=== PATIENT | female | born 1985 | race Hispanic/Latino ===

== ENCOUNTER 2021-05-22 10:06 | Emergency (ER) | payer OTHER ==
--- OUTSIDE RECORDS SUMMARY | 2021-05-22 10:19 | XMS REPORT | Continuity of Care Document ---
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 [place] (VITAMIN D 23 Medical ORAL) Branch ergocalcife Yes Take by [facility] rol, 4-30 mouth. ity of vitamin D2, 19:00: [place] (VITAMIN D 23 Medical ORAL) Branch ergocalcife Yes Take by Un [facility] rol, 4-30 mouth. ity of vitamin D2, 19:00: [place] (VITAMIN D 23 Medical ORAL) Branch ergocalcife Yes Take by Un [facility] rol, 4-30 mouth. ity of vitamin D2, 19:00: [place] (VITAMIN D 23 Medical ORAL) Branch ergocalcife Yes Take by Un al[facility] rol, 4-30 mouth. ity of vitamin D2, 14:00: [place] (VITAMIN D 23 Medical ORAL) Branch diazePAM Yes 2mg 2 mg, Univers (VALIUM) 4-30 Oral, ity of tablet 2 mg 04:00: QHSPRTang Sanders as 00 Starting [facility] Branch 11/02/20 at 2300, Until Discontinu ed, Routine, Anxiety cyclobenzap Yes 5mg 5 mg, Unive rs rine 4-30 Oral, ity of (FLEXERIL) 03:52: TIJanay PERRY tablet 5 mg 00 Starting [facility] Branch 11/02/20 at 2252, Until Discontinu ed, Routine, Muscle Spasms ciprofloxac 2020- No [id number] 750mg Take 1 Univers in HCl 750 4-30 05-15 tablet by ity of mg tablet 00:00: 04:59 mouth [place] 00 :00 every 12 Medical (twelve) Branch hours for 14 days. ciprofloxac 2020- No [id number] 750mg Take 1 Univers in HCl 750 4-30 05-15 tablet by ity of mg tablet 00:00: 04:59 mouth [place] 00 :00 every 12 Medical (twelve) Branch hours for 14 days. ciprofloxac 2020- No [id number] 750mg Take 1 Univers in HCl 750 4-30 05-15 tablet by ity of mg tablet 00:00: 04:59 mouth [place] 00 :00 every 12 Medical (twelve) Branch hours for 14 days. ciprofloxac 2020- No [id number] 750mg Take 1 Univers in HCl 750 4-30 05-15 tablet by ity of mg tablet 00:00: 04:59 mouth [place] 00 :00 every 12 Medical (twelve) Branch hours for 14 days. ciprofloxac 2020- No [id number] 750mg Take 1 Univers in HCl 750 4-30 05-15 tablet by ity of mg tablet 00:00: 04:59 mouth [place] 00 :00 every 12 Medical (twelve) Branch hours for 14 days. ciprofloxac 2020- No [id number] 750mg Take 1 Univers in HCl 750 4-30 05-15 tablet by ity of mg tablet 00:00: 04:59 mouth [place] 00 :00 every 12 Medical (twelve) Branch hours for 14 days. ciprofloxac 2020- No [id number] 750mg Take 1 Univers in HCl 750 4-30 05-15 tablet by ity of mg tablet 00:00: 04:59 mouth [place] 00 :00 every 12 Medical (twelve) Branch hours for 14 days. ciprofloxac 2020- No [id number] 750mg Take 1 Univers in HCl 750 4-30 05-15 tablet by ity of mg tablet 00:00: 04:59 mouth [place] 00 :00 every 12 Medical (twelve) Branch hours for 14 days. ciprofloxac 2020- No [id number] 750mg Take 1 Univers in HCl 750 4-30 05-15 tablet by ity of mg tablet 00:00: 04:59 mouth [place] 00 :00 every 12 Medical (twelve) Branch hours for 14 days. ciprofloxac 2020- No [id number] 750mg Take 1 Univers in HCl 750 4-30 05-15 tablet by ity of mg tablet 00:00: 04:59 mouth [place] 00 :00 every 12 Medical (twelve) Branch hours for 14 days. ciprofloxac 2020- No [id number] 750mg Take 1 Univers in HCl 750 4-30 05-15 tablet by ity of mg tablet 00:00: 04:59 mouth [place] 00 :00 every 12 Medical (twelve) Branch hours for 14 days. ciprofloxac 2020- No [id number] 750mg Take 1 Univers in HCl 750 4-30 05-15 tablet by ity of mg tablet 00:00: 04:59 mouth [place] 00 :00 every 12 Medical (twelve) Branch hours for 14 days. ciprofloxac 2020- No [id number] 750mg Take 1 Univers in HCl 750 4-30 05-15 tablet by ity of mg tablet 00:00: 04:59 mouth [place] 00 :00 every 12 Medical (twelve) Branch hours for 14 days. ciprofloxac 2020- No [id number] 750mg Take 1 Univers in HCl 750 4-30 05-15 tablet by ity of mg tablet 00:00: 04:59 mouth [place] 00 :00 every 12 Medical (twelve) Branch hours for 14 days. ciprofloxac 2020- No [id number] 750mg Take 1 Univers in HCl 750 4-30 05-15 tablet by ity of mg tablet 00:00: 04:59 mouth [place] 00 :00 every 12 Medical (twelve) Branch hours for 14 days. ciprofloxac 2020- No Soft tissue 750mg Take 1 Univers in HCl 750 4-30 05-15 infection tablet by ity of mg tablet 00:00: 04:59 mouth [place] 00 :00 every 12 Medical (twelve) Branch hours for 14 days. ciprofloxac 2020- No Soft tissue 750mg Take 1 Univers in HCl 750 11-03 05-15 infection tablet by ity of mg tablet 00:00: 04:59 mouth [place] 00 :00 every 12 Medical (twelve) Branch hours for 14 days. ciprofloxac 2020- No Soft tissue 750mg Take 1 Univers in HCl 750 30 05-15 infection tablet by ity of mg tablet 00:00: 04:59 mouth [place] 00 :00 every 12 Medical (twelve) Branch hours for 14 days. ciprofloxac 2020- No Soft tissue 750mg Take 1 Univers in HCl 750 11-03-15 infection tablet by ity of mg tablet 00:00: 04:59 mouth [place] 00 :00 every 12 Medical (twelve) Branch hours for 14 days. bupivacaine 2020- No PRN, Unive rs (preserv 11-02 Starting ity of free) 0.5% 17:41: 21:08 [facility] (SENSORCAIN 00 :29 11/02/20 at Al dical E MPF) 0.5 1241, Branch % (5 mg/mL) Intra-op 30 mL, bupivacaine liposome (PF) (EXPAREL (PF)) 1.3 % (13.3 mg/mL) 266 mg, NaCl 0.9% (NS) 40 mL ceFAZolin 2020- No PRN, Univers (ANCEF) 3 11-02 Starting ity o f g, 17:15: 21:08 [facility] gentamicin 00 :29 11/02/20 at Med ical 40 mg/mL 1215, Branch 240 mg in Intra-op NaCl 0.9% (NS) 3,000 mL OR irrigation sodium 2020- No PRN, Univers hypochlorit 11-02 Starting ity of e 0.5% 17:10: 21:08 [facility] (DAKINS) 00 :29 11/02/20 at Medic al solution 1210, Branch Until Melanie 11/02/20 at 1608, Routine, Intra-op sennosides Yes 8.6mg 8.6 mg, Uni vers (SENOKOT) 11-01 Oral, ity of tablet 8.6 14:00: DAILY, [place] mg 00 First dose Medical on [facility] 11/01/20 at 0900, Until Discontinu ed, Routine gabapentin 2020-0 Yes 600mg 600 mg, Uni vers (NEURONTIN) 11-01 Oral, TID, it y of tablet 600 01:00: First dose [place] mg 00 on [facility] 10/31/20 at Branch 2000, Until Discontinu ed, Routine acetaminoph 2020-0 Yes 1000mg 1,000 mg, Univers en 11-01 Oral, Q8H ity of (TYLENOL) 00:00: ABX, First [place] tablet 00 dose on [facility] 1,000 mg [facility] 10/31/20 at 1900, Until Discontinu ed, Routine celecoxib 0 Yes 200mg 200 mg, Univ ers (CELEBREX) 10-31 Oral, BID ity of capsule 200 23:00: MEALS, [place] mg 00 First dose Medical on [facility] 10/31/20 at 1800, Until Discontinu ed, Routine enoxaparin 0 Yes 30mg 30 mg, Unive rs (LOVENOX) 10-31 Subcutaneo ity of injection 22:00: us, Q24H, [place] as 30 mg 00 First dose Medical on [facility] 10/31/20 at 1700, Until Discontinu ed, Routine fluticasone 0 Yes fluticason Univers propionate 10-31 e ity of 50 20:29: propionate [place] mcg/actuati 38 50 Medical on nasal mcg/actuat Branc h spray ion nasal spray,susp ension ergocalcife Yes Take by Un alfonso nayely, 4 mouth. ity of vitamin D2, 20:29: [place] (VITAMIN D 38 Medical ORAL) [place] fluticasone 0 Yes fluticason Univers propionate - e ity of 50 20:29: propionate [place] mcg/actuati 38 50 Medical on nasal mcg/actuat Branc h spray ion nasal spray,susp ension ergocalcife Yes Take by Un alfon[facility] nayely 10-31 mouth. ity of vitamin D2, 20:29: [place] (VITAMIN D 38 Medical ORAL) [place] fluticasone 2021-0 Yes fluticason Univers propionate 4-27 e ity of 50 20:29: propionate [place] mcg/actuati 38 50 Medical on nasal mcg/actuat Branc h spray ion nasal spray,susp ension ergocalcife 0 Yes Take by Un al[facility] rol, 4-27 mouth. ity of vitamin D2, 20:29: [place] (VITAMIN D 38 Medical ORAL) Branch fluticasone 0 Yes fluticason Univers propionate 4- e ity of 50 20:29: propionate [place] mcg/actuati 38 50 Medical on nasal mcg/actuat Branc h spray ion nasal spray,susp ension ergocalcife 0 Yes Take by Un al[facility]so rol, 4-27 mouth. ity of vitamin D2, 20:29: [place] (VITAMIN D 38 Medical ORAL) Branch ciprofloxac 2020- No 500mg Take 1 [facility] in HCl 4-26 05-11 tablet by ity of (CIPRO) 500 00:00: 04:59 mouth [place] mg tablet 00 :00 every 12 Medica l (twelve) Branch hours for 14 days. ciprofloxac 2020- No 500mg Take 1 [facility] [place] in HCl 4-26 05-11 tablet by ity of (CIPRO) 500 00:00: 04:59 mouth [place] mg tablet 00 :00 every 12 Medica l (twelve) Branch hours for 14 days. ciprofloxac 2020- No 500mg Take 1 [facility] [place] in HCl 4-26 05-11 tablet by ity of (CIPRO) 500 00:00: 04:59 mouth [place] mg tablet 00 :00 every 12 Medica l (twelve) Branch hours for 14 days. ciprofloxac 2020- No 500mg Take 1 [facility] [place] in HCl 4-26 05-11 tablet by ity of (CIPRO) 500 00:00: 04:59 mouth [place] mg tablet 00 :00 every 12 Medica l (twelve) Branch hours for 14 days. ciprofloxac 2020- No 500mg Take 1 [place] in HCl 4-26 05-11 tablet by ity of (CIPRO) 500 00:00: 04:59 mouth [place] mg tablet 00 :00 every 12 Medica l (twelve) Branch hours for 14 days. ciprofloxac 2020- No 500mg Take 1 [facility] [place] in HCl 4-26 05-11 tablet by ity of (CIPRO) 500 00:00: 04:59 mouth [place] mg tablet 00 :00 every 12 Medica l (twelve) Branch hours for 14 days. ciprofloxac 2020- No 500mg Take 1 [place] in HCl 4-26 04-30 tablet by ity of (CIPRO) 500 00:00: 00:00 mouth [place] mg tablet 00 :00 every 12 Medica l (twelve) Branch hours for 14 days. acetaminoph 2020- No 1000mg 1,000 mg, Univers en 4-25 04-25 Oral, ity of (TYLENOL) 02:00: 01:31 ONCE, 1 [place] tablet 00 :00 dose, Sat Medical 1,000 mg 10/28/20 at Bran h 2100, Routine fluticasone 0 Yes fluticason Univers propionate 4-25 e ity of 50 00:46: propionate [place] mcg/actuati 18 50 Medical on nasal mcg/actuat Branc h spray ion nasal spray,susp ension ergocalcife 0 Yes Take by Un alfonso rol, 4-25 mouth. ity of vitamin D2, 00:46: [place] (VITAMIN D 18 Medical ORAL) Branch fluticasone 0 Yes fluticason Univers propionate 4-25 e ity of 50 00:46: propionate [place] mcg/actuati 18 50 Medical on nasal mcg/actuat Branc h spray ion nasal spray,susp ension ergocalcife 0 Yes Take by Un alfonso rol, 4-25 mouth. ity of vitamin D2, 00:46: [place] (VITAMIN D 18 Medical ORAL) Branch fluticasone 0 Yes fluticason Univers propionate 4-25 e ity of 50 00:46: propionate [place] mcg/actuati 18 50 Medical on nasal mcg/actuat Branc h spray ion nasal spray,susp ension ergocalcife 0 Yes Take by Un al[facility]so rol, 4-25 mouth. ity of vitamin D2, 00:46: [place] (VITAMIN D 18 Medical ORAL) Branch fluticasone Yes fluticason Univers propionate 4-25 e ity of 50 00:46: propionate [place] mcg/actuati 18 50 Medical on nasal mcg/actuat Branc h spray ion nasal spray,susp ension ergocalcife 0 Yes Take by Un alfonso rol, 4-25 mouth. ity of vitamin D2, 00:46: [place] (VITAMIN D 18 Medical ORAL) Branch fluticasone Yes fluticason Univers propionate 4-25 e ity of 50 00:46: propionate [place] mcg/actuati 18 50 Medical on nasal mcg/actuat Branc h spray ion nasal spray,susp ension ergocalcife Yes Take by Un al[facility] rol, 4-25 mouth. ity of vitamin D2, 00:46: [place] (VITAMIN D 18 Medical ORAL) Branch fluticasone Yes fluticason Univers propionate 4-25 e ity of 50 00:46: propionate [place] mcg/actuati 18 50 Medical on nasal mcg/actuat Branc h spray ion nasal spray,susp ension ergocalcife Yes Take by Un alfonso rol, 4-25 mouth. ity of vitamin D2, 00:46: [place] (VITAMIN D 18 Medical ORAL) Branch fluticasone Yes fluticason Univers propionate 4-25 e ity of 50 00:46: propionate [place] mcg/actuati 18 50 Medical on nasal mcg/actuat Branc h spray ion nasal spray,susp ension ergocalcife Yes Take by Un alfonso rol, 4-25 mouth. ity of vitamin D2, 00:46: [place] (VITAMIN D 18 Medical ORAL) Branch mupirocin 2020- No Univers (BACTROBAN 10-28 ity of OINT) 2 % 23:45: 23:57 [place] skin 00 :00 Medical ointment Branch vancomycin 2020- No 15mg/kg 1,500 mg Univers 1500 mg in 10-28 (rounded ity of NS 500 mL 23:30: 01:27 from [place] IV 00 :00 1,633.5 mg Medical Piggyback = 15 mg/kg Bran ch RTU 1,500 ?108.9 mg kg), IV Piggyback, ONCE, 1 dose, 10/28/20 at 1830
Re ason for Anti-Infec tive: Documented Infection< br>Documen lavonne Infection Site: Skin / Soft Tissue
Duration of Therapy: 7 days acetaminoph 2020- No 650mg 650 mg, U nivers en 10-2824 Oral, ity of (TYLENOL) 23:30: 22:36 ONCE, 1 [place] tablet 650 00 :00 dose, Sat Medi treva mg 10/28/20 at Branch 1830, MICHELLE ketorolac 2020- No 30mg 30 mg, Unive rs (TORADOL) 10-28 Intramuscu ity of injection 17:30: 16:29 lar, ONCE, [place] 30 mg 00 :00 1 dose, Medical Sat Branch 10/28/20 at 1230, MICHELLE
Fa culty member approving Restricted medication : JOI SAWYER NaCl 0.9% 2020- No 1000mL at 999 Uni vers (NS) bolus 10-28 mL/hr, ity of infusion 16:15: 19:36 1,000 mL, [place] as 1,000 mL 00 :00 IV Medical Infusion, Branch ONCE, 1 dose, 10/28/20 at 1115, MICHELLE ondansetron Yes [id number] 8mg Take 1 Univers 8 mg tablet 4- 70360 tablet by it y of 00:00: mouth [place] 00 every 8 Medical (eight) Branch hours as needed for Nausea and Vomiting (N/V). ondansetron Yes [id number] 8mg Take 1 Univers 8 mg tablet 4- 98323 tablet by it y of 00:00: mouth [place] 00 every 8 Medical (eight) Branch hours as needed for Nausea and Vomiting (N/V). ondansetron 2020-0 Yes [id number] 8mg Take 1 Univers 8 mg tablet 4-24 [id number] tablet by it y of 00:00: mouth [place] 00 every 8 Medical (eight) Branch hours as needed for Nausea and Vomiting (N/V). ondansetron Yes [id number] 8mg Take 1 Univers 8 mg tablet 4-24 [id number] tablet by it y of 00:00: mouth [place] 00 every 8 Medical (eight) Branch hours as needed for Nausea and Vomiting (N/V). ondansetron 2021-0 Yes [id number] 8mg Take 1 Univers 8 mg tablet 4-24 [id number] tablet by it y of 00:00: mouth [place] 00 every 8 Medical (eight) Branch hours as needed for Nausea and Vomiting (N/V). ondansetron 2021-0 Yes [id number] 8mg Take 1 Univers 8 mg tablet 4-24 [id number] tablet by it y of 00:00: mouth [place] 00 every 8 Medical (eight) Branch hours as needed for Nausea and Vomiting (N/V). ondansetron 1-0 Yes [id number] 8mg Take 1 Univers 8 mg tablet 4-24 [id number] tablet by it y of 00:00: mouth [place] 00 every 8 Medical (eight) Branch hours as needed for Nausea and Vomiting (N/V). ondansetron 1-0 Yes [id number] 8mg Take 1 Univers 8 mg tablet 4-24 20031 tablet by it y of 00:00: mouth [place] 00 every 8 Medical (eight) Branch hours as needed for Nausea and Vomiting (N/V). ondansetron 1-0 Yes [id number] 8mg Take 1 Univers 8 mg tablet 4-24 [id number] tablet by it y of 00:00: mouth [place] 00 every 8 Medical (eight) Branch hours as needed for Nausea and Vomiting (N/V). ondansetron 1-0 Yes [id number] 8mg Take 1 Univers 8 mg tablet 4-24 [id number] tablet by it y of 00:00: mouth [place] 00 every 8 Medical (eight) Branch hours as needed for Nausea and Vomiting (N/V). ondansetron 2021-0 Yes [id number] 8mg Take 1 Univers 8 mg tablet 4-24 24055 tablet by it y of 00:00: mouth [place] 00 every 8 Medical (eight) Branch hours as needed for Nausea and Vomiting (N/V). ondansetron 2021-0 Yes [id number] 8mg Take 1 Univers 8 mg tablet 4-24 [id number] tablet by it y of 00:00: mouth [place] 00 every 8 Medical (eight) Branch hours as needed for Nausea and Vomiting (N/V). ondansetron 2021-0 Yes [id number] 8mg Take 1 Univers 8 mg tablet 4-24 [id number] tablet by it y of 00:00: mouth [place] 00 every 8 Medical (eight) Branch hours as needed for Nausea and Vomiting (N/V). ondansetron 2021-0 Yes [id number] 8mg Take 1 Univers 8 mg tablet 4-24 30015 tablet by it y of 00:00: mouth [place] 00 every 8 Medical (eight) Branch hours as needed for Nausea and Vomiting (N/V). ondansetron 2021-0 Yes [id number] 8mg Take 1 Univers 8 mg tablet 4-24 [id number] tablet by it y of 00:00: mouth [place] 00 every 8 Medical (eight) Branch hours as needed for Nausea and Vomiting (N/V). ondansetron 1-0 Yes [id number] 8mg Take 1 Univers 8 mg tablet 4-24 [id number] tablet by it y of 00:00: mouth [place] 00 every 8 Medical (eight) Branch hours as needed for Nausea and Vomiting (N/V). ondansetron 1-0 Yes [id number] 8mg Take 1 Univers 8 mg tablet 4-24 06935 tablet by it y of 00:00: mouth [place] 00 every 8 Medical (eight) Branch hours as needed for Nausea and Vomiting (N/V). ondansetron 1-0 Yes [id number] 8mg Take 1 Univers 8 mg tablet 4-24 [id number] tablet by it y of 00:00: mouth [place] 00 every 8 Medical (eight) Branch hours as needed for Nausea and Vomiting (N/V). ondansetron 2021-0 Yes [id number] 8mg Take 1 Univers 8 mg tablet 4-24 [id number] tablet by it y of 00:00: mouth [place] 00 every 8 Medical (eight) Branch hours as needed for Nausea and Vomiting (N/V). ondansetron 2021-0 Yes [id number] 8mg Take 1 Univers 8 mg tablet 4-24 [id number] tablet by it y of 00:00: mouth [place] 00 every 8 Medical (eight) Branch hours as needed for Nausea and Vomiting (N/V). ondansetron 2021-0 Yes [id number] 8mg Take 1 Univers 8 mg tablet 4-24 24028 tablet by it y of 00:00: mouth [place] 00 every 8 Medical (eight) Branch hours as needed for Nausea and Vomiting (N/V). ondansetron 2021-0 Yes [id number] 8mg Take 1 Univers 8 mg tablet 4-24 80088 tablet by it y of 00:00: mouth [place] 00 every 8 Medical (eight) Branch hours as needed for Nausea and Vomiting (N/V). ondansetron 1-0 Yes [id number] 8mg Take 1 Univers 8 mg tablet 4-24 [id number] tablet by it y of 00:00: mouth [place] 00 every 8 Medical (eight) Branch hours as needed for Nausea and Vomiting (N/V). ondansetron 1-0 Yes [id number] 8mg Take 1 Univers 8 mg tablet 4-24 25715 tablet by it y of 00:00: mouth [place] 00 every 8 Medical (eight) Branch hours as needed for Nausea and Vomiting (N/V). ondansetron 2020-0 Yes [id number] 8mg Take 1 Univers 8 mg tablet 4-24 [id number] tablet by it y of 00:00: mouth [place] 00 every 8 Medical (eight) Branch hours as needed for Nausea and Vomiting (N/V). ondansetron 1-0 Yes [id number] 8mg Take 1 Univers 8 mg tablet 4-24 [id number] tablet by it y of 00:00: mouth [place] 00 every 8 Medical (eight) Branch hours as needed for Nausea and Vomiting (N/V). ondansetron 1-0 Yes [id number] 8mg Take 1 Univers 8 mg tablet 4-24 [id number] tablet by it y of 00:00: mouth [place] 00 every 8 Medical (eight) Branch hours as needed for Nausea and Vomiting (N/V). ondansetron 2021-0 Yes [id number] 8mg Take 1 Univers 8 mg tablet 4-24 21095 tablet by it y of 00:00: mouth [place] 00 every 8 Medical (eight) Branch hours as needed for Nausea and Vomiting (N/V). ondansetron 1-0 Yes [id number] 8mg Take 1 Univers 8 mg tablet 4-24 [id number] tablet by it y of 00:00: mouth [place] 00 every 8 Medical (eight) Branch hours as needed for Nausea and Vomiting (N/V). ondansetron 2021-0 Yes [id number] 8mg Take 1 Univers 8 mg tablet 4-24 [id number] tablet by it y of 00:00: mouth [place] 00 every 8 Medical (eight) Branch hours as needed for Nausea and Vomiting (N/V). ondansetron 2021-0 Yes [id number] 8mg Take 1 Univers 8 mg tablet 4-24 [id number] tablet by it y of 00:00: mouth [place] 00 every 8 Medical (eight) Branch hours as needed for Nausea and Vomiting (N/V). ondansetron 2021-0 Yes [id number] 8mg Take 1 Univers 8 mg tablet 4-24 [id number] tablet by it y of 00:00: mouth [place] 00 every 8 Medical (eight) Branch hours as needed for Nausea and Vomiting (N/V). ondansetron 1-0 Yes [id number] 8mg Take 1 Univers 8 mg tablet 4-24 [id number] tablet by it y of 00:00: mouth [place] 00 every 8 Medical (eight) Branch hours as needed for Nausea and Vomiting (N/V). ondansetron 2020-0 Yes [id number] 8mg Take 1 Univers 8 mg tablet 4-24 [id number] tablet by it y of 00:00: mouth [place] 00 every 8 Medical (eight) Branch hours as needed for Nausea and Vomiting (N/V). 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 ondansetron 2020- No [id number] 8mg Take 1 Univers 8 mg tablet -27 01- 70862 tablet by i ty of 00:00: 00:00 mouth [place] 00 :00 every 8 Medical (eight) Branch hours as needed for Nausea and Vomiting (N/V). ondansetron 2020- No [id number] 8mg Take 1 Univers 8 mg tablet -27 01- 87158 tablet by i ty of 00:00: 00:00 mouth [place] 00 :00 every 8 Medical (eight) Branch hours as needed for Nausea and Vomiting (N/V). gabapentin 2020- No [id number] 600mg Take 1 Univers 600 mg 4-27 11- 36915 tablet by ity of tablet 00:00: 04:59 mouth 3 [place] 00 :00 (three) Medical times Branch daily for 14 days. celecoxib 2020- No [id number] 200mg Take 1 Univers 200 mg 4-27 11- 53858 capsule by ity o f capsule 00:00: 04:59 mouth 2 [place] 00 :00 (two) Medical times Branch daily with meals for 14 days. gabapentin 2020- No [id number] 600mg Take 1 Univers 600 mg 4-24 - [id number] tablet by ity of tablet 00:00: 04:59 mouth 3 [place] 00 :00 (three) Medical times Branch daily for 14 days. celecoxib 2020- No [id number] 200mg Take 1 Univers 200 mg 4-24 - [id number] capsule by ity o f capsule 00:00: 04:59 mouth 2 [place] 00 :00 (two) Medical times Branch daily with meals for 14 days. gabapentin 2020- No [id number] 600mg Take 1 Univers 600 mg 4-24 - [id number] tablet by ity of tablet 00:00: 04:59 mouth 3 [place] 00 :00 (three) Medical times Branch daily for 14 days. celecoxib 2020- No [id number] 200mg Take 1 Univers 200 mg 4-24 05-09 [id number] capsule by ity o f capsule 00:00: 04:59 mouth 2 [place] 00 :00 (two) Medical times Branch daily with meals for 14 days. gabapentin 2020- No [id number] 600mg Take 1 Univers 600 mg 4-24 05-09 [id number] tablet by ity of tablet 00:00: 04:59 mouth 3 [place] 00 :00 (three) Medical times Branch daily for 14 days. celecoxib 2020- No [id number] 200mg Take 1 Univers 200 mg 4-24 - [id number] capsule by ity o f capsule 00:00: 04:59 mouth 2 [place] 00 :00 (two) Medical times Branch daily with meals for 14 days. gabapentin 2020- No [id number] 600mg Take 1 [facility] 600 mg 4-24 - 40431 tablet by ity of tablet 00:00: 04:59 mouth 3 [place] 00 :00 (three) Medical times Branch daily for 14 days. celecoxib 2020- No [id number] 200mg Take 1 [facility] 200 mg 4-24 - [id number] capsule by ity o f capsule 00:00: 04:59 mouth 2 [place] 00 :00 (two) Medical times Branch daily with meals for 14 days. gabapentin 2020- No [id number] 600mg Take 1 [facility] 600 mg 4-24 05- 54773 tablet by ity of tablet 00:00: 04:59 mouth 3 [place] 00 :00 (three) Medical times Branch daily for 14 days. celecoxib 2020- No [id number] 200mg Take 1 [facility] 200 mg 4-24 05-09 [id number] capsule by ity o f capsule 00:00: 04:59 mouth 2 [place] 00 :00 (two) Medical times Branch daily with meals for 14 days. gabapentin 2020- No [id number] 600mg Take 1 [facility] 600 mg 4-24 05-09 [id number] tablet by ity of tablet 00:00: 04:59 mouth 3 [place] 00 :00 (three) Medical times Branch daily for 14 days. celecoxib 2020- No [id number] 200mg Take 1 [facility] 200 mg 4-24 05-09 [id number] capsule by ity o f capsule 00:00: 04:59 mouth 2 [place] 00 :00 (two) Medical times Branch daily with meals for 14 days. gabapentin 2020- No [id number] 600mg Take 1 [facility] 600 mg 4-24 05-09 [id number] tablet by ity of tablet 00:00: 04:59 mouth 3 [place] 00 :00 (three) Medical times Branch daily for 14 days. celecoxib 2020- No [id number] 200mg Take 1 [facility] 200 mg 4-24 - [id number] capsule by ity o f capsule 00:00: 04:59 mouth 2 [place] 00 :00 (two) Medical times Branch daily with meals for 14 days. gabapentin 2020- No [id number] 600mg Take 1 [facility] 600 mg 4-24 - [id number] tablet by ity of tablet 00:00: 04:59 mouth 3 [place] 00 :00 (three) Medical times Branch daily for 14 days. celecoxib 2020- No [id number] 200mg Take 1 [facility] 200 mg 4-24 - [id number] capsule by ity o f capsule 00:00: 04:59 mouth 2 [place] 00 :00 (two) Medical times Branch daily with meals for 14 days. gabapentin 2020- No [id number] 600mg Take 1 [facility] 600 mg 4-24 - [id number] tablet by ity of tablet 00:00: 04:59 mouth 3 [place] 00 :00 (three) Medical times Branch daily for 14 days. celecoxib 2020- No [id number] 200mg Take 1 [facility] 200 mg 4-24 05-09 [id number] capsule by ity o f capsule 00:00: 04:59 mouth 2 [place] 00 :00 (two) Medical times Branch daily with meals for 14 days. gabapentin 2020- No [id number] 600mg Take 1 [facility] 600 mg 4-24 05-09 [id number] tablet by ity of tablet 00:00: 04:59 mouth 3 [place] 00 :00 (three) Medical times Branch daily for 14 days. celecoxib 2020- No [id number] 200mg Take 1 [facility] 200 mg 4-24 05-09 [id number] capsule by ity o f capsule 00:00: 04:59 mouth 2 [place] 00 :00 (two) Medical times Branch daily with meals for 14 days. gabapentin 2020- No [id number] 600mg Take 1 [facility] 600 mg 4-24 05- 55892 tablet by ity of tablet 00:00: 04:59 mouth 3 [place] 00 :00 (three) Medical times Branch daily for 14 days. celecoxib 2020- No [id number] 200mg Take 1 [facility] 200 mg 4-24 - [id number] capsule by ity o f capsule 00:00: 04:59 mouth 2 [place] 00 :00 (two) Medical times Branch daily with meals for 14 days. gabapentin 2020- No [id number] 600mg Take 1 [facility] 600 mg 4-24 - 52032 tablet by ity of tablet 00:00: 04:59 mouth 3 [place] 00 :00 (three) Medical times Branch daily for 14 days. celecoxib 2020- No [id number] 200mg Take 1 [facility] 200 mg 4-24 - [id number] capsule by ity o f capsule 00:00: 04:59 mouth 2 [place] 00 :00 (two) Medical times Branch daily with meals for 14 days. gabapentin 2020- No [id number] 600mg Take 1 [facility] 600 mg 4-24 - [id number] tablet by ity of tablet 00:00: 04:59 mouth 3 [place] 00 :00 (three) Medical times Branch daily for 14 days. celecoxib 2020- No [id number] 200mg Take 1 [facility] 200 mg 4-24 - [id number] capsule by ity o f capsule 00:00: 04:59 mouth 2 [place] 00 :00 (two) Medical times Branch daily with meals for 14 days. gabapentin 2020- No [id number] 600mg Take 1 [facility] 600 mg 4-24 05-09 [id number] tablet by ity of tablet 00:00: 04:59 mouth 3 [place] 00 :00 (three) Medical times Branch daily for 14 days. celecoxib 2020- No [id number] 200mg Take 1 [facility] 200 mg 4-24 - [id number] capsule by ity o f capsule 00:00: 04:59 mouth 2 [place] 00 :00 (two) Medical times Branch daily with meals for 14 days. gabapentin 2020- No [id number] 600mg Take 1 [facility] 600 mg 4-24 05-09 [id number] tablet by ity of tablet 00:00: 04:59 mouth 3 [place] 00 :00 (three) Medical times Branch daily for 14 days. celecoxib 2020- No [id number] 200mg Take 1 [facility] 200 mg 4-24 05-09 [id number] capsule by ity o f capsule 00:00: 04:59 mouth 2 [place] 00 :00 (two) Medical times Branch daily with meals for 14 days. gabapentin 2020- No [id number] 600mg Take 1 [facility] 600 mg 4-24 05-09 [id number] tablet by ity of tablet 00:00: 04:59 mouth 3 [place] 00 :00 (three) Medical times Branch daily for 14 days. celecoxib 2020- No [id number] 200mg Take 1 [facility] 200 mg 4-24 05-09 [id number] capsule by ity o f capsule 00:00: 04:59 mouth 2 [place] 00 :00 (two) Medical times Branch daily with meals for 14 days. gabapentin 2020- No [id number] 600mg Take 1 [facility] 600 mg 4-24 05-09 [id number] tablet by ity of tablet 00:00: 04:59 mouth 3 [place] 00 :00 (three) Medical times Branch daily for 14 days. celecoxib 2020- No [id number] 200mg Take 1 [facility] 200 mg 4-24 05-09 [id number] capsule by ity o f capsule 00:00: 04:59 mouth 2 [place] 00 :00 (two) Medical times Branch daily with meals for 14 days. gabapentin 2020- No [id number] 600mg Take 1 [facility] 600 mg 4-24 05-09 [id number] tablet by ity of tablet 00:00: 04:59 mouth 3 [place] 00 :00 (three) Medical times Branch daily for 14 days. celecoxib 2020- No [id number] 200mg Take 1 [facility] 200 mg 4-24 05-09 [id number] capsule by ity o f capsule 00:00: 04:59 mouth 2 [place] 00 :00 (two) Medical times Branch daily with meals for 14 days. gabapentin 2020- No Ductal 600mg Take 1 [facility] 600 mg 4-24 05-09 carcinoma tablet by it y of tablet 00:00: 04:59 [place] 3 [place] 00 :[place] (DCIS) of (three) Medical right times Branch breast daily for 14 days. 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 gabapentin 2020- No Ductal 600mg Take 1 [facility] 600 mg 4-24 05-09 carcinoma tablet by it y of tablet 00:00: 04:59 [place] mouth 3 [place] 00 :[place] (DCIS) of (three) Medical right times Branch breast daily for 14 days. 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 gabapentin 2020- No Ductal 600mg Take 1 [facility] 600 mg 4-24 05-09 carcinoma tablet by it y of tablet 00:00: 04:59 [place] mouth 3 [place] 00 :[place] (DCIS) of (three) Medical right times Branch breast daily for 14 days. 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 gabapentin 2020- No Ductal 600mg Take 1 [facility] 600 mg 4-24 05-09 carcinoma tablet by it y of tablet 00:00: 04:59 [place] mouth 3 [place] 00 :[place] (DCIS) of (three) Medical right times Branch breast daily for 14 days. 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 acetaminoph 2020- No [id number] 1000mg Take 2 [facility] en 500 mg -27 11- 37525 tablets by it y of tablet 00:00: 04:59 mouth [place] 00 :00 every 8 Medical (eight) Branch hours for 7 days. rifAMPin 2020- No [id number] 300mg Take 2 [facility] 150 mg 4-27 11- 01066 capsules ity of capsule 00:00: 04:59 by mouth [place] 00 :00 daily for Medical 7 days. Branch acetaminoph 2020- No [id number] 1000mg Take 2 [facility] en 500 mg 4-27 11- 24702 tablets by it y of tablet 00:00: 04:59 mouth [place] 00 :00 every 8 Medical (eight) Branch hours for 7 days. rifAMPin 2020- No [id number] 300mg Take 2 [facility] 150 mg 4-24 - [id number] capsules ity of capsule 00:00: 04:59 by mouth [place] 00 :00 daily for Medical 7 days. Branch acetaminoph 2020- No [id number] 1000mg Take 2 [facility] en 500 mg 4-27 11- 95948 tablets by it y of tablet 00:00: 04:59 mouth [place] 00 :00 every 8 Medical (eight) Branch hours for 7 days. rifAMPin 2020- No [id number] 300mg Take 2 [facility] 150 mg -24 - [id number] capsules ity of capsule 00:00: 04:59 by mouth [place] 00 :00 daily for Medical 7 days. Branch acetaminoph 2020- No [id number] 1000mg Take 2 [facility] en 500 mg 4-24 - 19724 tablets by it y of tablet 00:00: 04:59 mouth [place] 00 :00 every 8 Medical (eight) Branch hours for 7 days. rifAMPin 2020- No [id number] 300mg Take 2 [facility] 150 mg 4-27 11- 29376 capsules ity of capsule 00:00: 04:59 by mouth [place] 00 :00 daily for Medical 7 days. Branch acetaminoph 2020- No [id number] 1000mg Take 2 [facility] en 500 mg 10-28- 20962 tablets by it y of tablet 00:00: 04:59 mouth [place] 00 :00 every 8 Medical (eight) Branch hours for 7 days. rifAMPin 2020- No [id number] 300mg Take 2 [facility] 150 mg 10-28- 27247 capsules ity of capsule 00:00: 04:59 by mouth [place] 00 :00 daily for Medical 7 days. [place] acetaminoph 2020- No [id number] 1000mg Take 2 [facility] en 500 mg 10-28- 61793 tablets by it y of tablet 00:00: 04:59 mouth [place] 00 :00 every 8 Medical (eight) Branch hours for 7 days. rifAMPin 2020- No [id number] 300mg Take 2 [facility] 150 mg 10-28- [id number] capsules ity of capsule 00:00: 04:59 by mouth [place] 00 :00 daily for Medical 7 days. [place] acetaminoph 2020- No [id number] 1000mg Take 2 [facility] en 500 mg 10-28- 26917 tablets by it y of tablet 00:00: 04:59 mouth [place] 00 :00 every 8 Medical (eight) Branch hours for 7 days. rifAMPin 2020- No [id number] 300mg Take 2 [facility] 150 mg 10-28- 27840 capsules ity of capsule 00:00: 04:59 by mouth [place] 00 :00 daily for Medical 7 days. [place] acetaminoph 2020- No [id number] 1000mg Take 2 [facility] en 500 mg 10-28- 28987 tablets by it y of tablet 00:00: 04:59 mouth [place] 00 :00 every 8 Medical (eight) Branch hours for 7 days. rifAMPin 2020- No [id number] 300mg Take 2 [facility] 150 mg -27 11- 28093 capsules ity of capsule 00:00: 04:59 by mouth [place] 00 :00 daily for Medical 7 days. [place] acetaminoph 2020- No [id number] 1000mg Take 2 [facility] en 500 mg 10-28- 39585 tablets by it y of tablet 00:00: 04:59 mouth [place] 00 :00 every 8 Medical (eight) Branch hours for 7 days. rifAMPin 2020- No [id number] 300mg Take 2 [facility] 150 mg 10-28 [id number] capsules ity of capsule 00:00: 04:59 by mouth [place] 00 :00 daily for Medical 7 days. Branch acetaminoph 2020- No [id number] 1000mg Take 2 [facility] en 500 mg 10-28 [id number] tablets by it y of tablet 00:00: 04:59 mouth [place] 00 :00 every 8 Medical (eight) Branch hours for 7 days. acetaminoph 2020- No [id number] 1000mg Take 2 [facility] en 500 mg 10-28 41642 tablets by it y of tablet 00:00: 04:59 mouth [place] 00 :00 every 8 Medical (eight) Branch hours for 7 days. rifAMPin 2020- No [id number] 300mg Take 2 [facility] 150 mg 10-28 [id number] capsules ity of capsule 00:00: 00:00 by mouth [place] 00 :00 daily for Medical 7 days. Branch sulfamethox 2020- No [id number] 1{tbl} Take 1 [facility] azole-trime -10-30 03025 tablet by i ty of thoprim 00:00: 04:59 mouth 2 [place] (BACTRIM 00 :00 (two) Medical DS) 800-160 times Branch mg per daily for tablet 10 days. sulfamethox 2020- No [id number] 1{tbl} Take 1 [facility] azole-trime -10-30 10860 tablet by i ty of thoprim 00:00: 04:59 mouth 2 [place] (BACTRIM 00 :00 (two) Medical DS) 800-160 times Branch mg per daily for tablet 10 days. sulfamethox 2020-2020- No [id number] 1{tbl} Take 1 [facility] azole-trime 4-10-30 [id number] tablet by i ty of thoprim 00:00: 04:59 mouth 2 [place] (BACTRIM 00 :00 (two) Medical DS) 800-160 times Branch mg per daily for tablet 10 days. sulfamethox 2020- No [id number] 1{tbl} Take 1 [facility] azole-trime 4-15 - 27914 tablet by i ty of thoprim 00:00: 04:59 mouth 2 [place] (BACTRIM 00 :00 (two) Medical DS) 800-160 times Branch mg per daily for tablet 10 days. sulfamethox 2020- No [id number] 1{tbl} Take 1 [facility] azole-trime 4-15 - 24015 tablet by i ty of thoprim 00:00: 04:59 mouth 2 [place] (BACTRIM 00 :00 (two) Medical DS) 800-160 times Branch mg per daily for tablet 10 days. sulfamethox 2020- No [id number] 1{tbl} Take 1 [facility] azole-trime 4-10-30 [id number] tablet by i ty of thoprim 00:00: 04:59 mouth 2 [place] (BACTRIM 00 :00 (two) Medical DS) 800-160 times Branch mg per daily for tablet 10 days. sulfamethox 2020- No [id number] 1{tbl} Take 1 [facility] azole-trime 4-10-30 27735 tablet by i ty of thoprim 00:00: 04:59 mouth 2 [place] (BACTRIM 00 :00 (two) Medical DS) 800-160 times Branch mg per daily for tablet 10 days. sulfamethox 2020- No [id number] 1{tbl} Take 1 [facility] azole-trime 4-15 10-30 [id number] tablet by i ty of thoprim 00:00: 04:59 mouth 2 [place] (BACTRIM 00 :00 (two) Medical DS) 800-160 times Branch mg per daily for tablet 10 days. sulfamethox 2020- No [id number] 1{tbl} Take 1 [facility] azole-trime 4-15 - 27371 tablet by i ty of thoprim 00:00: 04:59 mouth 2 [place] (BACTRIM 00 :00 (two) Medical DS) 800-160 times Branch mg per daily for tablet 10 days. sulfamethox 2020- No [id number] 1{tbl} Take 1 [facility] azole-trime 10-19 [id number] tablet by i ty of thoprim 00:00: 04:59 mouth 2 [place] (BACTRIM 00 :00 (two) Medical DS) 800-160 times Branch mg per daily for tablet 10 days. sulfamethox 2020- No [id number] 1{tbl} Take 1 [facility] azole-trime -10-30 [id number] tablet by i ty of thoprim 00:00: 04:59 mouth 2 [place] (BACTRIM 00 :00 (two) Medical DS) 800-160 times Branch mg per daily for tablet 10 days. sulfamethox 2020- No [id number] 1{tbl} Take 1 [facility] azole-trime -10-30 [id number] tablet by i ty of thoprim 00:00: 04:59 mouth 2 [place] (BACTRIM 00 :00 (two) Medical DS) 800-160 times Branch mg per daily for tablet 10 days. sulfamethox 2020- No [id number] 1{tbl} Take 1 [facility] azole-trime -10-30 [id number] tablet by i ty of thoprim 00:00: 04:59 mouth 2 [place] (BACTRIM 00 :00 (two) Medical DS) 800-160 times Branch mg per daily for tablet 10 days. sulfamethox 2020- No [id number] 1{tbl} Take 1 [facility] azole-trime 10-19 [id number] tablet by i ty of thoprim 00:00: 04:59 mouth 2 [place] (BACTRIM 00 :00 (two) Medical DS) 800-160 times Branch mg per daily for tablet 10 days. fluticasone Yes fluticason [facility] propionate 10-06 e ity of 50 20:07: propionate [place] mcg/actuati 11 50 Medical on nasal mcg/actuat Branc h spray ion nasal spray,susp ension ergocalcife Yes Take by [facility] adler, 10-06 mouth. ity of vitamin D2, 20:07: [place] (VITAMIN D 11 Medical ORAL) Branch fluticasone Yes fluticason [facility] propionate 10-06 e ity of 50 20:07: propionate [place] mcg/actuati 11 50 Medical on nasal mcg/actuat Branc h spray ion nasal spray,susp ension ergocalcife 0 Yes Take by [facility] rol, 4- mouth. ity of vitamin D2, 20:07: [place] (VITAMIN D 11 Medical ORAL) Branch fluticasone 0 Yes fluticason [facility] propionate -02 e ity of 50 20:07: propionate [place] mcg/actuati 11 50 Medical on nasal mcg/actuat Branc h spray ion nasal spray,susp ension ergocalcife 0 Yes Take by [facility] rol, 4- mouth. ity of vitamin D2, 20:07: [place] (VITAMIN D 11 Medical ORAL) Branch fluticasone Yes fluticason [facility] propionate - e ity of 50 20:07: propionate [place] mcg/actuati 11 50 Medical on nasal mcg/actuat Branc h spray ion nasal spray,susp ension ergocalcife Yes Take by [facility] nayely, 4- mouth. ity of vitamin D2, 20:07: [place] (VITAMIN D 11 Medical ORAL) Branch fluticasone Yes fluticason [facility] propionate - e ity of 50 20:07: propionate [place] mcg/actuati 11 50 Medical on nasal mcg/actuat Branc h spray ion nasal spray,susp ension ergocalcife Yes Take by [facility] nayely, - mouth. ity of vitamin D2, 20:07: [place] (VITAMIN D 11 Medical ORAL) Branch fluticasone 0 Yes fluticason [facility] propionate - e ity of 50 20:07: propionate [place] mcg/actuati 11 50 Medical on nasal mcg/actuat Branc h spray ion nasal spray,susp ension ergocalcife 0 Yes Take by [facility] rol, 4- mouth. ity of vitamin D2, 20:07: [place] (VITAMIN D 11 Medical ORAL) Branch fluticasone 0 Yes fluticason [facility] propionate -02 e ity of 50 20:07: propionate [place] mcg/actuati 11 50 Medical on nasal mcg/actuat Branc h spray ion nasal spray,susp ension ergocalcife 0 Yes Take by [facility] rol, 4-02 mouth. ity of vitamin D2, 20:07: [place] (VITAMIN D 11 Medical ORAL) Branch fluticasone 0 Yes fluticason [facility] propionate - e ity of 50 20:07: propionate [place] mcg/actuati 11 50 Medical on nasal mcg/actuat Branc h spray ion nasal spray,susp ension ergocalcife Yes Take by [facility] rol, 4- mouth. ity of vitamin D2, 20:07: [place] (VITAMIN D 11 Medical ORAL) Branch fluticasone 0 Yes fluticason [facility] propionate - e ity of 50 20:07: propionate [place] mcg/actuati 11 50 Medical on nasal mcg/actuat Branc h spray ion nasal spray,susp ension ergocalcife 0 Yes Take by [facility] rol, 4- mouth. ity of vitamin D2, 20:07: [place] (VITAMIN D 11 Medical ORAL) Branch fluticasone 0 Yes fluticason [facility] propionate - e ity of 50 20:07: propionate [place] mcg/actuati 11 50 Medical on nasal mcg/actuat Branc h spray ion nasal spray,susp ension ergocalcife 0 Yes Take by [facility] rol, 4- mouth. ity of vitamin D2, 20:07: [place] (VITAMIN D 11 Medical ORAL) Branch fluticasone 0 Yes fluticason [facility] propionate - e ity of 50 20:07: propionate [place] mcg/actuati 11 50 Medical on nasal mcg/actuat Branc h spray ion nasal spray,susp ension ergocalcife 0 Yes Take by [facility] rol, 4- mouth. ity of vitamin D2, 20:07: [place] (VITAMIN D 11 Medical ORAL) Branch fluticasone 0 Yes fluticason [facility] propionate - e ity of 50 20:07: propionate [place] mcg/actuati 11 50 Medical on nasal mcg/actuat Branc h spray ion nasal spray,susp ension ergocalcife 0 Yes Take by [facility] rol, 4- mouth. ity of vitamin D2, 20:07: [place] (VITAMIN D 11 Medical ORAL) Branch fluticasone 0 Yes fluticason [facility] propionate - e ity of 50 20:07: propionate [place] mcg/actuati 11 50 Medical on nasal mcg/actuat Branc h spray ion nasal spray,susp ension ergocalcife 0 Yes Take by [facility] rol, 4- mouth. ity of vitamin D2, 20:07: [place] (VITAMIN D 11 Medical ORAL) [place] fluticasone 0 Yes fluticason [facility] propionate - e ity of 50 20:07: propionate [place] mcg/actuati 11 50 Medical on nasal mcg/actuat Branc h spray ion nasal spray,susp ension ergocalcife 0 Yes Take by [facility] rol, 4- mouth. ity of vitamin D2, 20:07: [place] (VITAMIN D 11 Medical ORAL) [place] fluticasone Yes fluticason [facility] propionate 10-06 e ity of 50 20:07: propionate [place] mcg/actuati 11 50 Medical on nasal mcg/actuat Branc h spray ion nasal spray,susp ension ergocalcife 0 Yes Take by [facility] rol, - mouth. ity of vitamin D2, 20:07: [place] (VITAMIN D 11 Medical ORAL) [place] acetaminoph Yes 1000mg 1,000 mg, [facility] en 10-06 Oral, Q8H, ity of (TYLENOL) 03:00: First dose [place] tablet 00 on [facility] 1,000 mg 10/05/20 at Branch 2200, Until Discontinu ed, Routine gabapentin 0 Yes 600mg 600 mg, Uni vers (NEURONTIN) 10-06 Oral, TID, it y of tablet 600 01:00: First dose [place] mg 00 on [facility] 10/05/20 at Branch 1999, Until Discontinu ed, Routine docusate 0 Yes 100mg 100 mg, Unive rs (COLACE) 10-06 Oral, BID, ity o f capsule 100 01:00: First dose [place] mg 00 on [facility] 10/05/20 at [place] 1999, Until Discontinu ed, Routine HYDROmorpho 2020-0 2021- No .2mg 0.2 mg, [facility] ne 10-06 04-02 Slow IV ity of (DILAUDID) 00:32: 01:56 Push, [place] injection 20 :36 Q5MIN PRN, Medi treva 0.2 mg 10 doses, Branch Starting [place] 10/05/20 at 1932, Until [place] 10/05/20 at 2055, Routine, Pain (scale 7-10), PACU
Us e approved by (Faculty): PACU USE -ANESTHESI A SERVICE-HY DROMORPHON E INJECTIONS acetaminoph 2021-0 Yes 1000mg Take 2 [facility] [place] en 500 mg 4-02 tablets by ity of tablet 00:00: mouth 00 every 8 Medical (eight) Branch hours. celecoxib 2021-0 Yes 200mg Take 1 [facility] rs 200 mg 4-02 capsule by ity of capsule 00:00: mouth (two) Medical times Branch daily with meals. gabapentin 2021-0 Yes 600mg Take 1 [facility] ers 600 mg 4-02 tablet by ity of tablet 00:00: mouth 3 (three) Medical times Branch daily. acetaminoph 2021-0 Yes 1000mg Take 2 [facility] [place] 500 mg 4-02 tablets by ity of tablet 00:00: mouth every 8 Medical (eight) Branch hours. celecoxib 2021-0 Yes 200mg Take 1 [facility] rs 200 mg 4-02 capsule by ity of capsule 00:00: mouth (two) Medical times Branch daily with meals. gabapentin 2021-0 Yes 600mg Take 1 [facility] ers 600 mg 4-02 tablet by ity of tablet 00:00: mouth 3 (three) Medical times Branch daily. acetaminoph 2021-0 Yes 1000mg Take 2 [facility] [place] 500 mg 4-02 tablets by ity of tablet 00:00: mouth every 8 Medical (eight) Branch hours. celecoxib 2021-0 Yes 200mg Take 1 [facility] rs 200 mg 4-02 capsule by ity of capsule 00:00: mouth (two) Medical times Branch daily with meals. gabapentin 2021-0 Yes 600mg Take 1 [facility] ers 600 mg 4-02 tablet by ity of tablet 00:00: mouth (three) Medical times Branch daily. acetaminoph 2021-0 Yes 1000mg Take 2 [facility] [place] 500 mg 4-02 tablets by ity of tablet 00:00: mouth every 8 Medical (eight) Branch hours. celecoxib 2021-0 Yes 200mg Take 1 [facility] rs 200 mg 4-02 capsule by ity of capsule 00:00: mouth (two) Medical times Branch daily with meals. gabapentin 2021-0 Yes 600mg Take 1 [facility] ers 600 mg 4-02 tablet by ity of tablet 00:00: mouth 3 00 (three) Medical times Branch daily. acetaminoph 2021-0 Yes 1000mg Take 2 [facility] [place] 500 mg 4-02 tablets by ity of tablet 00:00: mouth 00 every 8 Medical (eight) Branch hours. celecoxib 2021-0 Yes 200mg Take 1 [facility] rs 200 mg 4-02 capsule by ity of capsule 00:00: mouth (two) Medical times Branch daily with meals. gabapentin 2021-0 Yes 600mg Take 1 Univ ers 600 mg 4-02 tablet by ity of tablet 00:00: mouth 3 (three) Medical times Branch daily. acetaminoph 2021-0 Yes 1000mg Take 2 [facility] [place] 500 mg 4-02 tablets by ity of tablet 00:00: mouth every 8 Medical (eight) Branch hours. celecoxib 2021-0 Yes 200mg Take 1 Un[facility] rs 200 mg 4-02 capsule by ity of capsule 00:00: mouth (two) Medical times Branch daily with meals. gabapentin 2021-0 Yes 600mg Take 1 [facility] ers 600 mg 4-02 tablet by ity of tablet 00:00: mouth 3 (three) Medical times Branch daily. acetaminoph 2021-0 Yes 1000mg Take 2 [facility] [place] 500 mg 4-02 tablets by ity of tablet 00:00: mouth 00 every 8 Medical (eight) Branch hours. celecoxib 2021-0 Yes 200mg Take 1 [facility] rs 200 mg 4-02 capsule by ity of capsule 00:00: mouth (two) Medical times Branch daily with meals. gabapentin 2021-0 Yes 600mg Take 1 Univ ers 600 mg 4-02 tablet by ity of tablet 00:00: mouth 3 (three) Medical times Branch daily. acetaminoph 2021-0 Yes 1000mg Take 2 [facility] [place] 500 mg 4-02 tablets by ity of tablet 00:00: mouth 00 every 8 Medical (eight) Branch hours. celecoxib 2021-0 Yes 200mg Take 1 Un[facility] rs 200 mg 4-02 capsule by ity of capsule 00:00: mouth (two) Medical times Branch daily with meals. gabapentin 2021-0 Yes 600mg Take 1 Univ ers 600 mg 4-02 tablet by ity of tablet 00:00: mouth 3 (three) Medical times Branch daily. acetaminoph 2021-0 Yes 1000mg Take 2 [facility] [place] 500 mg 4-02 tablets by ity of tablet 00:00: mouth 00 every 8 Medical (eight) Branch hours. celecoxib 2021-0 Yes 200mg Take 1 [facility] rs 200 mg 4-02 capsule by ity of capsule 00:00: mouth (two) Medical times Branch daily with meals. gabapentin 2021-0 Yes 600mg Take 1 Univ ers 600 mg 4-02 tablet by ity of tablet 00:00: mouth 3 (three) Medical times Branch daily. acetaminoph 2021-0 Yes 1000mg Take 2 [facility] [place] 500 mg 4-02 tablets by ity of tablet 00:00: mouth every 8 Medical (eight) Branch hours. celecoxib 2021-0 Yes 200mg Take 1 [facility] rs 200 mg 4-02 capsule by ity of capsule 00:00: mouth (two) Medical times Branch daily with meals. gabapentin 2021-0 Yes 600mg Take 1 Univ ers 600 mg 4-02 tablet by ity of tablet 00:00: mouth 3 (three) Medical times Branch daily. acetaminoph 2021-0 Yes 1000mg Take 2 [facility] [place] 500 mg 4-02 tablets by ity of tablet 00:00: mouth every 8 Medical (eight) Branch hours. celecoxib 2021-0 Yes 200mg Take 1 Un[facility] rs 200 mg 4-02 capsule by ity of capsule 00:00: mouth (two) Medical times Branch daily with meals. gabapentin 2021-0 Yes 600mg Take 1 Univ ers 600 mg 4-02 tablet by ity of tablet 00:00: mouth 3 (three) Medical times Branch daily. acetaminoph 2021-0 Yes 1000mg Take 2 [facility] [place] 500 mg 4-02 tablets by ity of tablet 00:00: mouth 00 every 8 Medical (eight) Branch hours. celecoxib 2021-0 Yes 200mg Take 1 Un[facility] rs 200 mg 4-02 capsule by ity of capsule 00:00: mouth (two) Medical times Branch daily with meals. gabapentin 2021-0 Yes 600mg Take 1 Univ ers 600 mg 4-02 tablet by ity of tablet 00:00: mouth 3 (three) Medical times Branch daily. acetaminoph 2021-0 Yes 1000mg Take 2 [facility] [place] en 500 mg 4-02 tablets by ity of tablet 00:00: mouth every 8 Medical (eight) Branch hours. celecoxib 2021-0 Yes 200mg Take 1 Un[facility] rs 200 mg 4-02 capsule by ity of capsule 00:00: mouth (two) Medical times Branch daily with meals. gabapentin 2021-0 Yes 600mg Take 1 Univ ers 600 mg 4-02 tablet by ity of tablet 00:00: mouth (three) Medical times Branch daily. acetaminoph 2021-0 Yes 1000mg Take 2 [facility] [place] en 500 mg 4-02 tablets by ity of tablet 00:00: mouth every 8 Medical (eight) Branch hours. celecoxib 2021-0 Yes 200mg Take 1 Un[facility] rs 200 mg 4-02 capsule by ity of capsule 00:00: mouth (two) Medical times Branch daily with meals. gabapentin 2021-0 Yes 600mg Take 1 Univ ers 600 mg 4-02 tablet by ity of tablet 00:00: mouth (three) Medical times Branch daily. acetaminoph 2021-0 Yes 1000mg Take 2 [facility] en 500 mg 4-02 tablets by ity of tablet 00:00: mouth every 8 Medical (eight) Branch hours. celecoxib 2021-0 Yes 200mg Take 1 [facility] rs 200 mg 4-02 capsule by ity of capsule 00:00: mouth (two) Medical times Branch daily with meals. gabapentin 2021-0 Yes 600mg Take 1 [facility] ers 600 mg 4-02 tablet by ity of tablet 00:00: mouth (three) Medical times Branch daily. acetaminoph 2021-0 2021- No 1000mg Take 2 U nivers en 500 mg 4-02 04-24 tablets by ity of tablet 00:00: 00:00 mouth [place] 00 :00 every 8 Medical (eight) Branch hours. celecoxib 2021-0 2021- No 200mg Take 1 Univ ers 200 mg 10-06 capsule by ity of capsule 00:00: 00:00 mouth 2 [place] 00 :00 (two) Medical times Branch daily with meals. gabapentin 2020-2020- No 600mg Take 1 Uni vers 600 mg 10-0624 tablet by ity of tablet 00:00: 00:00 mouth 3 [place] 00 :00 (three) Medical times Branch daily. acetaminoph 2020-2020- No 1000mg Take 2 U nivers en 500 mg 10-0624 tablets by ity of tablet 00:00: 00:00 mouth [place] 00 :00 every 8 Medical (eight) Branch hours. celecoxib 2020-2020- No 200mg Take 1 Univ ers 200 mg 10-06 capsule by ity of capsule 00:00: 00:00 mouth 2 [place] 00 :00 (two) Medical times Branch daily with meals. gabapentin 2020-2020- No 600mg Take 1 Uni vers 600 mg 10-06 tablet by ity of tablet 00:00: 00:00 mouth 3 [place] 00 :00 (three) Medical times Branch daily. celecoxib Yes 200mg 200 mg, Univ ers (CELEBREX) 10-05 Oral, BID ity of capsule 200 22:00: [place], [place] mg 00 First dose Medical on Melanie Branch 10/05/20 at 1700, Until Discontinu ed, Routine labetaloL Yes 10mg 10 mg, Univer s (NORMODYNE) 10-05 Slow IV ity o f injection 21:51: Push, [place] 10 mg 15 Q5MIN PRN, Medical 5 doses, Branch Starting Melanie 10/05/20 at 1651, Until Discontinu ed, Routine, SBP >160 or DBP > 100 NaCl 0.9% 2020- No PRN, Univers (NS) 10-05 Starting ity of injection 21:51: 01:56 [place] 10/05/20 [place] 00 :36 at 1651, Medical Until Melanie Branch 10/05/20 at 2056, Routine, Intra-op ondansetron Yes 4mg 4 mg, Slow Univers (ZOFRAN 10-05 IV Push, ity of (PF)) 21:11: Q6HPRN, [place] injection 4 Starting Medi treva mg Melanie 10/05/20 Branch at 1611, Until Discontinu ed, Routine, Nausea and Vomiting (N/V) albuterol Yes 2.5mg 2.5 mg, Univ ers (PROVENTIL) 10-05 Inhalation it y of 2.5 mg /3 21:10: , Q6HPRN, [place] mL (0.083 26 Starting Medica l %) Melanie 10/05/20 Branch nebulizer at 1610, solution Until 2.5 mg Discontinu ed, Routine, Shortness of Breath, Wheezing bupivacaine 2020- No PRN, Unive rs (preserv 10-05 Starting ity of free) 0.5% 20:07: 01:56 [facility] 10/05/20 [place] (SENSORCAIN 00 :36 at 1507, Medi treva E MPF) 0.5 Intra-op Branc h % (5 mg/mL) 30 mL, bupivacaine liposome (PF) (EXPAREL (PF)) 1.3 % (13.3 mg/mL) 20 mg, NaCl 0.9% (NS) 50 mL ceFAZolin 2020- No PRN, Univers (ANCEF) 3 10-05 Starting ity o f g, 19:05: 01:56 [facility] 10/05/20 [place] gentamicin 00 :36 at 1405, Medic al 40 mg/mL Intra-op Branch 240 mg in NaCl 0.9% (NS) 3,000 mL OR irrigation isosulfan 2020- No PRN, Univers blue 10-05 Starting ity of (LYMPHAZURI 18:50: 01:56 [facility] 10/05/20 [place] N) 1 % 00 :36 at 1350, Medical injection Until Melanie Branc h 10/05/20 at 2056, Routine, Intra-op [place] 99m-yumiko. 2020- No [id number] 1mCi 1 Univers sulfur 10-05 millicurie ity o f colloid 18:30: 18:46 , [place] injection 1 00 :00 Intraderma Me dical millicurie l, ONCE, 1 Bra nch dose, Melanie 10/05/20 at 1330, Routine [place] 99m-yumiko. 2020- No [id number] 1mCi 1 Univers sulfur 10-05 27500 millicurie ity o f colloid 18:30: 18:45 , [place] injection 1 00 :00 Intraderma Me dical millicurie l, ONCE, 1 Bra nch dose, Melanie 10/05/20 at 1330, Routine sodium 2020- No 30mL 30 mL, Univers citrate-cit 10-05 Oral, ONCE i ty of adonis acid 17:49: 17:59 NOW, 1 [place] (BICITRA) 00 :00 dose, Melanie Medic al 500-334 10/05/20 at Branch mg/5 mL 1300, solution 30 Routine mL famotidine No 10mg 10 mg, Univ ers (PEPCID 10-05 Slow IV ity of (PF)) 17:49: 18:00 Push, ONCE [place] injection 00 :00 NOW, 1 Medical 10 mg dose, Melanie Branch 10/05/20 at 1300, Routine scopolamine No 1.5mg 1.5 mg, U nivers transdermal 10-05 Topical, ity of (TRANSDERM- 14:45: 15:24 Administer [place] SCOP) patch 00 :00 over 72 Medic al 1.5 mg Hours, Branch ONCE, 1 dose, Melanie 10/05/20 at 0945, Routine, DSU Pre-op gabapentin No 600mg 600 mg, Un alfonso (NEURONTIN) 10-05 Oral, ity of tablet 600 14:45: 15:24 ONCE, 1 [place] mg 00 :00 dose, Melanie Medical 10/05/20 at Branch 0945, Routine, DSU Pre-op lactated 2020- No 1000mL at 42 Unive rs ringers IV 10-05 mL/hr, ity of infusion 14:45: 16:21 1,000 mL, [place] 1,000 mL 00 :00 IV Medical Infusion, Branch ONCE, 1 dose, Melanie 10/05/20 at 0945, Routine, DSU Pre-op fluticasone 2021-0 Yes fluticason Univers propionate - e ity of 50 14:42: propionate [place] mcg/actuati 20 50 Medical on nasal mcg/actuat Branc h spray ion nasal spray,susp ension ergocalcife 0 Yes Take by Un alfonso rol, 10-05 mouth. ity of vitamin D2, 14:42: [place] (VITAMIN D 20 Medical ORAL) Branch fluticasone 0 Yes fluticason Univers propionate - e ity of 50 14:42: propionate [place] mcg/actuati 20 50 Medical on nasal mcg/actuat Branc h spray ion nasal spray,susp ension ergocalcife 0 Yes Take by Un alfonso rol, 10-05 mouth. ity of vitamin D2, 14:42: [place] (VITAMIN D 20 Medical ORAL) Branch fluticasone 0 Yes fluticason [facility] propionate - e ity of 50 17:29: propionate [place] mcg/actuati 26 50 Medical on nasal mcg/actuat Branc h spray ion nasal spray,susp ension ergocalcife Yes Take by Un alfonso rol, 09-04 mouth. ity of vitamin D2, 17:29: [place] (VITAMIN D 26 Medical ORAL) Branch fluticasone Yes fluticason Univers propionate - e ity of 50 17:29: propionate [place] mcg/actuati 26 50 Medical on nasal mcg/actuat Branc h spray ion nasal spray,susp ension ergocalcife 0 Yes Take by Un alfonso rol, 09-04 mouth. ity of vitamin D2, 17:29: [place] (VITAMIN D 26 Medical ORAL) Branch fluticasone 0 Yes fluticason Univers propionate - e ity of 50 17:29: propionate [place] mcg/actuati 26 50 Medical on nasal mcg/actuat Branc h spray ion nasal spray,susp ension ergocalcife 0 Yes Take by Un alfonso rol, 3 mouth. ity of vitamin D2, 17:29: [place] (VITAMIN D 26 Medical ORAL) Branch fluticasone 0 Yes fluticason Univers propionate - e ity of 50 17:29: propionate [place] mcg/actuati 26 50 Medical on nasal mcg/actuat Branc h spray ion nasal spray,susp ension ergocalcife Yes Take by Un alfonso rol, 3 mouth. ity of vitamin D2, 17:29: [place] (VITAMIN D 26 Medical ORAL) Branch fluticasone Yes fluticason Univers propionate - e ity of 50 17:29: propionate [place] mcg/actuati 26 50 Medical on nasal mcg/actuat Branc h spray ion nasal spray,susp ension ergocalcife Yes Take by Un alfonso rol, 3 mouth. ity of vitamin D2, 17:29: [place] (VITAMIN D 26 Medical ORAL) Branch fluticasone Yes fluticason Univers propionate - e ity of 50 17:29: propionate [place] mcg/actuati 26 50 Medical on nasal mcg/actuat Branc h spray ion nasal spray,susp ension ergocalcife Yes Take by Un alfonso rol, 3 mouth. ity of vitamin D2, 17:29: [place] (VITAMIN D 26 Medical ORAL) Branch fluticasone Yes fluticason Univers propionate - e ity of 50 17:29: propionate [place] mcg/actuati 26 50 Medical on nasal mcg/actuat Branc h spray ion nasal spray,susp ension ergocalcife Yes Take by Un alfonso nayely, 3 mouth. ity of vitamin D2, 17:29: [place] (VITAMIN D 26 Medical ORAL) Branch acetaminoph 2020- No [id number] 1000mg Take 2 Univers en (TYLENOL 08-30 [id number] tablets by ity of EXTRA 00:00: 05:59 mouth [place] STRENGTH) 00 :00 every 8 Medical 500 mg (eight) Branch tablet hours for 14 days. gabapentin 2020- No [id number] 600mg Take 1 [facility] 600 mg 08-30 tablet by ity of tablet 00:00: 05:59 mouth [place] 00 :00 every 8 Medical (eight) Branch hours for 14 days. celecoxib 2020- No [id number] 200mg Take 1 [facility] (CELEBREX) 08-30 capsule by i ty of 200 mg 00:00: 05:59 mouth 2 [place] capsule 00 :00 (two) Medical times Branch daily with meals for 14 days. amoxicillin 2020- No [id number] 1{tbl} Take 1 Univers -clavulanat 08-30 [id number] tablet by i ty of e 00:00: 05:59 mouth 2 [place] (AUGMENTIN) 00 :00 (two) Medical 875-125 mg times Branch per tablet daily for 14 days. acetaminoph 2020- No [id number] 1000mg Take 2 Univers en (TYLENOL 08-30 [id number] tablets by ity of EXTRA 00:00: 05:59 mouth [place] STRENGTH) 00 :00 every 8 Medical 500 mg (eight) Branch tablet hours for 14 days. gabapentin 2020- No [id number] 600mg Take 1 [facility] 600 mg 08-30 32113 tablet by ity of tablet 00:00: 05:59 mouth [place] 00 :00 every 8 Medical (eight) Branch hours for 14 days. celecoxib 2020- No [id number] 200mg Take 1 Univers (CELEBREX) 08-30 53597 capsule by i ty of 200 mg 00:00: 05:59 mouth 2 [place] capsule 00 :00 (two) Medical times Branch daily with meals for 14 days. amoxicillin 2020- No [id number] 1{tbl} Take 1 Univers -clavulanat 08-30 [id number] tablet by i ty of e 00:00: 05:59 mouth 2 [place] (AUGMENTIN) 00 :00 (two) Medical 875-125 mg times Branch per tablet daily for 14 days. acetaminoph 2020- No [id number] 1000mg Take 2 Univers en (TYLENOL 08-30 60904 tablets by ity of EXTRA 00:00: 05:59 mouth [place] STRENGTH) 00 :00 every 8 Medical 500 mg (eight) Branch tablet hours for 14 days. gabapentin 2020- No [id number] 600mg Take 1 [facility] 600 mg 08-30 51756 tablet by ity of tablet 00:00: 05:59 mouth [place] 00 :00 every 8 Medical (eight) Branch hours for 14 days. celecoxib 2020- No [id number] 200mg Take 1 Univers (CELEBREX) 08-30 33535 capsule by i ty of 200 mg 00:00: 05:59 mouth 2 [place] capsule 00 :00 (two) Medical times Branch daily with meals for 14 days. amoxicillin 2020- No [id number] 1{tbl} Take 1 Univers -clavulanat 08-30 78412 tablet by i ty of e 00:00: 05:59 mouth 2 [place] (AUGMENTIN) 00 :00 (two) Medical 875-125 mg times Branch per tablet daily for 14 days. acetaminoph 2020- No [id number] 1000mg Take 2 Univers en (TYLENOL 08-30 08978 tablets by ity of EXTRA 00:00: 05:59 mouth [place] STRENGTH) 00 :00 every 8 Medical 500 mg (eight) Branch tablet hours for 14 days. gabapentin 2020- No [id number] 600mg Take 1 [facility] 600 mg 08-30 [id number] tablet by ity of tablet 00:00: 05:59 mouth [place] 00 :00 every 8 Medical (eight) Branch hours for 14 days. celecoxib 2020- No [id number] 200mg Take 1 Univers (CELEBREX) 08-30 81104 capsule by i ty of 200 mg 00:00: 05:59 mouth 2 [place] capsule 00 :00 (two) Medical times Branch daily with meals for 14 days. amoxicillin 2020- No [id number] 1{tbl} Take 1 Univers -clavulanat 08-30 65188 tablet by i ty of e 00:00: 05:59 mouth 2 [place] (AUGMENTIN) 00 :00 (two) Medical 875-125 mg times Branch per tablet daily for 14 days. acetaminoph 2020- No [id number] 1000mg Take 2 Univers en (TYLENOL 08-30 31109 tablets by ity of EXTRA 00:00: 05:59 mouth [place] STRENGTH) 00 :00 every 8 Medical 500 mg (eight) Branch tablet hours for 14 days. gabapentin 2020- No [id number] 600mg Take 1 [facility] 600 mg 08-30 [id number] tablet by ity of tablet 00:00: 05:59 mouth [place] 00 :00 every 8 Medical (eight) Branch hours for 14 days. celecoxib 2020- No [id number] 200mg Take 1 Univers (CELEBREX) 08-30- 57841 capsule by i ty of 200 mg 00:00: 05:59 mouth 2 [place] capsule 00 :00 (two) Medical times Branch daily with meals for 14 days. amoxicillin 2020- No [id number] 1{tbl} Take 1 Univers -clavulanat 08-30 55955 tablet by i ty of e 00:00: 05:59 mouth 2 [place] (AUGMENTIN) 00 :00 (two) Medical 875-125 mg times Branch per tablet daily for 14 days. acetaminoph 2020- No [id number] 1000mg Take 2 Univers en (TYLENOL 08-30 [id number] tablets by ity of EXTRA 00:00: 05:59 mouth [place] STRENGTH) 00 :00 every 8 Medical 500 mg (eight) Branch tablet hours for 14 days. gabapentin 2020- No [id number] 600mg Take 1 [facility] 600 mg 08-30 [id number] tablet by ity of tablet 00:00: 05:59 mouth [place] 00 :00 every 8 Medical (eight) Branch hours for 14 days. celecoxib 2020- No [id number] 200mg Take 1 Univers (CELEBREX) 08-30 [id number] capsule by i ty of 200 mg 00:00: 05:59 mouth 2 [place] capsule 00 :00 (two) Medical times Branch daily with meals for 14 days. amoxicillin 2020- No [id number] 1{tbl} Take 1 Univers -clavulanat 08-30 16843 tablet by i ty of e 00:00: 05:59 mouth 2 [place] (AUGMENTIN) 00 :00 (two) Medical 875-125 mg times Branch per tablet daily for 14 days. acetaminoph 2020- No [id number] 1000mg Take 2 Univers en (TYLENOL 08-30 72097 tablets by ity of EXTRA 00:00: 05:59 mouth [place] STRENGTH) 00 :00 every 8 Medical 500 mg (eight) Branch tablet hours for 14 days. gabapentin 2020- No [id number] 600mg Take 1 [facility] 600 mg 08-30 tablet by ity of tablet 00:00: 05:59 mouth [place] 00 :00 every 8 Medical (eight) Branch hours for 14 days. celecoxib 2020- No [id number] 200mg Take 1 [facility] (CELEBREX) 08-30 capsule by i ty of 200 mg 00:00: 05:59 mouth 2 [place] capsule 00 :00 (two) Medical times Branch daily with meals for 14 days. amoxicillin 2020- No [id number] 1{tbl} Take 1 Univers -clavulanat 08-30 tablet by i ty of e 00:00: 05:59 mouth 2 [place] (AUGMENTIN) 00 :00 (two) Medical 875-125 mg times Branch per tablet daily for 14 days. sulfamethox 2020- No [id number] 1{tbl} Take 1 Univers azole-trime 08-29- tablet by it y of thoprim 00:00: 05:59 mouth 2 [place] (BACTRIM 00 :00 (two) Medical DS) 800-160 times Branch mg per daily for tablet 7 days. sulfamethox 2020- No [id number] 1{tbl} Take 1 Univers azole-trime 08-29- tablet by it y of thoprim 00:00: 05:59 mouth 2 [place] (BACTRIM 00 :00 (two) Medical DS) 800-160 times Branch mg per daily for tablet 7 days. sulfamethox 2020- No [id number] 1{tbl} Take 1 Univers azole-trime 08-29- tablet by it y of thoprim 00:00: 05:59 mouth 2 [place] (BACTRIM 00 :00 (two) Medical DS) 800-160 times Branch mg per daily for tablet 7 days. sulfamethox 2020- No [id number] 1{tbl} Take 1 Univers azole-trime 08-29-03 tablet by it y of thoprim 00:00: 05:59 mouth 2 [place] (BACTRIM 00 :00 (two) Medical DS) 800-160 times Branch mg per daily for tablet 7 days. sulfamethox 2020- No [id number] 1{tbl} Take 1 Univers azole-trime 2-26 09-03 tablet by it y of thoprim 00:00: 05:59 mouth 2 [place] (BACTRIM 00 :00 (two) Medical DS) 800-160 times Branch mg per daily for tablet 7 days. sulfamethox 2020- No [id number] 1{tbl} Take 1 Univers azole-trime 2-26 09-03 tablet by it y of thoprim 00:00: 05:59 mouth 2 [place] (BACTRIM 00 :00 (two) Medical DS) 800-160 times Branch mg per daily for tablet 7 days. sulfamethox 2020- No [id number] 1{tbl} Take 1 [facility] azole-trime 2- tablet by it y of thoprim 00:00: 05:59 mouth 2 [place] (BACTRIM 00 :00 (two) Medical DS) 800-160 times Branch mg per daily for tablet 7 days. fluticasone 0 Yes fluticason Univers propionate 2-10 e ity of 50 21:28: propionate [place] mcg/actuati 03 50 Medical on nasal mcg/actuat Branc h spray ion nasal spray,susp ension fluticasone Yes fluticason Univers propionate 2-10 e ity of 50 21:28: propionate [place] mcg/actuati 03 50 Medical on nasal mcg/actuat Branc h spray ion nasal spray,susp ension fluticasone Yes fluticason Univers propionate 2-10 e ity of 50 21:28: propionate [place] mcg/actuati 03 50 Medical on nasal mcg/actuat Branc h spray ion nasal spray,susp ension fluticasone 2020-0 Yes fluticason Univers propionate 2-10 e ity of 50 21:28: propionate [place] mcg/actuati 03 50 Medical on nasal mcg/actuat Branc h spray ion nasal spray,susp ension fluticasone Yes fluticason Univers propionate 2-10 e ity of 50 21:28: propionate [place] mcg/actuati 03 50 Medical on nasal mcg/actuat Branc h spray ion nasal spray,susp ension ergocalcife 2021-0 Yes Take by Un alfonso rol, 2-10 mouth. ity of vitamin D2, 21:28: [place] (VITAMIN D 03 Medical ORAL) Branch fluticasone 0 Yes fluticason Univers propionate 2-10 e ity of 50 21:28: propionate [place] mcg/actuati 03 50 Medical on nasal mcg/actuat Branc h spray ion nasal spray,susp ension ergocalcife 0 Yes Take by Un alfonso rol, 2-10 mouth. ity of vitamin D2, 21:28: [place] (VITAMIN D 03 Medical ORAL) Branch fluticasone 0 Yes fluticason [facility] propionate 2-10 e ity of 50 21:28: propionate [place] mcg/actuati 03 50 Medical on nasal mcg/actuat Branc h spray ion nasal spray,susp ension ergocalcife 0 Yes Take by Un alfonso rol, 2-10 mouth. ity of vitamin D2, 21:28: [place] (VITAMIN D 03 Medical ORAL) Branch fluticasone Yes fluticason Univers propionate 2-10 e ity of 50 21:28: propionate [place] mcg/actuati 03 50 Medical on nasal mcg/actuat Branc h spray ion nasal spray,susp ension fluticasone 0 Yes fluticason Univers propionate 2-10 e ity of 50 21:28: propionate [place] mcg/actuati 03 50 Medical on nasal mcg/actuat Branc h spray ion nasal spray,susp ension ergocalcife 0 Yes Take by Un alfonso rol, 2-10 mouth. ity of vitamin D2, 21:28: [place] (VITAMIN D 03 Medical ORAL) Branch fluticasone Yes fluticason Univers propionate 2-10 e ity of 50 21:28: propionate [place] mcg/actuati 03 50 Medical on nasal mcg/actuat Branc h spray ion nasal spray,susp ension ergocalcife 0 Yes Take by Un alfonso rol, 2-10 mouth. ity of vitamin D2, 21:28: [place] (VITAMIN D 03 Medical ORAL) Branch albuterol Yes Univers 2.5 mg /3 1-04 ity of mL (0.083 00:00: [place] %) 00 Medical nebulizer Branch solution albuterol 2021-0 Yes Univers 2.5 mg /3 1-04 ity of mL (0.083 00:00: [place] %) 00 Medical nebulizer Branch solution albuterol 2020-0 Yes Univers 2.5 mg /3 1-04 ity of mL (0.083 00:00: [place] %) 00 Medical nebulizer Branch solution albuterol 2020-0 Yes Univers 2.5 mg /3 1-04 ity of mL (0.083 00:00: [place] %) 00 Medical nebulizer Branch solution albuterol 2020-0 Yes Univers 2.5 mg /3 1-04 ity of mL (0.083 00:00: [place] %) 00 Medical nebulizer Branch solution albuterol 2020-0 Yes Univers 2.5 mg /3 1-04 ity of mL (0.083 00:00: [place] %) 00 Medical nebulizer Branch solution albuterol 2020-0 Yes Univers 2.5 mg /3 1-04 ity of mL (0.083 00:00: [place] %) 00 Medical nebulizer Branch solution albuterol 2020-0 Yes Univers 2.5 mg /3 1-04 ity of mL (0.083 00:00: [place] %) 00 Medical nebulizer Branch solution albuterol 2020-0 Yes Univers 2.5 mg /3 1-04 ity of mL (0.083 00:00: [place] %) 00 Medical nebulizer Branch solution albuterol 2020-0 Yes Univers 2.5 mg /3 1-04 ity of mL (0.083 00:00: [place] %) 00 Medical nebulizer Branch solution albuterol 2020-0 Yes Univers 2.5 mg /3 1-04 ity of mL (0.083 00:00: [place] %) 00 Medical nebulizer Branch solution albuterol 2020-0 Yes Univers 2.5 mg /3 1-04 ity of mL (0.083 00:00: [place] %) 00 Medical nebulizer Branch solution albuterol 2020-0 Yes Univers 2.5 mg /3 1-04 ity of mL (0.083 00:00: [place] %) 00 Medical nebulizer Branch solution albuterol 2020-0 Yes Univers 2.5 mg /3 1-04 ity of mL (0.083 00:00: [place] %) 00 Medical nebulizer Branch solution albuterol 2020-0 Yes Univers 2.5 mg /3 1-04 ity of mL (0.083 00:00: [place] %) 00 Medical nebulizer Branch solution albuterol 2020-0 Yes Univers 2.5 mg /3 1-04 ity of mL (0.083 00:00: [place] %) 00 Medical nebulizer Branch solution albuterol 2020-0 Yes Univers 2.5 mg /3 1-04 ity of mL (0.083 00:00: [place] %) 00 Medical nebulizer Branch solution albuterol 2020-0 Yes Univers 2.5 mg /3 1-04 ity of mL (0.083 00:00: [place] %) 00 Medical nebulizer Branch solution albuterol 2020-0 Yes Univers 2.5 mg /3 1-04 ity of mL (0.083 00:00: [place] %) 00 Medical nebulizer Branch solution albuterol 2020-0 Yes Univers 2.5 mg /3 1-04 ity of mL (0.083 00:00: [place] %) 00 Medical nebulizer Branch solution albuterol 2020-0 Yes Univers 2.5 mg /3 1-04 ity of mL (0.083 00:00: [place] %) 00 Medical nebulizer Branch solution albuterol 2020-0 Yes Univers 2.5 mg /3 1-04 ity of mL (0.083 00:00: [place] %) 00 Medical nebulizer Branch solution albuterol 2020-0 Yes Univers 2.5 mg /3 1-04 ity of mL (0.083 00:00: [place] %) 00 Medical nebulizer Branch solution albuterol 2020-0 Yes Univers 2.5 mg /3 1-04 ity of mL (0.083 00:00: [place] %) 00 Medical nebulizer Branch solution albuterol 2020-0 Yes Univers 2.5 mg /3 1-04 ity of mL (0.083 00:00: [place] %) 00 Medical nebulizer Branch solution albuterol 2020-0 Yes Univers 2.5 mg /3 1-04 ity of mL (0.083 00:00: [place] %) 00 Medical nebulizer Branch solution albuterol 2021-0 Yes Univers 2.5 mg /3 1-04 ity of mL (0.083 00:00: [place] %) 00 Medical nebulizer Branch solution albuterol 0 Yes Univers 2.5 mg /3 1-04 ity of mL (0.083 00:00: [place] %) 00 Medical nebulizer Branch solution albuterol 0 Yes Univers 2.5 mg /3 1-04 ity of mL (0.083 00:00: [place] %) 00 Medical nebulizer Branch solution albuterol 0 Yes Univers 2.5 mg /3 1-04 ity of mL (0.083 00:00: [place] %) 00 Medical nebulizer Branch solution albuterol Yes Univers 2.5 mg /3 1-04 ity of mL (0.083 00:00: [place] %) 00 Medical nebulizer Branch solution albuterol Yes Univers 2.5 mg /3 1-04 ity of mL (0.083 00:00: [place] %) 00 Medical nebulizer Branch solution PROAIR HFA 0 Yes Univers 90 1-04 ity of mcg/actuati 00:00: [place] on inhaler 00 Medical Branch montelukast 0 Yes Univer s 10 mg 1-04 ity of tablet 00:00: [place] 00 Medical Branch albuterol 0 Yes Univers 2.5 mg /3 1-04 ity of mL (0.083 00:00: [place] %) 00 Medical nebulizer Branch solution PROAIR HFA 0 Yes Univers 90 1-04 ity of mcg/actuati 00:00: [place] on inhaler 00 Medical Branch montelukast 0 Yes Univer s 10 mg 1-04 ity of tablet 00:00: [place] 00 Medical Branch albuterol 0 Yes Univers 2.5 mg /3 1-04 ity of mL (0.083 00:00: [place] %) 00 Medical nebulizer Branch solution PROAIR HFA 0 Yes Univers 90 1-04 ity of mcg/actuati 00:00: [place] on inhaler 00 Medical Branch montelukast 2020-0 Yes Univer s 10 mg 1-04 ity of tablet 00:00: [place] 00 Medical Branch albuterol Yes Univers 2.5 mg /3 1-04 ity of mL (0.083 00:00: [place] %) 00 Medical nebulizer Branch solution PROAIR HFA Yes Univers 90 1-04 ity of mcg/actuati 00:00: [place] on inhaler 00 Medical Branch montelukast 0 Yes Univer s 10 mg 1-04 ity of tablet 00:00: [place] Medical Branch albuterol 0 Yes Univers 2.5 mg /3 1-04 ity of mL (0.083 00:00: [place] %) 00 Medical nebulizer Branch solution PROAIR HFA Yes Univers 90 1-04 ity of mcg/actuati 00:00: [place] on inhaler Medical Branch montelukast Yes Univer s 10 mg 1-04 ity of tablet 00:00: Medical Branch albuterol Yes Univers 2.5 mg /3 1-04 ity of mL (0.083 00:00: [place] %) Medical nebulizer Branch solution PROAIR HFA Yes Univers 90 1-04 ity of mcg/actuati 00:00: [place] on inhaler 00 Medical Branch montelukast Yes Univer s 10 mg 1-04 ity of tablet 00:00: Medical Branch albuterol 0 Yes Univers 2.5 mg /3 1-04 ity of mL (0.083 00:00: [place] %) 00 Medical nebulizer Branch solution PROAIR HFA Yes Univers 90 1-04 ity of mcg/actuati 00:00: [place] on inhaler 00 Medical Branch montelukast 0 Yes Univer s 10 mg 1-04 ity of tablet 00:00: [place] 00 Medical Branch albuterol 0 Yes Univers 2.5 mg /3 1-04 ity of mL (0.083 00:00: [place] %) 00 Medical nebulizer Branch solution PROAIR HFA Yes Univers 90 1-04 ity of mcg/actuati 00:00: [place] on inhaler 00 Medical Branch montelukast 0 Yes Univer s 10 mg 1-04 ity of tablet 00:00: [place] 00 Medical Branch albuterol 0 Yes Univers 2.5 mg /3 1-04 ity of mL (0.083 00:00: [place] %) 00 Medical nebulizer Branch solution PROAIR HFA Yes Univers 90 1-04 ity of mcg/actuati 00:00: [place] on inhaler 00 Medical Branch montelukast 0 Yes Univer s 10 mg 1-04 ity of tablet 00:00: [place] Medical Branch albuterol 0 Yes Univers 2.5 mg /3 1-04 ity of mL (0.083 00:00: [place] %) 00 Medical nebulizer Branch solution PROAIR HFA Yes Univers 90 1-04 ity of mcg/actuati 00:00: [place] on inhaler Medical Branch montelukast Yes Univer s 10 mg 1-04 ity of tablet 00:00: [place] Medical Branch albuterol 0 Yes Univers 2.5 mg /3 1-04 ity of mL (0.083 00:00: [place] %) Medical nebulizer Branch solution PROAIR HFA Yes Univers 90 1-04 ity of mcg/actuati 00:00: [place] on inhaler Medical Branch montelukast Yes Univer s 10 mg 1-04 ity of tablet 00:00: Medical Branch albuterol 0 Yes Univers 2.5 mg /3 1-04 ity of mL (0.083 00:00: [place] %) Medical nebulizer Branch solution PROAIR HFA Yes Univers 90 1-04 ity of mcg/actuati 00:00: [place] on inhaler Medical Branch montelukast 0 Yes Univer s 10 mg 1-04 ity of tablet 00:00: [place] Medical Branch albuterol 0 Yes Univers 2.5 mg /3 1-04 ity of mL (0.083 00:00: [place] %) 00 Medical nebulizer Branch solution PROAIR HFA 0 Yes Univers 90 1-04 ity of mcg/actuati 00:00: [place] on inhaler Medical Branch montelukast 0 Yes Univer s 10 mg 1-04 ity of tablet 00:00: [place] 00 Medical Branch albuterol 0 Yes Univers 2.5 mg /3 1-04 ity of mL (0.083 00:00: [place] %) 00 Medical nebulizer Branch solution PROAIR HFA 0 Yes Univers 90 1-04 ity of mcg/actuati 00:00: [place] on inhaler 00 Medical Branch montelukast Yes Univer s 10 mg 1-04 ity of tablet 00:00: [place] [facility] albuterol 0 Yes Univers 2.5 mg /3 1-04 ity of mL (0.083 00:00: [place] %) 00 Medical nebulizer Branch solution PROAIR HFA Yes Univers 90 1-04 ity of mcg/actuati 00:00: [place] [facility] inhaler [facility] montelukast Yes Univer s 10 mg 1-04 ity of tablet 00:00: [place] [facility] albuterol Yes Univers 2.5 mg /3 1-04 ity of mL (0.083 00:00: [place] %) 00 Medical nebulizer Branch solution PROAIR HFA Yes Univers 90 1-04 ity of mcg/actuati 00:00: [place] on inhaler [facility] montelukast Yes Univer s 10 mg 1-04 ity of tablet 00:00: [place] [facility] albuterol 0 Yes Univers 2.5 mg /3 1-04 ity of mL (0.083 00:00: [place] %) 00 Medical nebulizer Branch solution PROAIR HFA Yes Univers 90 1-04 ity of mcg/actuati 00:00: [place] on inhaler 00 Medical [facility] montelukast 0 Yes Univer s 10 mg 1-04 ity of tablet 00:00: [place] [facility] albuterol 0 Yes Univers 2.5 mg /3 1-04 ity of mL (0.083 00:00: [place] %) 00 Medical nebulizer Branch solution PROAIR HFA 0 Yes Univers 90 1-04 ity of mcg/actuati 00:00: [place] on inhaler 00 Medical [facility] montelukast Yes Univer s 10 mg 1-04 ity of tablet 00:00: [place] 00 [facility] albuterol 0 Yes Univers 2.5 mg /3 1-04 ity of mL (0.083 00:00: [place] %) 00 Medical nebulizer Branch solution PROAIR HFA 0 Yes Univers 90 1-04 ity of mcg/actuati 00:00: [place] on inhaler [facility] montelukast 0 Yes Univer s 10 mg 1-04 ity of tablet 00:00: [place] [facility] albuterol 0 Yes Univers 2.5 mg /3 1-04 ity of mL (0.083 00:00: [place] %) 00 Medical nebulizer Branch solution PROAIR HFA Yes Univers 90 1-04 ity of mcg/actuati 00:00: [place] on inhaler [facility] montelukast Yes Univer s 10 mg 1-04 ity of tablet 00:00: Medical Branch albuterol Yes Univers 2.5 mg /3 1-04 ity of mL (0.083 00:00: [place] %) 00 Medical nebulizer Branch solution PROAIR HFA Yes Univers 90 1-04 ity of mcg/actuati 00:00: [place] on inhaler [facility] montelukast Yes Univer s 10 mg 1-04 ity of tablet 00:00: Medical [facility] albuterol 0 Yes Univers 2.5 mg /3 1-04 ity of mL (0.083 00:00: [place] %) 00 Medical nebulizer Branch solution PROAIR HFA Yes Univers 90 1-04 ity of mcg/actuati 00:00: [place] on inhaler [facility] montelukast 0 Yes Univer s 10 mg 1-04 ity of tablet 00:00: Medical [facility] albuterol 0 Yes Univers 2.5 mg /3 1-04 ity of mL (0.083 00:00: [place] %) 00 Medical nebulizer Branch solution PROAIR HFA 0 Yes Univers 90 1-04 ity of mcg/actuati 00:00: [place] on inhaler 00 [facility] montelukast 2021-0 Yes Univer s 10 mg 1-04 ity of tablet 00:00: [place] 00 [facility] albuterol 0 Yes Univers 2.5 mg /3 1-04 ity of mL (0.083 00:00: [place] %) 00 Medical nebulizer Branch solution PROAIR HFA 0 Yes Univers 90 1-04 ity of mcg/actuati 00:00: [place] on inhaler 00 Medical [facility] albuterol Yes Univers 2.5 mg /3 1-04 ity of mL (0.083 00:00: [place] %) 00 Medical nebulizer Branch solution PROAIR HFA Yes Univers 90 1-04 ity of mcg/actuati 00:00: [place] on inhaler 00 Medical [facility] albuterol Yes Univers 2.5 mg /3 1-04 ity of mL (0.083 00:00: [place] %) 00 Medical nebulizer Branch solution PROAIR HFA Yes Univers 90 1-04 ity of mcg/actuati 00:00: [place] on inhaler 00 [facility] albuterol Yes Univers 2.5 mg /3 1-04 ity of mL (0.083 00:00: [place] %) 00 Medical nebulizer Branch solution PROAIR HFA Yes Univers 90 1-04 ity of mcg/actuati 00:00: [place] on inhaler 00 [facility] albuterol 0 Yes Univers 2.5 mg /3 1-04 ity of mL (0.083 00:00: [place] %) 00 Medical nebulizer Branch solution PROAIR HFA Yes Univers 90 1-04 ity of mcg/actuati 00:00: [place] on inhaler 00 [facility] albuterol 0 Yes Univers 2.5 mg /3 1-04 ity of mL (0.083 00:00: [place] %) 00 Medical nebulizer Branch solution PROAIR HFA Yes Univers 90 1-04 ity of mcg/actuati 00:00: [place] on inhaler 00 [facility] albuterol 0 Yes Univers 2.5 mg /3 1-04 ity of mL (0.083 00:00: [place] %) 00 Medical nebulizer Branch solution PROAIR HFA 2021-0 Yes Univers 90 1-04 ity of mcg/actuati 00:00: [place] on inhaler 00 Medical [facility] albuterol 2020-0 Yes Univers 2.5 mg /3 1-04 ity of mL (0.083 00:00: [place] %) 00 Medical nebulizer Branch solution PROAIR HFA 0 Yes Univers 90 1-04 ity of mcg/actuati 00:00: [place] on inhaler 00 Medical [facility] albuterol 2020-0 Yes Univers 2.5 mg /3 1-04 ity of mL (0.083 00:00: [place] %) 00 Medical nebulizer Branch solution PROAIR HFA 0 Yes Univers 90 1-04 ity of mcg/actuati 00:00: [place] on inhaler 00 Medical [facility] albuterol 0 Yes Univers 2.5 mg /3 1-04 ity of mL (0.083 00:00: [place] %) 00 Medical nebulizer Branch solution PROAIR HFA 0 Yes Univers 90 1-04 ity of mcg/actuati 00:00: [place] on inhaler 00 [facility] albuterol 0 Yes Univers 2.5 mg /3 1-04 ity of mL (0.083 00:00: [place] %) 00 Medical nebulizer Branch solution PROAIR HFA 0 Yes Univers 90 1-04 ity of mcg/actuati 00:00: [place] on inhaler 00 Medical [facility] albuterol 0 Yes Univers 2.5 mg /3 1-04 ity of mL (0.083 00:00: [place] %) 00 Medical nebulizer Branch solution albuterol 0 Yes Univers 2.5 mg /3 1-04 ity of mL (0.083 00:00: [place] %) 00 Medical nebulizer Branch solution albuterol 0 Yes Univers 2.5 mg /3 1-04 ity of mL (0.083 00:00: [place] %) 00 Medical nebulizer Branch solution albuterol 2020-0 Yes Univers 2.5 mg /3 1-04 ity of mL (0.083 00:00: [place] %) 00 Medical nebulizer Branch solution albuterol 2020-0 Yes Univers 2.5 mg /3 1-04 ity of mL (0.083 00:00: [place] %) 00 Medical nebulizer Branch solution albuterol 2020-0 Yes Univers 2.5 mg /3 1-04 ity of mL (0.083 00:00: [place] %) 00 Medical nebulizer Branch solution albuterol 2020-0 Yes Univers 2.5 mg /3 1-04 ity of mL (0.083 00:00: [place] %) 00 Medical nebulizer Branch solution albuterol 2020-0 Yes Univers 2.5 mg /3 1-04 ity of mL (0.083 00:00: [place] %) 00 Medical nebulizer Branch solution albuterol 2020-0 Yes Univers 2.5 mg /3 1-04 ity of mL (0.083 00:00: [place] %) 00 Medical nebulizer Branch solution albuterol 2020-0 Yes Univers 2.5 mg /3 1-04 ity of mL (0.083 00:00: [place] %) 00 Medical nebulizer Branch solution albuterol 2020-0 Yes Univers 2.5 mg /3 1-04 ity of mL (0.083 00:00: [place] %) 00 Medical nebulizer Branch solution albuterol 2020-0 Yes Univers 2.5 mg /3 1-04 ity of mL (0.083 00:00: [place] %) 00 Medical nebulizer Branch solution albuterol 2020-0 Yes Univers 2.5 mg /3 1-04 ity of mL (0.083 00:00: [place] %) 00 Medical nebulizer Branch solution albuterol 2020-0 Yes Univers 2.5 mg /3 1-04 ity of mL (0.083 00:00: [place] %) 00 Medical nebulizer Branch solution albuterol 2020-0 Yes Univers 2.5 mg /3 1-04 ity of mL (0.083 00:00: [place] %) 00 Medical nebulizer Branch solution albuterol 2020-0 Yes Univers 2.5 mg /3 1-04 ity of mL (0.083 00:00: [place] %) 00 Medical nebulizer Branch solution albuterol 2020-0 Yes Univers 2.5 mg /3 1-04 ity of mL (0.083 00:00: [place] %) 00 Medical nebulizer Branch solution albuterol 2020-0 Yes Univers 2.5 mg /3 1-04 ity of mL (0.083 00:00: [place] %) 00 Medical nebulizer Branch solution albuterol Yes Univers 2.5 mg /3 1-04 ity of mL (0.083 00:00: [place] %) 00 Medical nebulizer Branch solution albuterol Yes Univers 2.5 mg /3 1-04 ity of mL (0.083 00:00: [place] %) 00 Medical nebulizer Branch solution albuterol Yes Univers 2.5 mg /3 1-04 ity of mL (0.083 00:00: [place] %) 00 Medical nebulizer Branch solution PROAIR HFA 2020- No Univer s 90 07-10-24 ity of mcg/actuati 00:00: 00:00 [place] on inhaler 00 :00 Medical Branch PROAIR HFA 2020- No Univer s 90 07-10-24 ity of mcg/actuati 00:00: 00:00 [place] on inhaler 00 :00 Medical Branch montelukast 2020- No Unive rs 10 mg 07-10-14 ity of tablet 00:00: 00:00 [place] 00 :00 [facility] montelukast 2020- No Unive rs 10 mg 07-10-14 ity of tablet 00:00: 00:00 [place] 00 :00 [facility] montelukast 2020- No Unive rs 10 mg 07-10-14 ity of tablet 00:00: 00:00 [place] 00 :00 [facility] albuterol albuterol No 3mL Q5H albuterol [place] sulfate 2.5 sulfate 2.5 sulfate da mg/3 mL mg/3 mL 2.5 mg/3 [facility] (0.083 %) (0.083 %) mL (0.083 al solution solution %) Health for for solution Outreac nebulizatio nebulizatio for h n Inhale 3 n Inhale 3 nebulizati Program mL every mL every on Inhale 4-6 hours 4-6 hours 3 mL every by by 4-6 hours nebulizatio nebulizatio by n route as n route as nebulizati needed. needed. on route as needed. fluticasone fluticasone No fluticason [place] propionate propionate e da 50 50 propionate [facility] mcg/actuati mcg/actuati 50 a l on nasal on nasal mcg/actuat H ealth spray,suspe spray,suspe ion nasal Outreac nsion [place] nsion [place] spray,susp h 1 spray 1 spray ension Program every day every day [place] 1 by by spray intranasal intranasal every day route for route for by 30 days. 30 days. intranasal route for 30 days. gabapentin gabapentin No 1capsul Q8H gabapentin [place] 100 mg 100 mg e(s) 100 mg da capsule capsule capsule [facility] p Take 1 Take 1 Take 1 al capsule capsule capsule Health every 8 every 8 every 8 Outrea c hours by hours by hours by h oral route oral route oral route Program for 30 for 30 for 30 days. days. days. loratadine loratadine No loratadine [place] 10 mg 10 mg 10 mg da tablet Take tablet Take tablet [facility] 1 tablet 1 tablet Take 1 al every day every day tablet Hea lth by oral by oral every day Outr eac route for route for by oral h 30 days. 30 days. route for Pr ogram 30 days. montelukast montelukast No 1 Q1D montelukas [place] 10 mg 10 mg t 10 mg da tablet Take tablet Take tablet [facility] 1 tablet 1 tablet Take 1 al every day every day tablet Hea lth by oral by oral every day Outr eac route for route for by oral h 30 days. 30 days. route for Pr ogram 30 days. No known No [facility] known [facility] medications [facility] No known No Univers medications [facility] No known No Univers medications [facility] ProAir HFA ProAir HFA No 2puff(s Q4H ProAir HFA [place] 90 90 ) 90 da mcg/actuati mcg/actuati mcg/actuat [facility] on aerosol on aerosol ion al inhaler inhaler aerosol Health Inhale 2 Inhale 2 inhaler Outr eac puffs every puffs every Inhale 2 h 4 hours by 4 hours by puffs Pr ogram inhalation inhalation every 4 route as route as hours by needed. needed. inhalation route as needed. Pulmicort 1 Pulmicort 1 No 2mL BID Pulmicort [place] mg/2 mL mg/2 mL 1 mg/2 mL da suspension suspension suspension [facility] for for for al nebulizatio nebulizatio nebulizati Health n Inhale 2 n Inhale 2 on Inhale Outreac mL twice a mL twice a 2 mL twice h day by day by a day by Program nebulizatio nebulizatio nebulizati n route. do n route. do on route. not mix not mix do not mix with other with other with other albuterol albuterol albuterol fluticasone fluticasone No fluticason [place] propionate propionate e da 50 50 propionate Medical mcg/actuati mcg/actuati 50 G roup on nasal on nasal mcg/actuat spray,suspe spray,suspe ion nasal nsion nsion spray,susp ension Vital Signs Vital Name Observation Time Observation Value Comments Source Systolic blood 2021-01-30 19:00:00 165 mm[Hg] Univer [facility] Diastolic blood 2021-01-30 19:00:00 141 [facility] Heart rate 2021-01-30 19:00:00 98 /min [facility] Respiratory rate 2021-01-30 19:00:00 17 /min [facility] Oxygen saturation in 2021-01-30 19:00:00 98 /min [facility] Arterial blood by [facility] Pulse oximetry Branch Systolic blood 2021-01-04 18:12:00 138 mm[Hg] Univer [facility] Diastolic blood 2021-01-04 18:12:00 86 mm[Hg] [facility] Heart rate 2021-01-04 18:05:00 108 /min [facility] Body temperature 2021-01-04 18:05:00 36.61 [place] Respiratory rate 2021-01-04 18:05:00 19 /min [facility] Body height 2021-01-04 18:05:00 167.6 cm [facility] [place] [facility] Body weight 2021-01-04 18:05:00 110.36 kg [facility] [place] [facility] BMI 2021-01-04 18:05:00 39.27 kg/m2 [facility] [place] [facility] Oxygen saturation in 2021-01-04 18:05:00 97 /min [facility] of Arterial blood by [facility] Pulse oximetry Branch Systolic blood 2020-12-13 21:28:00 136 mm[Hg] Univer sity of pressure [place] [facility] Diastolic blood 2020-12-13 21:28:00 85 mm[Hg] Unive rsity of pressure [place] [facility] Heart rate 2020-12-13 21:28:00 107 /min [facility] [place] [facility] Oxygen saturation in 2020-12-13 21:28:00 97 /min [facility] of Arterial blood by [facility] Pulse oximetry Branch Body temperature 2020-12-13 21:27:00 37.06 [place]ie [facility] [place] [facility] Respiratory rate 2020-12-13 21:27:00 19 /min [facility] [place] [facility] Body height 2020-12-13 21:27:00 167.6 cm [facility] [place] [facility] Body weight 2020-12-13 21:27:00 108.636 kg [facility] [place] [facility] BMI 2020-12-13 21:27:00 38.66 kg/m2 [facility] [place] [facility] Systolic blood 2020-11-29 20:29:00 124 mm[Hg] Univer sity of pressure [place] [facility] Diastolic blood 2020-11-29 20:29:00 84 mm[Hg] Unive rsity of pressure [place] [facility] Heart rate 2020-11-29 20:29:00 102 /min [facility] [place] [facility] Respiratory rate 2020-11-29 20:29:00 16 /min [facility] [place] [facility] Body height 2020-11-29 20:29:00 167.6 cm [facility] [place] [facility] Body weight 2020-11-29 20:29:00 109.226 kg [facility] [place] [facility] BMI 2020-11-29 20:29:00 38.87 kg/m2 [facility] [place] [facility] Oxygen saturation in 2020-11-29 20:29:00 97 /min University of Arterial blood by [facility] treva Pulse oximetry Branch Systolic blood 2020-11-17 16:27:00 137 mm[Hg] Univer sity of pressure [place] [facility] Diastolic blood 2020-11-17 16:27:00 83 mm[Hg] Unive rsity of pressure [place] [facility] Heart rate 2020-11-17 16:27:00 97 /min [facility] [place] [facility] Body temperature 2020-11-17 16:27:00 37.11 [place] [facility] [place] [facility] Respiratory rate 2020-11-17 16:27:00 16 /min [facility] [place] [facility] Body height 2020-11-17 16:27:00 167.6 cm [facility] [place] [facility] Body weight 2020-11-17 16:27:00 108.863 kg [facility] [place] [facility] BMI 2020-11-17 16:27:00 38.74 kg/m2 [facility] [place] [facility] Oxygen saturation in 2020-11-17 16:27:00 98 /min [facility] of Arterial blood by [facility] Pulse oximetry Branch Systolic blood 2020-11-10 14:06:00 124 mm[Hg] Univer sity of pressure [place] [facility] Diastolic blood 2020-11-10 14:06:00 80 mm[Hg] Unive rsity of pressure [place] [facility] Heart rate 2020-11-10 14:06:00 88 /min [facility] [place] [facility] Body temperature 2020-11-10 14:06:00 36.28 [place] [facility] [place] [facility] Respiratory rate 2020-11-10 14:06:00 16 /min [facility] [place] [facility] Body height 2020-11-10 14:06:00 167.6 cm [facility] [place] [facility] Body weight 2020-11-10 14:06:00 109.544 kg [facility] [place] [facility] BMI 2020-11-10 14:06:00 38.98 kg/m2 [facility] [place] [facility] Oxygen saturation in 2020-11-10 14:06:00 99 /min [facility] of Arterial blood by [facility] treva Pulse oximetry Branch Systolic blood 2020-11-10 14:06:00 124 mm[Hg] Univer sity of pressure [place] [facility] Diastolic blood 2020-11-10 14:06:00 80 mm[Hg] Unive rsity of pressure [place] [facility] Heart rate 2020-11-10 14:06:00 88 /min [facility] [place] [facility] Body temperature 2020-11-10 14:06:00 36.28 [place] [facility] [place] [facility] Respiratory rate 2020-11-10 14:06:00 16 /min [facility] [place] [facility] Body height 2020-11-10 14:06:00 167.6 cm [facility] [place] [facility] Body weight 2020-11-10 14:06:00 109.544 kg [facility] [place] [facility] BMI 2020-11-10 14:06:00 38.98 kg/m2 [facility] [place] [facility] Oxygen saturation in 2020-11-10 14:06:00 99 /min [facility] of Arterial blood by [facility] Pulse oximetry Branch Systolic blood 2020-11-10 14:06:00 124 mm[Hg] Univer sity of pressure [place] [facility] Diastolic blood 2020-11-10 14:06:00 80 mm[Hg] Unive rsity of pressure [place] [facility] Heart rate 2020-11-10 14:06:00 88 /min [facility] [place] [facility] Body temperature 2020-11-10 14:06:00 36.28 [place] [facility] [place] [facility] Respiratory rate 2020-11-10 14:06:00 16 /min [facility] [place] [facility] Body height 2020-11-10 14:06:00 167.6 cm [facility] [place] [facility] Body weight 2020-11-10 14:06:00 109.544 kg [facility] [place] [facility] BMI 2020-11-10 14:06:00 38.98 kg/m2 [facility] [place] [facility] Oxygen saturation in 2020-11-10 14:06:00 99 /min [facility] of Arterial blood by [facility] treva Pulse oximetry Branch Systolic blood 2020-11-10 14:06:00 124 mm[Hg] Univer sity of pressure [place] [facility] Diastolic blood 2020-11-10 14:06:00 80 mm[Hg] Unive rsity of pressure [place] [facility] Heart rate 2020-11-10 14:06:00 88 /min [facility] [place] [facility] Body temperature 2020-11-10 14:06:00 36.28 [place] [facility] [place] [facility] Respiratory rate 2020-11-10 14:06:00 16 /min [facility] [place] [facility] Body height 2020-11-10 14:06:00 167.6 cm [facility] [place] [facility] Body weight 2020-11-10 14:06:00 109.544 kg [facility] [place] [facility] BMI 2020-11-10 14:06:00 38.98 kg/m2 [facility] [place] [facility] Oxygen saturation in 2020-11-10 14:06:00 99 /min [facility] of Arterial blood by [place] [employer] treva Pulse oximetry Branch Systolic blood 2020-11-07 19:07:00 132 mm[Hg] Univer sity of pressure [place] [facility] Diastolic blood 2020-11-07 19:07:00 73 mm[Hg] Unive rsity of pressure [place] [facility] Heart rate 2020-11-07 19:07:00 99 /min [facility] [place] [facility] Body temperature 2020-11-07 19:07:00 36.33 [place] [facility] [place] [facility] Respiratory rate 2020-11-07 19:07:00 16 /min [facility] [place] [facility] Body height 2020-11-07 19:07:00 167.6 cm [facility] [place] [facility] Body weight 2020-11-07 19:07:00 109.77 kg [facility] [place] [facility] BMI 2020-11-07 19:07:00 39.06 kg/m2 [facility] [place] [facility] Oxygen saturation in 2020-11-07 19:07:00 99 /min [facility] Arterial blood by [place] [employer] treva Pulse oximetry Branch Systolic blood 2020-11-02 19:15:00 143 mm[Hg] Univer sity of pressure [place] [facility] Diastolic blood 2020-11-02 19:15:00 93 mm[Hg] Unive rsity of pressure [place] [facility] Heart rate 2020-11-02 19:15:00 88 /min [facility] [place] [facility] Respiratory rate 2020-11-02 19:15:00 19 /min [facility] [place] [facility] Oxygen saturation in 2020-11-02 19:15:00 99 /min [facility] of Arterial blood by [employer] treva Pulse oximetry Branch Body temperature 2020-11-02 19:10:00 36 [place] [facility] [place] [facility] Body weight 2020-11-02 09:13:00 113 kg [facility] [place] [facility] BMI 2020-11-02 09:13:00 40.19 kg/m2 [facility] [place] [facility] Systolic blood 2020-10-31 15:37:00 138 mm[Hg] Univer sity of pressure [place] [facility] Diastolic blood 2020-10-31 15:37:00 70 mm[Hg] Unive rsity of pressure [place] [facility] Heart rate 2020-10-31 15:37:00 99 /min [facility] [place] [facility] Respiratory rate 2020-10-31 15:37:00 18 /min [facility] [place] [facility] Body height 2020-10-31 15:37:00 167.6 cm [facility] [place] [facility] Body weight 2020-10-31 15:37:00 111.358 kg [facility] [place] [facility] BMI 2020-10-31 15:37:00 39.62 kg/m2 [facility] [place] [facility] Oxygen saturation in 2020-10-31 15:37:00 97 /min [facility] Arterial blood by [facility] Pulse oximetry Branch Systolic blood 2020-10-29 01:00:00 143 mm[Hg] Univer sity of pressure [place] [facility] Diastolic blood 2020-10-29 01:00:00 70 mm[Hg] Unive rsity of pressure [place] [facility] Heart rate 2020-10-29 01:00:00 104 /min [facility] [place] [facility] Respiratory rate 2020-10-29 01:00:00 20 /min [facility] [place] [facility] Oxygen saturation in 2020-10-29 01:00:00 99 /min [facility] Arterial blood by [facility] Pulse oximetry Branch Body temperature 2020-10-28 21:57:00 38.83 [place] [facility] [place] [facility] Body height 2020-10-28 20:56:00 167.6 cm [facility] [place] [facility] Body weight 2020-10-28 20:56:00 108.863 kg [facility] [place] [facility] BMI 2020-10-28 20:56:00 38.74 kg/m2 [facility] [place] [facility] Systolic blood 2020-10-28 18:00:00 127 mm[Hg] Univer sity of pressure [place] [facility] Diastolic blood 2020-10-28 18:00:00 65 mm[Hg] Unive rsity of [facility] [place] [facility] Heart rate 2020-10-28 18:00:00 95 /min [facility] [place] [facility] Respiratory rate 2020-10-28 18:00:00 18 /min [facility] [place] [facility] Oxygen saturation in 2020-10-28 18:00:00 98 /min [facility] Arterial blood by [facility] Pulse oximetry Branch Body temperature 2020-10-28 16:00:00 37.83 [place] [facility] [place] [facility] Body weight 2020-10-28 16:00:00 110.678 kg [facility] [place] [facility] BMI 2020-10-28 16:00:00 39.38 kg/m2 [facility] [place] [facility] Systolic blood 2020-10-27 15:09:00 124 mm[Hg] Univer sity of pressure [place] [facility] Diastolic blood 2020-10-27 15:09:00 61 mm[Hg] Unive rsity of pressure [place] [facility] Heart rate 2020-10-27 15:09:00 104 /min [facility] [place] [facility] Body temperature 2020-10-27 15:09:00 36.83 [place] [facility] [place] [facility] Respiratory rate 2020-10-27 15:09:00 18 /min [facility] [place] [facility] Body height 2020-10-27 15:09:00 167.6 cm [facility] [place] [facility] Body weight 2020-10-27 15:09:00 110.632 kg [facility] [place] [facility] BMI 2020-10-27 15:09:00 39.37 kg/m2 [facility] [place] [facility] Oxygen saturation in 2020-10-27 15:09:00 97 /min [facility] Arterial blood by [facility] Pulse oximetry Branch Systolic blood 2020-10-23 18:27:00 120 mm[Hg] Univer sity of [facility] [place] [facility] Diastolic blood 2020-10-23 18:27:00 79 mm[Hg] Unive rsity of pressure [place] [facility] Heart rate 2020-10-23 18:27:00 85 /min [facility] [place] [facility] Body temperature 2020-10-23 18:27:00 36.72 [place] [facility] [place] [facility] Respiratory rate 2020-10-23 18:27:00 18 /min [facility] [place] [facility] Body height 2020-10-23 18:27:00 167.6 cm [facility] [place] [facility] Body weight 2020-10-23 18:27:00 112.129 kg [facility] [place] [facility] BMI 2020-10-23 18:27:00 39.90 kg/m2 [facility] [place] [facility] Oxygen saturation in 2020-10-23 18:27:00 98 /min [facility] Arterial blood by [place] [employer] treva Pulse oximetry Branch Systolic blood 2020-10-18 20:10:00 127 mm[Hg] Univer sity of pressure [place] [facility] Diastolic blood 2020-10-18 20:10:00 80 mm[Hg] Unive rsity of pressure [place] [facility] Heart rate 2020-10-18 20:10:00 93 /min [facility] [place] [facility] Body temperature 2020-10-18 20:10:00 36.89 [place] [facility] [place] [facility] Respiratory rate 2020-10-18 20:10:00 18 /min [facility] [place] [facility] Body height 2020-10-18 20:10:00 167.6 cm [facility] [place] [facility] Body weight 2020-10-18 20:10:00 113.671 kg [facility] BMI 2020-10-18 20:10:00 40.45 kg/m2 [facility] Oxygen saturation in 2020-10-18 20:10:00 98 /min [facility] Arterial blood by [place] [employer] treva Pulse oximetry Branch Heart rate 2020-10-11 20:24:00 102 /min [facility] Body temperature 2020-10-11 20:24:00 36.78 Jacquie [facility] [place] [facility] Respiratory rate 2020-10-11 20:24:00 16 /min [facility] [place] [facility] Body height 2020-10-11 20:24:00 167.6 cm [facility] Body weight 2020-10-11 20:24:00 111.585 kg [facility] BMI 2020-10-11 20:24:00 39.71 kg/m2 [facility] Oxygen saturation in 2020-10-11 20:24:00 98 /min [facility] Arterial blood by [facility] Pulse oximetry Branch Systolic blood 2020-10-05 15:31:00 131 mm[Hg] [facility] [place] [facility] Diastolic blood 2020-10-05 15:31:00 93 mm[Hg] [facility] [place] [facility] Heart rate 2020-10-05 15:31:00 91 /min [facility] Body temperature 2020-10-05 15:31:00 37.11 Jacquie [facility] [place] [facility] Respiratory rate 2020-10-05 15:31:00 18 /min [facility] [place] [facility] Body height 2020-10-05 15:31:00 167.6 cm [facility] Body weight 2020-10-05 15:31:00 104.327 kg [facility] BMI 2020-10-05 15:31:00 37.12 kg/m2 [facility] Oxygen saturation in 2020-10-05 15:31:00 98 /min [facility] Arterial blood by [facility] Pulse oximetry Branch Systolic blood 2020-09-05 17:19:00 127 mm[Hg] [facility] [place] [facility] Diastolic blood 2020-09-05 17:19:00 76 mm[Hg] [facility] [place] [facility] Heart rate 2020-09-05 17:19:00 95 /min [facility] Body height 2020-09-05 17:19:00 167.6 cm [facility] Body weight 2020-09-05 17:19:00 108.364 kg [facility] BMI 2020-09-05 17:19:00 38.56 kg/m2 [facility] Oxygen saturation in 2020-09-05 17:19:00 95 /min [facility] Arterial blood by [facility] Pulse oximetry Branch Systolic blood 2020-08-16 21:20:00 123 mm[Hg] [facility] [place] [facility] Diastolic blood 2020-08-16 21:20:00 79 mm[Hg] Unive rsity of pressure [facility] Heart rate 2020-08-16 21:20:00 96 /min [facility] Body temperature 2020-08-16 21:20:00 36.94 Jacquie [facility] Body height 2020-08-16 21:20:00 167.6 cm [facility] Body weight 2020-08-16 21:20:00 104.509 kg [facility] BMI 2020-08-16 21:20:00 37.19 kg/m2 [facility] Oxygen saturation in 2020-08-16 21:20:00 98 /min [facility] Arterial blood by [facility] Pulse oximetry Branch Height 2020-06-21 00:00:00 66 [in_i] [facility] BMI (Body Mass 2020-06-21 00:00:00 36.1 kg/m2 [facility]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 BP Systolic 2020-06-21 00:00:00 120 mm[Hg] [facility] Body Weight 2020-06-21 00:00:00 223.8 [lb_av] [facility] BP Diastolic 2020-06-21 00:00:00 78 mm[Hg] [facility] BP Diastolic 2020-05-03 00:00:00 82 mm[Hg] [facility] Height 2020-05-03 00:00:00 64 [in_i] [facility] BMI (Body Mass 2020-05-03 00:00:00 39 kg/m2 [facility]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) [facility] BP Systolic 2020-05-03 00:00:00 119 mm[Hg] [facility] Body Weight 2020-05-03 00:00:00 3632 [oz_av] [facility] BP Diastolic 2020-04-28 00:00:00 83 mm[Hg] [facility] Height 2020-04-28 00:00:00 64 [in_i] [facility] BMI (Body Mass 2020-04-28 00:00:00 38.5 kg/m2 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) [facility] BP Systolic 2020-04-28 00:00:00 119 mm[Hg] [facility] Body Weight 2020-04-28 00:00:00 224.4 [lb_av] [facility] Procedures Procedure Date / Time Performing Source Performed Clinician EXTERNAL PROVIDER - ADC 2021-03-02 Doctor Unassigned, [facility] CARDIOLOGY 05:01:00 [facility] IR CENTRALLY INSERTED DEVICE 2021-01-30 Johny Hunter Un [facility] TUNNELED CATHETER WITH PORT 5 19:20:52 Al dical Branch OR OLDER CBC WITHOUT DIFF 2021-01-30 Vivienne Bowen [facility] 16:24:00 [facility] EXTRA TUBE LT. BLUE 2021-01-30 Johny Hunter [facility] 16:24:00 [facility] Branch BASIC METABOLIC PANEL (NA, K, 2021-01-04 Yaz Mckeon [facility] CL, CO2, GLUCOSE, BUN, 20:16:00 [facility] ranch CREATININE, CA) PROTHROMBIN TIME / INR 2021-01-04 Yaz Mckeon [facility] 20:16:00 Medical Branch ACTIVATED PARTIAL THRMPLAS 2021-01-04 Yaz Mckeon [facility] CROW 20:16:00 [facility] CANCER ANTIGEN 27.29 2021-01-04 Yaz Mckeon [facility] 20:16:00 [facility] Branch PHOSPHORUS 2021-01-04 Yaz Mckeon [facility] exas 20:16:00 [facility] Branch GAMMA GLUTAMYLTRANSFERASE 2021-01-04 Yaz Mckeon [facility] 20:16:00 [facility] Branch URIC ACID 2021-01-04 Yaz Mckeon [facility] exas 20:16:00 Medical Branch MAGNESIUM 2021-01-04 Yaz Mckeon [facility] exas 20:16:00 [facility] Branch HEPATIC FUNCTION PANEL 2021-01-04 Yaz Mckeon [facility] ([id number]) (ALB,T.PRO,BILI 20:16:00 Medical Branch T,BU/BC,ALT,AST,ALK PHOS) CONSENT/REFUSAL FOR DIAGNOSIS 2021-01-01 Doctor Unassigned, [facility] AND TREATMENT 20:10:12 [facility] ASSIGNMENT OF BENEFITS 2021-01-01 Doctor Unassigned, [facility] 20:10:00 Artois [facility] ASPIRATE OR ABSCESS 2020-11-17 Daniela Hinton [facility] CULTURE(AEROBIC/ANAEROBIC) 17:57:00 Medic [facility] SCANNED LAB RESULTS 2020-11-08 Doctor Unassigned, [facility] 05:01:00 Artois [facility] VANCOMYCIN TROUGH 2020-11-02 April Calderon [facility] 20:57:00 Medical Branch FUNGUS (ROUTINE) CULTURE 2020-11-02 April Calderon [facility] 17:05:13 Medical Branch IMPLANT/HARDWARE/ORTHO 2020-11-02 April Calderon [facility] INFECTION 17:05:13 Medical Branch CULTURE(AEROBIC/ANAEROBIC) FUNGUS (ROUTINE) CULTURE 2020-11-02 April Calderon [facility] 17:02:23 Medical Branch IMPLANT/HARDWARE/ORTHO 2020-11-02 April Calderon [facility] INFECTION 17:02:23 Medical Branch CULTURE(AEROBIC/ANAEROBIC) FUNGUS (ROUTINE) CULTURE 2020-11-02 April Calderon [facility] 17:01:01 Medical Branch IMPLANT/HARDWARE/ORTHO 2020-11-02 April Calderon [facility] INFECTION 17:01:01 Medical Branch CULTURE(AEROBIC/ANAEROBIC) WOUND DEBRIDEMENT 2020-11-02 April Calderon [facility] 16:14:00 Medical Branch BREAST IMPLANT REMOVAL 2020-11-02 April Calderon [facility] 16:14:00 Medical Branch CBC WITH DIFF 2020-11-01 Daniela Hinton [facility] exas 18:13:00 [facility] Branch BASIC METABOLIC PANEL (NA, K, 2020-11-01 Daniela Hinton [facility] CL, CO2, GLUCOSE, BUN, 18:12:00 Medical ran CREATININE, CA) PREALBUMIN, SERUM 2020-11-01 Artie Louis [facility] 05:10:00 [facility] COVID-19 (ID NOW RAPID 2020-10-28 [facility] TESTING) 18:32:00 Medical Branch COMP. METABOLIC PANEL ([id number]) 2020-10-28 Issalauryn [facility] 17:09:00 Medical Branch CBC WITH DIFF 2020-10-28 [facility] 17:09:00 [facility] Branch LACTIC ACID WHOLE BLOOD 2020-10-28 [facility] 17:08:00 [facility] URINALYSIS 2020-10-28 [facility] 16:31:00 Medical Branch POCT TEST 2020-10-28 [facility] 16:25:00 [facility] CONSENT/REFUSAL FOR DIAGNOSIS 2020-10-28 Doctor Unassigned, [facility] AND TREATMENT 15:51:35 Artois [facility] SURGICAL PATHOLOGY EXAM 2020-10-05 Odalys Maldonado [facility] 19:45:00 [facility] NM INJECTION SENTINEL NODE 2020-10-05 Otis Mayfield [facility] 18:50:00 [facility] Branch SIMPLE MASTECTOMY 2020-10-05 Odalys Maldonado [facility] 18:01:00 [facility] SENTINEL LYMPH NODE MAPPING 2020-10-05 Odalys Maldonado [facility] 18:01:00 [facility] 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 2020-10-05 April Calderon [facility] BREAST 18:01:00 [facility] Branch ALLOGRAFT APPLICATION 2020-10-05 April Calderon [facility] 18:01:00 [facility] ADJACENT TISSUE REARRANGEMENT 2020-10-05 April Calderon [facility] 18:01:00 [facility] POCT TEST 2020-10-05 Lyssa Talley [facility] 15:00:00 Amarish [facility] ASSIGNMENT OF BENEFITS 2020-10-05 Doctor Unassigned, [facility] 14:40:58 Artois [facility] TX ELECTROCARDIOGRAM, 2020-09-05 Paola Jackman [facility] COMPLETE 17:28:49 Medical Branch DISCLOSURE AND CONSENT, 2020-08-16 Doctor Unassigned, [facility] MEDICAL AND SURGICAL 06:01:00 [facility] Medical Bra nch PROCEDURES BI UPRIGHT STEREOTACTIC CORE 2020-08-11 [facility] BREAST BIOPSY RIGHT 17:30:00 Medical Bran ch BI DIAGNOSTIC TOMOSYNTHESIS 2020-08-11 Odalys [facility]donado [facility] RIGHT 16:30:00 Medical Branch EXTERNAL PROVIDER - ADC 2020-07-19 Doctor Unassigned, [facility] CARDIOLOGY 06:01:00 [facility] Medical Branch unlisted imaging order 2020-07-10 [facility] 00:00:00 [facility] US, transvaginal 2020-04-28 [facility] 00:00:00 [facility] MAMMO, screening, digital, 2020-04-28 [facility] bilateral 00:00:00 [facility] Section [facility] Sinusotomy, Multiple [facility] Caesarean Section [facility] Cholecystectomy [facility] Plan of Care Planned Activity Planned Date Details Comments Source Future Scheduled 2021-10-05 Depression screening [facility] [place] Test 00:00:00 (procedure) [code = Medical Branch [id number]] Future Scheduled 2021-10-05 Depression screening [facility] [place] Test 00:00:00 (procedure) [code = Medical Branch [id number]] Future Scheduled 2021-10-05 Depression screening [facility] [place] Test 00:00:00 (procedure) [code = Medical Branch [id number]] Future Scheduled 2021-10-05 Depression screening [facility] [place] Test 00:00:00 (procedure) [code = Medical Branch [id number]] Future Scheduled 2021-03-07 INFLUENZA VACCINE [facility] [place] [facility] 00:00:00 (Season Ended) [code Medical Branch = INFLUENZA VACCINE (Season Ended)] Future Scheduled 2021-03-07 INFLUENZA VACCINE [facility] [place] Test 00:00:00 (Season Ended) [code Medical Branch = INFLUENZA VACCINE (Season Ended)] Future Scheduled 2021-03-07 INFLUENZA VACCINE [facility] [place] Test 00:00:00 (Season Ended) [code Medical Branch = INFLUENZA VACCINE (Season Ended)] Future Scheduled 2021-03-07 INFLUENZA VACCINE [facility] Test 00:00:00 (Season Ended) [code Medical Branch = INFLUENZA VACCINE (Season Ended)] Diagnostic Test 2020-07-10 COVID-[address] 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 00:00:00 urine/swab [code = CT Group + NG + TV, DNA, urine/swab] Future Scheduled 2006 Screening for [facility] Test 00:00:00 malignant neoplasm of Medica l Branch cervix (procedure) [code = 530626827] Future Scheduled 2006 Screening for [facility] Test 00:00:00 malignant neoplasm of Medica l Branch cervix (procedure) [code = 563831755] Future Scheduled 2006 Screening for [facility] Test 00:00:00 malignant neoplasm of Medica l Branch cervix (procedure) [code = 888042741] Future Scheduled 2006 Screening for [facility] Test 00:00:00 malignant neoplasm of Medica l Branch cervix (procedure) [code = 377813710] Future Scheduled 2004 DTaP,Tdap,and Td Univers ity [facility] Test 00:00:00 Vaccines (1 - Tdap) Medical Branch [code = DTaP,Tdap,and Td Vaccines (1 - Tdap)] Future Scheduled 2004 DTaP,Tdap,and Td Univers it[facility] Test 00:00:00 Vaccines (1 - Tdap) Medical Branch [code = DTaP,Tdap,and Td Vaccines (1 - Tdap)] Future Scheduled 2004 DTaP,Tdap,and Td Univers [facility] Test 00:00:00 Vaccines (1 - Tdap) Medical Branch [code = DTaP,Tdap,and Td Vaccines (1 - Tdap)] Future Scheduled 2004 DTaP,Tdap,and Td [facility] [place] Test 00:00:00 Vaccines (1 - Tdap) Medical Branch [code = DTaP,Tdap,and Td Vaccines (1 - Tdap)] Future Scheduled 2003 Hepatitis C screening [facility] [place] Test 00:00:00 (procedure) [code = Medical Branch [id number]] Future Scheduled 2003 Hepatitis C screening [facility] [place] Test 00:00:00 (procedure) [code = Medical Branch [id number]] Future Scheduled 2003 Hepatitis C screening [facility] [place] Test 00:00:00 (procedure) [code = Medical Branch [id number]] Future Scheduled 2003 Hepatitis C screening [facility] [place] [facility] 00:00:00 (procedure) [code = Medical Branch [id number]] Future Scheduled 2001 SARS-CoV-2 (COVID-19) [facility] [place] [facility] 00:00:00 Vaccine (1) [code = Medical Branch SARS-CoV-2 (COVID-19) Vaccine (1)] Future Scheduled 2001 SARS-CoV-2 (COVID-19) [facility] [place] Test 00:00:00 Vaccine (1) [code = Medical Branch SARS-CoV-2 (COVID-19) Vaccine (1)] Future Scheduled 2001 SARS-CoV-2 (COVID-19) [facility] [place] Test 00:00:00 Vaccine (1) [code = Medical Branch SARS-CoV-2 (COVID-19) Vaccine (1)] Future Scheduled 2001 SARS-CoV-2 (COVID-19) [facility] [place] Test 00:00:00 Vaccine (1) [code = Medical Branch SARS-CoV-2 (COVID-19) Vaccine (1)] Future Scheduled 1991 PNEUMOCOCCAL 0-64 [facility] [place] Test 00:00:00 YEARS COMBINED SERIES Medica l Branch (1 of 3 - PCV13) [code = PNEUMOCOCCAL 0-64 YEARS COMBINED SERIES (1 of 3 - PCV13)] Future Scheduled 1991 PNEUMOCOCCAL 0-64 [facility] [place] Test 00:00:00 YEARS COMBINED SERIES Medica l Branch (1 of 3 - PCV13) [code = PNEUMOCOCCAL 0-64 YEARS COMBINED SERIES (1 of 3 - PCV13)] Future Scheduled 1991 PNEUMOCOCCAL 0-64 [facility] [place] Test 00:00:00 YEARS COMBINED SERIES Medica l Branch (1 of 3 - PCV13) [code = PNEUMOCOCCAL 0-64 YEARS COMBINED SERIES (1 of 3 - PCV13)] Future Scheduled 1991 PNEUMOCOCCAL 0-64 [facility] [place] Test 00:00:00 YEARS COMBINED SERIES Medica l Branch (1 of 3 - PCV13) [code = PNEUMOCOCCAL 0-64 YEARS COMBINED SERIES (1 of 3 - PCV13)] Future Scheduled 1986 VARICELLA VACCINES (1 [facility] [place] [facility] 00:00:00 of 2 - 2-dose Medical Branch childhood series) [code = VARICELLA VACCINES (1 of 2 - 2-dose childhood series)] Future Scheduled 1986 VARICELLA VACCINES (1 [facility] [place] Test 00:00:00 of 2 - 2-dose Medical Branch childhood series) [code = VARICELLA VACCINES (1 of 2 - 2-dose childhood series)] Future Scheduled 1986 VARICELLA VACCINES (1 [facility] [place] Test 00:00:00 of 2 - 2-dose Medical Branch childhood series) [code = VARICELLA VACCINES (1 of 2 - 2-dose childhood series)] Future Scheduled 1986 VARICELLA VACCINES (1 [facility] [place] Test 00:00:00 of 2 - 2-dose Medical Branch childhood series) [code = VARICELLA VACCINES (1 of 2 - 2-dose childhood series)] Encounters Start End Encounter Admission Attending Care Care Encounter Source Date/Time Date/Time Type Type Clinicians Facility Department ID 2021-05-21 Outpatient LISTER_MELI STORM [facility] 2020 [place] 16:59:55 [id number] 2021-05-18 Outpatient LISTER_MELI HOP [facility] 2020 [place] 19:55:18 [id number] 2021-05-18 Outpatient LISTER_MELI HOP [facility] 2020 [place] 15:24:04 [id number] 2021-05-06 Emergency X [facility] [id number] Univers 15:04:13 ity of [facility] 2021-05-06 Emergency [facility] [id number] Univers 15:03:22 ity of [facility] 2021-05-06 Inpatient ERICA [facility] [id number] Univers 01:40:57 ODALYS ity [facility] 2021-03-02 2021-03-02 Orders Doctor MIRIAM [id number] Univers 00:00:00 00:00:00 Only Unassigned, TESSA [id number] ity of [facility] 4.2.7.2.686 Tang as [id number] [facility] 009 Branch 2021-01-31 2021-01-31 Outpatient APRIL RANGEL [facility] [id number] Univers 16:00:00 16:00:00 [id number] ity [facility] 2021-01-31 2021-01-31 Outpatient APRIL RANGEL [facility] [id number] Univers 16:00:00 16:00:00 ity of [facility] 2021-01-30 2021-01-30 [facility] [id number] Univers 10:22:37 23:59:00 Encounter Johny LU [id number] ity [id number] [id number] [facility] 803 Branch 2021-01-30 2021-01-30 Outpatient Stefan HUNTER [facility] [id number] Univers 11:00:00 11:00:00 JOHNY [id number] ity [facility] 2021-01-30 2021-01-30 Outpatient Stefan HUNTER [facility] [id number] Univers 00:00:00 00:00:00 JOHNY ity [facility] 2021-01-25 2021-01-25 Outpatient Stefan MCKEON [facility] [id number] Univers 14:30:00 14:30:00 YAZ [id number] ity [facility] 2021-01-25 2021-01-25 Outpatient Stefan MCKEON [facility] [id number] Univers 14:30:00 14:30:00 YAZ ity [facility] 2021-01-22 2021-01-22 Patient BRONSON Mckeon [id number] Univers 00:00:00 00:00:00 Secure Msg Yaz B Y HEALTH [id number] ity [place] [id number] [facility] 053 Branch 2021-01-17 2021-01-17 Outpatient R LAURAAPRIL [facility] [id number] Univers 15:15:00 15:15:00 [id number] ity [facility] 2021-01-17 2021-01-17 Outpatient R LAURA APRIL [facility] [id number] Univers 15:15:00 15:15:00 ity [facility] 2021-01-16 2021-01-16 Outpatient R MIKE [facility] [id number] Univers 10:30:00 10:30:00 YAZ [id number] ity [facility] 2021-01-16 2021-01-16 Outpatient R MIKE, [facility] [id number] Univers 00:00:00 00:00:00 YAZ ity [facility] 2021-01-15 2021-01-15 Telephone JUAN Mckeon [id number] Univers 00:00:00 00:00:00 Yaz B H [id number] it y of BUILDING [id number] Tang as [id number] [facility] 080 Branch 2021-01-15 2021-01-15 Telephone Henry [facility] [id number] Univers 00:00:00 00:00:00 Jo Health [id number] ity [place] - [phone] Med ical [facility] 161 Branch 2021-01-15 2021-01-15 Telephone Juan Manuel Melendez [facility] [id number] Univers 00:00:00 00:00:00 W SPECIALTY [id number] [place] [id number] [facility] 160 Branch 2021-01-15 2021-01-15 Case Dale [facility] [id number] Univers 00:00:00 00:00:00 Management Johny SPECIALTY [id number] it[place] [phone] [place] [id number] [facility] 2021-01-15 2021-01-15 Case JUAN Mckeon [id number] Univers 00:00:00 00:00:00 Management Yaz Zurita H [id number] ity of BUILDING 4.2.7.2.686 [place] as [id number] [facility] 080 [place] 2021-01-04 2021-01-04 Logging Specialist [facility] UNIVERSIT [id number] Univers 14:52:00 15:18:28 Visit Yaz Mckeon [facility] [id number] ity of [place] [id number] [facility] 316 Branch 2021-01-04 2021-01-04 Office JUAN Mckeon [id number] Univers 12:58:53 14:46:01 Visit Yaz Vieyra 350.1.13.10 it y of BUILDING 4.2.7.2.686 [place] as [phone] [place] [id number] [place] 2021-01-04 2021-01-04 Outpatient Stefan MCKEON [facility] [id number] Univers 13:00:00 13:00:00 YAZ [id number] ity [facility] 2021-01-04 2021-01-04 Outpatient Stefan MCKEON [facility] [id number] Univers 13:00:00 13:00:00 YAZ ity [facility] 2021-01-01 2021-01-01 Laboratory Only, Adc Test [facility] 1.2.840. [id number] Univers 15:10:45 15:25:45 Only Kamlesh Walsh [id number] ity of [place] 4.2.7.2.686 [facility] [id number] [facility] 353 Branch 2021-01-01 2021-01-01 Outpatient R [facility] [id number] Univers 14:00:00 14:00:00 ity of [facility] 2021-01-01 2021-01-01 Outpatient R [facility] [id number] Univers 11:45:00 11:45:00 [id number] ity [facility] 2021-01-01 2021-01-01 Orders Doctor MIRIAM 1.2.840.114 [id number] Univers 00:00:00 00:00:00 Only Unassigned, TESSA 350.1.13.10 [facility] 4.2.7.2.686 [facility] [id number] [facility] 009 Branch 2020-12-25 2020-12-25 Outpatient R [facility] [id number] Univers 13:00:00 13:00:00 YAZ [id number] ity [facility] 2020-12-13 2020-12-13 [facility] 1.2.840.114 [id number] Univers 16:21:40 16:36:40 Visit E Health 350.1.13.10 it y of Cancer 4.2.7.2.686 [id number] [facility] 201 Branch 2020-12-13 2020-12-13 Outpatient R APRIL CALDERON [facility] [id number] Univers 16:30:00 16:30:00 [id number] ity of [facility] 2020-12-13 2020-12-13 Outpatient R APRIL CALDERON [facility] [id number] Univers 16:30:00 16:30:00 ity [facility] 2020-12-13 2020-12-13 Patient April Calderon [facility] 1.2.840.114 [id number] Univers 00:00:00 00:00:00 Secure Msg E Health 350.1.13.10 ity of Cancer 4.2.7.2.686 [facility] - [phone] [facility] [address] 2020-12-13 2020-12-13 Patient April Calderon [facility] 1.2.840.114 [id number] Univers 00:00:00 00:00:00 Secure Msg E Health 350.1.13.10 ity of Cancer 4.2.7.2.686 [facility] [place] - [phone] [facility] [address] 2020-11-29 2020-11-29 Outpatient R LAURA APRIL [facility] [id number] Univers 15:00:00 15:00:00 [id number] ity [facility] 2020-11-29 2020-11-29 Outpatient R APRIL CALDERON [facility] [id number] Univers 15:00:00 15:00:00 ity [facility] 2020-11-29 2020-11-29 Office April Calderon [facility] 1.2.840.114 [id number] Univers 14:30:48 14:45:48 Visit E Health 350.1.13.10 it y of Cancer 4.2.7.2.686 [facility] [place] - [phone] [facility] [address] 2020-11-23 2020-11-23 Telephone Maurilio Menendez 1.2.840.114 [id number] Univers 00:00:00 00:00:00 , Lizy Zimmerman 350.1.13.10 ity of [place] 4.2.7.2.686 [facility] [phone] [facility] [address] 2020-11-22 2020-11-22 Outpatient Stefan MCKEON [facility] [id number] 86L-[id number] Univers 10:30:00 10:30:00 YAZ [id number] ity [facility] 2020-11-22 2020-11-22 Outpatient Stefan MCKEON [facility] [id number] Univers 10:30:00 10:30:00 YAZ ity [facility] 2020-11-17 2020-11-17 Laboratory Only, [facility] Test [facility] 1.2.840. 114 [id number] Univers 12:28:05 12:43:05 Only Yaz Mckeon 350.1.13.10 it[place] of [place].2.[place] [phone] Al homero RUCKER [address] [facility] 2020-11-17 2020-11-17 Outpatient R [facility] [id number] -[id number] Univers 11:45:00 11:45:00 [id number] ity [facility] 2020-11-17 2020-11-17 Outpatient R MIKE [facility] [id number] Univers 11:45:00 11:45:00 [facility]-11-17 2020-11-17 Office April Calderon [facility] 1.2.840.114 [id number] Univers 11:14:55 11:29:55 Visit E Health 350.1.13.10 it [place].2.[place] - [phone] [facility] [address] 2020-11-10 2020-11-10 Office April Calderon [facility] 1.2.840.114 [id number] Univers 09:00:40 09:15:40 Visit E Health 350.1.13.10 it y [place].2.[place].2.[place] - [phone] Med ica[address] 2020-11-10 2020-11-10 Outpatient R APRIL CALDERON [facility] [id number] Univers 09:15:00 09:15:00 ity [facility] 2020-11-08 2020-11-08 Orders Doctor PINEDA 1.2.840.114 [id number] Univers 00:00:00 00:00:00 Only Unassigned, TESSA 350.1.13.10 ity of [place] [facility] 4.2.7.2.686 [place] as [phone] [address] 2020-11-07 2020-11-07 Office Parul NMJUDITH 1.2.840.114 [id number] Univers 13:55:04 14:51:23 Visit Yola STALLINGS 350.1.13.10 ity of C[place].2.[place].2.[place] [phone] Al homero RUCKER [address] [facility] 2020-11-07 2020-11-07 Outpatient R PARUL [facility] [id number] Univers 14:00:00 14:00:00 YOLA benoity o f [facility] 2020-11-06 2020-11-06 Patient April Calderon [facility] 1.2.840.114 [id number] Univers 00:00:00 00:00:00 Secure Msg E Health 350.1.13.10 [place]2.[place].2.686 [place] - [phone] Med ical [facility] [address] 2020-11-06 2020-11-06 Transition Shon Galvan 1.2.840.114 [id number] Univers 00:00:00 00:00:00 of Care Katy Zimmerman 350.1.13.10 i ty of [place].2.7.2.686 [place] [phone] [facility] [address] 2020-11-06 2020-11-06 Patient April Calderon [facility] 1.2.840.114 [id number] Univers 00:00:00 00:00:00 Secure Msg E Health 350.1.13.10 [place].2.[place].2.686 [place] - [phone] [facility] [address] 2020-11-04 2020-11-04 Telephone MIRIAM Garcia 1.2.735.543 [id number] Univers 00:00:00 00:00:00 Colten ZARATE 350.1.13.10 it y of [facility] 4.2.7.2.686 [place] [phone] [facility] [address] 2020-11-03 2020-11-03 Outpatient R LAURAAPRIL [facility] [id number] [id number] Univers 10:45:00 10:45:00 [id number] ity of [facility] 2020-11-03 2020-11-03 Outpatient R LAURAAPRIL [facility] [id number] Univers 10:45:00 10:45:00 ity of [facility] 2020-11-02 2020-11-02 Surgery April Calderon [facility] 1.2.840.114 [id number] Univers 12:41:00 14:19:00 E SPECIALTY 350.1.13.10 ity of C[place] 4.2.7.2.686 [place] [phone] Al homero RUCKER [address] [facility] 2020-11-01 2020-11-01 Patient April Calderon [facility] 1.2.840.114 [id number] Univers 00:00:00 00:00:00 Secure Msg E SPECIALTY 350.1.13.10 ity of C[place] 4.2.7.2.[place] [phone] Al homero RUCKER [address] [facility] 2020-10-31 2020-10-31 Office Parul [facility] 1.2.840.114 [id number] [facility] 10:27:46 12:35:44 Visit Yola SPECIALTY 350.1.13.10 ity of CARE 4.2.7.2.686 [facility] AT [phone] Al homero RUCKER [address] [facility] 2020-10-31 2020-10-31 Outpatient R PARUL [facility] [id number]-20 Univers 10:30:00 10:30:00 YLOA [id number] sanford chavis [facility] 2020-10-31 2020-10-31 Outpatient R PARUL [facility] [id number] Univers 10:30:00 10:30:00 YOLA france partha [facility] 2020-10-30 2020-10-30 Patient April Calderon [facility] 1.2.840.114 [id number] Univers 00:00:00 00:00:00 Secure Msg E Health 350.1.13.10 [place].2.[place] [phone] Med ical MDA [address] [place] [address] 2020-10-30 2020-10-30 Patient April Calderon [facility] 1.2.840.114 [id number] Univers 00:00:00 00:00:00 Secure Msg E Health 350.1.13.10 ity [place] 4.2.[place].2.686 [place] - [phone] Med ical MDA [address] [place] [address] 2020-10-30 2020-10-30 Telephone LauraApril [facility] 1.2.840.114 [id number] Univers 00:00:00 00:00:00 E Health 350.1.13.10 it y of Cancer 4.2.7.2.686 [place] - [phone] Med [facility] [address] 2020-10-28 2020-10-28 Emergency Kaale, TRAUMA 1.2.223.951 [id number] Univers 15:59:00 21:05:00 [facility] 350.1.13.10 ity of 4.2.7.2.686 [place] [phone] [facility] [address] 2020-10-28 2020-10-28 Emergency Janessa, [facility] 1.2.840.114 [id number] Univers 10:58:00 14:44:00 Joi Hollis 350.1.13.10 ity of [place].2.7.2.686 [place] [phone] [facility] [address] 2020-10-28 2020-10-28 Orders Doctor MIRIAM 1.2.840.114 [id number] Univers 00:00:00 00:00:00 Only Unassigned, TESSA 350.1.13.10 ity of [place] [facility] 4.2.7.2.686 [place] as [phone] [facility] [address] 2020-10-27 2020-10-27 Office April Calderon [facility] 1.2.840.114 [id number] Univers 10:06:45 13:25:56 Visit E Health 350.1.13.10 it y of Cancer 4.2.7.2.686 [facility] - [phone] [facility] [address] 2020-10-27 2020-10-27 Outpatient R APRIL CALDERON [facility] [id number] [id number] Univers 10:30:00 10:30:00 [id number] ity of [facility] 2020-10-27 2020-10-27 Outpatient R APRIL CALDERON [facility] [id number] Univers 10:30:00 10:30:00 ity of [facility] 2020-10-26 2020-10-26 Patient April Calderon [facility] 1.2.840.114 [id number] Univers 00:00:00 00:00:00 Secure Msg E Health 350.1.13.10 [place].2.[place].2.686 [place] - [phone] Med ical [facility] [address] 2020-10-25 2020-10-25 Outpatient R APRIL CALDERON [facility] [id number] [id number] Univers 15:00:00 15:00:00 [id number] ity [facility] 2020-10-25 2020-10-25 Outpatient R APRIL CALDERON [facility] [id number] Univers 15:00:00 15:00:00 ity [facility] 2020-10-23 2020-10-23 [facility] 1.2.840.114 [id number] Univers 13:03:53 14:11:41 Visit Yola STALLINGS 350.1.13.10 ity of CARE 4.2.7.2.686 [facility] [place] AT [phone] Al shahriarren [address] 2020-10-23 2020-10-23 Outpatient R PARUL [facility] [id number] L-20 Univers 13:00:00 13:00:00 YOLA [id number] ity o [facility] 2020-10-23 2020-10-23 Outpatient R PARUL [facility] [id number] Univers 13:00:00 13:00:00 YOLA christina o f [facility] 2020-10-21 2020-10-21 [facility]phone [facility] 1.2.840.114 [id number] Univers 00:00:00 00:00:00 E Health 350.1.13.10 it y of Cancer 4.2.7.2.686 [facility] - [phone] Med ical [facility] [address] 2020-10-18 2020-10-18 Outpatient R APRIL CALDERON [facility] [id number] [id number] Univers 15:30:00 15:30:00 [id number] ity [facility] 2020-10-18 2020-10-18 Outpatient R APRIL CALDERON [facility] [id number] Univers 15:30:00 15:30:00 ity [facility] 2020-10-18 2020-10-18 Office April Calderon [facility] 1.2.840.114 [id number] Univers 14:43:51 14:58:51 Visit E Health 350.1.13.10 it y of Cancer 4.2.7.2.686 [facility] [phone] [address] 2020-10-17 2020-10-17 Outpatient R ANNELIESEHAROLDO [facility] [id number] [id number]-20 Univers 14:45:00 14:45:00 ODALYS [id number] ity [facility] 2020-10-17 2020-10-17 Outpatient R ANNELIESEHAROLDO [facility] [id number] Univers 14:45:00 14:45:00 ODALYS [facility] 2020-10-16 2020-10-16 Outpatient R LOSIL [facility] [id number]-20 Univers 14:30:00 14:30:00 ODALYS [id number] [facility] 2020-10-11 2020-10-11 Office April Calderon [facility] 1.2.840.114 [id number] Univers 15:16:02 15:31:02 Visit E Health 350.1.13.10 it y of Cancer 4.2.7.2.686 [facility] - [id number] [address] 2020-10-11 2020-10-11 Outpatient R APRIL CALDERON [facility] [id number] [id number] Univers 14:30:00 14:30:00 [id number] ity [facility] 2020-10-11 2020-10-11 Outpatient R APRIL CALDERON [facility] [id number] Univers 14:30:00 14:30:00 ity [facility] 2020-10-10 2020-10-10 Outpatient R [facility] [id number] Univers 15:00:00 15:00:00 [id number] ity [facility] 2020-10-10 2020-10-10 Outpatient R JUAN MANUEL MELENDEZ [facility] [id number] Univers 15:00:00 15:00:00 ity [facility] 2020-10-10 2020-10-10 TelemedicJo Fofana [facility] 1.2.8 40.114 [id number] Univers 07:41:56 08:41:56 ne Visit Juan Manuel Melendez [facility] 350.1.13.10 ity [place].2.7.2.686 [place] - [id number] Med ical MDA [address] 2020-10-05 2020-10-05 Hospital [facility] 1.2.840.114 [id number] Univers 11:10:00 23:59:00 Encounter Odalys Rainey SPECIALTY 350.1.13.10 ity of C[place].2.7.2.686 [place] [phone] Al dicren RUCKER [address] [facility] 2020-10-05 2020-10-05 Surgery [facility] 1.2.438.624 [id number] Univers 11:03:00 16:26:00 Odalys S SPECIALTY 350.1.13.10 ity of C[place] 4.2.7.2.686 [place] [phone] Al homero RUCKER [address] [facility] 2020-10-05 2020-10-05 Orders Doctor MIRIAM 1.2.840.114 [id number] Univers 00:00:00 00:00:00 Only Unassigned, TESSA 350.1.13.10 ity of [place] [facility] 4.2.7.2.686 Tang as [phone] [facility] [address] 2020-10-02 2020-10-02 Laboratory Only, Adc Test [facility] 1.2.840. 114 [id number] Univers 11:21:03 11:36:03 Only Odalys Maldonado [place] 350.1.13.10 ity of [place].2.686 [place] [phone] [facility] [address] 2020-10-02 2020-10-02 Outpatient [facility] [id number] Univers 11:00:00 11:00:00 [id number] ity of [facility] 2020-10-02 2020-10-02 Outpatient R [facility] [id number] Univers 11:00:00 11:00:00 ity of [facility] 2020-09-25 2020-09-25 Patient Devin [facility] 1.2.840.114 [id number] Univers 00:00:00 00:00:00 Outreach Andrea JENNIFER 350.1.13.10 teddy delong [facility] 4.2.7.2.686 Janay AARON [phone] Al dical [address] 2020-09-14 2020-09-14 Outpatient R GASPER, [facility] [id number] -[id number] Univers 16:00:00 16:00:00 PAOLA [id number] it o [facility] 2020-09-14 2020-09-14 Outpatient R GASPER, [facility] [id number] Univers 16:00:00 16:00:00 CHARMAINECRISTHIANCARSON [facility] 2020-09-05 2020-09-05 [facility] 1.2.840.114 [id number] Univers 11:07:13 11:56:19 Visit Paola Hollis 350.1.13.10 Alanna 4.2.7.2.686 Janay Steele [phone] Al dical nal [address] [facility] 2020-09-05 2020-09-05 Outpatient R GASPER, [facility] [id number] -[id number] Univers 10:40:00 10:40:00 PAOLA [id number] [facility] 2020-09-05 2020-09-05 Outpatient R GASPER, [facility] [id number] Univers 10:40:00 10:40:00 PAOLA [facility] 2020-08-31 2020-08-31 Outpatient R [facility] [id number] Univers 11:00:00 11:00:00 [id number] [facility] 2020-08-31 2020-08-31 Outpatient R JUAN MANUEL MELENDEZ [facility] [id number] Univers 11:00:00 11:00:00 [facility] 2020-08-30 2020-08-30 Outpatient R APRIL CALDERON [facility] [id number] Univers 16:15:00 16:15:00 [id number] [facility] 2020-08-30 2020-08-30 Outpatient R APRIL CALDERON [facility] [id number] Univers 16:15:00 16:15:00 ity [facility] 2020-08-30 2020-08-30 Telemedici April Calderon [facility] 1.2.840.114 [id number] Univers 07:43:15 07:58:15 ne Visit E Health 350.1.13.10 i ty [place].2.[place].2.686 [place] - [phone] [address] 2020-08-28 2020-08-28 Outpatient R [facility] [id number] Univers 15:00:00 15:00:00 [id number] ity [facility] 2020-08-28 2020-08-28 Outpatient R AL JUAN MANUEL [facility] [id number] Univers 15:00:00 15:00:00 ity [facility] 2020-08-25 2020-08-25 Telephone [facility] 1.2.522.814 [id number] Univers 00:00:00 00:00:00 Nessa Hollis 350.1.13.10 ity of [place] 4.2.7.2.686 [facility]io [phone] Al dical [facility] [address] [facility] 2020-08-18 2020-08-18 Patient April Calderon [facility] 1.2.840.114 [id number] Univers 00:00:00 00:00:00 Secure Msg E Health 350.1.13.10 it[place].2.7.2.686 [place] - [id number] [address] 2020-08-16 2020-08-16 Office April Calderon [facility] 1.2.840.114 [id number] Univers 15:01:06 15:31:06 Visit E Health 350.1.13.10 it y [place].2.7.2.686 [place] - [id number] [address] 2020-08-16 2020-08-16 Outpatient R APRIL CALDERON [facility] [id number] [id number] Univers 15:15:00 15:15:00 [id number] ity [facility] 2020-08-16 2020-08-16 Outpatient R APRIL CALDERON [facility] [id number] Univers 15:15:00 15:15:00 ity of [facility] 2020-08-16 2020-08-16 Orders Doctor MIRIAM 1.2.840.114 [id number] Univers 00:00:00 00:00:00 Only Unassigned, TESSA 350.1.13.10 ity of [place] [facility] 4.2.7.2.686 [place] as [phone] [facility] [address] 2020-08-15 2020-08-15 [facility] [id number] Univers 14:00:00 14:00:00 ODALYS christina [facility] 2020-08-11 2020-08-11 [facility] 1.2.840.114 [id number] Univers 09:21:00 23:59:00 Encounter Odalys Herbert HEALTH 350.1.13.10 ity of [facility] 4.2.7.2.686 [place] [id number] [facility] [address] 2020-08-11 2020-08-11 Out[facility] [id number] 6L-20 Univers 10:00:00 10:00:00 ODALYS [id number] ity of [facility] 2020-08-11 2020-08-11 [facility] BRONSON Gauthier 1.2.840.114 [id number] Univers 09:20:45 09:20:45 Encounter Nessa Herbert HEALTH 350.1.13.10 ity of [facility] 4.2.7.2.686 [place] [phone] [facility] [address] 2020-08-11 2020-08-11 Outpatient [facility] [id number] Univers 00:00:00 00:00:00 NESSA christina [facility] 2020-07-27 2020-07-27 Telephone [facility] 1.2.718.142 [id number] Univers 00:00:00 00:00:00 Nessa Hollis 350.1.13.10 ity of [place].2.7.2.686 [place] [phone] [address] 2020-07-21 2020-07-21 [facility] 1.2.840.114 [id number] Univers 08:42:25 23:59:00 Encounter Nessa Hollis 350.1.13.10 ity of [place] 4.2.7.2.686 [facility] [id number] [facility] [address] 2020-07-21 2020-07-21 Outpatient [facility] [id number] Univers 08:41:31 08:41:31 NESSA ity [facility] 2020-07-21 2020-07-21 [facility] 1.2.840.114 [id number] Univers 08:41:31 08:41:31 Encounter Nessa Hollis 350.1.13.10 ity of [place].2.7.2.686 [place] [phone] [facility] [address] 2020-07-21 2020-07-21 [facility] 1.2.840.114 [id number] Univers 00:00:00 00:00:00 Management Nessa Hollis 350.1.13.10 ity of [place] 4.2.7.2.686 [facility] [phone] Al dical nal 204 [facility] 2020-07-19 2020-07-19 Orders Doctor MIRIAM 1.2.840.114 [id number] Univers 00:00:00 00:00:00 Only Unassigned, TESSA 350.1.13.10 ity of [place] [facility] 4.2.7.2.686 Tang as [phone] [facility] [address] 2020-07-11 2020-07-11 Outpatient Stefan MALDONADO [facility] [id number] Univers 15:00:00 15:00:00 ODALYS christina [facility] 2020-07-10 2020-07-10 Chantal INMAN [place] - [id number] [place] 00:00:00 00:00:00 Chris Mata HORN PLAYER: 17[address] [facility] STORM Cisneros, [facility] [address] h , Ph. Program 2020-06-21 2020-06-21 Deepti PATTERSON [place] - [id number] M atagor 00:00:00 00:00:00 Maxwell Perez, Medical Medica vivek MD: [address] [facility] [address], [place] [address] , Ph. [phone] 2020-05-03 2020-05-[address] [facility] [place] - [id number] [place] 00:00:00 00:00:00 Chris Mata HORN PLAYER: [address] [facility] Eli [facility] ren Laws, [facility] [address] h , Ph. Program 2020-04-28 2020-04-28 Rachael INMAN [place] - [id number] M atagor 00:00:00 00:00:00 Hui Ferrera, Yazidism Episco p HORN PLAYER: 111 [facility] al Eusebia F N, CANDY VENDOR [facility], [place] [address] Progr am , Ph. Results Test Test Test Results Result Source Description Time Comments Comments IR CENTRALLY 2021-01- Successful left chest University of INSERTED DEVICE 28 wall port placement. [facility] 14:43:52 PLAN: The port is ready Branch CATHETER WITH for immediate use. PORT 5 OR OLDER Please note that a power injectableport was placed. When treatment is completed, [facility]: [phone].[facility]: [phone]. Preliminary Report Dictated by Resident: Vivienne Bowen. As the attending interventional radiologist I was present in the room forthe critical portion of the procedure. I, Phyllis Chen MD., have reviewed this study and agree with the abovereport.EXAMINATION: PORT PLACEMENT USING ULTRASOUND AND FLUOROSCOPIC GUIDANCE HISTORY: place port on left (right breast cancer) 35 [place] American[place] with right sided stage 1 infiltrating ductal breast cancer pendinginitiation of chemotherapy. COMPARISON: Diagnostic mammogram on 08/11/2020 with subsequent stereotacticbiopsy and surgical specimen ATTENDING PRESENCE: ?As the attending radiologist, Dr. Chen was presentduring the procedure. VIR Fellow: Dr. Vivienne Bowen Resident: Dr. Willard SEDATION: Moderate sedation was administered under the attendingphysician's direction and continuous monitoring by a trained nursespecialist who was independent from those actually performing theprocedure. Please see EPIC for total monitored sedation time. RADIATION DOSE: 14.6 mGyFLUOROSCOPY TIME: 2.0 minutes TECHNIQUE: The risks, benefits and alternatives were discussed and informed consentwas obtained. Prior to beginning the procedure, [place] Protocol was usedto confirm the patient's identity and planned procedure. Maximum sterilebarriers including cap, mask, hand hygiene, sterile gloves, sterile gown,large sterile drape and cutaneous antisepsis were used. Prior to the procedure, both right and left internal jugular veins wereevaluated by ultrasound, and an images were recorded and saved in PACS. The skin over the left internal jugular vein was sterilely prepped, drapedand infiltrated with 1 percent lidocaine. The vein was accessed with a 21gauge needle using realtime ultrasound guidance. A guidewire was thenpassed centrally using fluoroscopic guidance. The intravascular length fromthe access site to the cavoatrial junction was then assessed. Afterinfiltrating the skin in the subclavicular region with 1 percent lidocaine,a short transverse incision was made and the pocket for the port reservoirwas formed by blunt dissection. The catheter was tunneled to the IJ access site, cut to the appropriatelength and inserted through a peel-away sheath. The catheter was flushedwith 100 U/mL heparin. The deep tissues were approximated using 3-0 Vicryl, and the incisionclosed using 4-0 Vicryl, Dermabond, and steri strips. The incision in thelower neck was closed with Dermabond. ESTIMATED BLOOD LOSS: Minimal DISCHARGED TO: Recovery and then discharged home CONDITION: Stable FINDINGS: Ultrasound image shows a patent left internal jugular vein. The finalfluoroscopic image demonstrates the left chest port catheter with its tipat the superior cavoatrial junction. ?The port catheter was cut to 26 cmlength. No complications are seen. [facility], [facility] Results Inft User - 01/31/2021 9:45 AM CDT EXAMINATION: PORT PLACEMENT USING ULTRASOUND AND FLUOROSCOPIC GUIDANCEHISTORY: place port on left (right breast cancer) 35 [place] with right sided stage 1 infiltrating ductal breast cancer pendinginitiation of chemotherapy. COMPARISON: Diagnostic mammogram on 08/11/2020 with subsequent stereotacticbiopsy and surgical specimenATTENDING PRESENCE: As the attending radiologist, Dr. Chen was presentduring the procedure. VIR Fellow: Dr. Vivienne Bowen Resident: Dr. WillardSEDATION: Moderate sedation was administered under the attendingphysician's direction and continuous monitoring by a trained nursespecialist who was independent from those actually performing theprocedure. Please see [facility] for total monitored sedation time.RADIATION DOSE: 14.6 mGyFLUOROSCOPY TIME: 2.0 minutesTECHNIQUE: The risks, benefits and alternatives were discussed and informed consentwas obtained. Prior to beginning the procedure, [place] Protocol was usedto confirm the patient's identity and planned procedure. Maximum sterilebarriers including cap, mask, hand hygiene, sterile gloves, sterile gown,large sterile drape and cutaneous antisepsis were used. Prior to the procedure, both right and left internal jugular veins wereevaluated by ultrasound, and an images were recorded and saved in PACS. The skin over the left internal jugular vein was sterilely prepped, drapedand infiltrated with 1 percent lidocaine. The vein was accessed with a 21gauge needle using realtime ultrasound guidance. A guidewire was thenpassed centrally using fluoroscopic guidance. The intravascular length fromthe access site to the cavoatrial junction was then assessed. Afterinfiltrating the skin in the subclavicular region with 1 percent lidocaine,a short transverse incision was made and the pocket for the port reservoirwas formed by blunt dissection. The catheter was tunneled to the IJ access site, cut to the appropriatelength and inserted through a peel-away sheath. The catheter was flushedwith 100 U/mL heparin.The deep tissues were approximated using 3-0 Vicryl, and the incisionclosed using 4-0 Vicryl, Dermabond, and steri strips. The incision in thelower neck was closed with Dermabond.ESTIMATED BLOOD LOSS: MinimalDISCHARGED TO: Recovery and then discharged homeCONDITION: StableFINDINGS: Ultrasound image shows a patent left internal jugular vein. The finalfluoroscopic image demonstrates the left chest port catheter with its tipat the superior cavoatrial junction. The port catheter was cut to 26 cmlength. No complications are seen. IMPRESSIONSuccessful left chest wall port placement. PLAN: The port is ready for immediate use. Please note that a power injectableport was placed. When treatment is completed, removal can be scheduled byjulia HANCOCK.[facility]: [phone].[facility]: [phone].Preliminary Report Dictated by Resident: Vivienne Bowen.As the attending interventional radiologist I was present in the room forthe critical portion of the procedure.I, Phyllis Chen MD., have reviewed this study and agree with the abovereport. CBC WITHOUT DIFF 2021-01-30 16:58:10 Test Item Value Reference Range Interpretation Comme nts WBC (test code = 6690-2) See_Comment [A utomated message] The system which generated this result transmitted ref erence range: 4.30 - 11.10 10 *3/?L. The reference range was not used to interpret this result as normal/abnormal . RBC (test code = 789-8) See_Comment H [Au tomated message] The system which generated this result transmitted ref erence range: 3.93 - 5.25 10* 6/?L. The reference range was not used to interpret this result as normal/abnormal . HGB (test code = 718-7) 15.5 g/dL 11.6-15.0 H HCT (test code = 4544-3) 45.6 % 35.7-45.2 H MCH (test code = 785-6) 28.7 pg 25.9-32.8 MCV (test code = 787-2) 84.4 fL 80.6-95.5 MCHC (test code = 786-4) 34.0 g/dL 31.6-35.1 PLT (test code = 777-3) See_Comment [Au tomated message] The system which generated this result transmitted ref erence range: 166 - 358 10*3/ ?L. The reference range was not used to interpret this result as normal/abnormal . MPV (test code = 70135-9) 10.1 fL 9.5-12.9 RDW-CV (test code = 788-0) 12.7 % 12.0-15.5 RDW-SD (test code = 72366-7) 38.5 fL 39.0-49.9 L NRBC x10^3 (test code = <0.01 See_Comment [Au tomated message] The system [id number]) which generated this result transmitted ref erence range: 10*3/?L. The re ference range was not used to interpret this result as norah l/abnormal. NRBC/100 WBC (test code = See_Comment [ Automated message] The system [id number]) which generated this result transmitted ref erence range: 0.0 - 10.0 /100 WBCs. The reference range was not used to interpret this result as normal/abnormal . IPF % (test code = 0813852256) Lab Interpretation (test code Abnormal = 88509-9) [facility] WITHOUT [id number] 16:58:10 Test Item Value Reference Range Interpretation Comments WBC (test code = 6690-2) See_Comment [A utomated message] The system [employer] generated this result transmit lavonne reference range : 4.30 - 11.10 10*3/?L. The reference range was not used to interpret this result as normal/abnormal . RBC (test code = 789-8) See_Comment H [Au tomated message] The system [employer] generated this result transmit lavonne reference range : 3.93 - 5.25 10* 6/?L. The reference r louise was not used to interpret this result as normal/abnormal . HGB (test code = 718-7) 15.5 g/dL 11.6-15.0 H HCT (test code = 4544-3) 45.6 % 35.7-45.2 H MCH (test code = 785-6) 28.7 pg 25.9-32.8 MCV (test code = 787-2) 84.4 fL 80.6-95.5 MCHC (test code = 786-4) 34.0 g/dL 31.6-35.1 PLT (test code = 777-3) See_Comment [Au tomated message] The system [employer] generated this result transmit lavonne reference range : 166 - 358 10*3/?L. The reference range was not used to interpret this result as normal/abnormal . MPV (test code = 10.1 fL 9.5-12.9 29708-2) RDW-CV (test code = 12.7 % 12.0-15.5 788-0) RDW-SD (test code = 38.5 fL 39.0-49.9 L 64963-6) NRBC x10^3 (test code = <0.01 See_Comment [Au tomated message] 3258177553) The system [employer] generated this result transmit lavonne reference range : 10*3/?L. The reference range was not used to interpret this result as normal/abnormal . NRBC/100 WBC (test code See_Comment [Au tomated message] = 8749858480) The system [employer] generated this result transmit lavonne reference range : 0.0 - 10.0 /100 WBC s. The reference r louise was not used to interpret this result as normal/abnormal . IPF % (test code = 0472215540) Lab Interpretation (test Abnormal code = 42456-2) [facility] [id number] 18:36:11 Test Item Value Reference Range Interpretation Comments Cancer Antigen 13 U/mL 0.0-40.0 INTERPRETIVE INFORMATION: 27.29 (test code = Cancer [place] 27.29[place] [address]-0) 27.29 assay is intended for use in monitori n) disease progres tanner and/or response to the rapy in patients with m etastatic disease, and 2) disease recurrence in p atients treated previou sly for stages II or II I breast carcinoma who a re clinically free of the disease. Serial testing in patients who ar e clinically free of disease should be used in conjunc tion with other clinical methods for early detection of cancer recurrence. Walker itations: Patients with c onfirmed breast carcinom a frequently have CA 27.29 a ssay values in the same ran ge as healthy individ uals. ?Elevations may also be observed in pat ients with non malignant d isease. Results of this test must always be inter preted in the context of morphologic and other relev ant data, and should not be used alone for a ema gnosis of malignancy. Met hodology: Siemens Advia C entaur CA 27.29 chemilumi nescent immunoassay was used. Results obtaine d with different assay methods or kits cannot be used interchangeably .Performed By: DICK [address] [address]Wjfrhwb or Director: Meggan You MD [facility] [id number] 18:36:11 Test Item Value Reference Range Interpretation Comments Cancer Antigen 13 U/mL 0.0-40.0 INTERPRETIVE INFORMATION: 27.29 (test code = Cancer [place]igen 27.29[place] [address]-0) 27.29 assay is intended for use in monitori n) disease progres tanner and/or response to the rapy in patients with m etastatic disease, and 2) disease recurrence in p atients treated previou sly for stages II or II I breast carcinoma who a re clinically free of the disease. Serial testing in patients who ar e clinically free of disease should be used in conjunc tion with other clinical methods for early detection of cancer recurrence. Walker itations: Patients with c onfirmed breast carcinom a frequently have CA 27.29 a ssay values in the same ran ge as healthy individ uals. ?Elevations may also be observed in pat ients with non malignant d isease. Results of this test must always be inter preted in the context of morphologic and other relev ant data, and should not be used alone for a ema gnosis of malignancy. Met hodology: Siemens Advia C entaur CA 27.29 chemilumi nescent immunoassay was used. Results obtaine d with different assay methods or kits cannot be used interchangeably .Performed By: ARABELLA [address] [place], [place] [address]Jgnndcr or Director: Meggan You MD [facility] CenterGAMMA [id number] 23:40:48 Test Item Value Reference Range Interpretation Comments GGT (test code = 5948207277) 29 U/L 13-40 Lab Interpretation (test code = Normal 16268-9) [facility] CenterGAMMA [id number] 23:40:48 Test Item Value Reference Range Interpretation Comments GGT (test code = 9948488870) 29 U/L 13-40 Lab Interpretation (test code = Normal 75643-3) [facility] CenterMAGNESIUM2021-07-01 23:40:47 Test Item Value Reference Range Interpretation Comments MAGNESIUM (test code = 8959084645) 1.4 mg/dL 1.7-2.4 L Lab Interpretation (test code = Abnormal 45854-0) [facility]PHOSPHORUS2021-07-01 23:40:47 Test Item Value Reference Range Interpretation Comments PHOSPHORUS (test code = 6686537054) 4.1 mg/dL 2.5-5.0 Lab Interpretation (test code = Normal 68040-8) [facility] CenterHEPATIC FUNCTION PANEL (25940) (ALB,T.PRO,BILI T,BU/BC,ALT,AST,ALK PHOS)2021-01-04 23:40:47 Test Item Value Reference Range Interpretation Comments TOTAL BILI (test code = 4689218703) 0.4 mg/dL 0.1-1.1 BILI UNCON (test code = 2605264934) 0.1 mg/dL 0.1-1.1 BILI CONJ (test code = 6792821075) 0.0 mg/dL 0.0-0.3 T PROTEIN (test code = 1521410164) 7.1 g/dL 6.3-8.2 ALBUMIN (test code = 3980187684) 4.6 g/dL 3.5-5.0 ALK PHOS (test code = 5558131804) 60 U/L 34-122 ALTv (test code = 1742-6) 47 U/L 5-35 H AST(SGOT) (test code = 9238616325) 36 U/L 13-40 Lab Interpretation (test code = Abnormal 29550-9) [facility] CenterURIC [id number] 23:40:47 Test Item Value Reference Range Interpretation Comments URIC ACID (test code = 1390404928) 5.8 mg/dL 2.9-6.0 Lab Interpretation (test code = Normal 99185-1) [facility]2021-07-01 23:40:47 Test Item Value Reference Range Interpretation Comments MAGNESIUM (test code = 0747795138) 1.4 mg/dL 1.7-2.4 L Lab Interpretation (test code = Abnormal 21674-7) [facility]PH[facility]2021-07-01 23:40:47 Test Item Value Reference Range Interpretation Comments PHOSPHORUS (test code = 0770220051) 4.1 mg/dL 2.5-5.0 Lab Interpretation (test code = Normal 74121-7) [facility] CenterHEPAT[facility] FUNCTION PANEL (23498) (ALB,T.PRO,BILI T,BU/BC,ALT,AST,ALK PHOS)2021-01-04 23:40:47 Test Item Value Reference Range Interpretation Comments TOTAL BILI (test code = 5534288629) 0.4 mg/dL 0.1-1.1 BILI UNCON (test code = 2313261951) 0.1 mg/dL 0.1-1.1 BILI CONJ (test code = 0440574269) 0.0 mg/dL 0.0-0.3 T PROTEIN (test code = 4917269392) 7.1 g/dL 6.3-8.2 ALBUMIN (test code = 3506327599) 4.6 g/dL 3.5-5.0 ALK PHOS (test code = 8941496694) 60 U/L 34-122 ALTv (test code = 1742-6) 47 U/L 5-35 H AST(SGOT) (test code = 6764085530) 36 U/L 13-40 Lab Interpretation (test code = Abnormal 85474-9) [facility] CenterURIC [id number] 23:40:47 Test Item Value Reference Range Interpretation Comments URIC ACID (test code = 3413269799) 5.8 mg/dL 2.9-6.0 Lab Interpretation (test code = Normal 58609-3) [facility] CenterBASIC METABOLIC PANEL (NA, K, CL, CO2, GLUCOSE, BUN, CREATININE, CA)2021-01-04 21:56:42 Test Item Value Reference Range Interpretation Comments NA (test code = 136 mmol/L 135-145 5991650601) K (test code = 4.0 mmol/L 3.5-5.0 7510602900) CL (test code = 104 mmol/L 98-108 0976631259) CO2 TOTAL (test code = 24 mmol/L 23-31 4955825189) AGAP (test code = 2-16 6219487385) BUN (test code = 7 mg/dL 7-23 1159774606) GLUCOSE (test code = 80 mg/dL 70-110 8325462569) CREATININE (test code = 0.49 mg/dL 0.50-1.04 L 5973933538) CALCIUM (test code = 9.8 mg/dL 8.6-10.6 1887203759) eGFR (test code = mL/min/1.73m2 5822538840) NEREYDA (test code = NEREYDA) Association of Glomerular Filtration Rate (GFR) and Staging of Kidney Disease* + --+ --+ ------+| GFR (mL/min/1.73 m2) ?| With Kidney Damage ?| ?Without Kidney Damage+ --------+ --------+ +| ?>90 ?| ?Stage one ?| ? Normal ?+ ---+ ---+ -------+| ?60-89 ?| ?Stage two ?| ? Decreased GFR ? + --+ --+ ------+| ?30-59 ?| ?Stage three ?| ? Stage three ? + --+ --+ ------+| ?15-29 ?| ?Stage four ? | ? Stage four ?+ ---+ ---+ -------+| ?<15 (or dialysis) ? ?| ?Stage five ? | ? Stage five ?+ ---+ ---+ -------+ *Each stage assumes the associated GFR level has been in effect for at least three months. ?Stages 1 to 5, with or without kidney disease, indicate chronic kidney disease. Notes: Determination of stages one and two (with eGFR >59mL/min/1.73 m2) requires estimation of kidney damage for at least three months as defined by structural or functional abnormalities of the kidney, manifested by either:Pathological abnormalities or Markers of kidney damage (including abnormalities in the composition of the blood or urine or abnormalities in imaging tests). Lab Interpretation Abnormal (test code = 51236-2) [facility] CenterPROTHROMBIN TIME / [id number] 20:48:47 Test Item Value Reference Range Interpretation Comments PROTIME PATIENT (test See_Comment [Auto mated message] code = 5964-2) The system wh ich generated this result transmitted ref erence range: 10.1 - 1 2.6 Seconds. The re ference range was not u sed to interpret this result as normal/abnor mal. INR (test code = 6301-6) Nor mal INR <1.1; Warfarin Therap eutic range 2.0 to 3. 0 or 2.5 to 3.5, dep ending upon the indica tions. Lab Interpretation (test Normal code = 99793-5) [facility] CenterACTIVATED PARTIAL THRMPLAS [id number] 20:48:47 Test Item Value Reference Range Interpretation Comments APTT Patient (test code = See_Comment [ Automated message] 3173-2) The system [employer] generated this result transmitted ref erence range: 26 - 36 Seconds. The re ference range was not u sed to interpret this result as normal/abnor mal. Lab Interpretation (test Normal code = 79565-9) [facility] CenterVancomycin Trough Level - [id number] 21:46:45 Test Item Value Reference Range Interpretation Comments VANCO TROUGH (test code 5.8 ug/mL 10.0-20.0 L = 3337200626) NEREYDA (test code = NEREYDA) Toxic Range: ?>20 ug/mL 15-20 ug/mL is recommended for severe infection or when Vancomycin KRYSTA is greater than or equal to 2. Lab Interpretation (test Abnormal code = 45770-5) [facility] CenterBASIC METABOLIC PANEL (NA, K, CL, CO2, GLUCOSE, BUN, CREATININE, CA)2020-11-01 18:45:05 Test Item Value Reference Range Interpretation Comments NA (test code = 138 mmol/L 135-145 8863926719) K (test code = 4.0 mmol/L 3.5-5.0 7305177171) CL (test code = 107 mmol/L 98-108 8427459943) CO2 TOTAL (test code = 23 mmol/L 23-31 4690783997) AGAP (test code = 2-16 8370140330) BUN (test code = 12 mg/dL 7-23 9748977580) GLUCOSE (test code = 114 mg/dL 70-110 H 2338971844) CREATININE (test code = 0.40 mg/dL 0.50-1.04 L 5721781077) CALCIUM (test code = 8.8 mg/dL 8.6-10.6 0936918755) eGFR (test code = mL/min/1.73m2 9251100203) NEREYDA (test code = NEREYDA) Association of Glomerular Filtration Rate (GFR) and Staging of Kidney Disease* + --+ --+ ------+| GFR (mL/min/1.73 m2) ?| With Kidney Damage ?| ?Without Kidney Damage+ --------+ --------+ +| ?>90 ?| ?Stage one ?| ? Normal ?+ ---+ ---+ -------+| ?60-89 ?| ?Stage two ?| ? Decreased GFR ? + --+ --+ ------+| ?30-59 ?| ?Stage three ?| ? Stage three ? + --+ --+ ------+| ?15-29 ?| ?Stage four ? | ? Stage four ?+ ---+ ---+ -------+| ?<15 (or dialysis) ? ?| ?Stage five ? | ? Stage five ?+ ---+ ---+ -------+ *Each stage assumes the associated GFR level has been in effect for at least three months. ?Stages 1 to 5, with or without kidney disease, indicate chronic kidney disease. Notes: Determination of stages one and two (with eGFR >59mL/min/1.73 m2) requires estimation of kidney damage for at least three months as defined by structural or functional abnormalities of the kidney, manifested by either:Pathological abnormalities or Markers of kidney damage (including abnormalities in the composition of the blood or urine or abnormalities in imaging tests). Lab Interpretation Abnormal (test code = 94187-6) [facility] WITH [id number] 18:29:41 Test Item Value Reference Range Interpretation Comments WBC (test code = See_Comment [Automated 4290-2) message] The sy stem which generated this result transmitted reference range : 4.30 - 11.10 10*3/?L. The reference range was not used to interpret this result as normal/abnormal . RBC (test code = See_Comment L [Automated 139-8) message] The sy stem which generated this result transmitted reference range : 3.93 - 5.25 10*6/?L. The reference range was not used to interpret this result as normal/abnormal . HGB (test code = 11.4 g/dL 11.6-15.0 L 718-7) HCT (test code = 34.1 % 35.7-45.2 L 4544-3) MCV (test code = 88.3 fL 80.6-95.5 787-2) MCH (test code = 29.5 pg 25.9-32.8 785-6) MCHC (test code = 33.4 g/dL 31.6-35.1 786-4) RDW-SD (test code = 38.3 fL 39.0-49.9 L 85586-4) RDW-CV (test code = 11.9 % 12.0-15.5 L 788-0) PLT (test code = See_Comment [Automated 777-3) message] The sy stem which generated this result transmitted reference range : 166 - 358 10*3/ ?L. The reference r louise was not used to interpret this result as normal/abnormal . MPV (test code = 9.5 fL 9.5-12.9 30448-7) NRBC/100 WBC (test See_Comment [Automat ed code = 4848560986) message] The system which generated this result transmitted reference range : 0.0 - 10.0 /100 WBCs. The refer ence range was not u sed to interpret th is result as normal/abnormal . NRBC x10^3 (test code <0.01 See_Comment [Auto mated = 9561569427) message] The s ystem which generated this result transmitted reference range : 10*3/?L. The reference range was not used to interpret this result as normal/abnormal . GRAN MAT (NEUT) % 56.5 % (test code = 770-8) IMM GRAN % (test code 0.20 % = 6886301442) LYMPH % (test code = 24.1 % 736-9) MONO % (test code = 14.7 % 5905-5) EOS % (test code = 4.0 % 713-8) BASO % (test code = 0.5 % 706-2) GRAN MAT x10^3(ANC) 3.26 10*3/uL 1.88-7.09 (test code = 7132760822) IMM GRAN x10^3 (test <0.03 0.00-0.06 code = 9144383279) LYMPH x10^3 (test code 1.39 10*3/uL 1.32-3.29 = 731-0) MONO x10^3 (test code 0.85 10*3/uL 0.33-0.92 = 742-7) EOS x10^3 (test code = 0.23 10*3/uL 0.03-0.39 711-2) BASO x10^3 (test code 0.03 10*3/uL 0.01-0.07 = 704-7) Lab Interpretation Abnormal (test code = 78180-0) [facility] CenterPREALBUMIN2021-04-28 17:22:28 Test Item Value Reference Range Interpretation Comments PALB (test code = 36903-2) 17.0 mg/dL 18.0-45.0 L Lab Interpretation (test code = Abnormal 62308-9) [facility] CenterCOVID-[facility] (ID NOW RAPID TESTING)2020-10-28 18:55:40 Test Item Value Reference Range Interpretation Comments SARS-CoV-2 Rapid ID NOW Not Detected Not Detected (test code = 71314-8) NEREYDA (test code = NEREYDA) ID NOW COVID-19 Assay is an isothermal nucleic acid amplification test intended for the qualitative detection of nucleic acid from SARS-CoV-2 viral RNA in nasopharyngeal ([employer]) specimens. It is used under Emergency Use Authorization (EUA) by FDA. The limit of detection (LOD) of the assay is 125 Genome Equivalents/mL. A positive result is indicative of the presence of SARS-CoV-2 RNA. ?Clinical correlation with patient history and other diagnostic information is necessary to determine patient infection status. A negative (Not Detected) result does not preclude SARS-CoV-2 infection. In patients with clinical symptoms and other tests that are consistent with SARS-CoV-2 infection, negative results should be treated as presumptive negative and a new specimen should be tested with alternative PCR molecular test. Invalid: Please collect a new specimen for repeat patient testing if clinically indicated. Lab Interpretation Normal (test code = 24951-7) [facility] CenterCOMP. METABOLIC PANEL (29766)2020-10-28 17:45:16 Test Item Value Reference Range Interpretation Comments NA (test code = 137 mmol/L 135-145 6934954446) K (test code = 3.9 mmol/L 3.5-5.0 8061074857) CL (test code = 102 mmol/L 98-108 7620302994) CO2 TOTAL (test code = 25 mmol/L 23-31 6214829664) AGAP (test code = 2-16 2967226050) BUN (test code = 10 mg/dL 7-23 7492030052) GLUCOSE (test code = 132 mg/dL 70-110 H 0874624926) CREATININE (test code = 0.76 mg/dL 0.50-1.04 1642219504) TOTAL BILI (test code = 0.6 mg/dL 0.1-1.3 6145758668) CALCIUM (test code = 8.9 mg/dL 8.6-10.6 0259975445) T PROTEIN (test code = 6.5 g/dL 6.3-8.2 6507425738) ALBUMIN (test code = 4.1 g/dL 3.5-5.0 6353169885) ALK PHOS (test code = 43 U/L 34-122 7636654968) ALTv (test code = 28 U/L 5-35 1742-6) AST(SGOT) (test code = 18 U/L 13-40 0974585817) eGFR (test code = mL/min/1.73m2 8637901614) NEREYDA (test code = NEREYDA) Association of Glomerular Filtration Rate (GFR) and Staging of Kidney Disease* + --+ --+ ------+| GFR (mL/min/1.73 m2) ?| With Kidney Damage ?| ?Without Kidney Damage+ --------+ --------+ +| ?>90 ?| ?Stage one ?| ? Normal ?+ ---+ ---+ -------+| ?60-89 ?| ?Stage two ?| ? Decreased GFR ? + --+ --+ ------+| ?30-59 ?| ?Stage three ?| ? Stage three ? + --+ --+ ------+| ?15-29 ?| ?Stage four ? | ? Stage four ?+ ---+ ---+ -------+| ?<15 (or dialysis) ? ?| ?Stage five ? | ? Stage five ?+ ---+ ---+ -------+ *Each stage assumes the associated GFR level has been in effect for at least three months. ?Stages 1 to 5, with or without kidney disease, indicate chronic kidney disease. Notes: Determination of stages one and two (with eGFR >59mL/min/1.73 m2) requires estimation of kidney damage for at least three months as defined by structural or functional abnormalities of the kidney, manifested by either:Pathological abnormalities or Markers of kidney damage (including abnormalities in the composition of the blood or urine or abnormalities in imaging tests). Lab Interpretation Abnormal (test code = 71734-5) [facility] with [id number] 17:33:53 Test Item Value Reference Range Interpretation Comments WBC (test code = See_Comment [Automated 3268-2) message] The sy stem which generated this result transmitted reference range : 4.30 - 11.10 10*3/?L. The reference range was not used to interpret this result as normal/abnormal . RBC (test code = See_Comment [Automated 409-8) message] The sy stem which generated this result transmitted reference range : 3.93 - 5.25 10*6/?L. The reference range was not used to interpret this result as normal/abnormal . HGB (test code = 12.6 g/dL 11.6-15.0 718-7) HCT (test code = 37.1 % 35.7-45.2 4544-3) MCV (test code = 87.5 fL 80.6-95.5 787-2) MCH (test code = 29.7 pg 25.9-32.8 785-6) MCHC (test code = 34.0 g/dL 31.6-35.1 786-4) RDW-SD (test code = 38.2 fL 39.0-49.9 L 12838-8) RDW-CV (test code = 11.9 % 12.0-15.5 L 788-0) PLT (test code = See_Comment [Automated 857-3) message] The sy stem which generated this result transmitted reference range : 166 - 358 10*3/ ?L. The reference r louise was not used to interpret this result as normal/abnormal . MPV (test code = 9.7 fL 9.5-12.9 12400-2) NRBC/100 WBC (test See_Comment [Automat ed code = 4041336080) message] The system which generated this result transmitted reference range : 0.0 - 10.0 /100 WBCs. The refer ence range was not u sed to interpret th is result as normal/abnormal . NRBC x10^3 (test code <0.01 See_Comment [Auto mated = [id number]) message] The s ystem which generated this result transmitted reference range : 10*3/?L. The reference range was not used to interpret this result as normal/abnormal . GRAN MAT (NEUT) % 74.9 % (test code = 770-8) IMM GRAN % (test code 0.40 % = 9920048451) LYMPH % (test code = 13.5 % 736-9) MONO % (test code = 10.3 % 5905-5) EOS % (test code = 0.5 % 713-8) BASO % (test code = 0.4 % 706-2) GRAN MAT x10^3(ANC) 8.18 10*3/uL 1.88-7.09 H (test code = 4735115858) IMM GRAN x10^3 (test 0.04 10*3/uL 0.00-0.06 code = 2397411539) LYMPH x10^3 (test code 1.47 10*3/uL 1.32-3.29 = 731-0) MONO x10^3 (test code 1.13 10*3/uL 0.33-0.92 H = 742-7) EOS x10^3 (test code = 0.06 10*3/uL 0.03-0.39 711-2) BASO x10^3 (test code 0.04 10*3/uL 0.01-0.07 = 704-7) Lab Interpretation Abnormal (test code = 16112-1) [facility] [id number] 17:15:05 Test Item Value Reference Range Interpretation Comments LACTIC ACID (test code = 1.32 mmol/L 0.50-2.20 8702073221) Lab Interpretation (test code = Normal 59411-4) [facility]inalysis2021[facility] 16:55:51 Test Item Value Reference Range Interpretation Comments APPEARANCE (test code = Clear Clear 7750301506) COLOR (test code = Straw Yellow A 4325363222) PH (test code = 4.8-8.0 8575720091) SP GRAVITY (test code = 1.003-1.030 6116086172) GLU U QUAL (test code = Normal Normal 5293190320) BLOOD (test code = Negative Negative 4804742560) KETONES (test code = Negative Negative 4275511138) PROTEIN (test code = Negative Negative 2887-8) UROBILIN (test code = Normal Normal 0738512926) BILIRUBIN (test code = Negative Negative 0436534790) NITRITE (test code = Negative Negative 2814784580) LEUK ROBIN (test code = 25/uL Negative A 7695562713) RBC/HPF (test code = See_Comment [Autom ated message] 5359075584) The system [employer] generated this result transmitted ref erence range: 0 - 3 HP F. The reference range was not used to int erpret this result as normal/abnormal . WBC/HPF (test code = See_Comment [Autom ated message] 6502545163) The system [employer] generated this result transmitted ref erence range: 0 - 5 HP F. The reference range was not used to int erpret this result as normal/abnormal . BACTERIA (test code = Few Negative A 8581756805) SQ EPITH (test code = HPF 9211627134) Lab Interpretation (test Abnormal code = 37470-5) [facility] [id number] 16:25:00 Test Item Value Reference Range Interpretation Comments POCT PREG (test code = 1605) negative On board controls acceptable with present C Line (test code = 3574) POCT PREG LOT # (test code = 3575) [id number] POCT PREG TEST DATE (test 06/05/2022 code = 3576) Lab Interpretation (test code = Normal 76926-2) [facility]NM IN[facility] SENTINEL [id number] 20:27:51 Status post bilateral breast injection for axillary sentinel node mapping. Preliminary Report Dictated by Resident: Amanda A Kohlnhofer I, Patrice ?Santos-Peters, MD., have reviewed this study andagree withthe above report.BILATERAL SENTINEL NODE INJECTION CLINICAL INDICATION: Right breast cancer. TECHNIQUE AND FINDINGS: With aseptic technique 1 mCi of technetium 99multra filtrated sulfur colloid was injected intradermally in 4 doses aroundright and left periareolar region with total administration of 2 mCitechnetium 99m. No images were obtained. The patient will follow-up withintraoperative sentinel node localization. [facility], Radiant Results Inft User - 10/05/2020 3:29 PM CDTBILATERAL SENTINEL NODE INJECTION CLINICAL INDICATION: Right breast cancer. TECHNIQUE AND FINDINGS: With aseptic technique 1 mCi of technetium 99multra filtrated sulfur colloid was injected intradermally in 4 doses aroundright and left periareolar region with total administration of 2 mCitechnetium 99m. No images wereobtained. The patient will follow-up withintraoperative sentinel node localization.IMPRESSION Statuspost bilateral breast injection for axillary sentinel node mapping.Preliminary Report Dictated by Resident: Patrice Leon MD., have reviewed this study and agree withthe above report.[facility]PO[facility] [id number] 15:03:00 Test Item Value Reference Range Interpretation Comments POCT PREG (test code = 1605) Negative On board controls acceptable with C Yes Line (test code = 3574) POCT PREG LOT # (test code = 3575) POCT PREG TEST DATE (test code = 3576) Lab Interpretation (test code = Normal 92117-4) [facility]OM[facility]YNTHESIS [id number] 20:32:16Examination:BI UPRIGHT STEREOTACTIC CORE BREAST BIOPSY RIGHTBI DIAGNOSTIC TOMOSYNTHESIS RIGHT The procedure was explained to the patient including benefits and alternatives. ?The risks, including but not limited to infection and bleeding, were reviewed and the patient agreed to undergo the procedure, signing the consent form. ?Timeout was performed. History:Patient is a 35 year old year old female and is seen for: ? Right breast calcifications. Comparisons: 07/21/2020 BI DIAGNOSTIC MAMMOGRAM RIGHTBI DIAGNOSTIC TOMOSYNTHESIS RIGHTThere are pleomorphic calcifications in a regional distribution in the upper outer quadrant at middle to posterior depth measuring at least 65 x 65 x 80 mm. Biopsy is recommended and will be performed later today. BI UPRIGHT STEREOTACTIC CORE BREAST BIOPSY RIGHT The patient was upright position for the biopsy. ?The area of interest was localized and targeted via lateral approach utilizing digital spot mammography with computer calculation. After antiseptic preparation the skin puncture site was infiltrated with lidocaine. ?Deep local anesthesia about the biopsy sitewas administered using lidocaine with epinephrine. A 9 gauge Eviva vacuum-assisted automated core biopsy needle was inserted to the computer determined depth, and stereotactic images showed satisfactory relationship of the needle position to the target. ?Tissue cores were obtained. ?Digital specimen radiography showed calcifications within some of the cores. ?A tissue marker clip BAR was deployed through the needle, and the needle was withdrawn. Post biopsy mammogram confirmed the clip at the biopsy site. Of note, if final pathology shows a surgical lesion, and breast conserving therapy is consider, then additional biopsies may be performed. Recommendation:[facility] BREAST BIOPSY [id number] 20:32:16 Examination:BI UPRIGHT STEREOTACTIC CORE BREAST BIOPSY RIGHTBI DIAGNOSTIC TOMOSYNTHESIS RIGHT The procedure was explained to the patient including benefits and alternatives. ?The risks, including but not limited to infection and bleeding, were reviewed and the patient agreed to undergo the procedure, s igning the consent form. ?Timeout was performed. History:Patient is a 35 year old year old female and is seen for: ? Right breast calcifications. Comparisons: 07/21/2020 BI DIAGNOSTIC MAMMOGRAM RIGHTBI DIAGNOSTIC TOMOSYNTHESIS RIGHTThere are pleomorphic calcifications in a regional distribution in the upper outer quadrant at middle to posterior depth measuring at least 65 x 65 x 80 mm. Biopsy is recommended and will be performed later today. BI UPRIGHT STEREOTACTIC CORE BREAST BIOPSY RIGHT The patient was upright position for the biopsy. ?The area of interest was localized and targeted via lateral approach utilizing digital spot mammography with computer calculation. After antiseptic preparation the skin puncture site was infiltrated with lidocaine. ?Deep local anesthesia about the biopsy sitewas administered using lidocaine with epinephrine. A 9 gauge Eviva vacuum-assisted automated core biopsy needle was inserted to the computer determined depth, and stereotactic images showed satisfactory relationship of the needle position to the target. ?Tissue cores were obtained. ?Digital specimen radiography showed calcifications within some of the cores. ?A tissue marker clip BAR was deployed through the needle, and the needle was withdrawn. Post biopsy mammogram confirmed the clip at the biopsy site. Of note, if final pathology shows a surgical lesion, and breast conserving therapy is consider, then additional biopsies may be performed. Recommendation:[facility] - Serum or [id number] 00:00:00 Test Item Value Reference Range Interpretation Comments Glucose [Mass/volume] in 88 mg/dL 65-99 Serum or Plasma (test code = 2345-7) Urea nitrogen [Mass/volume] 9 mg/dL 7-25 in Serum or Plasma (test code = 3094-0) Creatinine [Mass/volume] in 0.69 mg/dL 0.50-1.10 Serum or Plasma (test code = 2160-0) Glomerular filtration 114 mL/min/1.73m2 > or = 60 rate/1.73 sq M.predicted [Volume Rate/Area] in Serum, Plasma or Blood by Creatinine-based formula (MDRD) (test code = 99041-9) Glomerular filtration 132 mL/min/1.73m2 > or = 60 rate/1.73 sq M.predicted among blacks [Volume Rate/Area] in Serum, Plasma or Blood by Creatinine-based formula (MDRD) (test code = 03619-2) Urea nitrogen/Creatinine not applicable 6-22 [Mass Ratio] in Serum or Plasma (test code = 3097-3) Sodium [Moles/volume] in 141 mmol/L 135-146 Serum or Plasma (test code = 2951-2) Potassium [Moles/volume] in 3.9 mmol/L 3.5-5.3 Serum or Plasma (test code = 2823-3) Chloride [Moles/volume] in 108 mmol/L 98-110 Serum or Plasma (test code = 5-0) Carbon dioxide, total 26 mmol/L 20-32 [Moles/volume] in Serum or Plasma (test code = 2027-9) Calcium [Mass/volume] in 9.4 mg/dL 8.6-10.2 Serum or Plasma (test code = 07743-2) Protein [Mass/volume] in 6.6 g/dL 6.1-8.1 Serum or Plasma (test code = 2885-2) Albumin [Mass/volume] in 4.5 g/dL 3.6-5.1 Serum or Plasma (test code = 1751-7) Globulin [Mass/volume] in 2.1 g/dL (calc) 1.9-3.7 Serum by calculation (test code = 39953-9) Albumin/Globulin [Mass 2.1 (calc) 1.0-2.5 Ratio] in Serum or Plasma (test code = 1759-0) Bilirubin.total 0.3 mg/dL 0.2-1.2 [Mass/volume] in Serum or Plasma (test code = 1975-2) Alkaline phosphatase 43 U/L 31-125 [Enzymatic activity/volume] in Serum or Plasma (test code = 6768-6) Aspartate aminotransferase 12 U/L 10-30 [Enzymatic activity/volume] in Serum or Plasma (test code = 1920-8) Alanine aminotransferase 20 U/L 6-29 [Enzymatic activity/volume] in Serum or Plasma (test code = 1742-6) [facility]yan[facility]obal[facility] [Interpretation] in Serum or [id number] 00:00:00 Test Item Value Reference Range Interpretation Comments Cobalamin (Vitamin B12) 311 pg/mL 200-1100 [Mass/volume] in Serum or Plasma (test code = 2132-9) Folate [Mass/volume] in Serum or 15.1 NG/mL Plasma (test code = 2284-8) [facility]Hem[facility] A1c/Hemoglobin.total in [id number] 00:00:00 Test Item Value Reference Range Interpretation Comments Hemoglobin 4.9 % of total HGB <5.7 A1c/Hemoglobin.total in Blood (test code = 4548-4) Glucose mean value 94 (calc) [Mass/volume] in Blood Estimated from glycated hemoglobin (test code = 60573-6) Glucose mean value 5.2 (calc) [Moles/volume] in Blood Estimated from glycated hemoglobin (test code = 59254-6) [facility]25-Hydroxy[facility]amin D3+25- Hydroxyvitamin D2 [Mass/volume] in Serum or [id number] 00:00:00 Test Item Value Reference Range Interpretation Comments 25-Hydroxyvitamin 28 NG/mL 30-100 L D3+25-Hydroxyvitamin D2 [Mass/volume] in Serum or Plasma (test code = 49979-7) Cholecalciferol (Vit D3) 28 NG/mL [Mass/volume] in Serum or Plasma (test code = 1990-) Calciferol (Vit D2) [Mass/volume] in <4 Serum or Plasma (test code = 2236-8) [facility] HospitalBacterial vaginosis and vaginitis DNA panel - Vaginal fluid by Probe with signal [id number] 00:00:00 Test Item Value Reference Range Interpretation Comments Chlamydia trachomatis rRNA [Presence] tnp in Unspecified specimen by KRISTINA with probe detection (test code = 35957-7) Lactobacillus sp DNA [Log #/volume] in tnp Vaginal fluid by KRISTINA with probe detection (test code = 57860-8) Trichomonas vaginalis rRNA [Presence] tnp in Unspecified specimen by KRISTINA with probe detection (test code = 95920-5) Quyen sp DNA [Presence] in Vaginal tnp fluid by KRISTINA with probe detection (test code = 19430-7) [facility] Auto Differential panel - Blood 2020-05-03 00:00:00 Test Item Value Reference Range Interpretation Comments Leukocytes [#/volume] in 6.4 thousand/uL 3.8-10.8 Blood by Automated count (test code = 6690-2) Erythrocytes [#/volume] in 5.22 million/uL 3.80-5.10 H Blood by Automated count (test code = 789-8) Hemoglobin [Mass/volume] in 15.3 g/dL 11.7-15.5 Blood (test code = 718-7) Hematocrit [Volume Fraction] 46.7 % 35.0-45.0 H of Blood by Automated count (test code = 4544-3) MCV [Entitic volume] by 89.5 fL 80.0-100.0 Automated count (test code = 787-2) MCH [Entitic mass] by 29.3 pg 27.0-33.0 Automated count (test code = 785-6) MCHC [Mass/volume] by 32.8 g/dL 32.0-36.0 Automated count (test code = 786-4) Erythrocyte distribution 11.8 % 11.0-15.0 width [Ratio] by Automated count (test code = 788-0) Platelets [#/volume] in Blood 255 thousand/uL 140-400 by Automated count (test code = 777-3) Platelet mean volume [Entitic 10.1 fL 7.5-12.5 volume] in Blood by Marko (test code = 776-5) Neutrophils [#/volume] in 3450 cells/uL 2070-1031 Blood by Automated count (test code = 751-8) Lymphocytes [#/volume] in 2195 cells/uL 850-3900 Blood by Automated count (test code = 731-0) Monocytes [#/volume] in Blood 582 cells/uL 200-950 by Automated count (test code = 742-7) Eosinophils [#/volume] in 122 cells/uL 15-500 Blood by Automated count (test code = 711-2) Basophils [#/volume] in Blood 51 cells/uL 0-200 by Automated count (test code = 704-7) Neutrophils/100 leukocytes in 53.9 % Blood by Automated count (test code = 770-8) Lymphocytes/100 leukocytes in 34.3 % Blood by Automated count (test code = 736-9) Monocytes/100 leukocytes in 9.1 % Blood by Automated count (test code = 5905-5) Eosinophils/100 leukocytes in 1.9 % Blood by Automated count (test code = 713-8) Basophils/100 leukocytes in 0.8 % Blood by Automated count (test code = 706-2) [facility] HospitalThyrotropin [Units/volume] in Serum or [id number] 00:00:00 Test Item Value Reference Range Interpretation Comments Thyrotropin [Units/volume] in 1.46 mIU/L Serum or Plasma (test code = 3016-3) [facility]"
[2021-05-22] MEDS ORDERED: METOCLOPRAMIDE 10 MG/2mL INJ ONE (11:22)
[2021-05-22] MEDS ORDERED: DIPHENHYDRAMINE 50 MG/ML VIAL ONE (11:23)
[2021-05-22 11:30] LABS: Absolute Lymphocytes (CBC) 1.9 K/uL (0.7-4.9); Basophils % 1.1 % (0-1.3); Hematocrit 41.8 % (36.0-45.0); Lymphocytes % 22.8 % (15.3-44.8); MPV 8.1 fL (7.6-11.3)
[2021-05-22 11:33] LABS: Protime INR 0.93
[2021-05-22 11:51] LABS: ALT/SGPT 48 U/L (12-78); AST/SGOT 18 U/L (15-37); Albumin 3.6 g/dL (3.4-5.0); Alkaline Phosphatase 55 U/L (45-117); BUN Blood Urea Nitrogen 11 mg/dL (7-18); Bicarbonate 23 mmol/L (21-32); Bilirubin Direct < 0.1 mg/dL (0-0.2); Bilirubin Total 0.3 mg/dL (0.2-1.0); Glucose Level 112 mg/dL (74-106); Magnesium 1.7 mg/dL (1.8-2.4); Potassium 4.1 mmol/L (3.5-5.1); Sodium Level 142 mmol/L (136-145); Troponin (Emerg Dept Use Only) < 0.02 ng/mL (0.0-0.045)
[2021-05-22 11:56] LABS: NT PRO-BNP < 5 pg/mL (<125)
--- NOTE | 2021-05-22 12:12 | RAD REPORT ---
EXAM DESCRIPTION: CT - Head Brain Wo Cont - 05/22/2021 11:41 am CLINICAL HISTORY: HEADACHE COMPARISON: Facial Bones W/ Mpr dated 03/20/2016 TECHNIQUE: All CT scans are performed using dose optimization technique as appropriate and may inclu de automated exposure control or mA/KV adjustment according to patient size. FINDINGS: No intracranial hemorrhage, hydrocephalus or extra-axial fluid collection.No areas of brai n edema or evidence of midline shift. The paranasal sinuses and mastoids are clear. The calvarium is intact. IMPRESSION: No acute intracranial abnormality.
[2021-05-22] MEDS ORDERED: MAGNESIUM OXIDE 400 MG TAB ONE (12:16)
[2021-05-22 12:27] LABS: White Blood Cell Scan OK (OK)
[2021-05-22 12:28] LABS: Blood Morphology Comment NOT SEEN (NOT SEEN); Platelet Estimate ADEQ
--- NOTE | 2021-05-22 12:28 | RAD REPORT ---
EXAM DESCRIPTION: Deepali Single View05/22/2021 11:33 am CLINICAL HISTORY: Shortness of breath COMPARISON: February 2021 FINDINGS: The lungs appear clear of acute infiltrate. The heart is normal size. Central venous cath eter with its tip in the superior vena cava IMPRESSION: No acute abnormalities displayed
--- NOTE | 2021-05-22 12:56 | EDPHYS ---
Physician Documentation [facility] Name: Roxanne Friend Age: 35 yrs Sex: Female : 1985 Arrival Date: 05/22/2021 Time: 10:08 Bed 7 Private MD: ED Physician Ben Beck HPI: 05/22 11:12 This 35 yrs old Female presents to ER via Ambulatory with complaints of jr8 Shortness Of Breath, Head pain, high heart rate. 11:12 This is a 35-year-old female patient that presented to the emergency room with jr8 complaints of palpitations, increased shortness of breath and headache. Patient stated that she had to stop her chemotherapy because she has been having too many side effects including the shortness of breath, increased heart rate, diarrhea, swelling. Patient continues to be on her immunotherapy but other than that declined all other treatments. Patient stated that she is currently to her knowledge still in remission after having a radical bilateral mastectomy from breast cancer. Patient denies fevers, body aches, chills. Historical: - Allergies: 10:17 Ceftin; ll1 10:17 Morphine; ll1 - PMHx: 10:17 Degenerative disc disease; Rheumatoid Arthritis; breast CA; gest. diabetes; ll1 - PSHx: 10:17 section; double mastectomy; Cholecystectomy; tonsil/adenoid; ll1 - Immunization history:: Client reports having NOT received the Covid vaccine. - Social history:: Smoking status: Patient reports the use of cigarette tobacco products, smokes one-half pack cigarettes per day. ROS: 11:12 Eyes: Negative for injury, pain, redness, and discharge, ENT: Negative for injury, jr8 pain, and discharge, Neck: Negative for injury, pain, and swelling, Back: Negative for injury and pain, MS/Extremity: Negative for injury and deformity, Skin: Negative for injury, rash, and discoloration. 11:12 Cardiovascular: Positive for palpitations. 11:12 Respiratory: Positive for shortness of breath. 11:12 Abdomen/GI: Positive for diarrhea, Negative for abdominal pain, nausea and vomiting. 11:12 Neuro: Positive for headache. Exam: 11:12 Eyes: Pupils equal round and reactive to light, extra-ocular motions intact. Lids and jr8 lashes normal. Conjunctiva and sclera are non-icteric and not injected. Cornea within normal limits. Periorbital areas with no swelling, redness, or edema. ENT: Nares patent. No nasal discharge, no septal abnormalities noted. Tympanic membranes are normal and external auditory canals are clear. Oropharynx with no redness, swelling, or masses, exudates, or evidence of obstruction, uvula midline. Mucous membranes moist. Neck: Trachea midline, no thyromegaly or masses palpated, and no cervical lymphadenopathy. Supple, full range of motion without nuchal rigidity, or vertebral point tenderness. No Meningismus. Respiratory: Lungs have equal breath sounds bilaterally, clear to auscultation and percussion. No rales, rhonchi or wheezes noted. No increased work of breathing, no retractions or nasal flaring. Abdomen/GI: Soft, non-tender, with normal bowel sounds. No distension or tympany. No guarding or rebound. No evidence of tenderness throughout. Back: No spinal tenderness. No costovertebral tenderness. Full range of motion. Skin: Warm, dry with normal turgor. Normal color with no rashes, no lesions, and no evidence of cellulitis. MS/ Extremity: Pulses equal, no cyanosis. Neurovascular intact. Full, normal range of motion. Neuro: Awake and alert, GCS 15, oriented to person, place, time, and situation. Cranial nerves II-XII grossly intact. Motor strength 5/5 in all extremities. Sensory grossly intact. Cerebellar exam normal. Normal gait. 11:12 Cardiovascular: Rate: tachycardic, Rhythm: regular, Pulses: Pulses are 2+ in right radial artery and left radial artery. Heart sounds: normal, normal S1and S2, no S3 or S4, no murmur, no rub, no gallop, Edema: 1+ edema to level of left ankle, left foot, right ankle and right foot, JVD: is not appreciated. Vital Signs: 10:15 BP 153 / 85; Pulse 112; Resp 17; Temp 98.1; Pulse Ox 99% ; Weight 109.32 kg; Height 5 ll1 ft. 6 in. (167.64 cm); Pain 10/10; 11:38 BP 125 / 78; Pulse 93; Resp 22 S; Pulse Ox 98% on R/A; as6 13:16 BP 127 / 79; Pulse 87; Resp 18; Pulse Ox 97% ; ld1 10:15 Body Mass Index 38.90 (109.32 kg, 167.64 cm) ll1 MDM: 10:30 Patient medically screened. [facility] 12:54 Data reviewed: vital signs, nurses notes, lab test result(s), EKG, radiologic studies, jr CT scan, plain films. Data interpreted: Pulse oximetry: on room air is 98 %. Interpretation: normal. Counseling: I had a detailed discussion with the patient and/or guardian regarding: the historical points, exam findings, and any diagnostic results supporting the discharge/admit diagnosis, lab results, radiology results, the need for outpatient follow up, a family practitioner, to return to the emergency department if symptoms worsen or persist or if there are any questions or concerns that arise at home. ED course: Patient feeling markedly better. No headache at this time. Remainder vital signs stable. Labs, EKG, and imaging without acute findings. Will send home to follow-up with PCP as this most likely was secondary side effects from her recent chemotherapy infusion. Patient knows to come back if she were to have a change in symptoms or new symptoms at any point time.. 05/22 10:45 Order name: Basic Metabolic Panel; Complete Time: 12:12 8 05/22 10:45 Order name: CBC with Diff; Complete Time: 12:51 8 05/22 10:45 Order name: LFT's; Complete Time: 12:12 8 05/22 10:45 Order name: Magnesium; Complete Time: 12:12 8 05/22 10:45 Order name: NT PRO-BNP; Complete Time: 12:12 05/22 10:45 Order name: PT-INR; Complete Time: 11:38 jr8 05/22 10:45 Order name: Troponin (emerg Dept Use Only); Complete Time: 12:12 8 05/22 10:45 Order name: XRAY Chest (1 view); Complete Time: 12:51 8 05/22 10:45 Order name: EKG; Complete Time: 10:46 jr8 05/22 10:45 Order name: CT Head Brain wo Cont; Complete Time: 12:51 jr8 05/22 12:28 Order name: CBC Smear Scan; Complete Time: 12:51 EDKY 05/22 10:45 Order name: Cardiac monitoring; Complete Time: 11:03 8 05/22 10:45 Order name: EKG - Nurse/Tech; Complete Time: 11:8 05/22 10:45 Order name: IV Saline Lock; Complete Time: 8 05/22 10:45 Order name: Labs collected and sent; Complete Time: :8 05/22 10:45 Order name: O2 Per Protocol; Complete Time: 8 05/22 10:45 Order name: O2 Sat Monitoring; Complete Time: Administered Medications: 11:33 Drug: Reglan (metoCLOPramide) 10 mg Route: IVP; Site: right antecubital; as6 11:33 Drug: Benadryl (diphenhydrAMINE) 25 mg Route: IVP; Site: right antecubital; as6 12:19 Drug: Magnesium Oxide 400 mg Route: PO; as6 Disposition: 16:45 Co-signature as Attending Physician, Ben Beck MD I agree with the assessment and rn plan of care. Attestation: The patient's history, exam findings, diagnostics, and a summary of any interventions or procedures was reviewed in detail with Jose MELCHOR. Disposition Summary: 05/22/21 12:55 Discharge Ordered Location: Home jr8 Problem: new jr8 Symptoms: have improved jr8 Condition: Stable jr8 Diagnosis - Migraine without aura, intractable jr8 Followup: jr8 - With: Private Physician - When: 2 - 3 days - Reason: Recheck today's complaints, Continuance of care, Re-evaluation by your physician Discharge Instructions: - Discharge Summary Sheet jr8 - Migraine Headache jr8 Forms: - Medication Reconciliation Form jr8 - Thank You Letter jr8 - Antibiotic Education jr8 - Prescription Opioid Use jr8 Signatures: Dispatcher [employer] EDMS Ben Beck MD MD rn Roszak, Josh, PA PA jr8 Christiana Zacarias RN RN ll1 Bill Montoya RN RN as6 Corrections: (The following items were deleted from the chart) 10: 10:17 Allergies: Sudafed; ll1 ll1
--- NOTE | 2021-05-22 12:56 | ER ---
Nurse's Notes [facility] Name: Roxanne Friend Age: 35 yrs Sex: Female : 1985 Arrival Date: 05/22/2021 Time: 10:08 Bed 7 Private MD: Diagnosis: Migraine without aura, intractable Presentation: 05/22 10:15 Chief complaint: Patient states: CP/SOB worsening for 4 days. Bilateral advent pressure ll1 for 4 days. Sent by [facility] for eval. Coronavirus screen: Vaccine status: Patient reports being unvaccinated. Client denies travel out of the [place] in the last 14 days. At this time, the client does not indicate any symptoms associated with coronavirus-19. Ebola Screen: Patient denies travel to an Ebola-affected area in the 21 days before illness onset. Initial Sepsis Screen: Does the patient meet any 2 criteria? HR > 90 bpm. No. Patient's initial sepsis screen is negative. Does the patient have a suspected source of infection? Yes: S/S of meningitis or endocarditis. Risk Assessment: Do you want to hurt yourself or someone else? Patient reports no desire to harm self or others. Onset of symptoms was May 19, 2021. 10:15 Method Of Arrival: Ambulatory ll1 10:15 Acuity: DUSTIN 3 ll1 Historical: - Allergies: 10:17 Ceftin; ll1 10:17 Morphine; ll1 - PMHx: 10:17 Degenerative disc disease; Rheumatoid Arthritis; breast CA; gest. diabetes; ll1 - PSHx: 10:17 section; double mastectomy; Cholecystectomy; tonsil/adenoid; ll1 - Immunization history:: Client reports having NOT received the Covid vaccine. - Social history:: Smoking status: Patient reports the use of cigarette tobacco products, smokes one-half pack cigarettes per day. Screenin:35 Abuse screen: Denies threats or abuse. Nutritional screening: No deficits noted. as6 Tuberculosis screening: No symptoms or risk factors identified. Fall Risk None identified. Assessment: 10:30 General: Appears in no apparent distress. uncomfortable, Behavior is calm, cooperative, as6 restless. Pain: Complains of pain in right advent and left advent Aggravated by increased activity, repositioning. Neuro: Level of Consciousness is awake, alert, obeys commands, Oriented to person, place, time, situation, Reports headache that is the "worst ever". Cardiovascular: Reports fatigue, shortness of breath, Capillary refill < 3 seconds Patient's skin is warm and dry. Respiratory: Reports shortness of breath on exertion Airway is patent Respiratory effort is even, unlabored, Respiratory pattern is regular, symmetrical, Breath sounds are clear bilaterally. GI: Reports nausea. Derm: Skin is intact, is healthy with good turgor. 11:34 Reassessment: verbal order from jose guzman to access l subclavian port, accessed via as6 sterile procedure, port patent, no blood return, port discontinued. Vital Signs: 10:15 BP 153 / 85; Pulse 112; Resp 17; Temp 98.1; Pulse Ox 99% ; Weight 109.32 kg; Height 5 ll1 ft. 6 in. (167.64 cm); Pain 10/10; 11:38 BP 125 / 78; Pulse 93; Resp 22 S; Pulse Ox 98% on R/A; as6 13:16 BP 127 / 79; Pulse 87; Resp 18; Pulse Ox 97% ; ld1 10:15 Body Mass Index 38.90 (109.32 kg, 167.64 cm) ll1 ED Course: 10:08 Patient arrived in ED. mr 10:17 Triage completed. ll1 10:19 Arm band placed on Patient placed in an exam room, on a stretcher. ll1 10:21 Bill Montoya, RN is Primary Nurse. as6 10:30 Jose Alamo PA is PHCP. jr8 10:30 Ben Beck MD is Attending Physician. jr8 10:35 Bed in low position. Call light in reach. Side rails up X 1. Pulse ox on. NIBP on. as6 11:34 XRAY Chest (1 view) In Process Unspecified. EDMS 11:34 Inserted saline lock: 22 gauge in right antecubital area, using aseptic technique. as6 Blood collected. 11:41 CT Head Brain wo Cont In Process Unspecified. EDMS 13:22 No provider procedures requiring assistance completed. IV discontinued, intact, ld1 bleeding controlled, No redness/swelling at site. Administered Medications: 11:33 Drug: Reglan (metoCLOPramide) 10 mg Route: IVP; Site: right antecubital; as6 11:33 Drug: Benadryl (diphenhydrAMINE) 25 mg Route: IVP; Site: right antecubital; as6 12:19 Drug: Magnesium Oxide 400 mg Route: PO; as6 Outcome: 12:55 Discharge ordered by . federica 13:23 Discharged to home ambulatory. ld1 13:23 Condition: stable 13:23 Discharge instructions given to patient, Instructed on discharge instructions, follow up and referral plans. Demonstrated understanding of instructions, follow-up care. 13:23 Patient left the ED. ld1 Signatures: Dispatcher [employer] EDOR MendozaMaisha mr JasmeetJose PA PA jr8 Christiana Zacarias RN RN ll1 Flori Weeks RN RN ld1 Bill Montoya RN RN as6 Corrections: (The following items were deleted from the chart) 10:19 10:17 Allergies: Sudafed; ll1 ll1
[2021-05-22 14:14] VITALS: TEMP 98.1
[2021-05-22 14:19] VITALS: BP 127/79; O2SAT 97
--- NOTE | 2021-05-23 17:01 | EKG ---
Test Date: 2021-05-22 Test Time: 10:48:36 Theatrical Trouper: JADA MEASUREMENT RESULTS: Intervals: Rate: 97 OK: 120 QRSD: 94 QT: 338 QTc: 429 [place]: P: 53 OK: 120 QRS: 35 T: 44 INTERPRETIVE STATEMENTS: Normal sinus rhythm Normal ECG Compared to ECG 02/27/2014 07:15:07 No significant changes Electronically Signed On 05-23-21 16:57:19 MASTER CONTROL OPERATOR by Kin Bartholomew
== END 2021-05-22 13:23 | disposition home or self-care (01) ==
LOC: ER 10:06
DX: G43.019 Migraine without aura, intractable, without status migrainosus (principal); F17.210 Nicotine dependence, cigarettes, uncomplicated; Z85.3 Personal history of malignant neoplasm of breast; Z88.5 Allergy status to narcotic agent; Z88.8 Allergy status to other drugs, medicaments and biological substances; Z90.13 Acquired absence of bilateral breasts and nipples
CPT/HCPCS: 93005; 85025; 80048; 36415; 83735; 85610; 80076; 84484; 83880; 70450; 71045; 96375; 96374; 99284; J2765; J1200

== ENCOUNTER 2022-03-21 19:45 | Emergency (ER) | payer OTHER ==
--- OUTSIDE RECORDS SUMMARY | 2022-03-21 19:51 | XMS REPORT | Continuity of Care Document ---
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 Globulin [Mass/volume] in 2.1 g/dL (calc) 1.9-3.7 Serum by calculation (test code = 75700-2) Albumin/Globulin [Mass 2.1 (calc) 1.0-2.5 Ratio] in Serum or Plasma (test code = 1759-0) Bilirubin.total 0.3 mg/dL 0.2-1.2 [Mass/volume] in Serum or Plasma (test code = 1974-) Alkaline phosphatase 43 U/L 31-125 [Enzymatic activity/volume] in Serum or Plasma (test code = 6768-6) Aspartate aminotransferase 12 U/L 10-30 [Enzymatic activity/volume] in Serum or Plasma (test code = 1920-8) Alanine aminotransferase 20 U/L 6-29 [Enzymatic activity/volume] in Serum or Plasma (test code = 1742-6) [facility] [Interpretation] in Serum or [id number] 00:00:00 Test Item Value Reference Range Interpretation Comments Cobalamin (Vitamin B12) 311 pg/mL 200-1100 [Mass/volume] in Serum or Plasma (test code = 2132-9) Folate [Mass/volume] in Serum or 15.1 NG/mL Plasma (test code = 2284-8) [facility]/Hemoglobin.total in [id number] 00:00:00 Test Item Value Reference Range Interpretation Comments Hemoglobin 4.9 % of total HGB <5.7 A1c/Hemoglobin.total in Blood (test code = 4548-4) Glucose mean value 94 (calc) [Mass/volume] in Blood Estimated from glycated hemoglobin (test code = 56900-9) Glucose mean value 5.2 (calc) [Moles/volume] in Blood Estimated from glycated hemoglobin (test code = 99843-9) [facility] D3+25- Hydroxyvitamin D2 [Mass/volume] in Serum or [id number] 00:00:00 Test Item Value Reference Range Interpretation Comments 25-Hydroxyvitamin 28 NG/mL 30-100 L D3+25-Hydroxyvitamin D2 [Mass/volume] in Serum or Plasma (test code = 83867-6) Cholecalciferol (Vit D3) 28 NG/mL [Mass/volume] in Serum or Plasma (test code = 1989-) Calciferol (Vit D2) [Mass/volume] in <4 Serum or Plasma (test code = 2236-8) [facility]osis [facility]initis DNA panel - Vaginal fluid by Probe with signal [id number] 00:00:00 Test Item Value Reference Range Interpretation Comments Chlamydia trachomatis rRNA [Presence] tnp in Unspecified specimen by KRISTINA with probe detection (test code = 86640-3) Lactobacillus sp DNA [Log #/volume] in tnp Vaginal fluid by KRISTINA with probe detection (test code = 29813-7) Trichomonas vaginalis rRNA [Presence] tnp in Unspecified specimen by KRISTINA with probe detection (test code = 83621-4) Quyen sp DNA [Presence] in Vaginal tnp fluid by KRISTINA with probe detection (test code = 12872-7) [facility] Auto Differential panel - Blood 2020-05-03 [...] = 776-5) Neutrophils [#/volume] in 3450 cells/uL 5197-8473 Blood by Automated count (test code = [...] by Automated count (test code = 706-2) [facility] CenterThyrotropin [Units/volume] in Serum or [id number] 00:00:00 Test Item Value Reference Range Interpretation Comments Thyrotropin [Units/volume] in 1.46 mIU/L Serum or Plasma (test code = 3016-3) [facility]"
[2022-03-21 20:37] LABS: Urine Blood Trace-intact (Negative); Urine Glucose Trace (Negative); Urine Protein 3+ (Negative); Urine pH 7.5 (5.0-7.0)
[2022-03-21 20:55] LABS: Urine Mucus Slight /HPF (None Seen)
--- NOTE | 2022-03-21 21:12 | RAD REPORT ---
EXAM DESCRIPTION: RAD - Chest Single View - 03/21/2022 8:56 pm CLINICAL HISTORY: CHEST PAIN Chest pain. COMPARISON: Chest Single View dated 05/22/2021; Chest Pa And Lat (2 Views) dated 02/23/2021; CHEST SI NGLE VIEW dated 02/27/2014 FINDINGS: Portable technique limits examination quality. The lungs are grossly clear. The heart is normal in size. No displaced fractures. IMPRESSION: No acute intrathoracic process suspected.
[2022-03-21] MEDS ORDERED: FENTANYL CITR 100 MCG/2 ML ONE (21:36)
[2022-03-21] MEDS ORDERED: ACETAMINOPHEN 500 MG TAB ONE (21:37)
[2022-03-21] MEDS ORDERED: ONDANSETRON 4 MG/2 ML VIAL ONE (21:37)
[2022-03-21] MEDS ORDERED: NA CHLORIDE 0.9% 1,000 ML ONE ×2 (21:37→22:53)
[2022-03-21 21:44] LABS: Absolute Lymphocytes (CBC) 1.1 K/uL (0.7-4.9); Hematocrit 43.5 % (36.0-45.0); Lymphocytes % 11.8 % (15.3-44.8); MCV 86.1 fL (80-100); RBC Red Blood Cell Count 5.05 M/uL (3.86-4.86)
[2022-03-21 22:02] LABS: Albumin 3.8 g/dL (3.4-5.0); Bilirubin Direct 0.2 mg/dL (0-0.2); Bilirubin Total 0.7 mg/dL (0.2-1.0); Potassium 3.5 mmol/L (3.5-5.1); Protein, Total 7.8 g/dL (6.4-8.2)
[2022-03-21 22:04] LABS: Magnesium 1.3 mg/dL (1.8-2.4)
[2022-03-21] MEDS ORDERED: CIPROFLOXACIN 400mg IV 400 MG/200 ML BAG IV ONE (22:54)
[2022-03-21] MEDS ORDERED: Magnesium Sulfate 2gm IVPB 2 G/50 ML BAG IV ONE (22:54)
--- NOTE | 2022-03-21 22:57 | RAD REPORT ---
EXAM DESCRIPTION: CTAbdomen Pelvis W Contrast - 03/21/2022 10:47 pm CLINICAL HISTORY: Abdominal pain. Flank pain, kidney stone suspected COMPARISON: No comparisons TECHNIQUE: Biphasic CT imaging of the abdomen and pelvis was performed with 100 ml non-ionic IV cont rast. All CT scans are performed using dose optimization technique as appropriate and may include automated exposure control or mA/KV adjustment according to patient size. FINDINGS: The lung bases are clear. The liver is diffusely fatty. Cholecystectomy. Spleen, pancreas, adrenal glands are within normal chicas its. Punctate calculi are present in both kidneys. 2 mm calculus is present at the left UVJ with slig ht left-sided hydronephrosis. No bowel obstruction, free air, free fluid or abscess. Small fat containing umbilical hernia. The skyler endix is normal. No evidence of significant lymphadenopathy. No suspicious bony findings. IMPRESSION: 2 mm calculus is present at the left UVJ with slight left-sided hydronephrosis. Punctate bilateral nephrolithiasis. Prominent fatty liver.
[2022-03-21] MEDS ORDERED: TAMSULOSIN 0.4 MG SR CAP ONE (23:47)
[2022-03-21] MEDS ORDERED: IBUPROFEN 200 MG TAB PO ONE (23:47)
[2022-03-21] MEDS ORDERED: IBUPROFEN 400 MG TAB ONE (23:47)
--- NOTE | 2022-03-22 00:29 | ER ---
Nurse's Notes [facility] Name: Roxanne Friend Age: 36 yrs Sex: Female : 1985 Arrival Date: 03/21/2022 Time: 19:48 Bed 25 Private MD: Diagnosis: UTI/ Urinary tract infection, site not specified;Calculus of kidney with calculus of ureter Presentation: 03/21 20:03 Chief complaint: Patient states: "I am having sharp pain in my left upper part of my tw5 chest under my ribs. I feel full like I have gas. I have recently just got over having a kidney stones. It hurts really bad when I pee.". Coronavirus screen: Vaccine status: Patient reports being unvaccinated. Ebola Screen: Patient negative for fever greater than or equal to 101.5 degrees Fahrenheit, and additional compatible Ebola Virus Disease symptoms Patient denies exposure to infectious person. Patient denies travel to an Ebola-affected area in the 21 days before illness onset. Initial Sepsis Screen: Does the patient meet any 2 criteria? Temp <36.0*C (96.8*F)) or > 38.3*C (100.9*F). HR > 90 bpm. Does the patient have a suspected source of infection? Yes: Acute abdominal pain. Initial Sepsis Screen: If YES to both, name of provider notified: Ben Beck MD Risk Assessment: Do you want to hurt yourself or someone else? Patient reports no desire to harm self or others. Onset of symptoms was March 19, 2022. 20:03 Method Of Arrival: Ambulatory tw5 20:03 Acuity: DUSTIN 3 tw5 Triage Assessment: 20:06 General: Appears uncomfortable, Behavior is agitated. Pain: Pain currently is 10 out of tw5 10 on a pain scale. 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 diabetes; Rheumatoid Arthritis; tw5 - PSHx: 20:06 section; Cholecystectomy; double mastectomy; tonsil/adenoid; tw5 - Immunization history:: Flu vaccine is not up to date. - Social history:: Smoking status: Patient reports the use of cigarette tobacco products, smokes one pack cigarettes per day. Screenin:00 Abuse screen: Denies threats or abuse. Denies injuries from another. Nutritional kb3 screening: No deficits noted. Tuberculosis screening: No symptoms or risk factors identified. Fall Risk None identified. Assessment: 21:00 General: Appears uncomfortable, ill, obese, Behavior is calm, cooperative. Pain: kb3 Complains of pain in left low back and left mid back Pain radiates to left lateral anterior chest Pain currently is 10 out of 10 on a pain scale. Quality of pain is described as sharp, Pain began 2-3 days ago. Is continuous. GI: Bowel sounds present X 4 quads. Abd is soft Abdomen is tender to palpation in anterior aspect of left lateral abdomen and left upper quadrant. : CVA tenderness noted on left Reports burning with urination, urgency, urinary frequency. 22:05 General: MG 1.3. Wiley MELCHOR notified. kb3 Vital Signs: 20:03 BP 161 / 73; Pulse 126; Resp 26; Temp 100.8; Pulse Ox 98% on R/A; Weight 104.33 kg; tw5 Height 5 ft. 6 in. (167.64 cm); Pain 10/10; 21:30 BP 115 / 58; Pulse 125; Resp 20; Temp 101.8; Pulse Ox 96% ; Pain 10/10; kb3 22:00 BP 116 / 48; Pulse 121; Resp 20; Pulse Ox 92% ; Pain 8/10; kb3 23:00 BP 123 / 56; Pulse 107; Resp 20; Temp 100.8; Pulse Ox 96% ; Pain 5/10; kb3 03/22 00:48 Pulse 100; Resp 18; Temp 99.2(O); Pulse Ox 97% ; Pain 1/10; tw5 03/21 20:03 Body Mass Index 37.12 (104.33 kg, 167.64 cm) tw5 ED Course: 03/21 19:48 Patient arrived in ED. ja2 19:49 Wiley Rubio PA is PHCP. cp 19:49 Ben Beck MD is Attending Physician. cp 20:06 Triage completed. tw5 20:06 Arm band placed on. tw5 20:21 Bria Latham is Primary Nurse. tw5 20:58 XRAY Chest (1 view) In Process Unspecified. EDMS 21:00 Patient has correct armband on for positive identification. Placed in gown. Bed in low kb3 position. Call light in reach. Side rails up X2. Adult w/ patient. Warm blanket given. Pillow given. PO fluids given. 21:15 Inserted saline lock: 20 gauge in right antecubital area, using aseptic technique. kb3 Blood collected. 21:15 No provider procedures requiring assistance completed. kb3 22:28 PHCP role handed off by Wiley Rubio PA kb 22:28 Marbella Eldridge FNP-C is PHCP. kb 22:37 Patient moved to MD via wheelchair. kb3 22:49 Abdomen In Process Unspecified. EDMS 03/22 00:48 IV discontinued, intact, bleeding controlled, No redness/swelling at site. Pressure tw5 dressing applied. Administered Medications: 03/21 21:37 Drug: NS 0.9% 1000 ml Route: IV; Rate: 1 bolus; Site: right antecubital; kb3 22:40 Follow up: Response: No adverse reaction; IV Status: Completed infusion; IV Intake: kb3 1000ml 21:37 Drug: Tylenol 1000 mg Route: PO; kb3 22:40 Follow up: Response: No adverse reaction; Temperature is unchanged kb3 21:37 Drug: fentaNYL (PF) 25 mcg Route: IVP; Site: right antecubital; kb3 22:39 Follow up: Response: No adverse reaction; Pain is decreased kb3 21:38 Drug: Zofran (Ondansetron) 4 mg Route: IVP; Site: right antecubital; kb3 22:39 Follow up: Response: No adverse reaction; Nausea is decreased kb3 22:50 Drug: NS 0.9% 1000 ml Route: IV; Rate: 1 bolus; Site: right antecubital; kb3 16 00:49 Follow up: Response: No adverse reaction; IV Status: Completed infusion; IV Intake: tw5 1000ml 03/21 22:50 Drug: Cipro (ciprofloxacin) 400 mg Volume: 200 ml; Route: IVPB; Infused Over: 60 mins; kb3 Site: right antecubital; 23:51 Follow up: Response: No adverse reaction; IV Status: Completed infusion; IV Intake: kb3 200ml 23:40 Drug: Flomax (tamsulosin) 0.4 mg Route: PO; kb3 03/22 00:49 Follow up: Response: No adverse reaction tw5 03/21 23:40 Drug: Ibuprofen 600 mg Route: PO; kb3 03/22 00:49 Follow up: Response: No adverse reaction 5 03/21 23:51 Drug: Magnesium Sulfate 2 grams Route: IVPB; Infused Over: 2 hrs; Site: right kb3 antecubital; 03/22 00:49 Follow up: Response: No adverse reaction; IV Status: Completed infusion; IV Intake: tw5 100ml Medication: 03/21 21:00 VIS not applicable for this client. kb3 Intake: 22:40 IV: 1000ml; Total: 1000ml. kb3 23:51 IV: 200ml; Total: 1200ml. kb3 03/22 00:49 IV: 1000ml; Total: 2200ml. tw5 00:49 IV: 100ml; Total: 2300ml. tw5 Outcome: 00:28 Discharge ordered by MD. kb 00:48 Discharged to home ambulatory. tw5 00:48 Condition: improved 00:48 Discharge instructions given to patient, Instructed on discharge instructions, follow up and referral plans. Demonstrated understanding of instructions, follow-up care, medications, Prescriptions given X 4. 00:50 Patient left the ED. tw5 Signatures: Dispatcher [employer] EDMS Marbella Eldridge, JUANIS BULB PLANTER-Wiley Powell PA PA cp Alexander, Jessica ja2 Wood, Tiffany tw5 Alexandra Wilkes, RN RN kb3 Corrections: (The following items were deleted from the chart) 03/21 23: 23:01 General: Appears uncomfortable, ill, obese, Behavior is calm, cooperative, kb3 kb3 23:05 23:01 Pain: Complains of pain in left low back and left mid back Pain radiates to left kb3 lateral anterior chest Pain currently is 10 out of 10 on a pain scale. Quality of pain is described as sharp, Pain began 2-3 days ago. Is continuous, kb3 23: 23:01 GI: Bowel sounds present X 4 quads. Abd is soft Abdomen is tender to palpation in kb3 anterior aspect of left lateral abdomen and left upper quadrant kb3 23: 23:01 : CVA tenderness noted on left Reports burning with urination, urgency, urinary kb3 frequency, kb3
--- NOTE | 2022-03-22 00:29 | EDPHYS ---
Physician Documentation [facility] Name: Roxanne Friend Age: 36 yrs Sex: Female : 1985 Arrival Date: 03/21/2022 Time: 19:48 Bed 25 Private MD: ED Physician Ben Beck HPI: 03/21 20:35 This 36 yrs old Female presents to ER via Ambulatory with complaints of cp Abdominal Pain, Pain With Urination. 20:35 The patient complains of pain in the left flank. cp 20:35 The pain radiates to the abdomen. Associated signs and symptoms: Pertinent positives: cp nausea, Pertinent negatives: fever, pain radiating to the lower extremities. Severity of pain: in the emergency department the pain is unchanged despite home interventions. 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 diabetes; Rheumatoid Arthritis; tw5 - PSHx: 20:06 section; Cholecystectomy; double mastectomy; tonsil/adenoid; tw5 - Immunization history:: Flu vaccine is not up to date. - Social history:: Smoking status: Patient reports the use of cigarette tobacco products, smokes one pack cigarettes per day. ROS: 20:40 Constitutional: Positive for body aches, chills, fever. cp 20:40 Eyes: Negative for injury, pain, redness, and discharge. cp 20:40 Abdomen/GI: Positive for abdominal pain, nausea, of the anterior aspect of left lateral abdomen and left upper quadrant, Negative for vomiting, diarrhea, constipation. 20:40 ENT: Negative for drainage from ear(s), ear pain, sore throat, difficulty swallowing, cp difficulty handling secretions. 20:40 Cardiovascular: Negative for chest pain, edema, palpitations. 20:40 Respiratory: Negative for cough, wheezing. 20:40 Back: Positive for flank pain, on the left. 20:40 Skin: Negative for cellulitis, rash. 20:40 Neuro: Negative for altered mental status, dizziness, headache, weakness. 20:40 All other systems are negative. Exam: 20:45 Constitutional: The patient appears in no acute distress, alert, awake, cp non-diaphoretic, non-toxic, well developed, well nourished, febrile, uncomfortable. 20:45 Head/Face: Normocephalic, atraumatic. cp 20:45 Eyes: Periorbital structures: appear normal, Conjunctiva: normal, no exudate, no cp injection, Sclera: no appreciated abnormality, Lids and lashes: appear normal, bilaterally. 20:45 ENT: External ear(s): are unremarkable, Nose: is normal, Mouth: Lips: moist, Oral cp mucosa: moist, Posterior pharynx: Airway: no evidence of obstruction, patent. 20:45 Neck: ROM/movement: is normal, is supple, without pain, no range of motions limitations, no meningismus. 20:45 Chest/axilla: Inspection: normal, Palpation: is normal, no crepitus, no tenderness. 20:45 Cardiovascular: Rate: tachycardic, Rhythm: regular, Edema: is not appreciated, JVD: is not appreciated. 20:45 Respiratory: the patient does not display signs of respiratory distress, Respirations: normal, no use of accessory muscles, no retractions, labored breathing, is not present, Breath sounds: are clear throughout, no decreased breath sounds, no stridor, no wheezing. 20:45 Abdomen/GI: Inspection: abdomen appears normal, Bowel sounds: active, all quadrants, Palpation: soft, in all quadrants, moderate abdominal tenderness, in the anterior aspect of left lateral abdomen and left upper quadrant, rebound tenderness, is not appreciated, voluntary guarding, is elicited in the anterior aspect of left lateral abdomen and left upper quadrant. 20:45 Back: pain, that is moderate, of the left mid back, ROM is normal. 20:45 Skin: cellulitis, is not appreciated, no rash present. 20:45 Neuro: Orientation: to person, place \T\ time. Mentation: is normal, Motor: moves all fours, strength is normal, Sensation: is normal. Vital Signs: 20:03 BP 161 / 73; Pulse 126; Resp 26; Temp 100.8; Pulse Ox 98% on R/A; Weight 104.33 kg; tw5 Height 5 ft. 6 in. (167.64 cm); Pain 10/10; 21:30 BP 115 / 58; Pulse 125; Resp 20; Temp 101.8; Pulse Ox 96% ; Pain 10/10; kb3 22:00 BP 116 / 48; Pulse 121; Resp 20; Pulse Ox 92% ; Pain 8/10; kb3 23:00 BP 123 / 56; Pulse 107; Resp 20; Temp 100.8; Pulse Ox 96% ; Pain 5/10; kb3 16 00:48 Pulse 100; Resp 18; Temp 99.2(O); Pulse Ox 97% ; Pain 1/10; tw5 03/21 20:03 Body Mass Index 37.12 (104.33 kg, 167.64 cm) tw5 MDM: 03/21 20:14 Patient medically screened. cp 21:00 Differential diagnosis: nephrolithiasis, pyelonephritis, UTI, diverticulitis. 03/22 00:25 Data reviewed: vital signs, nurses notes. Counseling: I had a detailed discussion with kb the patient and/or guardian regarding: the historical points, exam findings, and any diagnostic results supporting the discharge/admit diagnosis, lab results, radiology results, the need for outpatient follow up, a family practitioner, to return to the emergency department if symptoms worsen or persist or if there are any questions or concerns that arise at home. 03/21 20:28 Order name: Basic Metabolic Panel; Complete Time: 22:06 03/21 22:06 Interpretation: Normal except: NA 135; BUN 6. 03/21 20:28 Order name: CBC with Diff; Complete Time: 21:55 03/21 21:56 Interpretation: Normal except: RBC 5.05; MECHELLE% 76.9; LYM% 11.8. 03/21 20:28 Order name: LFT's; Complete Time: 22:06 03/21 20:28 Order name: Magnesium; Complete Time: 22:06 03/21 22:06 Interpretation: Abnormal: MG 1.3. 03/21 20:28 Order name: Lactate; Complete Time: 22:06 03/21 20:28 Order name: Procalcitonin; Complete Time: 22:19 03/21 22:19 Interpretation: Reviewed. 03/21 20:28 Order name: XRAY Chest (1 view); Complete Time: 21:40 03/21 21:40 Interpretation: Report review. 03/21 20:28 Order name: Blood Culture Adult (2) 03/21 20:28 Order name: Lipase; Complete Time: 22:06 cp 03/21 20:28 Order name: Urine Microscopic Only; Complete Time: 21:05 cp 03/21 21:06 Interpretation: Normal except: UWBC 10-20; URBC 11-20. cp 03/21 20:37 Order name: Urine Dipstick-Ancillary; Complete Time: 21:05 EDMS 03/21 21:06 Interpretation: Normal except: UKET Trace; UBLD Trace-intact; UPH 7.5; UPROT 3+; UNIT cp Positive; UESTR 3+. 03/21 20:50 Order name: Urine --Ancillary (enter results); Complete Time: 22:40 ds4 03/21 20:59 Order name: Urine Culture EDMS 03/21 20:28 Order name: Cardiac monitoring; Complete Time: 22:59 cp 03/21 20:28 Order name: EKG - Nurse/Tech cp 03/21 20:28 Order name: IV Saline Lock; Complete Time: 21:38 cp 03/21 20:28 Order name: Labs collected and sent; Complete Time: 21:38 cp 03/21 20:28 Order name: O2 Per Protocol; Complete Time: 21:38 cp 03/21 22:41 Order name: Abdomen ; Complete Time: 23:02 EDMS 03/21 20:28 Order name: O2 Sat Monitoring; Complete Time: 21:38 cp 03/21 20:28 Order name: Urine Dipstick-Ancillary (obtain specimen); Complete Time: 20:50 cp 03/21 20:28 Order name: Urine Test (obtain specimen); Complete Time: 20:50 cp 03/21 23:03 Order name: Vital Signs; Complete Time: 23:31 kb 03/22 00:25 Order name: Vital Signs; Complete Time: 00:48 kb Administered Medications: 03/21 21:37 Drug: NS 0.9% 1000 ml Route: IV; Rate: 1 bolus; Site: right antecubital; kb3 22:40 Follow up: Response: No adverse reaction; IV Status: Completed infusion; IV Intake: kb3 1000ml 21:37 Drug: Tylenol 1000 mg Route: PO; kb3 22:40 Follow up: Response: No adverse reaction; Temperature is unchanged kb3 21:37 Drug: fentaNYL (PF) 25 mcg Route: IVP; Site: right antecubital; kb3 22:39 Follow up: Response: No adverse reaction; Pain is decreased 3 21:38 Drug: Zofran (Ondansetron) 4 mg Route: IVP; Site: right antecubital; 3 22:39 Follow up: Response: No adverse reaction; Nausea is decreased 3 22:50 Drug: NS 0.9% 1000 ml Route: IV; Rate: 1 bolus; Site: right antecubital; 3 03/22 00:49 Follow up: Response: No adverse reaction; IV Status: Completed infusion; IV Intake: tw5 1000ml 03/21 22:50 Drug: Cipro (ciprofloxacin) 400 mg Volume: 200 ml; Route: IVPB; Infused Over: 60 mins; 3 Site: right antecubital; 23:51 Follow up: Response: No adverse reaction; IV Status: Completed infusion; IV Intake: kb3 200ml 23:40 Drug: Flomax (tamsulosin) 0.4 mg Route: PO; 3 03/22 00:49 Follow up: Response: No adverse reaction 5 03/21 23:40 Drug: Ibuprofen 600 mg Route: PO; 3 03/22 00:49 Follow up: Response: No adverse reaction 5 03/21 23:51 Drug: Magnesium Sulfate 2 grams Route: IVPB; Infused Over: 2 hrs; Site: right 3 antecubital; 03/22 00:49 Follow up: Response: No adverse reaction; IV Status: Completed infusion; IV Intake: tw5 100ml Disposition: 02:16 Co-signature as Attending Physician, Ben Beck MD. rn Disposition Summary: 03/22/22 00:28 Discharge Ordered Location: Home kb Condition: Stable kb Diagnosis - UTI/ Urinary tract infection, site not specified kb - Calculus of kidney with calculus of ureter kb Followup: kb - With: Emergency Department - When: As needed - Reason: Worsening of condition Followup: kb - With: Private Physician - When: 2 - 3 days - Reason: Recheck today's complaints, Continuance of care, Re-evaluation by your physician Discharge Instructions: - Discharge Summary Sheet kb - Kidney Stones, [id number] kb - Urinary Tract Infection, Adult, [id number] kb Forms: - Medication Reconciliation Form kb - Thank You Letter kb - Antibiotic Education kb - Prescription Opioid Use kb Prescriptions: - Flomax 0.4 mg Oral capsule - take 1 capsule by ORAL route once daily 1/2 hour following the same meal each kb day; 10 capsule; Refills: 0, Product Selection Permitted - Zofran 4 mg Oral Tablet - take 1 tablet by ORAL route every 8 hours As needed; 20 tablet; Refills: 0, kb Product Selection Permitted - Cipro 500 mg Oral Tablet - take 1 tablet by ORAL route every 12 hours for 7 days; 14 tablet; Refills: 0, kb Product Selection Permitted - Diclofenac Sodium 75 mg Oral tablet,delayed release (DR/EC) - take 1 tablet by ORAL route 2 times per day As needed; 30 tablet; Refills: 0, kb Product Selection Permitted Signatures: Dispatcher [employer] Marbella Cervantes, [employer]TE[employer]CE CONSULTANT-C [employer] MAINTENANCE CONSULTANT-Ckb Ben Beck MD MD rn Wiley Rubio PA PA cp Wood, Tiffany tw5 Alexandra Wilkes RN RN kb3 Corrections: (The following items were deleted from the chart) 03/21 22:41 21:56 [place] Protocol+[id number].[email or web address] ordered. EDOH EDMS
[2022-03-23 10:38] VITALS: TEMP 99.2; O2SAT 97
[2022-03-23 10:46] VITALS: BP 123/56
== END 2022-03-22 00:50 | disposition home or self-care (01) ==
LOC: ER 19:45
DX: N39.0 Urinary tract infection, site not specified (principal); N20.2 Calculus of kidney with calculus of ureter; F17.210 Nicotine dependence, cigarettes, uncomplicated
CPT/HCPCS: 96365; 96367; 96361; 87040 ×2; 87088; 85025; 87086; 80048; 36415; 83735; 81025; 80076; 83605; 87077; 87186; 83690; 84145; 74177; 71045; 96375; 99284; Q9967; J3010; J3475; J7030 ×2; J2405; J0744; 81003; 81015

== ENCOUNTER 2022-09-11 00:33 | Emergency (ER) | payer OTHER ==
--- OUTSIDE RECORDS SUMMARY | 2022-09-11 00:40 | XMS REPORT | Continuity of Care Document ---
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 2021-11-29 2021-11-29 Letter [facility] 1.2.515.731 [id number] Univers 00:00:00 00:00:00 (Out) BizGreet HEALTH 350.1.13.10 it y of CAN[place].2.7.2.[place] - [phone] Med ical MDA 419 [place] 2021-11-28 2021-11-28 Telephone [facility] 1.2.840.114 [id number] Univers 00:00:00 00:00:00 Odalys S HEALTH 350.1.13.10 it y of [place].2.[place] - [phone] Med ica MDA 419 [place] 2021-11-22 2021-11-22 Case Tanner SHON 1.2.840.114 [id number] Univers 00:00:00 00:00:00 Management Keyanna PULLIAM 350.1.13.10 ity of [place].2.[place] [phone] [facility] 086 [place] 2021-09-20 2021-09-20 Outpatient LISTER_MELI [facility] [address] [place] 00:00:00 00:00:00 SSA [facility]26 [facility] 2021-09-20 2021-09-20 Outpatient LISTER_MELI [facility] 888 [place] 00:00:00 00:00:00 SSA 0317 [facility] 2021-08-31 2021-08-31 Outpatient LISTER_MELI [facility] [place] 02:44:00 02:44:00 SSA 0225 [facility] 2021-08-29 2021-08-29 Office April Calderon [facility] 1.2.840.114 [id number] Univers 16:30:00 16:45:00 Visit E HEALTH 350.1.13.10 it y of CANCER 4.2.7.2.686 Janay segundo MASON - [phone] Med ical [facility] [address] 2021-08-29 2021-08-29 Outpatient R APRIL [facility]DERON [facility] [id number] Univers 16:30:00 16:30:[address] [facility] 2021-08-22 2021-08-[address] [facility] [id number] Univers 15:30:00 15:30:[address] [facility] 2021-08-22 2021-08-22 Outpatient [place] [address] [place] 08:48:00 08:48:00 SSA 0216 [facility] 2021-08-21 2021-08-21 Outpatient [place] [address] [place] 04:06:00 04:06:00 SSA 0215 [facility] 2021-08-21 2021-08-21 [facility] [id number] M atagor 00:00:00 00:00:00 Chris Jarrell APRN-UX DESIGN LEAD-C: [employer] [facility] [address], [facility] [address] Nahid menendez , Ph. 2021-08-20 2021-08-20 Outpatient [place] [address] [place] 06:09:00 06:09:00 SSA 0214 [facility] 2021-08-16 2021-08-16 Telephone [facility] 1.2.840.114 [id number] Univers 00:00:00 00:00:00 Odalys S [place] 350.1.13.10 i ty of [facility] 4.2.7.2.686 [place] PROF[place] [phone] Ks dical [address] 2021-07-31 2021-07-[address] [facility] [id number] Univers 13:00:00 13:00:00 ity [facility] 2021-07-31 2021-07-[address] [facility] [id number] Univers 13:00:00 13:00:00 ity [facility] 2021-07-27 2021-07-27 Telephone April Calderon [facility] 1.2.840.114 [id number] Univers 00:00:00 00:00:00 E [place] 350.1.13.10 i ty of [place].2.7.2.686 [place] [phone] [address] 2021-07-24 2021-07-24 Office Odalys Maldonado [facility] 1.2.840. 114 [id number] Univers 15:00:00 15:00:00 Visit Rm, Adc Surg Spec Procedure [place] 3 50.1.13.10 ity of [place] 4.2.7.2.686 [place] [id number] [address] 2021-07-24 2021-07-24 [facility] [id number] Univers 15:00:00 14:43:00 [facility] 2021-07-17 2021-07-17 [facility] [id number] Univers 14:30:00 [facility]37[facility] 2021-07-17 2021-07-17 [facility] 1.2.976.250 [id number] Univers 14:30:00 15:37:26 Visit Odalys MILLS 350.1.13.10 i ty of [facility] 4.2.7.2.686 [place] [id number] Ks dic[address] 2021-07-17 2021-07-17 [facility] [id number] Univers 14:30:00 15:37:26 ODALYS ity of [facility] 2021-07-17 2021-07-17 Office Erica [facility] 1.2.286.580 [id number] [facility] 14:30:00 15:37:26 Visit Odalyssusan MILLS 350.1.13.10 i ty of [facility] 4.2.7.2.686 [place] [phone] Ks dical NAL 419 [facility] 2021-07-17 2021-07-17 Orders Doctor MIRIAM 1.2.840.114 [id number] Univers 00:00:00 00:00:00 Only Unassigned, TESSA 350.1.13.10 ity of [facility] 4.2.7.2.686 Tang as [phone] [facility] 009 [place] 2021-04-17 2021-04-17 Orders Doctor MIRIAM 1.2.840.114 [id number] Univers 00:00:00 00:00:00 Only Unassigned, TESSA 350.1.13.10 ity of [facility] 4.2.7.2.686 Tang as [id number] [facility] 00[address] [place] 2021-03-02 2021-03-02 Orders Doctor MIRIAM 1.2.840.114 [id number] Univers 00:00:00 00:00:00 Only Unassigned, TESSA 350.1.13.10 ity of [facility] 4.2.7.2.686 Tang as [id number] [facility] 00[address] [place] 2021-01-31 2021-01-31 Outpatient R APRIL [facility]ON [facility] [id number] Univers 16:00:00 16:00:00 ity of [facility] 2021-01-30 2021-01-30 [facility] BRONSON Hunter 1.2.840.114 [id number] Univers 10:22:37 23:59:00 Encounter Johny LU 350.1.13.10 ity of CLINICS [place].2.7.2.[place] [id number] [facility] 803 [place] 2021-01-30 2021-01-[address] [facility] [id number] Univers 00:00:00 00:00:00 JOHNY ity [facility] 2021-01-25 2021-01-[address] [facility] [id number] Univers 14:30:00 14:30:00 YAZ ity [facility] 2021-01-22 2021-01-22 Patient BRONSON Virgen 1.2.840.114 [id number] Univers 00:00:00 00:00:00 Secure Msg Yaz B Y HEALTH 350.1.13.10 ity of CLINICS [place].2.7.2.[place] [phone] [facility] [address] 2021-01-17 2021-01-17 Outpatient R APRIL [facility]ON [facility] [id number] Univers 15:15:00 15:15:00 ity [facility] 2021-01-16 2021-01-[address] [facility] [id number] Univers 00:00:00 00:00:00 YAZ ity [facility] 2021-01-15 2021-01-15 Telephone JUAN Virgen 1.2.840.114 [id number] Univers 00:00:00 00:00:00 Yaz Zurita H 350.1.13.10 it y of BUILDING 4.2.7.2.686 Tang as [phone] [facility] [address] 2021-01-15 2021-01-15 Telephone Henry [facility] 1.2.322.755 [id number] Univers 00:00:00 00:00:00 Jo Health 350.1.13.10 ity of Cancer 4.2.7.2.686 [place] - [phone] Med ical [facility] [address] 2021-01-15 2021-01-15 Telephone Juan Manuel Melendez [facility] 1.2.840.114 [id number] Univers 00:00:00 00:00:00 W SPECIALTY 350.1.13.10 ity of [place].2.7.2.686 [place] [phone] [facility] [address] 2021-01-15 2021-01-15 Case Dale [facility] 1.2.840.114 [id number] Univers 00:00:00 00:00:00 Management Johny SPECIALTY 350.1.13.10 ity of CARE 4.2.7.2.686 [place] AT [phone] Ks homero RUCKER [address] [place] [address] 2021-01-15 2021-01-15 Case JUAN Virgen 1.2.840.114 [id number] Univers 00:00:00 00:00:00 Management Yaz Zurita H 350.1.13.10 ity of BUILDING 4.2.7.2.686 Tang as [phone] [facility] 080 [place] 2021-01-04 2021-01-04 [employer] Former [facility] UNIVERSIT 1.2.840.114 [id number] Univers 14:52:00 15:18:28 Visit Yaz Virgen HEALTH 350.1.13.10 ity of CLINICS 4.2.7.2.[place] [id number] [facility] 316 [place] 2021-01-04 2021-01-04 Office JUAN Virgen 1.2.840.114 [id number] Univers 12:58:53 14:46:01 Visit Yaz Vieyra 350.1.13.10 it y of BUILDING 4.2.7.2.686 Tang as [id number] [address] 2021-01-04 2021-01-[address] [facility] [id number] Univers 13:00:00 13:00:00 YAZ ity [facility] 2021-01-01 2021-01-01 Laboratory Only, Adc Test [facility] 1.2.840. 114 [id number] Univers 15:10:45 15:25:45 Only Kamlesh Walsh 350.1.13.10 ity of [place] 4.2.7.2.686 [place] [phone] [facility] 353 [place] 2021-01-01 2021-01-[address] [facility] [id number] Univers 14:00:00 14:00:00 ity of [facility] 2021-01-01 2021-01-01 Orders Doctor PINEDA 1.2.840.114 [id number] Univers 00:00:00 00:00:00 Only Unassigned, TESSA 350.1.13.10 ity of Bud [facility] 4.2.7.2.686 [facility] [id number] [place] [address] Branch 2020-12-13 2020-12-13 Office April Calderon [facility] 1.2.840.114 [id number] Univers 16:21:40 16:36:40 Visit E Health 350.1.13.10 it y of Cancer 4.2.7.2.686 [facility] [place] - [phone] [facility] 201 [address] 2020-12-13 2020-12-13 Outpatient R APRIL [facility]ON [facility] [id number] Univers 16:30:00 16:30:00 ity of [facility] 2020-12-13 2020-12-13 [facility] 1.2.840.114 [id number] Univers 00:00:00 00:00:00 Secure Msg E Health 350.1.13.10 ity of Cancer 4.2.7.2.686 [facility] s [facility] [id number] [place] [address] [address] 2020-12-13 2020-12-13 Patient [facility] 1.2.840.114 [id number] Univers 00:00:00 00:00:00 Secure Msg E Health 350.1.13.10 ity of Cancer 4.2.7.2.686 [facility] s [place] - [phone] [place] [address] Branch 2020-11-29 2020-11-29 Outpatient R APRIL [facility] [id number] Univers 15:00:00 15:00:00 ity [facility] 2020-11-29 2020-11-29 Office Laura [facility] 1.2.840.114 [id number] Univers 14:30:48 14:45:48 Visit E Health 350.1.13.10 it y of Cancer 4.2.7.2.686 [facility] [place] - [phone] [facility] 201 [address] 2020-11-23 2020-11-23 Telephone Maurilio Menendez 1.2.840.114 [id number] Univers 00:00:00 00:00:00 , Lizy Rodrigez Erasmo 350.1.13.10 ity of [place] 4.2.7.2.686 [place] [id number] [facility] 086 [place] 2020-11-22 2020-11-[address] [facility] [id number] Univers 10:30:00 10:30:00 YAZ itamalia [facility] 2020-11-17 2020-11-17 Laboratory Only, Lcc Test [facility] 1.2.840. 114 [id number] Univers 12:28:05 12:43:05 Only Yaz Virgen SPECIALTY 350.1.13.10 ity of CARE 4.2.7.2.686 [place] AT [phone] Ks homero RUCKER 353 [facility] 2020-11-17 2020-11-[address] [facility] [id number] Univers 11:45:00 11:45:[address] [facility] 2020-11-17 2020-11-17 Office April Calderon [facility] 1.2.840.114 [id number] Univers 11:14:55 11:29:55 Visit E Health 350.1.13.10 it y of Cancer 4.2.7.2.686 [place] - [phone] Med ica[address] 2020-11-10 2020-11-10 Office April Calderon [facility] 1.2.840.114 [id number] Univers 09:00:40 09:15:40 Visit E Health 350.1.13.10 it y of Cancer 4.2.7.2.686 [facility] [place] - [phone] [facility] 201 [place] 2020-11-10 2020-11-10 Outpatient R APRIL [facility]ON [facility] [id number] Univers 09:15:00 09:15:00 ity [facility] 2020-11-08 2020-11-08 Orders Doctor PINEDA 1.2.840.114 [id number] Univers 00:00:00 00:00:00 Only Unassigned, TESSA 350.1.13.10 ity of [facility] 4.2.7.2.686 Tang as [phone] [facility] [address] 2020-11-07 2020-11-07 Office Parul [facility] 1.2.840.114 [id number] Univers 13:55:04 14:51:23 Visit Yola STALLINGS 350.1.13.10 ity of C[place].2.7.2.686 [place] AT [phone] Ks homero RUCKER [address] [facility] 2020-11-07 2020-11-[address] [facility] [id number] Univers 14:00:00 14:00:00 YOLA christina o f [facility] 2020-11-06 2020-11-06 Patient April Calderon [facility] 1.2.840.114 [id number] Univers 00:00:00 00:00:00 Secure Msg E Health 350.1.13.10 ity of [place] 4.2.7.2.686 [place] - [phone] Med ical MDA [address] 2020-11-06 2020-11-06 Transition Shon Galvan 1.2.840.114 [id number] Univers 00:00:00 00:00:00 of Care Katy Pulliam 350.1.13.10 i ty of [place] 4.2.7.2.686 [place] [phone] [facility] 403 [address] 2020-11-06 2020-11-06 Patient April Calderon [facility] 1.2.840.114 [id number] Univers 00:00:00 00:00:00 Secure Msg E Health 350.1.13.10 ity of [place] 4.2.7.2.686 [place] - [phone] Med ical MDA [address] 2020-11-04 2020-11-04 Telephone MIRIAM Garcia 1.2.679.417 [id number] Univers 00:00:00 00:00:00 Colten ZARATE 350.1.13.10 it y of [facility] 4.2.7.2.686 Tang as [phone] [facility] 0[address] 2020-11-03 2020-11-03 Outpatient R LAURA [facility] [id number] Univers 10:45:00 10:45:00 ity of [facility] 2020-11-02 2020-11-02 Surgery LauraApril [facility] 1.2.840.114 [id number] Univers 12:41:00 14:19:00 E SPECIALTY 350.1.13.10 ity of C[place].2.7.2.[place] AT [phone] Ks homero RUCKER 020 [facility] 2020-11-01 2020-11-01 Patient April Calderon [facility] 1.2.840.114 [id number] Univers 00:00:00 00:00:00 Secure Msg E SPECIALTY 350.1.13.10 ity of CARE 4.2.7.2.686 [facility] C[facility] AT [phone] Ks shahriarren RUCKER [address] [place] [address] 2020-10-31 2020-10-31 Office Parul [facility] 1.2.840.114 [id number] [facility] 10:27:46 12:35:44 Visit Yola SPECIALTY 350.1.13.10 ity of CARE 4.2.7.2.686 [facility] CENTER AT [phone] Ks homero RUCKER [address] [place] [address] 2020-10-31 2020-10-[address] [facility] [id number] Univers 10:30:00 10:30:00 YOLA christina o f [facility] 2020-10-30 2020-10-30 [facility] 1.2.840.114 [id number] Univers 00:00:00 00:00:00 Secure Msg E Health 350.1.13.10 ity of Cancer 4.2.[place].2.686 [place] - [phone] Med ical [address] 2020-10-30 2020-10-30 Patient [facility] 1.2.840.114 [id number] Univers 00:00:00 00:00:00 Secure Msg E Health 350.1.13.10 ity of [place].2.[place].2.686 [place] - [phone] Med ical MDA [address] [place] [address] 2020-10-30 2020-10-30 Telephone [facility] 1.2.840.114 [id number] Univers 00:00:00 00:00:00 E Health 350.1.13.10 it y of Cancer 4.2.7.2.686 [facility] - [phone] Med [facility] 201 [address] 2020-10-28 2020-10-28 Emergency Kaale, TRAUMA 1.2.274.229 [id number] Univers 15:59:00 21:05:00 [facility] 350.1.13.10 ity of 4.2.7.2.686 [facility] s [phone] [facility] 014 [address] 2020-10-28 2020-10-28 Emergency Janessa [facility] 1.2.840.114 [id number] Univers 10:58:00 14:44:00 [place] 350.1.13.10 ity of [place] 4.2.7.2.686 [facility] [phone] [facility] 084 [address] 2020-10-28 2020-10-28 Orders Doctor MIRIAM 1.2.840.114 [id number] Univers 00:00:00 00:00:00 Only Unassigned, TESSA 350.1.13.10 ity of Bud [facility] 4.2.7.2.686 [facility] [phone] [facility] 009 [address] 2020-10-27 2020-10-27 Office April Calderon [facility] 1.2.840.114 [id number] Univers 10:06:45 13:25:56 Visit E Health 350.1.13.10 it y of Cancer 4.2.7.2.686 [facility] - [phone] Med [facility] 201 [address] 2020-10-27 2020-10-27 Outpatient R APRIL [facility] [id number] Univers 10:30:00 10:30:00 ity of [facility] 2020-10-26 2020-10-26 Patient April Calderon [facility] 1.2.840.114 [id number] Univers 00:00:00 00:00:00 Secure Msg E Health 350.1.13.10 ity of Cancer 4.2.7.2.686 [facility] [phone] [facility] [address] 2020-10-25 2020-10-25 Outpatient R APRIL [facility] [id number] Univers 15:00:00 15:00:00 ity [facility] 2020-10-23 2020-10-23 Office Parul [facility] 1.2.840.114 [id number] Univers 13:03:53 14:11:41 Visit Yola [place] 350.1.13.10 ity of CARE 4.2.7.2.686 [facility] AT [phone] Ks homero RUCKER 201 [facility] 2020-10-23 2020-10-[address] [facility] [id number] Univers 13:00:00 13:00:00 YOLA christina o f [facility] 2020-10-21 2020-10-21 Telephone [facility] 1.2.840.114 [id number] Univers 00:00:00 00:00:00 E Health 350.1.13.10 it y of Cancer 4.2.7.2.686 [facility] [phone] [facility] [address] 2020-10-18 2020-10-18 Outpatient R APRIL [facility] [id number] Univers 15:30:00 15:30:00 ity [facility] 2020-10-18 2020-10-18 Office [facility] 1.2.840.114 [id number] Univers 14:43:51 14:58:51 Visit E Health 350.1.13.10 it y of Cancer 4.2.7.2.686 [facility] [phone] [facility] [address] 2020-10-17 2020-10-[address] [facility] [id number] Univers 14:45:00 14:45:00 ODALYS itamalia [facility] 2020-10-11 2020-10-11 Office Laura [facility] 1.2.840.114 [id number] Univers 15:16:02 15:31:02 Visit E Health 350.1.13.10 it y of [place] 4.2.7.2.686 [place] - [phone] Med ical MDA [address] 2020-10-11 2020-10-[address] [facility] [id number] Univers 14:30:00 14:30:00 ity of [facility] 2020-10-10 2020-10-10 Outpatient R BRENNANJUAN MANUEL [facility] [id number] Univers 15:00:00 15:00:00 ity of [facility] 2020-10-10 2020-10-10 Telemedici Jo Figueroa [facility] 1.2.8 40.114 [id number] Univers 07:41:56 08:41:56 ne Visit Juan Manuel Melendez [facility] 350.1.13.10 ity of Cancer 4.2.7.2.686 [facility] Center - [phone] Med ical [facility] [address] 2020-10-05 2020-10-05 [facility] 1.2.840.114 [id number] Univers 11:10:00 23:59:00 Encounter Odalys Segundo SPECIALTY 350.1.13.10 ity of C[place]2.7.2.[place] AT [phone] Ks dicren PIMENTELY 805 [facility] 2020-10-05 2020-10-05 Surgery [facility] 1.2.485.768 [id number] Univers 11:03:00 16:26:00 Odalys Segundo SPECIALTY 350.1.13.10 ity of CARE 4.2.7.2.686 [facility] C[facility] AT [phone] Ks homero RUCKER 020 [facility] 2020-10-05 2020-10-05 Orders Doctor MIRIAM 1.2.840.114 [id number] Univers 00:00:00 00:00:00 Only Unassigned, TESSA 350.1.13.10 ity of [facility] 4.2.7.2.686 Tang as [phone] [facility] 009 [place] 2020-10-02 2020-10-02 Laboratory Only, Adc Test [facility] 1.2.840. 114 [id number] Univers 11:21:03 11:36:03 Only Odalys Maldonado [place] 350.1.13.10 ity [facility] [place] [phone] [facility] treva [address] 2020-10-02 2020-10-[address] [facility] [id number] Univers 11:00:00 11:00:00 ity [facility] 2020-09-25 2020-09-25 [facility] 1.2.840.114 [id number] Univers 00:00:00 00:00:00 Outreach Andrea PRIMARY [id number] i ty of [place].2.[place] [phone] [place] [address] [place] 2020-09-14 2020-09-[address] [facility] [id number] Univers 16:00:00 16:00:00 [facility] 2020-09-05 2020-09-05 [facility] 1.2.840.114 [id number] Univers 11:07:13 11:56:19 Visit [id number] [facility] 4.2.7.2.686 [facility] [phone] [place] dical nal 059 [facility] 2020-09-05 2020-09-[address] [facility] [id number] Univers 10:40:00 10:40:00 [facility] sanford o [facility] 2020-08-31 2020-08-31 Outpatient R JUAN MANUEL MELENDEZ [facility] [id number] Univers 11:00:00 11:00:00 ity [facility] 2020-08-30 2020-08-30 Outpatient R APRIL CALDERON [facility] [id number] Univers 16:15:00 [facility]-08[facility] 2020-08-30 Telemedici April Calderon [facility] 1.2.840.114 [id number] Univers 07:43:15 07:58:15 ne Visit [facility] 350.1.13.10 i ty [place] Cancer 4[place]7.2.686 [place] - [phone] [address] 2020-08-28 2020-08-28 Outpatient [address] MANUEL HARKINS [facility] 007 [id number] Univers 15:00:00 15:00:00 ity of [facility] 2020-08-25 2020-08-25 Outpatient [place] [id number] [place] 03:26:00 03:26:00 [facility] 2020-08-25 2020-08-25 Outpatient PA [place] [address] [place] 03:26:00 03:26:00 [facility] 2020-08-25 2020-08-25 Telephone Gramm, [facility] [id number] Univers 00:00:00 00:00:00 [place]essa [place] [id number] [place] [phone] [address] 2020-08-18 2020-08-18 Patient April Calderno [facility] 1.2.840.114 [id number] Univers 00:00:00 00:00:00 Secure Msg E Health [id number] [place] - [phone] [address] 2020-08-16 2020-08-16 Office LauraApril [facility] 1.2.840.114 [id number] Univers 15:01:06 15:31:06 Visit E Health 350.1.13.10 [place] - [phone] [address] 2020-08-16 2020-08-16 Outpatient R APRIL CAL[facility]ON [facility] [id number] Univers 15:15:00 15:15:00 ity of [facility] 2020-08-16 2020-08-16 Orders Doctor PINEDA 1.2.840.114 [id number] Univers 00:00:00 00:00:00 Only Unassigned, TESSA 350.1.13.10 ity of Bud [facility] 4.2.7.2.686 Tang as [phone] [facility] [address] 2020-08-15 2020-08-[address] [facility] [id number] Univers 14:00:00 14:00:00 ODALYS ity [facility] 2020-08-11 2020-08-11 [facility] 1.2.840.114 [id number] Univers 09:21:00 23:59:00 Encounter Odalys Segundo Y HEALTH 350.1.13.10 ity of [facility] [place] [phone] [facility] [address] 2020-08-11 2020-08-11 Outpatient R [facility] [id number] Univers 09:20:45 09:20:45 [facility] 2020-08-11 2020-08-11 [facility] 1.2.840.114 [id number] Univers 09:20:45 09:20:45 Encounter Nessa A Y HEALTH 350.1.13.10 ity of [facility] [place] [phone] [facility] [address] 2020-07-27 2020-07-27 Telephone [facility] [id number] Univers 00:00:00 00:00:00 Nessa Jorge [place] 350.1.13.10 it[place] of [place]2.686 [place] [facility] [phone] Ks dical nal [address] [facility] 2020-07-21 2020-07-21 [facility] 1.2.840.114 [id number] Univers 08:42:25 23:59:00 Encounter Nessa Jorge [place] 350.1.13.10 ity of [place].2.686 [place] [phone] [facility] [address] [place] 2020-07-21 2020-07-21 Outpatient [facility] [id number] Univers 08:41:31 08:41:[address] [facility] 2020-07-21 2020-07-21 [facility] 1.2.840.114 [id number] Univers 08:41:31 08:41:31 Encounter Nessa Patel Bunny 350.1.13.10 ity of [place].2.686 [place] [phone] [facility] [address] 2020-07-21 2020-07-21 [facility] 1.2.840.114 [id number] Univers 00:00:00 00:00:00 Management Nessa [place] 350.1.13.10 it[place] [phone] [facility] [address] [facility] 2020-07-19 2020-07-19 Orders Doctor MIRIAM 1.2.840.114 [id number] Univers 00:00:00 00:00:00 Only Unassigned, TESSA 350.1.13.10 ity of Bud [facility] 4.2.7.2.686 [place] as [phone] [facility] [address] 2020-07-11 2020-07-11 [facility] [id number] Univers 15:00:00 15:00:00 ODALYS christina [facility] 2020-07-10 2020-07-10 Outpatient MARÍA ELENA_TIFFANI [place] [address] [place] 05:55:00 05:55:00 SSA [facility]104 [facility] 2020-07-10 2020-07-10 Chantal [place] - [id number] [place] 00:00:00 00:00:00 Chris Mata da UX DESIGN LEAD: 1700 [facility] [place] Outre[place] [phone] h , Ph. Program 2020-06-21 2020-06-21 Outpatient Rutledge_L [facility] 2718 [place] 05:08:00 05:08:00 1216 [facility] 2020-06-21 2020-06-21 Outpatient Rutledge_L MMG [facility] 2718 [place] 05:08:00 05:08:00 1217 [facility] 2020-06-21 2020-06-21 Deept[facility] [place] - [id number] M [place] 00:00:00 00:00:00 Maxwell Perez [facility] Medica vivek MD: [address] [facility] [address], [place] [address] , Ph. [phone] 2020-05-25 2020-05-25 Outpatient cMcDonmumtaz [facility] [place] 10:20:00 10:20:00 1119 [facility] 2020-05-03 2020-05-03 Outpatient LISTER_MELI MEHOP MEHOP 888 [place] 05:26:00 05:26:00 SSA [facility]28 [facility] 2020-05-03 2020-05-03 Laureenyasmeen [facility] [place] - [id number] [place] 00:00:00 00:00:00 Chris Mata UX DESIGN LEAD: 1700 [facility] Eli HOP - MEKIM [place], [place], [place] Outre [phone] h , Ph. Program 2020-04-28 2020-04-28 Outpatient LISTER_MELI MEHOP MEHOP 88 [place] 05:08:00 05:08:00 SSA 1023 [facility] 2020-04-28 2020-04-28 Outpatient LISTER_MELI MEHOP MEHOP 888 [place] 05:08:00 05:08:00 SSA 1027 [facility] 2020-04-28 2020-04-28 Rachael [facility] [place] - [id number] [place] 00:00:00 00:00:00 Hui Ferrera, Buddhist Episco p UX DESIGN LEAD: 111 HOP - MEHOP al Eusebia F N, TIRE TECHNICIAN [facility] [phone] [facility] , Ph. 2020-04-24 2020-04-24 Outpatient LISTER_MELI MEHOP MEHOP 888 [place] 11:54:00 11:54:00 SSA [facility]9 [facility] Results Test Description Test Time Test Comments Results Result Comments Source CREATININE 2022-07-05 12:31:00 Test Item Value Reference Range Interpretation Comme nts CREATININE (test code = CREAT) 0.7 mg/dL 0.6-1.3 N COMMENTS: Stat creatinine if not already performedHCG SERUM [id number] 12:27:00 Test Item Value Reference Range Interpretation Comments HCG SERUM QUAL (test code = SERUM NEGATIVE NEGATIVE HCGQL) CBC W/AUTO [id number] 12:23:00 Test Item Value Reference Range Interpretation Comments WHITE BLOOD CELL (test code = 6.3 x10 3/uL 4.5-11.0 N WBC) RED BLOOD CELL (test code = 5.08 x10 6/uL 3.54-5.02 H RBC) HEMOGLOBIN (test code = HGB) 14.7 g/dL 11.0-15.0 N HEMATOCRIT (test code = HCT) 44.1 % 33.0-45.0 N MEAN CELL VOLUME (test code = 86.8 fL 81.0-99.0 N MCV) MEAN CELL HGB (test code = MCH) 28.9 pg 27.0-33.0 N MEAN CELL HGB CONCETRATION 33.3 g/dL 33.0-37.0 N (test code = MCHC) RED CELL DISTRIBUTION WIDTH CV 12.1 % 11.5-14.5 N (test code = RDW) RED CELL DISTRIBUTION WIDTH SD 39.0 fL 37.0-54.0 N (test code = RDW-SD) PLATELET COUNT (test code = 235 x10 3/uL 150-400 N PLT) MEAN PLATELET VOLUME (test code 9.5 fL 7.0-9.0 H = MPV) NEUTROPHIL % (test code = NT%) 63.9 % 56.0-77.0 N IMMATURE GRANULOCYTE % (test 0.3 % 0.0-2.0 N code = IG%) LYMPHOCYTE % (test code = LY%) 27.5 % 14.0-32.0 N MONOCYTE % (test code = MO%) 5.4 % 4.8-9.0 N EOSINOPHIL % (test code = EO%) 1.9 % 0.3-3.7 N BASOPHIL % (test code = BA%) 1.0 % 0.0-2.0 N NUCLEATED RBC % (test code = 0.0 % 0-0 N NRBC%) NEUTROPHIL # (test code = NT#) 4.02 x10 3/uL 2.0-7.6 N IMMATURE GRANULOCYTE # (test 0.02 x10 3/uL 0.00-0.03 N code = IG#) LYMPHOCYTE # (test code = LY#) 1.73 x10 3/uL 1.0-3.8 N MONOCYTE # (test code = MO#) 0.34 x10 3/uL 0.1-0.8 N EOSINOPHIL # (test code = EO#) 0.12 x10 3/uL 0.0-0.2 N BASOPHIL # (test code = BA#) 0.06 x10 3/uL 0.0-0.2 N NUCLEATED RBC # (test code = 0.00 x10 3/uL 0.0-0.1 N NRBC#) MANUAL DIFF REQUIRED (test code NO = MDIFF) BASIC METABOLIC PANEL (NA, K, CL, CO2, GLUCOSE, BUN, CREATININE, CA)2022-01-30 16:30:13 Test Item Value Reference Range Interpretation Comments NA (test code = 140 mmol/L 135-145 2668570108) K (test code = 3.8 mmol/L 3.5-5 6453282557) CL (test code = 108 mmol/L 98-108 6938611549) CO2 TOTAL (test code = 22 mmol/L 23-31 L 6459044811) AGAP (test code = 2-16 8465496695) BUN (test code = 2 mg/dL 7-23 L 0510520310) GLUCOSE (test code = 111 mg/dL 70-110 H 3695131544) CREATININE (test code = 0.56 mg/dL 0.5-1.04 5603013692) CALCIUM (test code = 9.0 mg/dL 8.6-10.6 8309724234) eGFR (test code = mL/min/1.73m2 6174306566) NEREYDA (test code = NEREYDA) Association of [...] tests). Lab Interpretation Abnormal (test code = 48840-3) [facility] WITH [id number] 15:59:05 Test Item Value Reference Range Interpretation Comments WBC (test code = See_Comment [Automated 6541-2) message] The sy stem which generated this result transmitted reference range : 4.30 - 11.10 10*3/?L. The reference range was not used to interpret this result as normal/abnormal . RBC (test code = See_Comment [Automated 417-8) message] The sy stem which generated this [...] (test code = 37.2 fL 39-49.9 L 11890-3) RDW-CV (test code = 11.9 % 12-15.5 L 788-0) PLT (test code = See_Comment [Automated 777-3) message] The sy stem which generated this result transmitted reference range : 166 - 358 10*3/ ?L. The reference r louise was not used to interpret this result as normal/abnormal . MPV (test code = 10.2 fL 9.5-12.9 25114-4) NRBC/100 WBC (test See_Comment [Automat ed code = 7035708160) message] The system which generated this result transmitted reference range : 0.0 - 10.0 /100 WBCs. The refer ence range was not u sed to interpret th is result as normal/abnormal . NRBC x10^3 (test code See_Comment [Auto mated = 6291116197) message] The s ystem which generated this result transmitted reference range : 10*3/?L. The reference range was not used to interpret this result as normal/abnormal . GRAN MAT (NEUT) % 73.4 % (test code = 770-8) IMM GRAN % (test code 0.30 % = 9803393010) LYMPH % (test code = 12.0 % 736-9) MONO % (test code = 14.0 % 5905-5) EOS % (test code = 0.1 % 713-8) BASO % (test code = 0.2 % 706-2) GRAN MAT x10^3(ANC) 7.47 10*3/uL 1.88-7.09 H (test code = 6068324664) IMM GRAN x10^3 (test 0.03 10*3/uL 0-0.06 code = 2189250651) LYMPH x10^3 (test code 1.22 10*3/uL 1.32-3.29 L = 731-0) MONO x10^3 (test code 1.43 10*3/uL 0.33-0.92 H = 742-7) EOS x10^3 (test code = 0.03-0.39 L 711-2) BASO x10^3 (test code 0.01-0.07 = 704-7) Lab Interpretation Abnormal (test code = 45914-0) [id number] 15:34:00 Test Item Value Reference Range Interpretation Comments POCT PREG (test code = 1605) negative On board controls acceptable with present C Line (test code = 3574) POCT PREG LOT # (test code = 3575) [id number] POCT PREG TEST DATE (test 05/06/2023 code = 3576) Lab Interpretation (test code = Normal 75446-5) [facility] 2000 [facility] - Serum or [id number] 00:00:00 Test Item Value Reference Range Interpretation [...] by Creatinine-based formula (MDRD) (test code = 70904-5) Glomerular filtration 132 mL/min/1.73m2 > or = 60 rate/1.73 sq M.predicted among blacks [Volume Rate/Area] in Serum, Plasma or Blood by Creatinine-based formula (MDRD) (test code = 90169-4) Urea nitrogen/Creatinine not applicable 6-22 [Mass Ratio] [...] 8.6-10.2 Serum or Plasma (test code = 12940-7) Protein [Mass/volume] in 6.6 g/dL 6.1-8.1 Serum or Plasma (test code = 2885-2) Albumin [Mass/volume] in 4.5 g/dL 3.6-5.1 Serum or Plasma (test code = 1751-7) Globulin [Mass/volume] in 2.1 g/dL (calc) 1.9-3.7 Serum by calculation (test code = 14740-0) Albumin/Globulin [Mass 2.1 (calc) 1.0-2.5 Ratio] in [...] Serum or Plasma (test code = 1742-6) [facility]yan[facility]obalamin [Interpretation] in Serum or [id number] 00:00:00 Test Item Value Reference Range Interpretation Comments Cobalamin (Vitamin B12) 311 pg/mL 200-1100 [Mass/volume] in Serum or Plasma (test code = 2132-9) Folate [Mass/volume] in Serum or 15.1 NG/mL Plasma (test code = 2284-8) [facility] System[facility]em[facility] A1c/Hemoglobin.total in [id number] 00:00:00 Test Item Value Reference Range Interpretation Comments Hemoglobin 4.9 % of total HGB <5.7 A1c/Hemoglobin.total in Blood (test code = 4548-4) Glucose mean value 94 (calc) [Mass/volume] in Blood Estimated from glycated hemoglobin (test code = 56205-2) Glucose mean value 5.2 (calc) [Moles/volume] in Blood Estimated from glycated hemoglobin (test code = 02481-1) [facility]25-Hydroxyvitamin D3+25- Hydroxyvitamin D2 [Mass/volume] in Serum or [id number] 00:00:00 Test Item Value Reference Range Interpretation Comments 25-Hydroxyvitamin 28 NG/mL 30-100 L D3+25-Hydroxyvitamin D2 [Mass/volume] in Serum or Plasma (test code = 48678-5) Cholecalciferol (Vit D3) 28 NG/mL [Mass/volume] in Serum or Plasma (test code = 1990-1) Calciferol (Vit D2) [Mass/volume] in <4 Serum or Plasma (test code = 2236-8) [facility] SystemBacterial vaginosis and vaginitis DNA panel - Vaginal fluid by Probe with signal [id number] 00:00:00 Test Item Value Reference Range Interpretation Comments Chlamydia trachomatis rRNA [Presence] tnp in Unspecified specimen by KRISTINA with probe detection (test code = 99016-5) Lactobacillus sp DNA [Log #/volume] in tnp Vaginal fluid by KRISTINA with probe detection (test code = 72448-0) Trichomonas vaginalis rRNA [Presence] tnp in Unspecified specimen by KRISTINA with probe detection (test code = 58854-8) Quyen sp DNA [Presence] in Vaginal tnp fluid by KRISTINA with probe detection (test code = 38255-0) [facility] System[facility] W Auto Differential panel - Blood 2020-05-03 [...] 10.1 fL 7.5-12.5 volume] in Blood by Mike-Radha (test code = 776-5) Neutrophils [#/volume] in 3450 cells/uL 6266-3266 Blood by Automated count (test code = [...] by Automated count (test code = 706-2) [facility] SystemThyrotropin [Units/volume] in Serum or [id number] 00:00:00 Test Item Value Reference Range Interpretation Comments Thyrotropin [Units/volume] in 1.46 mIU/L Serum or Plasma (test code = 3016-3) [facility]"
[2022-09-11 01:26] LABS: Urine Blood Negative (Negative); Urine Glucose Negative (Negative); Urine Protein Negative (Negative)
[2022-09-11 02:10] LABS: Absolute Lymphocytes (CBC) 2.5 K/uL (0.7-4.9); Hematocrit 42.6 % (36.0-45.0); Lymphocytes % 39.9 % (15.3-44.8); MCV 86.4 fL (80-100); MPV 7.8 fL (7.6-11.3); RBC Red Blood Cell Count 4.93 M/uL (3.86-4.86)
[2022-09-11 02:26] LABS: Albumin 3.9 g/dL (3.4-5.0); Bilirubin Total 0.3 mg/dL (0.2-1.0); Potassium 3.8 mmol/L (3.5-5.1); Protein, Total 7.2 g/dL (6.4-8.2)
[2022-09-11 02:28] LABS: Urine Bacteria None Seen /HPF (<20); Urine Mucus Slight /HPF (None Seen); Urine RBC None Seen /HPF (None Seen)
[2022-09-11 04:31] VITALS: TEMP 98.6
[2022-09-11 04:33] VITALS: BP 114/69; O2SAT 95
--- NOTE | 2022-09-11 11:43 | RAD REPORT ---
EXAM DESCRIPTION: CT Abdomen and Pelvis Without Intravenous Contrast CLINICAL HISTORY: The patient is 37 years old and is Female; FLANK PAIN TECHNIQUE: Axial computed tomography images of the abdomen and pelvis without intravenous contrast. Sagittal and coronal reformatted images were created and reviewed. This CT exam was performed usi ng one or more of the following dose reduction techniques: automated exposure control, adjustment o f the mA and/or kV according to patient size, and/or use of iterative reconstruction technique. COMPARISON: No relevant prior studies available. FINDINGS: Lung bases: Unremarkable. No mass. No consolidation. ABDOMEN: Liver: Hepatomegaly with diffuse hepatic steatosis. Gallbladder and bile ducts: Gallbladder is surgically absent. No ductal dilation. Pancreas: Unremarkable. No ductal dilation. Spleen: Unremarkable. No splenomegaly. Adrenals: Unremarkable. No mass. Kidneys and ureters: Nonobstructing calcification in the kidneys bilaterally. Stomach and bowel: Unremarkable. No obstruction. No mucosal thickening. PELVIS: Appendix: The appendix is normal. Bladder: Unremarkable. Reproductive: Unremarkable as visualized. ABDOMEN and PELVIS: Intraperitoneal space: Unremarkable. No free air. No significant fluid collection. Bones/joints: No acute fracture. No dislocation. Soft tissues: Partially visualized left breast implant. Vasculature: Unremarkable. No abdominal aortic aneurysm. Lymph nodes: Unremarkable. No enlarged lymph nodes. IMPRESSION: No acute finding in the abdomen/pelvis. Electronically signed by: Kamlesh De Jesus MD 09/11/2022 2:19 AM AGRICULTURAL COMMODITIES INSPECTOR Due to temporary technical issues with the PACS/Fluency reporting system, reports are being signed by the in house radiologists without review as a courtesy to insure prompt reporting. The interpreting radiologist is fully responsible for the content of the report.
--- NOTE | 2022-09-27 15:16 | EDPHYS ---
Physician Documentation [facility] Name: Roxanne Friend Age: 37 yrs Sex: Female : 1985 Arrival Date: 09/11/2022 Time: 00:42 Bed 16 Private MD: ED Physician Vera Rudd HPI: 09/11 01:27 This 37 yrs old Female presents to ER via Ambulatory with complaints of kb Possible Kidney Stone. 01:27 The patient complains of pain in the right flank. The pain does not radiate. Onset: The kb symptoms/episode began/occurred 5 day(s) ago. Modifying factors: The symptoms are alleviated by nothing. the symptoms are aggravated by movement. Associated signs and symptoms: Pertinent positives: Malodorous urine, Pertinent negatives: fever. Severity of pain: At its worst the pain was moderate in the emergency department the pain is unchanged. The patient has experienced similar episodes in the past. The patient has not recently seen a physician. 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 diabetes; Rheumatoid Arthritis; ll3 - PSHx: 01:07 section; Cholecystectomy; double mastectomy; tonsil/adenoid; ll3 - Immunization history:: Client reports having NOT received the Covid vaccine. - Social history:: Smoking status: Patient reports the use of cigarette tobacco products, smokes one-half pack cigarettes per day. ROS: 01:27 Constitutional: Negative for fever, chills, and weight loss. kb 01:27 Back: Positive for flank pain, on the right. 01:27 : Positive for flank pain, foul smelling urine. 01:27 All other systems are negative. Exam: 01:27 Constitutional: This is a well developed, well nourished patient who is awake, alert, kb and in no acute distress. Head/Face: Normocephalic, atraumatic. ENT: Moist Mucous membranes Cardiovascular: Regular rate and rhythm with a normal S1 and S2. No gallops, murmurs, or rubs. No pulse deficits. Respiratory: Respirations even and unlabored. No increased work of breathing. Talking in full sentences Abdomen/GI: Soft, non-tender. No distention Skin: Warm, dry with normal turgor. Normal color. MS/ Extremity: Pulses equal, no cyanosis. Neurovascular intact. Full, normal range of motion. Neuro: Awake and alert, GCS 15, oriented to person, place, time, and situation. Moves all extremities. Normal gait. 01:27 Back: CVA tenderness, that is moderate, is noted on the right. Vital Signs: 01:06 BP 150 / 91; Pulse 101; Resp 18; Temp 98.6(O); Pulse Ox 99% on R/A; Weight 106.14 kg ll3 (R); Height 5 ft. 6 in. (R); Pain 9/10; 02:59 BP 114 / 69; Pulse 87; Resp 16; Pulse Ox 95% on R/A; ll3 01:06 Body Mass Index 37.77 (106.14 kg, 167.64 cm) ll3 01:06 Pain Scale: Adult ll3 MDM: 00:50 Patient medically screened. kb 01:28 Differential diagnosis: nephrolithiasis, pyelonephritis, UTI. Data reviewed: vital kb signs, nurses notes. ED course: Patient is a 37-year-old female with a history of kidney stones who presents with right flank pain that started 5 days ago with malodorous urine. On exam patient has moderate right CVA tenderness and obvious pain. CT stone, urinalysis and serum labs ordered. Patient does not want any pain medication at this time.. 02:37 Counseling: I had a detailed discussion with the patient and/or guardian regarding: the kb historical points, exam findings, and any diagnostic results supporting the discharge/admit diagnosis, lab results, radiology results, the need for outpatient follow up, a family practitioner, to return to the emergency department if symptoms worsen or persist or if there are any questions or concerns that arise at home. 09/11 00:55 Order name: CBC with Diff; Complete Time: 02:17 kb 09/11 00:55 Order name: CMP; Complete Time: 02:26 kb 09/11 00:55 Order name: Lipase; Complete Time: 02:26 kb 09/11 00:55 Order name: Urine Microscopic Only; Complete Time: 02:37 kb 09/11 01:26 Order name: Urine Dipstick-Ancillary; Complete Time: 01:27 EDMS 09/11 00:55 Order name: CT Stone Protocol kb 09/11 00:55 Order name: IV Saline Lock; Complete Time: 01:41 kb 09/11 00:55 Order name: Labs collected and sent; Complete Time: 01:41 kb 09/11 00:55 Order name: Urine Dipstick-Ancillary (obtain specimen); Complete Time: 01:27 kb 09/11 00:55 Order name: Urine Test (obtain specimen); Complete Time: 01:27 kb Administered Medications: No medications were administered Disposition Summary: 09/11/22 02:38 Discharge Ordered Location: Home kb Condition: Stable kb Diagnosis - Flank Pain kb Followup: kb - With: Emergency Department - When: As needed - Reason: Worsening of condition Followup: kb - With: Private Physician - When: 2 - 3 days - Reason: Recheck today's complaints, Continuance of care, Re-evaluation by your physician Discharge Instructions: - Discharge Summary Sheet kb - Flank Pain, Adult, [id number] kb Forms: - Medication Reconciliation Form kb - Thank You Letter kb - Antibiotic Education kb - Prescription Opioid Use kb Signatures: Dispatcher [employer] Marbella Cervantes, FOOD AND BEVERAGE ASSISTANT MANAGER-C JOSE ALBERTO-Leslye Burns, RN RN ll3
--- NOTE | 2022-09-27 15:16 | ER ---
Nurse's Notes [facility] Name: Roxanne Friend Age: 37 yrs Sex: Female : 1985 Arrival Date: 09/11/2022 Time: 00:42 Bed 16 Private MD: Diagnosis: Flank Pain Presentation: 09/11 01:06 Chief complaint: Patient states: C/o right flank pain 9/10 and gassiness. Coronavirus ll3 screen: Vaccine status: Patient reports being unvaccinated. At this time, the client does not indicate any symptoms associated with coronavirus-19. Ebola Screen: No symptoms or risks identified at this time. Initial Sepsis Screen: Does the patient meet any 2 criteria? No. Patient's initial sepsis screen is negative. Does the patient have a suspected source of infection? No. Patient's initial sepsis screen is negative. Risk Assessment: Do you want to hurt yourself or someone else? Patient reports no desire to harm self or others. Onset of symptoms was September 11, 2022. 01:06 Method Of Arrival: Ambulatory ll3 01:06 Acuity: DUSTIN 3 ll3 Triage Assessment: 01:07 General: Appears uncomfortable, Behavior is calm, cooperative. Pain: Complains of pain ll3 in anterior aspect of right lateral abdomen Pain does not radiate. Pain currently is 9 out of 10 on a pain scale. GI: Abdomen is round non-distended, Reports gaseousness. Derm: Skin is pink, warm \T\ dry. ICU CLERK: 01:07 LMP 08/27/2022 ll3 Historical: - Allergies: 01:07 Ceftin; ll3 01:07 Morphine; ll3 - Home Meds: 01:07 None [Active]; ll3 - PMHx: 01:07 BREAST CA; Degenerative disc disease; gest. diabetes; Rheumatoid Arthritis; ll3 - PSHx: 01:07 section; Cholecystectomy; double mastectomy; tonsil/adenoid; ll3 - Immunization history:: Client reports having NOT received the Covid vaccine. - Social history:: Smoking status: Patient reports the use of cigarette tobacco products, smokes one-half pack cigarettes per day. Screenin:57 [facility] ED Fall Risk Assessment (Adult) History of falling in the last 3 months, ll3 including since admission No falls in past 3 months (0 pts) Confusion or Disorientation No (0 pts) Intoxicated or Sedated No (0 pts) Impaired Gait No (0 pts) Mobility Assist Device Used No (0 pt) Altered Elimination No (0 pt) Score/Fall Risk Level 0 - 2 = Low Risk Oriented to surroundings, Maintained a safe environment. Abuse screen: Denies threats or abuse. Denies injuries from another. Nutritional screening: No deficits noted. Tuberculosis screening: No symptoms or risk factors identified. Assessment: 01:08 General: See triage assessment. ll3 Vital Signs: 01:06 BP 150 / 91; Pulse 101; Resp 18; Temp 98.6(O); Pulse Ox 99% on R/A; Weight 106.14 kg ll3 (R); Height 5 ft. 6 in. (R); Pain 9/10; 02:59 BP 114 / 69; Pulse 87; Resp 16; Pulse Ox 95% on R/A; ll3 01:06 Body Mass Index 37.77 (106.14 kg, 167.64 cm) ll3 01:06 Pain Scale: Adult ll3 ED Course: 00:42 Patient arrived in ED. bc6 00:50 Mar[facility]ella Eldridge [facility]. kb 00:50 Vera Rudd MD is Attending Physician. kb 01:07 Triage completed. ll3 01:07 Arm band placed on Patient placed in an exam room, on a stretcher, on pulse oximetry. ll3 01:28 CT Stone Protocol In Process Unspecified. EDMS 02:57 Patient has correct armband on for positive identification. Bed in low position. Call ll3 light in reach. Side rails up X 1. Adult w/ patient. 02:57 No provider procedures requiring assistance completed. IV discontinued, intact, ll3 bleeding controlled, No redness/swelling at site. Pressure dressing applied. Administered Medications: No medications were administered Medication: 02:57 VIS not applicable for this client. ll3 Outcome: 02:38 Discharge ordered by . kb 02:58 Discharged to home ambulatory, with family. ll3 02:58 Condition: stable 02:58 Discharge instructions given to patient, family, Instructed on discharge instructions, follow up and referral plans. Demonstrated understanding of instructions, follow-up care. 02:58 Patient left the ED. ll3 Signatures: Dispatcher [employer] EDGA Marbella Eldridge FNP-C FNP-Ckb Leslye Geronimo, RN RN ll3 Eliza Borden bc6
== END 2022-09-11 02:58 | disposition home or self-care (01) ==
LOC: ER 00:33
DX: R10.31 Right lower quadrant pain (principal); F17.210 Nicotine dependence, cigarettes, uncomplicated; Z88.1 Allergy status to other antibiotic agents; Z88.5 Allergy status to narcotic agent; Z85.3 Personal history of malignant neoplasm of breast; Z90.13 Acquired absence of bilateral breasts and nipples
CPT/HCPCS: 36415; 74176; 76377; 80053; 81003; 81015; 83690; 85025; 99283

== ENCOUNTER 2022-12-12 23:51 | Emergency (ER) | payer OTHER ==
--- OUTSIDE RECORDS SUMMARY | 2022-12-12 23:55 | XMS REPORT | Continuity of Care Document ---
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 [facility] [address] 2020-12-13 2020-12-13 Patient April Sanchez [facility] 1.2.840.114 [id number] Univers 00:00:00 00:00:00 Secure Msg E Health 350.1.13.10 ity of Cancer 4.2.7.2.686 [facility] [place] - [phone] Med ical [facility] 201 [address] 2020-11-29 2020-11-29 Outpatient R LAURA APRIL [facility] [id number] Univers 15:00:00 15:00:00 ity [facility] 2020-11-29 2020-11-29 Office LauraApril [facility] 1.2.840.114 [id number] Univers 14:30:48 14:45:48 Visit E Health 350.1.13.10 it y of Cancer 4.2.7.2.686 [facility] - [id number] Med ical [facility] 201 [address] 2020-11-23 2020-11-23 Telephone Maurilio Elderbonita 1.2.840.114 [id number] Univers 00:00:00 00:00:00 , Lizy Rodrigez Erasmo 350.1.13.10 ity of [place] [id number] [facility] [address] [place] 2020-11-22 2020-11-22 Outpatient Stefan MCKEON [facility] [id number] Univers 10:30:00 10:30:00 YAZ [facility] 2020-11-17 2020-11-17 Laboratory Only, Lcc Test [facility] 1.2.840. 114 [id number] Univers 12:28:05 12:43:05 Only Yaz Mckeon 350.1.13.10 ity of C[place] AT [id number] Mo shahriarren [address] 2020-11-17 2020-11-17 Outpatient Stefan MCKEON [facility] [id number] Univers 11:45:00 11:45:00 YAZ [facility] 2020-11-17 2020-11-17 Office April Sanchez [facility] 1.2.840.114 [id number] Univers 11:14:55 11:29:55 Visit E Health 350.1.13.10 it y [place] - [id number] Med ica[address] 2020-11-10 2020-11-10 Office April Sanchez [facility] 1.2.840.114 [id number] Univers 09:00:40 09:15:40 Visit E Health 350.1.13.10 it y [place] - [phone] Med ica[address] 2020-11-10 2020-11-10 Outpatient R APRIL SANCHEZ [facility] [id number] Univers 09:15:00 09:15:00 [facility] 2020-11-08 2020-11-08 Orders Doctor PINEDA 1.2.840.114 [id number] Univers 00:00:00 00:00:00 Only Unassigned, TESSA 350.1.13.10 ity of [place] [facility] 4.2.7.2.686 [place] as [phone] [facility] [address] 2020-11-07 2020-11-07 Office Parul [facility] 1.2.840.114 [id number] Univers 13:55:04 14:51:23 Visit Yola STALLINGS 350.1.13.10 ity of C[place].2.[place].2.[place] [phone] Mo shahriarren RUCKER [address] [facility] 2020-11-07 2020-11-07 Outpatient R PARUL [facility] [id number] Univers 14:00:00 14:00:00 YOLA christina o f [facility] 2020-11-06 2020-11-06 Patient April Sanchez [facility] 1.2.840.114 [id number] Univers 00:00:00 00:00:00 Secure Msg E Health 350.1.13.10 it[place] - [id number] Med ical [facility] [address] 2020-11-06 2020-11-06 Transition Shon Galvan 1.2.840.114 84 [id number] Univers 00:00:00 00:00:00 of Care Katy Pulliam 350.1.13.10 i ty of [place]2.7.2.[place] [id number] [facility] [address] 2020-11-06 2020-11-06 Patient April Sanchez [facility] 1.2.840.114 [id number] Univers 00:00:00 00:00:00 Secure Msg E Health 350.1.13.10 ity of [place] 4.2.[place].2.[place] - [phone] Med ical [facility] [address] 2020-11-04 2020-11-04 Telephone MIRIAM Garcia 1.2.918.180 [id number] Univers 00:00:00 00:00:00 Colten ZARATE 350.1.13.10 it y of [facility] 4.2.7.2.686 [place] as [phone] [address] 2020-11-03 2020-11-03 Outpatient R APRIL SANCHEZ [facility] [id number] Univers 10:45:00 10:45:00 ity of [facility] 2020-11-02 2020-11-02 Surgery April Sanchez [facility] 1.2.840.114 [id number] Univers 12:41:00 14:19:00 E SPECIALTY 350.1.13.10 ity of [place] [phone] Mo homero RUCKER 020 [facility] 2020-11-01 2020-11-01 [facility] 1.2.840.114 [id number] Univers 00:00:00 00:00:00 Secure Msg E SPECIALTY 350.1.13.10 ity of [place]2.[place] [phone] Mo shahriarren RUCKER [address] [place] [address] 2020-10-31 2020-10-31 [facility] 1.2.840.114 [id number] [facility] [place] 10:27:46 12:35:44 Visit Yola SPECIALTY 350.1.13.10 ity of CARE 4.2.7.2.686 [facility] C[facility] AT [phone] Mo homero RUCKER [address] [place] [address] 2020-10-31 2020-10-31 Outpatient R PARUL [facility] [id number] Univers 10:30:00 10:30:00 YOLA benoity o f [facility] 2020-10-30 2020-10-30 [facility] 1.2.840.114 [id number] Univers 00:00:00 00:00:00 Secure Msg E Health 350.1.13.10 it[place] - [phone] Med ical [address] 2020-10-30 2020-10-30 Patient April Sanchez [facility] 1.2.840.114 [id number] Univers 00:00:00 00:00:00 Secure Msg E Health 350.1.13.10 ity of [place].2.[place] - [id number] Med [facility] 201 [address] 2020-10-30 2020-10-30 Telephone April Sanchez [facility] 1.2.840.114 [id number] Univers 00:00:00 00:00:00 E Health 350.1.13.10 it y of Cancer 4.2.7.2.686 [facility] - [phone] Med [facility] 201 [address] 2020-10-28 2020-10-28 Emergency Kaale, TRAUMA 1.2.119.721 [id number] Univers 15:59:00 21:05:00 [facility] 350.1.13.10 ity of 4.2.7.2.686 [facility] [id number] [facility] 014 [address] 2020-10-28 2020-10-28 Emergency Janessa [facility] 1.2.840.114 [id number] Univers 10:58:00 14:44:00 Charley Bradfordton 350.1.13.10 ity of [place] 4.2.7.2.686 [facility] 349.6737694 [facility] 0[address] 2020-10-28 2020-10-28 Orders Doctor MIRIAM 1.2.840.114 [id number] Univers 00:00:00 00:00:00 Only Unassigned, TESSA 350.1.13.10 ity of [place] [facility] 4.2.7.2.686 [facility] 237.7843109 [facility] [address] 2020-10-27 2020-10-27 Office [facility] 1.2.840.114 83 [id number] Univers 10:06:45 13:25:56 Visit E Health 350.1.13.10 it y of Cancer 4.2.7.2.686 [facility] - [phone] [facility] 201 [address] 2020-10-27 2020-10-27 Outpatient R APRIL SANCHEZ [facility] [id number] Univers 10:30:00 10:30:00 ity of [facility] 2020-10-26 2020-10-26 Patient April Sanchez [facility] 1.2.840.114 [id number] Univers 00:00:00 00:00:00 Secure Msg E Health 350.1.13.10 ity of Cancer 4.2.7.2.686 [facility] [place] - [phone] [address] 2020-10-25 2020-10-25 Outpatient R APRIL SANCHEZ [facility] [id number] Univers 15:00:00 15:00:00 ity [facility] 2020-10-23 2020-10-23 Office [facility] 1.2.840.114 [id number] Univers 13:03:53 14:11:41 Visit Yola STALLINGS 350.1.13.10 ity of CARE 4.2.7.2.686 [facility] [place] AT [phone] Mo shahriarren RUCKER [address] [place] [address] 2020-10-23 2020-10-23 [facility] [id number] Univers 13:00:00 13:00:00 YOLA christina o f [facility] 2020-10-21 2020-10-21 Telephone Laura [facility] 1.2.840.114 [id number] Univers 00:00:00 00:00:00 E Health 350.1.13.10 it y of Cancer 4.2.7.2.686 [facility] - [phone] [address] 2020-10-18 2020-10-18 Outpatient R APRIL SANCHEZ [facility] [id number] Univers 15:30:00 15:30:00 ity [facility] 2020-10-18 2020-10-18 Office Laura [facility] 1.2.840.114 [id number] Univers 14:43:51 14:58:51 Visit E Health 350.1.13.10 it y of Cancer 4.2.7.2.686 [facility] - [phone] [address] 2020-10-17 2020-10-17 Outpatient R ERICA [facility] [id number] Univers 14:45:00 14:45:00 ODALYS christina [facility] 2020-10-11 2020-10-11 Office Laura [facility] 1.2.840.114 [id number] Univers 15:16:02 15:31:02 Visit E Health 350.1.13.10 it [place] - [phone] Med ical [facility] [address] 2020-10-11 2020-10-11 Outpatient R APRIL SANCHEZ [facility] [id number] Univers 14:30:00 14:30:00 ity of [facility] 2020-10-10 2020-10-10 Outpatient R JUAN MANUEL MELENDEZ [facility] [id number] Univers 15:00:00 15:00:00 ity of [facility] 2020-10-10 2020-10-10 Telemedici Jo Figueroa [facility] 1.2.8 40.114 [id number] Univers 07:41:56 08:41:56 ne Visit Juan Manuel Meelndez [facility] 350.1.13.10 ity [place] - [phone] Med ical [facility] [address] 2020-10-05 2020-10-05 [facility] 1.2.840.114 [id number] Univers 11:10:00 23:59:00 Encounter Odalys S SPECIALTY 350.1.13.10 ity of C[place].2.[place] [id number] Mo dicren VICTORY 805 [facility] 2020-10-05 2020-10-05 Surgery [facility] 1.2.816.389 [id number] Univers 11:03:00 16:26:00 Odalys S SPECIALTY 350.1.13.10 ity of [place].2.[place] AT [id number] Mo homero PIMENTELY 0[address] [facility] 2020-10-05 2020-10-05 Orders Doctor MIRIAM 1.2.840.114 [id number] Univers 00:00:00 00:00:00 Only Unassigned, TESSA 350.1.13.10 ity of [place] [facility] 4.2.7.2.686 [place] as 377.7378354 Medi treva 009 [address] 2020-10-02 2020-10-02 Laboratory Only, Adc Test [facility] 1.2.840. 114 [id number] Univers 11:21:03 11:36:03 Only Odalys Maldonado Abbott 350.1.13.10 ity [facility] 4.2.7.2.686 [facility] [id number] [facility] [address] 2020-10-02 2020-10-02 Outpatient R [facility] [id number] Univers 11:00:00 11:00:00 ity [facility] 2020-09-25 2020-09-25 Patient [facility] 1.2.840.114 [id number] Univers 00:00:00 00:00:00 Outreach Andrea PRIMARY 350.1.13.10 i [facility] 4.2.7.2.686 [facility] [id number] Mo dical [address] [place] 2020-09-14 2020-09-14 Outpatient R GASPER [facility] [id number] Univers 16:00:00 16:00:00 PAOLA christina o f [facility] 2020-09-05 2020-09-05 Office [facility] 1.2.840.114 [id number] Univers 11:07:13 11:56:19 Visit [place] 350.1.13.10 [facility] 4.2.7.2.686 [facility] [id number] Mo dical nal 059 [facility] 2020-09-05 2020-09-05 Outpatient R GASPER [facility] [id number] Univers 10:40:00 10:40:00 PAOLA christina o f [facility] 2020-08-31 2020-08-31 Outpatient R JUAN MANUEL MELENDEZ [facility] [id number] Univers 11:00:00 11:00:00 ity [facility] 2020-08-30 2020-08-30 Outpatient R APRIL SANCHEZ [facility] [id number] Univers 16:15:00 16:15:00 [facility] 2020-08-30 2020-08-30 Telemedici April Sanchez [facility] 1.2.840.114 [id number] Univers 07:43:15 07:58:15 ne Visit E Health 350.1.13.10 i ty [place]2.[place].2.[place] - [id number] [address] 2020-08-28 2020-08-28 Outpatient JUAN MANUEL HARKINS [facility] 020 [id number] Univers 15:00:00 15:00:00 ity of [facility] 2020-08-25 2020-08-25 Outpatient PA [place] [id number] [place] 03:26:00 03:26:00 SSA [facility]19 [facility] 2020-08-25 2020-08-25 Outpatient [place] [id number] [place] 03:26:00 03:26:00 SSA 0714 [facility] 2020-08-25 2020-08-25 Telephone [facility] 1.2.118.030 [id number] Univers 00:00:00 00:00:00 Nessa [place] 350.1.13.10 ity of [place] 4.2.7.2.686 [facility] [phone] Mo dical [facility] 204 [facility] 2020-08-18 2020-08-18 Patient Laura April [facility] 1.2.840.114 [id number] Univers 00:00:00 00:00:00 Secure Msg E Health 350.1.13.10 ity of Cancer 4.2.7.2.686 [facility] [place] - [id number] [address] 2020-08-16 2020-08-16 Office Luara April [facility] 1.2.840.114 [id number] Univers 15:01:06 15:31:06 Visit E Health 350.1.13.10 it y of Cancer 4.2.7.2.686 [facility] [place] - [phone] [address] 2020-08-16 2020-08-16 Outpatient R LAURA APRIL [facility] [id number] Univers 15:15:00 15:15:00 ity of [facility] 2020-08-16 2020-08-16 Orders Doctor PINEDA 1.2.840.114 [id number] Univers 00:00:00 00:00:00 Only Unassigned, TESSA 350.1.13.10 ity of [place] [facility] 4.2.7.2.686 [place] as [id number] [facility] [address] 2020-08-15 2020-08-15 Outpatient R ERICA [facility] [id number] Univers 14:00:00 14:00:00 ODALYS ity of [facility] 2020-08-11 2020-08-11 [facility] 1.2.840.114 [id number] Univers 09:21:00 23:59:00 Encounter Odalys S Y HEALTH 350.1.13.10 ity of [facility] 4.2.7.2.686 [place] [id number] [facility] [address] 2020-08-11 2020-08-11 Outpatient R [facility] [id number] Univers 09:20:45 09:20:45 NESSA ity of [facility] 2020-08-11 2020-08-11 [facility] 1.2.840.114 [id number] Univers 09:20:45 09:20:45 Encounter Nessa A Y HEALTH 350.1.13.10 ity of CLINICS 4.2.7.2.686 [place] [id number] [facility] [address] [place] 2020-07-27 2020-07-27 Telephone [facility] 1.2.992.908 [id number] Univers 00:00:00 00:00:00 Nessa [place] 350.1.13.10 ity of [place].2.7.2.686 [place] [facility] [phone] [facility] 204 [facility] 2020-07-21 2020-07-21 [facility] 1.2.840.114 [id number] Univers 08:42:25 23:59:00 Encounter Nessa [place] 350.1.13.10 ity of [place] 4.2.7.2.686 [place] [id number] [facility] [address] [place] 2020-07-21 2020-07-21 Outpatient [facility] [id number] Univers 08:41:31 08:41:31 NESSA ity [facility] 2020-07-21 2020-07-21 [facility] 1.2.840.114 [id number] Univers 08:41:31 08:41:31 Encounter Nessa [place] 350.1.13.10 ity of [place] 4.[place].7.2.686 [place] [id number] [facility] [address] 2020-07-21 2020-07-21 Case [facility] 1.2.840.114 [id number] Univers 00:00:00 00:00:00 Management Nessa Patel Gene 350.1.13.10 ity of [place] [id number] [facility] 204 [facility] 2020-07-19 2020-07-19 Orders Doctor MIRIAM 1.2.840.114 [id number] Univers 00:00:00 00:00:00 Only Unassigned, TESSA 350.1.13.10 ity of [place] [facility] 4.2.7.2.686 Tang as 607.2321838 [facility] [address] 2020-07-11 2020-07-11 Outpatient Stefan MALDONADO [facility] [id number] Univers 15:00:00 15:00:00 ODALYS christina [facility] 2020-07-10 2020-07-10 Outpatient PA INMAN 888 [place] 05:55:00 05:55:00 SSA [facility]104 [facility] 2020-07-10 2020-07-10 Chantal [place] - [id number] [place] 00:00:00 00:00:00 Chris Mata MACHINE TURNER: [address] [facility] [facility] [place] [address] h , Ph. Program 2020-06-21 2020-06-21 Outpatient Denny_L MMG MMG 5857 [place] 05:08:00 05:08:00 1216 [facility] 2020-06-21 2020-06-21 Outpatient Denny_L MMG MM 2718 [place] 05:08:00 05:08:00 1217 [facility] 2020-06-21 2020-06-21 Deepti MM [place] - [id number] M atagor 00:00:00 00:00:00 Maxwell Perez Medical Medica vivek MD: 600 [facility] [address], [place] [address] , Ph. [phone] 2020-05-25 2020-05-25 Outpatient Tracie MMG MM [place] 10:20:00 10:20:00 1119 da [facility] 2020-05-03 2020-05-03 Outpatient LISTER_MELI MEHOP MEHOP 888 [place] 05:26:00 05:26:00 SSA 1028 [facility] 2020-05-03 2020-05-03 Chantal UTHOP [place] - [id number] [place] 00:00:00 00:00:00 Chris Mata MACHINE TURNER: [address] [facility] [address], [place] [address] h , Ph. Program 2020-04-28 2020-04-28 Outpatient LISTER_MELI MEHOP MEHOP 888 [place] 05:08:00 05:08:00 SSA 1023 [facility] 2020-04-28 2020-04-28 Outpatient LISTER_MELI MEHOP MEHOP 888 [place] 05:08:00 05:08:00 SSA 1027 [facility] 2020-04-28 2020-04-28 Rachael UTHOP [place] - [id number] M atagor 00:00:00 00:00:00 Hui Chris Ferrera, [employer] [facility] MACHINE TURNER: [address], [facility] [facility] [place] [address] [facility] , Ph. 2020-04-24 2020-04-24 Outpatient LISTER_MELI MEHOP MEHOP 888 [place] 11:54:00 11:54:00 SSA 1019 da [facility] h Program Results Test Description Test Time Test Comments Results Result Comments Source CREATININE 2022-07-05 12:31:00 Test Item Value Reference Range Interpretation Comme nts CREATININE (test code = CREAT) 0.7 mg/dL 0.6-1.3 N COMMENTS: Stat creatinine if not already performedHCG SERUM [id number] 12:27:00 Test Item Value Reference Range Interpretation Comments HCG SERUM QUAL (test code = SERUM NEGATIVE NEGATIVE HCGQL) CBC W/AUTO [id number] 12:23:00 Test Item Value Reference Range Interpretation [...] NA (test code = 140 mmol/L 135-145 [id number]) K (test code = 3.8 mmol/L 3.5-5 8627068239) CL (test code = 108 mmol/L 98-108 2562566413) CO2 TOTAL (test code = 22 mmol/L 23-31 L 8421529223) AGAP (test code = 2-16 3982094841) BUN (test code = 2 mg/dL 7-23 L 8979841174) GLUCOSE (test code = 111 mg/dL 70-110 H 9774967579) CREATININE (test code = 0.56 mg/dL 0.5-1.04 6585747671) CALCIUM (test code = 9.0 mg/dL 8.6-10.6 2743684068) eGFR (test code = mL/min/1.73m2 5175282234) NEREYDA (test code = NEREYDA) Association of [...] tests). Lab Interpretation Abnormal (test code = 81940-6) [facility] WITH [id number] 15:59:05 Test Item Value Reference Range Interpretation Comments WBC (test code = See_Comment [Automated 8807-2) message] The sy stem which generated this result transmitted reference range : 4.30 - 11.10 10*3/?L. The reference range was not used to interpret this result as normal/abnormal . RBC (test code = See_Comment [Automated 641-8) message] The sy stem which generated this [...] (test code = 37.2 fL 39-49.9 L 58610-9) RDW-CV (test code = 11.9 % 12-15.5 L 788-0) PLT (test code = See_Comment [Automated 777-3) message] The sy stem which generated this result transmitted reference range : 166 - 358 10*3/ ?L. The reference r louise was not used to interpret this result as normal/abnormal . MPV (test code = 10.2 fL 9.5-12.9 30643-5) NRBC/100 WBC (test See_Comment [Automat ed code = [id number]) message] The system which generated this result transmitted reference range : 0.0 - 10.0 /100 WBCs. The refer ence range was not u sed to interpret th is result as normal/abnormal . NRBC x10^3 (test code See_Comment [Auto mated = [id number]) message] The s ystem which generated this result transmitted reference range : 10*3/?L. The reference range was not used to interpret this result as normal/abnormal . GRAN MAT (NEUT) % 73.4 % (test code = 770-8) IMM GRAN % (test code 0.30 % = 9612338008) LYMPH % (test code = 12.0 % 736-9) MONO % (test code = 14.0 % 5905-5) EOS % (test code = 0.1 % 713-8) BASO % (test code = 0.2 % 706-2) GRAN MAT x10^3(ANC) 7.47 10*3/uL 1.88-7.09 H (test code = 7629155695) IMM GRAN x10^3 (test 0.03 10*3/uL 0-0.06 code = 0023905644) LYMPH x10^3 (test code 1.22 10*3/uL 1.32-3.29 L = 731-0) MONO x10^3 (test code 1.43 10*3/uL 0.33-0.92 H = 742-7) EOS x10^3 (test code = 0.03-0.39 L 711-2) BASO x10^3 (test code 0.01-0.07 = 704-7) Lab Interpretation Abnormal (test code = 94036-0) [id number]00 Test Item Value Reference Range Interpretation Comments POCT PREG (test code = 1605) negative On board controls acceptable with present C Line (test code = 3574) POCT PREG LOT # (test code = 3575) [id number] POCT PREG TEST DATE (test 05/06/2023 code = 3576) Lab Interpretation (test code = Normal 96775-9) [facility] - Serum or [id number] 00:00:00 Test Item Value Reference Range Interpretation [...] by Creatinine-based formula (MDRD) (test code = 78588-2) Glomerular filtration 132 mL/min/1.73m2 > or = 60 rate/1.73 sq M.predicted among blacks [Volume Rate/Area] in Serum, Plasma or Blood by Creatinine-based formula (MDRD) (test code = 03242-7) Urea nitrogen/Creatinine not applicable 6-22 [Mass Ratio] [...] in Serum or Plasma (test code = 2027-) Calcium [Mass/volume] in 9.4 mg/dL 8.6-10.2 Serum or Plasma (test code = 18792-0) Protein [Mass/volume] in 6.6 g/dL 6.1-8.1 Serum or Plasma (test code = 2885-2) Albumin [Mass/volume] in 4.5 g/dL 3.6-5.1 Serum or Plasma (test code = 1751-7) Globulin [Mass/volume] in 2.1 g/dL (calc) 1.9-3.7 Serum by calculation (test code = 75204-0) Albumin/Globulin [Mass 2.1 (calc) 1.0-2.5 Ratio] in [...] Serum or Plasma (test code = 1742-6) [facility] [Interpretation] in Serum or [id number] 00:00:00 Test Item Value Reference Range Interpretation Comments Cobalamin (Vitamin B12) 311 pg/mL 200-1100 [Mass/volume] in Serum or Plasma (test code = 2132-9) Folate [Mass/volume] in Serum or 15.1 NG/mL Plasma (test code = 2284-8) [facility] A1c/Hemoglobin.total in [id number] 00:00:00 Test Item Value Reference Range Interpretation Comments Hemoglobin 4.9 % of total HGB <5.7 A1c/Hemoglobin.total in Blood (test code = 4548-4) Glucose mean value 94 (calc) [Mass/volume] in Blood Estimated from glycated hemoglobin (test code = 68456-2) Glucose mean value 5.2 (calc) [Moles/volume] in Blood Estimated from glycated hemoglobin (test code = 85738-1) [facility]25-Hydroxyvitamin D3+25- Hydroxyvitamin D2 [Mass/volume] in Serum or [id number] 00:00:00 Test Item Value Reference Range Interpretation Comments 25-Hydroxyvitamin 28 NG/mL 30-100 L D3+25-Hydroxyvitamin D2 [Mass/volume] in Serum or Plasma (test code = 99395-8) Cholecalciferol (Vit D3) 28 NG/mL [Mass/volume] in Serum or Plasma (test code = 1990-1) Calciferol (Vit D2) [Mass/volume] in <4 Serum or Plasma (test code = 2236-8) [facility]acterial vaginosis and vaginitis DNA panel - Vaginal fluid by Probe with signal [id number] 00:00:00 Test Item Value Reference Range Interpretation Comments Chlamydia trachomatis rRNA [Presence] tnp in Unspecified specimen by KRISTINA with probe detection (test code = 22084-5) Lactobacillus sp DNA [Log #/volume] in tnp Vaginal fluid by KRISTINA with probe detection (test code = 95090-1) Trichomonas vaginalis rRNA [Presence] tnp in Unspecified specimen by KRISTINA with probe detection (test code = 87141-0) Quyen sp DNA [Presence] in Vaginal tnp fluid by KRISTINA with probe detection (test code = 64825-1) [facility] Auto Differential panel - Blood 2020-05-03 [...] = 776-5) Neutrophils [#/volume] in 3450 cells/uL 7329-1793 Blood by Automated count (test code = [...] by Automated count (test code = 706-2) [facility]yrotropin [Units/volume] in Serum or [id number] 00:00:00 Test Item Value Reference Range Interpretation Comments Thyrotropin [Units/volume] in 1.46 mIU/L Serum or Plasma (test code = 3016-3) [facility] Notes Date/Time Note Provider Source 2022-08-12 16:31:00-00:00 [id number] [address] PATIENT NAME: JOAQUIN RESENDIZ ADMIT DATE: ACCOUNT NO: [id number] ROOM NO: AGE: 37 REPORT TYPE: OPERATIVE REPORT SEX: F ADMITTING PHYSICIAN: ATTENDING PHYSICIAN:Len Rivera MD OPERATION DATE: 07/10/2022 PREOPERATIVE DIAGNOSES: 1. Breast cancer. 2. Acquired right and left breast absence. POSTOPERATIVE DIAGNOSES: 1. Breast cancer. 2. Acquired right and left breast absence. PROCEDURE: 1. Right and left breast reconstruction with del ayed implant placement. 2. Right and left breast open capsulotomies. SURGEON: Len Rivera MD DRAWER LINER: None. ANESTHESIA: General anesthesia with local consis ting of bupivacaine and Exparel. INDICATIONS: The patient is a 37-year-old female with a remote history of breast cancer treated with bilateral mastectomie s. She initially had tissue expanders placed, but ultimately lost the expand ers. It has been over a year since her last surgery, and she presents with co mplete breast absence. She desires reconstruction. The risks, benefits and alternatives to proceeding with the same were explained to the patient, and all questions were answered. Informed consent was obtained and a signed permi t was present at the time of her procedure. DESCRIPTION OF PROCEDURE: The patient was taken to the operating room on 10 July 2022. She was placed supine upon the ope rating table. After induction of general anesthesia, her chest was prepped and draped in the usual sterile fashion. The two sides were treated similarly. T he exceptions will be commented on below. She had central scarring fro m removal of the nipple areolar complex as well as inframammary scars fr om previous reduction mammoplasty. A portion of the inframammary scar was utilized for access. This was injected with local anesthesia. Additio nal local anesthesia was instilled circumferentially about the breast eliana nd. The skin was sharply incised. Dissection was deepened with monopolar electrocautery. With the aid of a lighted mammary retractor, a retropectoral pocket was recreated. Extensive retropectoral scarring was noted from her previous surgeries. Extensive radial and circumferential capsulotomi es were performed to PATIENT NAME: JOAQUIN RESENDIZ [id number] adequately release the pocket. Hemostasis was en sured and the pocket was copiously irrigated with antibiotic s olution. [place] smooth round high profile silicone gel im plants with a nominal volume of 800 mL were selected preoperatively. The right breast received the im plant with serial number [id number]; the left breast implant had serial number [id number]. The implants were inspected at the back table for gr oss manufacturing defects and none were identified. They were bathed i n antibiotic solution and delivered to their prepared pockets with a Motely funnel. Lay ered skin closures were performed. Inverted interrup lavonne 2-0 PDS sutures were placed at the level of the superficial fascia and deep subcutaneous plane. Inverted interrupted 3-0 Monocryl sutures were placed in the dermis. A ru nning subcuticular 3-0 Monocryl completed the superficial closure. With both sides completed, she was noted to have contour irregularities in the upper outer quadrant on the right side at the mastectomy scar lateral termin us. This was treated with elliptical skin excision. Identical layered clos ure was performed with notable contour improvement. Additional local an esthesia was instilled circumferentially, especially at the lev el of the pectoralis major muscle. Her skin was cleansed of residual prep solution. Srinivas ssing consisted of Xeroform gauze to the incisions followed by ABD pads and a postoperative brassiere. Estimated blood loss for the procedure was 25 mL . There were no apparent intra- or perioperative c omplications. All needle, sponge and instrument counts were re ported to be correct. The patient tolerated the procedure well and was taken to the Postanesthesia Care Unit extubated and in good condition. Dictated By: Len Rivera MD Date Dictated: 08/12/2022 16:31:22 Date Transcribed: 08/12/2022 19:42:33 JUDITH/NATHALIA Receipt ID: [id number] Authenticated and Edited by Mavis Lazcano On 08/22/22 9:52:00 AM Electronically Signed by Len Rivera MD on at 0953 PATIENT NAME: JOAQUIN RESENDIZ [id number] 2022-07-10 15:51:00-00:00 [facility] REPORT#:[id number] REPORT STATUS: Signed DATE:07/10/22 TIME: 1551 PATIENT: JOAQUIN RESENDIZ UNIT #: [id number] ROOM/BED: : 85 AGE: 37 SEX: F ATTEND: Len Rivera MD ADM AUTHOR: Len Rivera MD * ALL edits or amendments must be made on the el [employer]/computer document * Op/Inv Proc Note - Brief ORM Surgeries: Surgery Date and Time: 07/10/2022 1330 Primary Procedure: BREAST RECONSTRUCTION BILAT ERAL Secondary Procedure: BREAST IMPLANT INSERTION B ILATERAL Pre-procedure diagnosis: 1. Breast cancer 2. Acquired Rt and Lt breast absence Post-procedure diagnosis: same as pre procedure dx Procedures performed: Rt and Lt breast reconstruction with delayed imp lant placement and open capsulotomies Primary Surgeon: Miguel Front Counter Clerk(s): none Anesthesia: general anesthesia, local anesthesia , moderate sedation (Bup + Exparel) Findings: Access via central portion of IMF scar. Retropec álvaro pocket created. Extensive radial and circumferential open capsul otomies bilaterally were required to release scarring from prior surgerie s. On right, UOQ extension of meridian scar required to improve skin contour. [place] SRHP silicone gel implants placed with 800 cc nominal volume: Rt 7 [id number], Lt [id number]. Complications: none Estimated blood loss in ml's: 25 Specimens removed/altered: none Drain(s): None Tube(s): none Implant(s): Breast implants, see above Approach: open Wound class: clean Disposition: plan to D/C home, PACU Counts: Sponge count: correct Instrument count: correct Needle count: correct Cottonoid count: correct Damian clip count: correct Electronically Signed by Len Rivera MD on 10/27 at 1555 RPT #:[id number] END OF REPORT 2022-07-05 12:09:00-00:00 [id number] [address] PATIENT NAME: JOAQUIN RESENDIZ ADMIT DATE: ACCOUNT NO: [id number] ROOM NO: AGE: 37 REPORT TYPE: eELECTROCARDIOGRAM REPORT SEX: F ADMITTING PHYSICIAN: ATTENDING PHYSICIAN:Len Rivera MD Order: [id number] Test Reason : PRE OP Test Date/Time Stamp: FriJul 05 2022 12:09:54 Blood Pressure : / mmHG Vent. Rate : 080 BPM Atrial Rate : 080 BPM P-R Int : 130 ms QRS Dur : 096 ms QT Int : 352 ms P-R-T Axes : 056 079 016 degree s QTc Int : 405 ms Normal sinus rhythm Normal ECG PRE_OP Confirmed by LELIA PHELAN MD ([id number]) on 022 12:46:39 PM Referred By: Len Rivera Confirmed by:LELIA REA MD at 1246 PATIENT NAME: JOAQUIN RESENDIZ [id number] 9635-12-29 16:25:00-00:00 [facility] Physical REPORT#:[id number] REPORT STATUS: Signed DATE:07/04/22 TIME: 1625 PATIENT: JOAQUIN RESENDIZ UNIT #: [id number] ROOM/BED: : 85 AGE: 37 SEX: F ATTEND: Len Rivera MD ADM AUTHOR: Len Rivera MD * ALL edits or amendments must be made on the [employer]/computer document * History Physical History Physical Chief Complaint: Breast cancer and absent breast s HPI: The patient is a 37-year-old with a history of breast cancer and acquired absence of both breasts. She initially h ad tissue expanders placed in the same surgical episode as her mastectomies. She develo ped healing issues postoperatively and the expanders had to be nicolas luis eduardo. She is ready to proceed with breast reconstruction. Past Medical History: Breast cancer Past Surgical History: Double mastectomies, nicolas maria r of tissue expanders Bleeding tendencies or history: NO Allergies: No Non-Medication Allergies (NNMA) , morphine Medications: MSM Glucosamine Oral Capsule Family History: None Indicated Comments: Social History: Smoking Status 3 Former smoker Number of Pregnancies 3 Children 3 Pregnancies Review of Systems: Pertinent positives are noted above. She denies fatigue or weight loss, rashes, headach e, earache, vision changes, nose bleeds, sore throat , neck pain, breast lumps or discharge, cough or wheezing, chest pain or palpitations, heartburn, rectal bleeding, urinar y symptoms, claudication, neurologic, hematologic, endocrine or psychiatri c problems. Physical Exam: General: No acute distress. Chest: S1/S2 with regular rate. Lungs are grossl y clear. Bilateral breast absence. Scars are mature. Redundant skin is pre sent. There are no suspicioius masses or axillary adenopathy. Base diameter is 15 cm. Abdomen: Bowel sounds are present; nonfocal exam ination. Impression: Z90.13 Acquired absence of b ilateral breasts and nipples , C50.919 Malignant neoplasm of unspecified site of unspec ified female breast Plan: -Candidate for delayed reconstruction with impla nts -The risks, benefits and alternatives were discu ssed; questions were answered -Digital imaging -Prescriptions were provided Electronically Signed by Len Rivera MD on at 1626 RPT #:[id number] END OF REPORT"
[2022-12-13] MEDS ORDERED: IBUPROFEN 400 MG TAB ONE (01:16)
[2022-12-13] MEDS ORDERED: NA CHLORIDE 0.9% 2,000 ML ONE (01:17)
[2022-12-13 01:44] LABS: Hematocrit 40.9 % (36.0-45.0); Lymphocytes % 13.6 % (15.3-44.8); MCV 85.9 fL (80-100); MPV 8.1 fL (7.6-11.3); RBC Red Blood Cell Count 4.75 M/uL (3.86-4.86)
[2022-12-13 01:48] LABS: Protime INR 1.1
[2022-12-13 02:00] LABS: Albumin 3.7 g/dL (3.4-5.0); Bilirubin Total 0.5 mg/dL (0.2-1.0); Potassium 3.5 mEq/L (3.5-5.1); Protein, Total 7.2 g/dL (6.4-8.2)
[2022-12-13 02:09] LABS: SARS-CoV-2 Antigen Rapid Res Negative (Negative)
[2022-12-13 02:09] LABS: Specific Gravity 1.017 (1.005-1.030); Urine Bacteria None Seen /HPF (<20); Urine Bilirubin NEGATIVE (Negative); Urine Blood 2+ (Negative); Urine Clarity Turbid (Clear); Urine Color Light-Yellow (Yellow); Urine Glucose NEGATIVE (Negative); Urine Protein TRACE (Negative); Urine RBC <5 /HPF (None Seen); Urine Urobilinogen 1+ (Normal)
[2022-12-13] MEDS ORDERED: METOCLOPRAMIDE 10 MG/2mL INJ ONE (02:16)
[2022-12-13] MEDS ORDERED: DIPHENHYDRAMINE 50 MG/ML VIAL ONE (02:17)
[2022-12-13] MEDS ORDERED: ACETAMINOPHEN 500 MG TAB ONE (02:31)
--- NOTE | 2022-12-13 03:43 | ER ---
Nurse's Notes [facility] Name: Roxanne Friend Age: 37 yrs Sex: Female : 1985 Arrival Date: 12/12/2022 Time: 23:51 Bed 18 Private MD: Diagnosis: Fever, viral syndrome, UTI Presentation: 12/13 00:33 Chief complaint: Patient states: "I'm having sharp pain on the right side, pain in my pf1 ears and jaw pretty much all over, and a migraine since yesterday. I also can't quit shaking.". Coronavirus screen: Vaccine status: Patient reports being unvaccinated. chills, fever, headache, muscle pain, shaking with chills, sore throat, Client presents with at least one sign or symptom that may indicate coronavirus-19. Standard/surgical mask placed on the client. Provider contacted for isolation considerations. Ebola Screen: Patient negative for fever greater than or equal to 101.5 degrees Fahrenheit, and additional compatible Ebola Virus Disease symptoms Patient denies exposure to infectious person. Patient denies travel to an Ebola-affected area in the 21 days before illness onset. No symptoms or risks identified at this time. Initial Sepsis Screen: Does the patient meet any 2 criteria? RR > 20 per min. Temp <36.0*C (96.8*F)) or > 38.3*C (100.9*F). HR > 90 bpm. Yes Does the patient have a suspected source of infection? Yes: Acute abdominal pain. Risk Assessment: Do you want to hurt yourself or someone else? Patient reports no desire to harm self or others. Onset of symptoms was December 11, 2022. 00:33 Method Of Arrival: Ambulatory pf1 00:33 Acuity: DUSTIN 3 pf1 Triage Assessment: 00:39 Headache History: The patient has had previous headaches and this one is similar to pf1 previous episodes. General: Appears uncomfortable, ill, Behavior is calm, cooperative, appropriate for age. Pain: Complains of pain in head, ears, throat, abdomen Pain does not radiate. Pain currently is 10 out of 10 on a pain scale. Pain began 1 day ago. Also complains of inability to work. Neuro: Level of Consciousness is awake, alert, obeys commands, Oriented to person, place, time, situation, Appropriate for age. Cardiovascular: No deficits noted. Respiratory: Airway is patent Respiratory effort is even, unlabored, Respiratory pattern is symmetrical, tachypnea. GI: No deficits noted. No signs and/or symptoms were reported involving the gastrointestinal system. : No deficits noted. No signs and/or symptoms were reported regarding the genitourinary system. Derm: No deficits noted. No signs and/or symptoms reported regarding the dermatologic system. Musculoskeletal: No deficits noted. No signs and/or symptoms reported regarding the musculoskeletal system. 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 diabetes; Rheumatoid Arthritis; pf1 - PSHx: 00:36 section; Cholecystectomy; double mastectomy; tonsil/adenoid; pf1 - Immunization history:: Client reports having NOT received the Covid vaccine. - Social history:: Smoking status: Patient reports the use of cigarette tobacco products, less than 1/2 pack. Screenin:38 [facility] ED Fall Risk Assessment (Adult) History of falling in the last 3 months, pf1 including since admission No falls in past 3 months (0 pts) Confusion or Disorientation No (0 pts) Intoxicated or Sedated No (0 pts) Impaired Gait No (0 pts) Mobility Assist Device Used No (0 pt) Altered Elimination No (0 pt) Score/Fall Risk Level 0 - 2 = Low Risk Oriented to surroundings. Abuse screen: Denies threats or abuse. Nutritional screening: No deficits noted. Tuberculosis screening: No symptoms or risk factors identified. Assessment: 00:49 General: Appears uncomfortable, Behavior is calm, cooperative, Reports fever for. ll3 General: Reports. Pain: Complains of pain in right upper quadrant, H/A Pain does not radiate. Pain currently is 10 out of 10 on a pain scale. Pain began 1 day ago. Is continuous. Neuro: Level of Consciousness is awake, alert, obeys commands, Oriented to person, place, time, situation, Reports headache. Cardiovascular: Patient's skin is warm and dry. Rhythm is sinus tachycardia. Respiratory: Respiratory effort is even, unlabored, Respiratory pattern is regular, symmetrical. GI: Abdomen is round non-distended, Stools are reported to be loose, Last BM was December 13, 2022. Reports upper abdominal pain. Derm: Skin is pink, warm \\T\\ dry. 04:59 Reassessment: Patient and/or family updated on plan of care and expected duration. Pain ha1 level reassessed. Patient is alert, oriented x 3, equal unlabored respirations, skin warm/dry/pink. Vital Signs: 00:33 BP 158 / 100; Pulse 120; Resp 24; Temp 103.1; Pulse Ox 99% on R/A; Weight 100.7 kg; pf1 Height 5 ft. 6 in. ; Pain 10/10; 01:30 BP 128 / 64; Pulse 109; Resp 19; Pulse Ox 98% on R/A; ll3 02:02 Temp 100.9; ll3 02:39 BP 114 / 58; Pulse 109; Resp 20; Pulse Ox 98% on R/A; ll3 04:15 BP 107 / 52; Pulse 82; Resp 17; Pulse Ox 95% ; ha1 00:33 Body Mass Index 35.83 (100.70 kg, 167.64 cm) pf1 00:33 Pain Scale: Adult pf1 ED Course: 12/12 23:54 Patient arrived in ED. ja2 12/13 00:18 Wiley Rubio PA is PHCP. cp 00:18 Vera Rudd MD is Attending Physician. cp 00:36 Triage completed. pf1 00:37 Arm band placed on right wrist. pf1 00:49 Patient has correct armband on for positive identification. Bed in low position. Call ll3 light in reach. Side rails up X 1. Adult w/ patient. Client placed on continuous cardiac and pulse oximetry monitoring. NIBP monitoring applied. 01:23 Inserted saline lock: 20 gauge in right antecubital area, using aseptic technique. oe Blood collected. 01:48 Chest Single View XRAY In Process Unspecified. EDMS 03:08 CT Abd/Pelvis - IV Contrast Only In Process Unspecified. EDMS 04:59 No provider procedures requiring assistance completed. IV discontinued, intact, ha1 bleeding controlled, No redness/swelling at site. Pressure dressing applied. Administered Medications: 01:20 Drug: Ibuprofen PO 800 mg Route: PO; ll3 02:02 Follow up: Temp 100.9; Response: Temperature is decreased ll3 01:20 Drug: NS 0.9% IV 1000 ml Route: IV; Rate: 1 bolus; Site: right antecubital; ll3 02:51 Follow up: Response: No adverse reaction; IV Status: Completed infusion; IV Intake: ll3 1000ml 02:16 Drug: diphenhydrAMINE IVP 25 mg Route: IVP; Site: right antecubital; ll3 02:21 Not Given (Patient Refused): metoCLOPramide IVP 10 mg IVP once; over 1 to 2 minutes ll3 02:48 Drug: Acetaminophen PO 1000 mg Route: PO; ll3 02:51 Drug: NS 0.9% IV 1000 ml Route: IV; Rate: 1 bolus; Site: right antecubital; ll3 03:54 Drug: levofloxacin IVPB 500 mg Volume: 100 ml; Route: IVPB; Infused Over: 60 mins; ha1 Site: right antecubital; Medication: 02:40 VIS not applicable for this client. vc1 Intake: 02:51 IV: 1000ml; Total: 1000ml. ll3 Outcome: 03:43 Discharge ordered by . sp3 05:00 Discharged to home ambulatory, with family. ha1 05:00 Condition: stable 05:00 Discharge instructions given to patient, Instructed on discharge instructions, follow up and referral plans. medication usage, Demonstrated understanding of instructions, follow-up care, medications, Prescriptions given X 1. 05:05 Patient left the ED. ha1 Signatures: Dispatcher [employer] EDMS Wiley Rubio PA PA cp Espinosa, Orlando oe Patel, Setul, MD MD sp3 Meghan Rocha Lynsea, RN RN ll3 Sheryl Lancaster RN RN vc1 Carmita Lopez RN RN ha1 Terri Boles RN RN pf1
--- NOTE | 2022-12-13 03:43 | EDPHYS ---
Physician Documentation [facility] Name: Roxanne Friend Age: 37 yrs Sex: Female : 1985 Arrival Date: 12/12/2022 Time: 23:51 Bed 18 Private MD: ED Physician Vera Rudd HPI: 12/13 00:45 This 37 yrs old Female presents to ER via Ambulatory with complaints of Fever, cp Pain on the Left Side, Headache. 00:45 The patient reports fever, with an emergency department temperature of 103.1 degrees cp Fahrenheit. Onset: The symptoms/episode began/occurred yesterday. Associated signs and symptoms: Pertinent positives: abdominal pain, chills, headache, loose stools, body aches, Pertinent negatives: altered mental status, cough, vomiting. Severity of symptoms: in the emergency department the symptoms are unchanged despite home interventions. 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 diabetes; Rheumatoid Arthritis; pf1 - PSHx: 00:36 section; Cholecystectomy; double mastectomy; tonsil/adenoid; pf1 - Immunization history:: Client reports having NOT received the Covid vaccine. - Social history:: Smoking status: Patient reports the use of cigarette tobacco products, less than 1/2 pack. ROS: 00:50 Constitutional: Positive for body aches, chills, fever. cp 00:50 Eyes: Negative for injury, pain, redness, and discharge. cp 00:50 ENT: Positive for sore throat, Negative for drainage from ear(s), ear pain, difficulty swallowing, difficulty handling secretions. 00:50 Cardiovascular: Negative for chest pain. 00:50 Respiratory: Negative for cough, wheezing. 00:50 Abdomen/GI: Positive for abdominal pain, loose stools, Negative for vomiting, constipation. 00:50 Neuro: Positive for headache, Negative for altered mental status, dizziness, weakness. 00:50 All other systems are negative. Exam: 00:55 Constitutional: The patient appears in no acute distress, alert, awake, cp non-diaphoretic, non-toxic, well developed, well nourished, obese. 00:55 Head/Face: Normocephalic, atraumatic. cp 00:55 Eyes: Periorbital structures: appear normal, Conjunctiva: normal, no exudate, no injection, Sclera: no appreciated abnormality, Lids and lashes: appear normal, bilaterally. 00:55 ENT: External ear(s): are unremarkable, Nose: is normal, Mouth: Lips: moist, Oral mucosa: pink and intact, moist, Posterior pharynx: Airway: no evidence of obstruction, patent. 00:55 Neck: ROM/movement: is normal, is supple, without pain, no range of motions limitations, no meningismus, no nuchal rigidity. 00:55 Chest/axilla: Inspection: normal. 00:55 Cardiovascular: Rate: tachycardic, Rhythm: regular, Edema: is not appreciated, JVD: is not appreciated. 00:55 Respiratory: the patient does not display signs of respiratory distress, Respirations: normal, no use of accessory muscles, Breath sounds: are clear throughout, no decreased breath sounds, no stridor, no wheezing. 00:55 Abdomen/GI: Inspection: abdomen appears normal, Bowel sounds: active, all quadrants, Palpation: soft, in all quadrants, moderate abdominal tenderness, in the right upper quadrant, rebound tenderness, is not appreciated, voluntary guarding, is elicited in the right upper quadrant. 00:55 Back: CVA tenderness, is absent. 00:55 Skin: cellulitis, is not appreciated, no rash present. 00:55 Neuro: Orientation: to person, place \T\ time. Mentation: is normal, Motor: moves all fours, strength is normal, Sensation: is normal. 01:33 ECG was reviewed by the Attending Physician. cp Vital Signs: 00:33 BP 158 / 100; Pulse 120; Resp 24; Temp 103.1; Pulse Ox 99% on R/A; Weight 100.7 kg; pf1 Height 5 ft. 6 in. ; Pain 10/10; 01:30 BP 128 / 64; Pulse 109; Resp 19; Pulse Ox 98% on R/A; ll3 02:02 Temp 100.9; ll3 02:39 BP 114 / 58; Pulse 109; Resp 20; Pulse Ox 98% on R/A; ll3 04:15 BP 107 / 52; Pulse 82; Resp 17; Pulse Ox 95% ; ha1 00:33 Body Mass Index 35.83 (100.70 kg, 167.64 cm) pf1 00:33 Pain Scale: Adult pf1 MDM: 00:38 Patient medically screened. cp 01:00 Differential diagnosis: viral Infection, bacterial infection, URI, bronchitis, cp pneumonia UTI, gastroenteritis, meningitis. 02:30 Transition of care: After a detail discussion of the patient's case, care is cp transferred to Vera Rudd MD. 02:30 Awaiting: CT scan results. cp 03:40 Data reviewed: lab test result(s), radiologic studies. ED course: Full work-up sp3 negative. Pulse and temperature have decreased. Consider viral syndrome, given cancer history we will cover with antibiotics to treat possible UTI. Patient will be discharged on Levaquin after 1 dose of IV is given.. 12/13 00:57 Order name: Blood Culture Adult (2) [facility] 12/13 00:57 Order name: CBC with Diff; Complete Time: 02:05 3 12/13 00:57 Order name: CMP; Complete Time: 02:05 [facility] 12/13 00:57 Order name: Lactate w/ 2H reflex if indic.; Complete Time: 02:05 3 12/13 00:57 Order name: Protime (+inr); Complete Time: 02:05 3 12/13 00:57 Order name: Ptt, Activated; Complete Time: 02:05 3 12/13 01:02 Order name: Urinalysis W/Microscopic; Complete Time: 02:14 cp 12/13 02:14 Interpretation: Normal except: [facility] Turbid; UBLD 2+; UPROT TRACE; UUROB 1+; UESTR 25. cp 12/13 01:02 Order name: Influenza Screen (a \T\ B); Complete Time: 02:14 cp 12/13 01:02 Order name: SARS RAPID; Complete Time: 02:14 cp 12/13 01:32 Order name: Glucose, Ancillary Testing; Complete Time: 02:05 EDMS 12/13 01:02 Order name: Chest Single View XRAY 12/13 02:15 Order name: CT Abd/Pelvis - IV Contrast Only cp 12/13 00:57 Order name: EKG; Complete Time: 00:58 ll3 12/13 00:57 Order name: Accucheck; Complete Time: 01:20 3 12/13 00:57 Order name: Cardiac monitoring; Complete Time: 00:57 ll3 12/13 00:57 Order name: EKG - Nurse/Tech; Complete Time: 01:26 ll3 12/13 00:57 Order name: IV Saline Lock - Large Bore; Complete Time: 01:20 ll3 12/13 00:57 Order name: Labs collected and sent; Complete Time: 01:20 ll3 12/13 00:57 Order name: O2 Per Protocol; Complete Time: 00:57 ll3 12/13 00:57 Order name: O2 Sat Monitoring; Complete Time: 00:57 ll3 12/13 00:57 Order name: Vital Signs; Complete Time: 00:57 ll3 12/13 01:02 Order name: Accucheck; Complete Time: 01:21 cp 12/13 01:02 Order name: Cardiac monitoring; Complete Time: 01:06 cp 12/13 01:02 Order name: EKG - Nurse/Tech; Complete Time: 01:26 cp 12/13 01:02 Order name: IV Saline Lock - Large Bore; Complete Time: 01:21 cp 12/13 01:02 Order name: Labs collected and sent; Complete Time: 01:21 cp 06/ 01:02 Order name: O2 Per Protocol; Complete Time: 01:06 cp 12/13 01:02 Order name: O2 Sat Monitoring; Complete Time: 01:06 cp 12/13 01:02 Order name: Vital Signs; Complete Time: 01:06 cp EC:33 Rate is 113 beats/min. Rhythm is regular. CT interval is normal. QRS interval is cp normal. QT interval is normal. T waves are Inverted in lead aVR. Interpreted by me. Reviewed by me. Administered Medications: 01:20 Drug: Ibuprofen PO 800 mg Route: PO; ll3 02:02 Follow up: Temp 100.9; Response: Temperature is decreased ll3 01:20 Drug: NS 0.9% IV 1000 ml Route: IV; Rate: 1 bolus; Site: right antecubital; ll3 02:51 Follow up: Response: No adverse reaction; IV Status: Completed infusion; IV Intake: ll3 1000ml 02:16 Drug: diphenhydrAMINE IVP 25 mg Route: IVP; Site: right antecubital; ll3 02:21 Not Given (Patient Refused): metoCLOPramide IVP 10 mg IVP once; over 1 to 2 minutes ll3 02:48 Drug: Acetaminophen PO 1000 mg Route: PO; ll3 02:51 Drug: NS 0.9% IV 1000 ml Route: IV; Rate: 1 bolus; Site: right antecubital; ll3 03:54 Drug: levofloxacin IVPB 500 mg Volume: 100 ml; Route: IVPB; Infused Over: 60 mins; ha1 Site: right antecubital; Disposition: 03:41 Co-signature as Attending Physician, Vera Rudd MD I agree with the assessment and sp3 plan of care. Disposition Summary: 12/13/22 03:43 Discharge Ordered Location: Home sp3 Condition: Stable sp3 Diagnosis - Fever, viral syndrome, UTI sp3 Followup: sp3 - With: Private Physician - When: Upon discharge from the Emergency Department - Reason: Further diagnostic work-up, Continuance of care Discharge Instructions: - Discharge Summary Sheet sp3 - Fever, Adult sp3 - Urinary Tract Infection, Adult sp3 Forms: - Medication Reconciliation Form sp3 - Thank You Letter sp3 - Antibiotic Education sp3 - Prescription Opioid Use sp3 Prescriptions: - levofloxacin 500 mg Oral Tablet - take 1 tablet by ORAL route once daily for 7 days; 6 tablet; Refills: 0, sp3 Product Selection Permitted Signatures: Dispatcher [employer] EDMS Wiley Rubio PA PA cp Patel, Setul, MD MD sp3 Leslye Geronimo RN RN ll3 Carmita Lopez RN RN ha1 Terri Boles RN RN pf1 Corrections: (The following items were deleted from the chart) 01:40 01:03 CBC+H.LAB.BRZ ordered. EDMS EDMS 01:40 01:03 PROTIME (+INR)+COAG.LAB.BRZ ordered. EDMS EDMS 01:40 01:03 PTT, ACTIVATED+COAG.LAB.BRZ ordered. EDMS EDMS 01:41 01:03 COMPREHENSIVE METABOLIC PANEL+C.LAB.BRZ ordered. EDMS EDMS 01:41 01:03 LACTATE+C.LAB.BRZ ordered. EDMS EDMS 01:42 01:03 BLOOD CULTURE*+BA.LAB.BRZ ordered. EDMS EDMS 02:33 02:29 This 37 yrs old Female presents to ER via Ambulatory with complaints of cp Fever, Pain on the Left Side, Headache. cp
[2022-12-13] MEDS ORDERED: Levofloxacin500mg IV 500 MG/100 ML BAG IV ONE (04:01)
[2022-12-13 05:13] VITALS: TEMP 100.9
[2022-12-13 05:17] VITALS: BP 107/52; O2SAT 95
--- NOTE | 2022-12-13 14:45 | EKG ---
Test Date: 2022-12-13 Test Time: 01:27:07 Broke Worker: AUDREY MEASUREMENT RESULTS: Intervals: Rate: 113 CA: 122 QRSD: 86 QT: 314 QTc: 430 [place]: P: 56 CA: 122 QRS: 68 T: 57 INTERPRETIVE STATEMENTS: Sinus tachycardia Otherwise normal ECG Compared to ECG 05/22/2021 10:48:36 Sinus rhythm no longer present Electronically Signed On 12-13-22 14:44:14 CDT by Kin Bartholomew
--- NOTE | 2022-12-15 13:37 | RAD REPORT ---
EXAM DESCRIPTION: Chest Single View 12/13/2022 2:02 AM CDT CLINICAL HISTORY: 37 years, Female, FEVER COMPARISON: None. FINDINGS: Single view of the chest was obtained portable. No prior films are available for compariso n. The cardiomediastinal silhouette demonstrate to be unremarkable. The heart is not enlarged. The th oracic aorta is unremarkable. The pulmonary vasculature is normal distribution. Costophrenic angles a re sharp. No areas of consolidation or masses are seen. The rest of the soft tissue and bony stru ctures demonstrate to be unremarkable. IMPRESSION: NO ACUTE CARDIOPULMONARY DISEASE SEEN. Electronically signed by: Samir Loyd MD 12/13/2022 2:02 AM CDT Due to temporary technical issues with the PACS/Fluency reporting system, reports are being signed by the in house radiologists without review as a courtesy to insure prompt reporting. The interpreting radiologist is fully responsible for the content of the report.
--- NOTE | 2022-12-15 13:42 | RAD REPORT ---
CLINICAL HISTORY: ABD PAIN COMPARISON: None. TECHNIQUE: CT ABDOMEN PELVIS WITH IV CONTRAST on 12/13/2022 2:15 AM CDT This exam was performed according to our departmental dose-optimization program, which includes autom ated exposure control, adjustment of the mA and/or kV according to patient size and/or use of iterati ve reconstruction technique. FINDINGS: Lower lungs are clear. Abdomen: The liver is normal in appearance. There is no biliary dilatation. Cholecystectomy was perfo rmed. The pancreas and spleen are normal in appearance. There are at least 3 right renal calculi and a single lower pole left renal calculus, all measuring less than 2 mm. Adrenal glands are normal. The re is no hydronephrosis. Abdominal aorta is normal in course and caliber without aneurysm. There is no free air. There is no r etroperitoneal adenopathy. Pelvis: There is no bowel obstruction. Urinary bladder is unremarkable. There is no free fluid. Uteru s is normal in size. Appendix is normal. Skeleton: There are no acute osseous findings. No suspicious bony lesions. IMPRESSION: Bilateral nephrolithiasis without hydronephrosis. Electronically signed by: Andry Putnam MD 12/13/2022 3:25 AM CDT Due to temporary technical issues with the PACS/Fluency reporting system, reports are being signed by the in house radiologists without review as a courtesy to insure prompt reporting. The interpreting radiologist is fully responsible for the content of the report.
== END 2022-12-13 05:05 | disposition home or self-care (01) ==
LOC: ER 23:51
DX: N39.0 Urinary tract infection, site not specified (principal); B34.9 Viral infection, unspecified; Z72.0 Tobacco use; Z20.822 Contact with and (suspected) exposure to COVID-19; Z88.1 Allergy status to other antibiotic agents; Z88.5 Allergy status to narcotic agent; Z90.13 Acquired absence of bilateral breasts and nipples; Z85.3 Personal history of malignant neoplasm of breast
CPT/HCPCS: 96361; 93005; 87040 ×2; 85025; 81001; 36415; 85610; 82947; 83605; 85730; 80053; 87804 ×2; 74177; 71045; 96375; 96374; 99284; 87811; Q9967; J1200; J7030; J2765

== ENCOUNTER → 2023-07-20 | Emergency (ER) | payer OTHER ==
[~2023-07-20] MED LIST: ACETAMINOPHEN 500 MG TAB ONE; IBUPROFEN 400 MG TAB ONE; NA CHLORIDE 0.9% 2,000 ML ONE; levoFLOXacin 250 MG TAB ONE
--- OUTSIDE RECORDS SUMMARY | 2023-07-20 00:17 | XMS REPORT | Continuity of Care Document ---
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 blood pressure 2022-09-05 20:44:00 78 mm[Hg] [facility] Heart rate 2022-09-05 20:44:00 98 /min [facility] Respiratory rate 2022-09-05 20:44:00 18 /min [facility] Body height 2022-09-05 20:44:00 167.6 cm [facility] Body weight 2022-09-05 20:44:00 106.867 kg [facility] BMI 2022-09-05 20:44:00 38.03 kg/m2 [facility] Oxygen saturation in Arterial blood by Pulse oximetry 2022-09-05 20:44:00 97 /min [facility] Systolic blood pressure 2022-06-19 21:50:00 131 mm[Hg] [facility] Diastolic blood pressure 2022-06-19 21:50:00 82 mm[Hg] [facility] Heart rate 2022-06-19 21:50:00 86 /min [facility] Body temperature 2022-06-19 21:50:00 36.39 Jacquie [facility] Respiratory rate 2022-06-19 21:50:00 17 /min [facility] Body height 2022-06-19 21:50:00 167.6 cm [facility] Body weight 2022-06-19 21:50:00 103.692 kg [facility] BMI 2022-06-19 21:50:00 36.90 kg/m2 [facility] Oxygen saturation in Arterial blood by Pulse oximetry 2022-06-19 21:50:00 98 /min [facility] Systolic blood pressure 2022-01-30 15:11:00 149 mm[Hg] [facility] Diastolic blood pressure 2022-01-30 15:11:00 86 mm[Hg] [facility] Heart rate 2022-01-30 15:11:00 116 /min [facility] Body temperature 2022-01-30 15:11:00 36.94 Jacquie [facility] Respiratory rate 2022-01-30 15:11:00 18 /min [facility] Oxygen saturation in Arterial blood by Pulse oximetry 2022-01-30 15:11:00 97 /min [facility] BP Diastolic 2021-08-21 00:00:00 80 mm[Hg] [facility] Height 2021-08-21 00:00:00 64 [in_i] [facility] BP Systolic 2021-08-21 00:00:00 118 mm[Hg] [facility] [facility] BP Diastolic 2020-06-21 00:00:00 78 mm[Hg] [facility] Height 2020-06-21 00:00:00 66 [in_i] [facility] BMI (Body Mass Index) 2020-06-21 00:00:00 36.1 kg/m2 [facility] BP Systolic 2020-06-21 00:00:00 120 mm[Hg] [facility] Body Weight 2020-06-21 00:00:00 223.8 [lb_av] [facility] BP Diastolic 2020-05-03 00:00:00 82 mm[Hg] [facility] Height 2020-05-03 00:00:00 64 [in_i] [facility] BMI (Body Mass Index) 2020-05-03 00:00:00 39 kg/m2 [facility] BP Systolic 2020-05-03 00:00:00 119 mm[Hg] [facility] [facility] Body Weight 2020-05-03 00:00:00 3632 [oz_av] [place] [facility] BP Diastolic 2020-04-28 00:00:00 83 mm[Hg] [facility] Height 2020-04-28 00:00:00 64 [in_i] Gerag sancheza [facility] BMI (Body Mass Index) 2020-04-28 00:00:00 38.5 kg/m2 [facility] BP Systolic 2020-04-28 00:00:00 119 mm[Hg] Brad irahetaa [facility] Body Weight 2020-04-28 00:00:00 224.4 [lb_av] [facility] Procedures Procedure Date / Time Performed Performing Clinician Source ASSIGNMENT OF BENEFITS 2022-09-05 20:16:42 Docto r Unassigned, [facility] INSURANCE CORRESPONDENCE 2022-07-30 06:01:00 Doc tor Unassigned, [facility] CT ABDOMEN PELVIS WO CONTRAST 2022-01-30 16:16:48 Juliana Jarquin [facility] BASIC METABOLIC PANEL (NA, K, CL, CO2, GLUCOSE, BUN, CREATININE, CA) 2022-01-30 15:44:00 Juliana Jarquin [facility] CBC WITH DIFF 2022-01-30 15:44:00 Juliana Jarquin [facility] URINALYSIS 2022-01-30 15:44:00 Juliana Jarquin [facility] EXTRA TUBE URINE 2022-01-30 15:44:00 [facility] 2022-01-30 15:34:00 Juliana Jarquin [facility] CONSENT/REFUSAL FOR DIAGNOSIS AND TREATMENT 2022-01-30 15:11:10 Doctor Unassigned, [facility] unlisted imaging order 2020-07-10 00:00:00 Chris [facility] US, transvaginal 2020-04-28 00:00:00 Brad bullock [facility] MAMMO, screening, digital, bilateral 2020-04-28 00:00:00 [facility] Section [facility] Sinusotomy, Multiple [facility] Caesarean Section [facility] Cholecystectomy [facility] dical Group Plan of Care Planned Activity Planned Date Details Comments Source Diagnostic Test Pending 2020-06-21 00:00:00 pap, LB + HPV [code = pap, LB + HPV] [facility] Diagnostic Test Pending 2020-06-21 00:00:00 CT + NG + TV, DNA, urine/swab [code = CT + NG + TV, DNA, urine/swab] [facility] Encounters Start Date/Time End Date/Time Encounter Type Admission Type Attending [facility] Care Facility Care Department Encounter ID Source 2022-11-14 15:45:00 Outpatient Sheridan Yee STLC STLMLC [id number] [facility] 2022-09-11 16:09:02 Outpatient Sheridan Yee STLMLC STLMLC [id number] [facility] 2021-05-06 15:04:13 Emergency X [facility] SPL [id number] [facility] 2021-05-06 15:03:22 Emergency [facility] [id number] [facility] 2021-05-06 01:40:57 Inpatient ODALYS MALDONADO [facility] [id number] [facility] 2023-02-19 00:00:00 2023-02-19 00:00:00 OFFICE VISIT ESTAB PT LEVEL 3 STLMLC STLMLC [id number] [facility] 2022-11-19 00:00:00 2022-11-19 00:00:00 OFFICE VISIT ESTAB PT LEVEL 3 STLMLC STLMLC [id number] [facility] 2022-10-07 00:00:00 2022-10-07 00:00:00 OFFICE VISIT ESTAB PT LEVEL 3 STLMLC STLMLC [id number] [facility] 2022-10-02 00:00:00 2022-10-02 00:00:00 (TEL) STLMLC STLMLC [id number] [facility] 2022-09-11 00:00:00 2022-09-11 00:00:00 OFFICE VISIT ESTAB PT LEVEL 4 STLMLC STLMLC [id number] [facility] 2022-09-05 14:20:00 2022-09-05 14:40:00 [facility] 1.2.840.114 350.1.13.10 4.2.7.2.686 [id number] [facility] 2022-09-05 14:20:00 2022-09-05 14:20:00 [id number] 2022-09-05 00:00:00 2022-09-05 00:00:00 Orders Only Doctor Unassigned, [facility] 1.2.840.114 350.1.13.10 4.2.7.2.686 [id number] [facility] 2022-08-11 00:00:00 2022-08-11 00:00:00 Patient Secure Msg Gas[facility] BUILDING 1.2.840.114 350.1.13.10 4.2.7.2.686 [id number] [facility] 2022-07-31 16:30:00 2022-07-31 23:59:00 Outpatient Stefan [facility] [id number] [facility] 2022-07-30 00:00:00 2022-07-30 00:00:00 Orders Only Doctor Unassigned, [facility] 1.2.840.114 350.1.13.10 4.2.7.2.686 [id number] [facility] 2022-07-10 05:04:00 2022-07-10 05:04:00 Outpatient Len Saini [facility] DA[facility] [id number] [facility] 2022-06-19 15:20:00 2022-06-19 16:10:20 Outpatient Stefan [facility] [id number] [facility] 2022-06-19 15:20:00 2022-06-19 16:10:20 Office Visit Paola Gilbert [facility] 1.2.114 350.1.13.10 4.2.7.2.686 [id number] [facility] 2022-02-12 00:00:00 2022-02-12 00:00:00 Patient Secure Msg Doctor Unassigned, [facility] 1.20.114 350.1.13.10 4.2.7.2.686 [id number] [facility] 2022-01-31 00:00:00 2022-01-31 00:00:00 Patient Secure Msg Doctor Unassigned, [facility] 1..114 350.1.13.10 4.2.7.2.686 [id number] [facility] 2022-01-30 10:11:00 2022-01-30 13:47:00 Emergency X JULIANA JARQUIN [facility] ERT [id number] [facility] 2022-01-30 10:11:00 2022-01-30 13:47:00 Emergency [facility]iana [facility] 1..114 350.1.13.10 4.2.7.2.686 [id number] [facility] 2021-11-29 00:00:00 2021-11-29 00:00:00 Letter (Out) Odalys Maldonado [facility] 1..114 350.1.13.10 4.2.7.2.686 [id number] [facility] 2021-11-28 00:00:00 2021-11-28 00:00:00 Telephone Odalys Maldonado [facility] 1..114 350.1.13.10 4.2.7.2.686 [id number] [facility] 2021-11-22 00:00:00 2021-11-22 00:00:00 Case Management Keyanna Hart 1..840.114 350.1.13.10 4.2.7.2.686 [id number] [facility] 2021-09-20 00:00:00 2021-09-20 00:00:00 Outpatient LISTER_MELI SSA [facility] [id number] [facility] 2021-09-20 00:00:00 2021-09-20 00:00:00 Outpatient LISTER_MELI [facility] [id number] [facility] 2021-09-20 00:00:00 2021-09-20 00:00:00 Outpatient LISTER_MELI [facility] [id number] [facility] 2021-09-03 00:00:00 2021-09-03 00:00:00 Patient Secure Msg Doctor Unassigned, [facility] 1..840.114 350.1.13.10 4.2.7.2.686 [id number] [facility] 2021-08-31 02:44:00 2021-08-31 02:44:00 Outpatient LISTER_MELI [facility] [id number] [facility] 2021-08-29 16:30:00 2021-08-29 16:45:00 Office Visit April Calderon [facility] 1..840.114 350.1.13.10 4.2.7.2.686 [id number] [facility] 2021-08-29 16:30:00 2021-08-29 16:30:00 Outpatient R APRIL CALDERON [facility] [id number] [facility] 2021-08-22 15:30:00 2021-08-22 15:30:00 Outpatient APRIL RANGEL [facility] [id number] [facility] 2021-08-22 08:48:00 2021-08-22 08:48:00 Outpatient LISTER_MELI [facility] [id number] [facility] 2021-08-21 04:06:00 2021-08-21 04:06:00 Outpatient LISTER_MELI [facility] [id number] [facility] 2021-08-21 00:00:00 2021-08-21 00:00:00 Rubén Jarrell APRN-PARISH NURSE-C: [address] [place] [address] , [facility] [id number] [facility] 2021-08-20 06:09:00 2021-08-20 06:09:00 Outpatient LISTER_MELI [facility] [id number] [facility] 2021-08-16 00:00:00 2021-08-16 00:00:00 Telephone Odalys Maldonado [facility] 1.2.840.114 350.1.13.10 4.2.7.2.686 [id number] [facility] 2021-07-31 13:00:00 2021-07-31 13:00:00 Outpatient R [facility] [id number] [facility] 2021-07-31 13:00:00 2021-07-31 13:00:00 Outpatient R [facility] [id number] [facility] 2021-07-27 00:00:00 2021-07-27 00:00:00 Telephone April Calderon [facility] 1..840.114 350.1.13.10 4.2.7.2.686 [id number] [facility] 2021-07-24 15:00:00 2021-07-24 15:00:00 Office Visit Odalys Maldonado Rm, Adc Surg Spec Procedure [facility] 1..840.114 350.1.13.10 4.2.7.2.686 [id number] [facility] 2021-07-24 15:00:00 2021-07-24 14:43:00 Outpatient R ODALYS MALDONADO [facility] [id number] [facility] 2021-07-17 14:30:00 2021-07-17 15:37:26 Outpatient R ODALYS MALDONADO [facility] [id number] [facility] 2021-07-17 14:30:00 2021-07-17 15:37:26 Office Visit Odalys Maldonado [facility] 1.840.114 350.1.13.10 4.2.7.2.686 [id number] [facility] 2021-07-17 14:30:00 2021-07-17 15:37:26 Outpatient R ODALYS MALDONADO [facility] [id number] [facility] 2021-07-17 14:30:00 2021-07-17 15:37:26 Office Visit Odalys Maldonado [facility] 1..840.114 350.1.13.10 4.2.7.2.686 [id number] [facility] 2021-07-17 00:00:00 2021-07-17 00:00:00 Orders Only Doctor Unassigned, [facility] 1.840.114 350.1.13.10 4.2.7.2.686 [id number] [facility] 2021-04-17 00:00:00 2021-04-17 00:00:00 Orders Only Doctor Unassigned, [facility] 1.2840.114 350.1.13.10 4.2.7.2.686 [id number] [facility] 2021-03-02 00:00:00 2021-03-02 00:00:00 Orders Only Doctor Unassigned, [facility] 1.2840.114 350.1.13.10 4.2.7.2.686 [id number] [facility] 2021-01-31 16:00:00 2021-01-31 16:00:00 Outpatient APRIL RANGEL [facility] [id number] [facility] 2021-01-30 10:22:37 2021-01-30 23:59:[address] [facility] 1.840.114 350.1.13.10 4.2.7.2.686 [id number] [facility] 2021-01-30 00:00:00 2021-01-30 00:00:00 Outpatient R DALE [facility] [id number] [facility] 2021-01-25 14:30:00 2021-01-25 14:30:00 Outpatient YAZ HAILE [facility] [id number] [facility] 2021-01-22 00:00:00 2021-01-22 00:00:00 Patient Secure Yaz Russell [facility] 1.2.840.114 350.1.13.10 4.2.7.2.686 [id number] [facility] 2021-01-22 00:00:00 2021-01-22 00:00:00 Patient Secure Yaz Russell 1.2.840.114 350.1.13.10 4.2.7.2.686 [id number] [facility] 2021-01-19 00:00:00 2021-01-19 00:00:00 Patient Secure Yaz Russell 1.2.840.114 350.1.13.10 4.2.7.2.686 [id number] [facility] 2021-01-17 15:15:00 2021-01-17 15:15:00 Outpatient APRIL RANGEL [facility] [id number] [facility] 00:00:00 2021-01-16 00:00:00 Outpatient YAZ HAILE [facility] [id number] [facility] 2021-01-15 00:00:00 2021-01-15 00:00:00 Telephone Promise Yaz Yudith JUAN Vieyra [facility] 1.2.840.114 350.1.13.10 4.2.7.2.686 [id number] [facility] 2021-01-15 00:00:00 2021-01-15 00:00:00 Telephone Jo Figueroa [facility] 1.2.840.114 350.1.13.10 4.2.7.2.686 [id number] [facility] 2021-01-15 00:00:00 2021-01-15 00:00:00 Telephone Juan Manuel Melendez [facility] [place] 1.2.840.114 350.1.13.10 4.2.7.2.686 [id number] [facility] 2021-01-15 00:00:00 2021-01-15 00:00:00 Case Management Johny Hunter [facility] 1.2.840.114 350.1.13.10 4.2.7.2.686 [id number] [facility] 2021-01-15 00:00:00 2021-01-15 00:00:00 Case Management Yaz Virgen JUAN Vieyra [facility] 1.2.840.114 350.1.13.10 4.2.7.2.686 [id number] [facility] 2021-01-04 14:52:00 2021-01-04 15:18:28 Manhole Stripper Visit [facility] Yaz Virgen [facility] 1.2840.114 350.1.13.10 4.2.7.2.686 [id number] [facility] 2021-01-04 12:58:53 2021-01-04 14:46:01 [facility] 1.2840.114 350.1.13.10 4.2.7.2.686 [id number] [facility] 2021-01-04 13:00:00 2021-01-04 13:00:00 Outpatient R YAZ VIRGEN [facility] [id number] [facility] 2021-01-01 15:10:45 2021-01-01 15:25:45 Laboratory Only Only, Adc Test Kamlesh Walsh [facility] 1.2840.114 350.1.13.10 4.2.7.2.686 [id number] [facility] 2021-01-01 14:00:00 2021-01-01 14:00:00 Outpatient R [facility] [id number] [facility] 2021-01-01 00:00:00 2021-01-01 00:00:00 Orders Only Doctor Unassigned, [facility] 1.2840.114 350.1.13.10 4.2.7.2.686 [id number] [facility] 2020-12-13 16:21:40 2020-12-13 16:36:40 Office Visit April Calderon [facility] 1.2.840.114 350.1.13.10 4.2.7.2.686 [id number] [facility] 2020-12-13 16:30:00 2020-12-13 16:30:00 Outpatient APRIL RANGEL [facility] [id number] [facility] 2020-12-13 00:00:00 2020-12-13 00:00:00 Patient Secure Msg Calderon [facility] 1.2.840.114 350.1.13.10 4.2.7.2.686 [id number] [facility] 2020-12-13 00:00:00 2020-12-13 00:00:00 Patient Secure Msg [facility] 1.2.840.114 350.1.13.10 4.2.7.2.686 [id number] [facility] 2020-11-29 15:00:00 2020-11-29 15:00:00 Outpatient APRIL RANGEL [facility] [id number] [facility] 2020-11-29 14:30:48 2020-11-29 14:45:48 Office Visit [facility] 1.2.840.114 350.1.13.10 4.2.7.2.686 [id number] 201 [id number] [facility] 2020-11-23 00:00:00 2020-11-23 00:00:00 Telephone Lizy hTorpe 1.2.840.114 350.1.13.10 4.2.7.2.686 [id number] [facility] 2020-11-22 10:30:00 2020-11-22 10:30:00 Outpatient YAZ HAILE [facility] [id number] [facility] 2020-11-17 12:28:05 2020-11-17 12:43:05 Laboratory Only Only, c Test Yaz Virgen [facility] 1.2840.114 350.1.13.10 4.2.7.2.686 [id number] [facility] [id number] [facility] 2020-11-17 11:45:00 2020-11-17 11:45:00 Outpatient YAZ HAILE [facility] [id number] [facility] 2020-11-17 11:14:55 2020-11-17 11:29:55 Office Visit April Calderon [facility] - [facility] 1.2840.114 350.1.13.10 4.2.7.2.686 [id number] 201 [id number] [facility] 2020-11-10 09:00:40 2020-11-10 09:15:40 Office Visit April Calderon [facility] - [facility] 1.20.114 350.1.13.10 4.2.7.2.686 [id number] 201 [id number] [facility] 2020-11-10 09:15:00 2020-11-10 09:15:00 Outpatient APRIL RANGEL [facility] [id number] [facility] 2020-11-08 00:00:00 2020-11-08 00:00:00 Orders Only Doctor Unassigned, [place] [facility] 1.2840.114 350.1.13.10 4.2.7.2.686 [id number] [facility] 2020-11-07 13:55:04 2020-11-07 14:51:23 Office Visit Yola Teran [facility] 1.2840.114 350.1.13.10 4.2.7.2.686 [id number] 201 [id number] [facility] 2020-11-07 14:00:00 2020-11-07 14:00:00 Outpatient YOLA BELL [facility] [id number] [facility] 2020-11-06 00:00:00 2020-11-06 00:00:00 Patient Secure April Calderon [facility] 1.2.840.114 350.1.13.10 4.2.7.2.686 [id number] 201 [id number] [facility] 2020-11-06 00:00:00 2020-11-06 00:00:00 Transition of Care [facility]y [facility] 1.2.840.114 350.1.13.10 4.2.7.2.686 [id number] [facility] 2020-11-06 00:00:00 2020-11-06 00:00:00 Patient Secure Laura April [facility] 1.2.840.114 350.1.13.10 4.2.7.2.686 [id number] 201 [id number] [facility] 2020-11-04 00:00:00 2020-11-04 00:00:00 Telephone Colten Garcia [facility] 1.2.840.114 350.1.13.10 4.2.7.2.686 [id number] [id number] [facility] 2020-11-03 10:45:00 2020-11-03 10:45:00 Outpatient APRIL RANGEL [facility] [id number] [facility]-02 12:41:00 2020-11-02 14:19:00 Surgery April Calderon [facility] 1.2.840.114 350.1.13.10 4.2.7.2.686 [id number] [facility] 2020-11-01 00:00:00 2020-11-01 00:00:00 Patient Secure April Dang [facility] 1.2.840.114 350.1.13.10 4.2.7.2.686 [id number] 201 [id number] [facility] 2020-10-31 10:27:46 2020-10-31 12:35:44 Office Visit Yola Teran [facility] 1.2840.114 350.1.13.10 4.2.7.2.686 [id number] 201 [id number] [facility] 2020-10-31 10:30:00 2020-10-31 10:30:00 Outpatient R YOLA TERAN [facility] [id number] [facility] 2020-10-30 00:00:00 2020-10-30 00:00:00 Patient Secure Msg [facility] 1.2840.114 350.1.13.10 4.2.7.2.686 [id number] 201 [id number] [facility] 2020-10-30 00:00:00 2020-10-30 00:00:00 Patient Secure April Calderon [facility] 1.2840.114 350.1.13.10 4.2.7.2.686 [id number] 201 [id number] [facility] 2020-10-30 00:00:00 2020-10-30 00:00:00 Telephone LauraApril [facility] 1.2.840.114 350.1.13.10 4.2.7.2.686 [id number] 201 [id number] [facility] 2020-10-28 15:59:00 2020-10-28 21:05:00 Emergency Alejandro French [facility] 1.2.840.114 350.1.13.10 4.2.7.2.686 [id number] 014 [id number] [facility] 2020-10-28 10:58:00 2020-10-28 14:44:00 Emergency Charley Riddle [facility] 1.2840.114 350.1.13.10 4.2.7.2.686 [id number] [facility] 2020-10-28 00:00:00 2020-10-28 00:00:00 Orders Only Doctor Unassigned, Calypso [facility] 1.2840.114 350.1.13.10 4.2.7.2.686 [id number] [facility] 2020-10-27 10:06:45 2020-10-27 13:25:56 Office Visit April Calderon [facility] 1.0.114 350.1.13.10 4.2.7.2.686 [id number] [facility] 2020-10-27 10:30:00 2020-10-27 10:30:00 Outpatient APRIL RANGEL [facility] [id number] [facility] 2020-10-26 00:00:00 2020-10-26 00:00:00 Patient Secure April Dang [facility] 1.0.114 350.1.13.10 4.2.7.2.686 [id number] 201 [id number] [facility] 2020-10-25 15:00:00 2020-10-25 15:00:00 Outpatient APRIL RANGEL [facility] [id number] [facility] 2020-10-23 13:03:53 2020-10-23 14:11:41 Office Visit Yola Teran [facility] 1.840.114 350.1.13.10 4.2.7.2.686 [id number] [facility] 2020-10-23 13:00:00 2020-10-23 13:00:00 Outpatient YOLA BELL [facility] [id number] [facility] 2020-10-21 00:00:00 2020-10-21 00:00:00 Telephone April Calderon [facility] 1.2.840.114 350.1.13.10 4.2.7.2.686 [id number] [facility] 2020-10-18 15:30:00 2020-10-18 15:30:00 Outpatient R APRIL CALDERON [facility] [id number] [facility] 2020-10-18 14:43:51 2020-10-18 14:58:51 Office Visit April Calderon [facility] 1.2.840.114 350.1.13.10 4.2.7.2.686 [id number] 201 [id number] [facility] 2020-10-17 14:45:00 2020-10-17 14:45:00 Outpatient ODALYS BOSS [facility] [id number] [facility] 2020-10-11 15:16:02 2020-10-11 15:31:02 Office Visit April Calderon [facility] 1.2.840.114 350.1.13.10 4.2.7.2.686 [id number] [facility] 2020-10-11 14:30:00 2020-10-11 14:30:00 Outpatient R APRIL CALDERON [facility] [id number] [facility] 2020-10-10 15:00:00 2020-10-10 15:00:00 Outpatient JUAN MANUEL HARKINS [facility] [id number] [facility] 2020-10-10 07:41:56 2020-10-10 08:41:56 Telemedici ne Visit MartinaJo millerJuan Manuel [facility] 1.2840.114 350.1.13.10 4.2.7.2.686 [id number] [facility] 2020-10-05 11:10:00 2020-10-05 23:59:00 Hospital Encounter Odalys Maldonado [facility] 1.2840.114 350.1.13.10 4.2.7.2.686 [id number] [facility] 2020-10-05 11:03:00 2020-10-05 16:26:00 Surgery MichaelakikoOdalys [facility] 1.840.114 350.1.13.10 4.2.7.2.686 [id number] [facility] 2020-10-05 00:00:00 2020-10-05 00:00:00 Orders Only Doctor Unassigned, [facility]yp[facility] 1.840.114 350.1.13.10 4.2.7.2.686 [id number] [facility] 2020-10-02 11:21:03 2020-10-02 11:36:03 Laboratory Only Only, Adc Test Odalys Maldonado [facility] 1.840.114 350.1.13.10 4.2.7.2.686 [id number] [facility] 2020-10-02 11:00:00 2020-10-02 11:00:00 Outpatient R [facility] [id number] [facility] 2020-09-25 00:00:00 2020-09-25 00:00:00 Patient Outreach Andrea Beltran [facility] 1.840.114 350.1.13.10 4.2.7.2.686 [id number] [facility] 2020-09-15 00:00:00 2020-09-15 00:00:00 Patient [facility] 1.2.840.114 350.1.13.10 4.2.7.2.686 [id number] [facility] 2020-09-14 16:00:00 2020-09-14 16:00:00 [facility] [id number] [facility] 2020-09-05 11:07:13 2020-09-05 11:56:19 Office Visit Gasper [facility] 1.2.840.114 350.1.13.10 4.2.7.2.686 [id number] [facility] 2020-09-05 10:40:00 2020-09-05 10:40:00 Outpatient [facility] [id number] [facility] 2020-08-31 11:00:00 2020-08-31 11:00:00 Outpatient JUAN MANUEL HARKINS [facility] [id number] [facility] 2020-08-30 16:15:00 2020-08-30 16:15:00 Outpatient APRIL RANGEL [facility] [id number] [facility] 2020-08-30 07:43:15 2020-08-30 07:58:15 Telemedici ne Visit April Calderon [facility] ..840.114 350.1.13.10 4.2.7.2.686 [id number] 201 [id number] [facility] 2020-08-28 15:00:00 2020-08-28 15:00:00 Outpatient JUAN MANUEL HARKINS [facility] [id number] [facility] 2020-08-25 03:26:00 2020-08-25 03:26:00 Outpatient LISTER_TIFFANI BURROUGHS [facility] [id number] [facility] 2020-08-25 03:26:00 2020-08-25 03:26:00 Outpatient MARÍA ELENA_TIFFANI BURROUGHS [facility] [id number] [facility] 2020-08-25 00:00:00 2020-08-25 00:00:00 [facility] 1.84.114 350.1.13.10 4.2.7.2.686 [id number] [facility] 2020-08-24 00:00:00 2020-08-24 00:00:00 Patient Secure Msg Doctor Unassigned, [facility] 1.84.114 350.1.13.10 4.2.7.2.686 [id number] [facility] 2020-08-18 00:00:00 2020-08-18 00:00:00 Patient Secure Msg April Calderon [facility] 1.84.114 350.1.13.10 4.2.7.2.686 [id number] 201 [id number] [facility] 2020-08-16 15:01:06 2020-08-16 15:31:06 Office Visit April Calderon [facility] 1.84.114 350.1.13.10 4.2.7.2.686 [id number] 201 [id number] [facility] 2020-08-16 15:15:00 2020-08-16 15:15:00 Outpatient R APRIL CALDERON [facility] [id number] [facility] 2020-08-16 00:00:00 2020-08-16 00:00:00 Orders Only Doctor Unassigned, [facility] 1..114 350.1.13.10 4.2.7.2.686 [id number] [facility] 2020-08-15 14:00:00 2020-08-15 14:00:00 Outpatient R ODALYS MALDONADO [facility] [id number] [facility] 2020-08-11 09:21:00 2020-08-11 23:59:00 Hospital Encounter Odalys Maldonado [facility] 1.2840.114 350.1.13.10 4.2.7.2.686 [id number] [facility] 2020-08-11 09:20:45 2020-08-11 09:20:45 Outpatient R NESSA GIL [facility] [id number] [facility] 2020-08-11 09:20:45 2020-08-11 09:20:45 Hospital Encounter Louise Nessa [facility] 1.2840.114 350.1.13.10 4.2.7.2.686 [id number] [facility] 2020-07-27 00:00:00 2020-07-27 00:00:00 [facility] 1.2.840.114 350.1.13.10 4.2.7.2.686 [id number] [facility] 2020-07-21 08:42:25 2020-07-21 23:59:00 Hospital Encounter Nessa Gil [facility] 1.2.840.114 350.1.13.10 4.2.7.2.686 [id number] [facility] 2020-07-21 08:41:31 2020-07-21 08:41:31 Outpatient NESSA GIL [facility] [id number] [facility] 2020-07-21 08:41:31 2020-07-21 08:41:31 Hospital Encounter Nessa Gil [facility] 1..840.114 350.1.13.10 4.2.7.2.686 [id number] [facility] 2020-07-21 00:00:00 2020-07-21 00:00:00 Case Management Nessa Gil [facility] 1..840.114 350.1.13.10 4.2.7.2.686 [id number] [facility] 2020-07-19 00:00:00 2020-07-19 00:00:00 Orders Only Doctor Unassigned, [place]yp[facility] 1..840.114 350.1.13.10 4.2.7.2.686 [id number] [facility] 2020-07-11 15:00:00 2020-07-11 15:00:00 Outpatient ODALYS BOSS [facility] [id number] [facility] 2020-07-10 05:55:00 2020-07-10 05:55:00 Outpatient LISTER_MELI SSA [facility] [id number] [facility] 2020-07-10 00:00:00 2020-07-10 00:00:00 Chantal Mata, PARISH NURSE: [address] [place] [address] , Ph. [facility] Rastafari [facility] [id number] [facility] 2020-06-21 05:08:00 2020-06-21 05:08:00 Outpatient Rutledge_L [facility] MM 1216 [facility] 2020-06-21 05:08:00 2020-06-21 05:08:00 Outpatient [facility]L [facility] 2020-06-21 00:00:00 2020-06-21 00:00:00 Deepti Baldwin MD: [address], [place] [address] , Ph. [phone] [facility] [id number] [facility] 2020-05-25 10:20:00 2020-05-25 10:20:00 Outpatient cMcDonald [facility] [id number] [facility] 2020-05-03 05:26:00 2020-05-03 05:26:00 Outpatient LISTER_MELI SSA [facility] [id number] [facility] 2020-05-03 00:00:00 2020-05-03 00:00:00 Chantal Mata, PARISH NURSE: [address], [place] [address] , Ph. [facility] [id number] [facility] 2020-04-28 05:08:00 2020-04-28 05:08:00 Outpatient LISTER_MELI SSA [facility] [id number] [facility] 2020-04-28 05:08:00 2020-04-28 05:08:00 Outpatient LISTER_MELI SSA [facility] [id number] [facility] 2020-04-28 00:00:00 2020-04-28 00:00:00 Rachael Umaña, PARISH NURSE: [address], [place] [address] , Ph. [facility] [id number] [facility] 2020-04-24 11:54:00 2020-04-24 11:54:00 Outpatient LISTER_MELI SSA [facility] [id number] [facility] Results Test Description Test Time Test Comments Results Result Co mments Source COMMENTS: Stat creatinine if not already performedHC SERUM [id number] 12:27:00* Test Item Value Reference Range Interpretation Comme nts HCG SERUM QUAL (test code = HCGQL) SERUM NEGATIVE NEGATIVE CBC W/AUTO [id number] 12:23:00* Test Item Value Reference Range Interpretation Comme nts WHITE BLOOD CELL (test code = WBC) 6.3 x10 3/uL 4.5-11.0 N RED BLOOD CELL (test code = RBC) 5.08 x10 6/uL 3.54-5.02 H HEMOGLOBIN (test code = HGB) 14.7 g/dL 11.0-15.0 N HEMATOCRIT (test code = HCT) 44.1 % 33.0-45.0 N MEAN CELL VOLUME (test code = MCV) 86.8 fL 81.0-99.0 N MEAN CELL HGB (test code = MCH) 28.9 pg 27.0-33.0 N MEAN CELL HGB CONCETRATION (test code = MCHC) 33.3 g/dL 33.0-37.0 N RED CELL DISTRIBUTION WIDTH CV (test code = RDW) 12.1 % 11.5-14.5 N RED CELL DISTRIBUTION WIDTH SD (test code = RDW-SD) 39.0 fL 37.0-54.0 N PLATELET COUNT (test code = PLT) 235 x10 3/uL 150-400 N MEAN PLATELET VOLUME (test c ode = MPV) 9.5 fL 7.0-9.0 H NEUTROPHIL % (test code = NT%) 63.9 % 56.0-77.0 N IMMATURE GRANULOCYTE % (test code = IG%) 0.3 % 0.0-2.0 N LYMPHOCYTE % (test code = LY%) 27.5 % 14.0-32.0 N MONOCYTE % (test code = MO%) 5.4 % 4.8-9.0 N EOSINOPHIL % (test code = EO%) 1.9 % 0.3-3.7 N BASOPHIL % (test code = BA%) 1.0 % 0.0-2.0 N NUCLEATED RBC % (test code = NRBC%) 0.0 % 0-0 N NEUTROPHIL # (test code = NT#) 4.02 x10 3/uL 2.0-7.6 N IMMATURE GRANULOCYTE # (test code = IG#) 0.02 x10 3/uL 0.00-0.03 N LYMPHOCYTE # (test code = LY#) 1.73 x10 3/uL 1.0-3.8 N MONOCYTE # (test code = MO#) 0.34 x10 3/uL 0.1-0.8 N EOSINOPHIL # (test code = EO#) 0.12 x10 3/uL 0.0-0.2 N BASOPHIL # (test code = BA#) 0.06 x10 3/uL 0.0-0.2 N NUCLEATED RBC # (test code = NRBC#) 0.00 x10 3/uL 0.0-0.1 N MANUAL DIFF REQUIRED (test c ode = MDIFF) NO BASIC METABOLIC PANEL (NA, K, CL, CO2, GLUCOSE, BUN, CREATININE, CA)2022-01-30 16:30:13* Test Item Value Reference Range Interpretation Comme nts NA (test code = 0272003278) 140 mmol/L 135-145 K (test code = 0640151872) 3.8 mmol/L 3.5-5 CL (test code = 3226102071) 108 mmol/L 98-108 CO2 TOTAL (test code = 7401524578) 22 mmol/L 23-31 L AGAP (test code = 9956425632) 2-16 BUN (test code = 1757607696) 2 mg/dL 7-23 L GLUCOSE (test code = 2596255103) 111 mg/dL 70-110 H CREATININE (test code = 3880297931) 0.56 mg/dL 0.5-1.04 CALCIUM (test code = 2806981129) 9.0 mg/dL 8.6-10.6 eGFR (test code = 6073710912) mL/min/1.73m2 NEREYDA (test code = NEREYDA) Association [...] imaging tests). Lab Interpretation (test code = 46517-1) Abnormal [facility] WITH [id number] 15:59:05* Test Item Value Reference Range Interpretation Comme nts WBC (test code = 6690-2) See_Comment [Synthelis] The system which generated this result transmitted reference range: 4.30 - 11.10 10*3/?L. The reference range was not used to interpret this result as normal/abnormal. RBC (test code = 789-8) See_Comment [Synthelis] The system which generated this result transmitted reference range: 3.93 - 5.25 10*6/?L. The reference range was not used to interpret this result as normal/abnormal. HGB (test code = 718-7) 14.7 g/dL 11.6-15 HCT (test code = 4544-3) 41.1 % 35.7-45.2 MCV (test code = 787-2) 85.4 fL 80.6-95.5 MCH (test code = 785-6) 30.6 pg 25.9-32.8 MCHC (test code = 786-4) 35.8 g/dL 31.6-35.1 H RDW-SD (test code = 38684-6) 37.2 fL 39-49.9 L RDW-CV (test code = 788-0) 11.9 % 12-15.5 L PLT (test code = 777-3) See_Comment [Automated messa ge] The system which generated this result transmitted reference range: 166 - 358 10*3/?L. The reference range was not used to interpret this result as normal/abnormal. MPV (test code = 53888-0) 10.2 fL 9.5-12.9 NRBC/100 WBC (test code = 0799768706) See_Comment [Automated me ssage] The system which generated this result transmitted reference range: 0.0 - 10.0 /100 WBCs. The reference range was not used to interpret this result as normal/abnormal. NRBC x10^3 (test code = 1507106766) See_Comment [Automated messa ge] The system which generated this result transmitted reference range: 10*3/?L. The reference range was not used to interpret this result as normal/abnormal. GRAN MAT (NEUT) % (test code = 770-8) 73.4 % IMM GRAN % (test code = 7019474426) 0.30 % LYMPH % (test code = 736-9) 12.0 % MONO % (test code = 5905-5) 14.0 % EOS % (test code = 713-8) 0.1 % BASO % (test code = 706-2) 0.2 % GRAN MAT x10^3(ANC) (test code = 2478511892) 7.47 10*3/uL 1.88-7.09 H IMM GRAN x10^3 (test code = 3567659105) 0.03 10*3/uL 0-0.06 LYMPH x10^3 (test code = 731-0) 1.22 10*3/uL 1.32-3.29 L MONO x10^3 (test code = 742-7) 1.43 10*3/uL 0.33-0.92 H EOS x10^3 (test code = 711-2) 0.03-0.39 L BASO x10^3 (test code = 704-7) 0.01-0.07 Lab Interpretation (test code = 99058-7) [id number]:34:00* Test Item Value Reference Range Interpretation Comme nts POCT PREG (test code = 1605) negative On board controls acceptable with C Line (test code = 3574) present POCT PREG LOT # (test code = 3575) [id number] POCT PREG TEST DATE ( test code = 3576) 05/06/2023 Lab Interpretation (test cod e = 61295-4) [facility] - Serum or [id number] 00:00:00* Test Item Value Reference Range Interpretation Comme nts Glucose [Mass/volume] in Serum or Plasma (test code = 2345-7) 88 mg/dL 65-99 Urea nitrogen [Mass/volume] in Serum or Plasma (test code = 3094-0) 9 mg/dL 7-25 Creatinine [Mass/volume] in Serum or Plasma (test code = 2160-0) 0.69 mg/dL 0.50-1.10 Glomerular filtration rate/1.73 sq M.predicted [Volume Rate/Area] in Serum, Plasma or Blood by Creatinine-based formula (MDRD) (test code = 61151-4) 114 mL/min/1.73m2 > or = 60 Glomerular filtration rate/1.73 sq M.predicted among blacks [Volume Rate/Area] in Serum, Plasma or Blood by Creatinine-based formula (MDRD) (test code = 13939-0) 132 mL/min/1.73m2 > or = 60 Urea nitrogen/Creatinine [Mass Ratio] in Serum or Plasma (test code = 3097-3) not applicable 6-22 Sodium [Moles/volume] in Serum or Plasma (test code = 2951-2) 141 mmol/L 135-146 Potassium [Moles/volume] in Serum or Plasma (test code = 2823-3) 3.9 mmol/L 3.5-5.3 Chloride [Moles/volume] in Serum or Plasma (test code = 5-0) 108 mmol/L 98-110 Carbon dioxide, total [Moles/volume] in Serum or Plasma (test code = 2027-) 26 mmol/L 20-32 Calcium [Mass/volume] in Serum or Plasma (test code = 49876-9) 9.4 mg/dL 8.6-10.2 Protein [Mass/volume] in Serum or Plasma (test code = 2885-2) 6.6 g/dL 6.1-8.1 Albumin [Mass/volume] in Serum or Plasma (test code = 1751-7) 4.5 g/dL 3.6-5.1 Globulin [Mass/volume] in Serum by calculation (test code = 81086-3) 2.1 g/dL (calc) 1.9-3.7 Albumin/Globulin [Mass Ratio] in Serum or Plasma (test code = 1759-0) 2.1 (calc) 1.0-2.5 Bilirubin.total [Mass/volume] in Serum or Plasma (test code = 1975-2) 0.3 mg/dL 0.2-1.2 Alkaline phosphatase [Enzymatic activity/volume] in Serum or Plasma (test code = 6768-6) 43 U/L 31-125 Aspartate aminotransferase [Enzymatic activity/volume] in Serum or Plasma (test code = 1920-8) 12 U/L 10-30 Alanine aminotransferase [Enzymatic activity/volume] in Serum or Plasma (test code = 1742-6) 20 U/L 6-29 [facility] ProgramFolate+Cyanocobalamin [Interpretation] in Serum or [id number] 00:00:00* Test Item Value Reference Range Interpretation Comme nts Cobalamin (Vitamin B12) [Mass/volume] in Serum or Plasma (test code = 2132-9) 311 pg/mL 200-1100 Folate [Mass/volume] in Seru m or Plasma (test code = 2284-8) 15.1 NG/mL [facility]Hemoglobin.total in [id number] 00:00:00* Test Item Value Reference Range Interpretation Comme nts Hemoglobin A1c/Hemoglobin.total in Blood (test code = 4548-4) 4.9 % of total HGB <5.7 Glucose mean value [Mass/volume] in Blood Estimated from glycated hemoglobin (test code = 02627-2) 94 (calc) Glucose mean value [Moles/volume] in Blood Estimated from glycated hemoglobin (test code = 04819-6) 5.2 (calc) [facility] Aycprmk21-Wqfidstmhzyjyk D3+25- Hydroxyvitamin D2 [Mass/volume] in Serum or [id number] 00:00:00* Test Item Value Reference Range Interpretation Comme nts 25-Hydroxyvitamin D3+25-Hydroxyvitamin D2 [Mass/volume] in Serum or Plasma (test code = 39140-5) 28 NG/mL 30-100 L Cholecalciferol (Vit D3) [Mass/volume] in Serum or Plasma (test code = 1990-) 28 NG/mL Calciferol (Vit D2) [Mass/vo lume] in Serum or Plasma (test code = 2236-8) <4 [facility] ProgramBacterial vaginosis and vaginitis DNA panel - Vaginal fluid by Probe with signal [id number] 00:00:00* Test Item Value Reference Range Interpretation Comme nts Chlamydia trachomatis rRNA [ Presence] in Unspecified specimen by KRISTINA with probe detection (test code = 47829-7) tnp Lactobacillus sp DNA [Log #/ volume] in Vaginal fluid by KRISTINA with probe detection (test code = 41535-3) tnp Trichomonas vaginalis rRNA [ Presence] in Unspecified specimen by KRISTINA with probe detection (test code = 70105-8) tnp Quyen sp DNA [Presence] in Vaginal fluid by KRISTINA with probe detection (test code = 40755-6) tnp [facility] ProgramCBC W Auto Differential panel - Blood 2020-05-03 00:00:00* Test Item Value Reference Range Interpretation Comme nts Leukocytes [#/volume] in Blood by Automated count (test code = 6690-2) 6.4 thousand/uL 3.8-10.8 Erythrocytes [#/volume] in Blood by Automated count (test code = 789-8) 5.22 million/uL 3.80-5.10 H Hemoglobin [Mass/volume] in Blood (test code = 718-7) 15.3 g/dL 11.7-15.5 Hematocrit [Volume Fraction] of Blood by Automated count (test code = 4544-3) 46.7 % 35.0-45.0 H MCV [Entitic volume] by Automated count (test code = 787-2) 89.5 fL 80.0-100.0 MCH [Entitic mass] by Automated count (test code = 785-6) 29.3 pg 27.0-33.0 MCHC [Mass/volume] by Automated count (test code = 786-4) 32.8 g/dL 32.0-36.0 Erythrocyte distribution width [Ratio] by Automated count (test code = 788-0) 11.8 % 11.0-15.0 Platelets [#/volume] in Bloo d by Automated count (test code = 777-3) 255 thousand/uL 140-400 Platelet mean volume [Entiti c volume] in Blood by Marko (test code = 776-5) 10.1 fL 7.5-12.5 Neutrophils [#/volume] in Blood by Automated count (test code = 751-8) 3450 cells/uL 7177-0014 Lymphocytes [#/volume] in Blood by Automated count (test code = 731-0) 2195 cells/uL 850-3900 Monocytes [#/volume] in Bloo d by Automated count (test code = 742-7) 582 cells/uL 200-950 Eosinophils [#/volume] in Blood by Automated count (test code = 711-2) 122 cells/uL 15-500 Basophils [#/volume] in Bloo d by Automated count (test code = 704-7) 51 cells/uL 0-200 Neutrophils/100 leukocytes i n Blood by Automated count (test code = 770-8) 53.9 % Lymphocytes/100 leukocytes i n Blood by Automated count (test code = 736-9) 34.3 % Monocytes/100 leukocytes in Blood by Automated count (test code = 5905-5) 9.1 % Eosinophils/100 leukocytes i n Blood by Automated count (test code = 713-8) 1.9 % Basophils/100 leukocytes in Blood by Automated count (test code = 706-2) 0.8 % [facility] ProgramThyrotropin [Units/volume] in Serum or Zjlcjx6321-73-32 00:00:00* Test Item Value Reference Range Interpretation Comme nts Thyrotropin [Units/volume] i n Serum or Plasma (test code = 3016-3) 1.46 mIU/L [facility] Notes Date/Time Note Provider Source 2022-08-12 16:31:00 [id number]+4DmmEhzA tLiCBgmaZrHvU2fdrFkxDibHfUw1825-60-94V18:31:74110 6-[address] [place], [place] [address] PATIENT NAME: ROXANNE FRIEND ADMIT DATE: 07/10/22ACCOUNT NO: [id number] ROOM NO: AGE: 37 REPORT TYPE: OPERATIVE REPORT SEX: F ADMITTING PHYSICIAN: ATTENDING PHYSICIAN:Len Rivera MD OPERATION DATE: 07/10/2022 PREOPERATIVE DIAGNOSES:1. Breast cancer.2. Acquired right and left breast absence. POSTOPERATIVE DIAGNOSES:1. Breast cancer.2. Acquired right and left breast absence. PROCEDURE:1. Right and left breast reconstruction with delayed implant placement.2. Right and left breast open capsulotomies. SURGEON: Len Rivera MD DIRECTOR OF PUBLIC WORKS: None. ANESTHESIA: General anesthesia with local consisting of bupivacaine andExparel. INDICATIONS: The patient is a 37-year-old female with a remote history of breast cancer treated with bilateral mastectomies. She initially had tissue expanders placed, but ultimately lost the expanders. It has been over a year since her last surgery, and she presents with complete breast absence. She desires reconstruction. The risks, benefits and alternatives to proceeding with the same were explained to the patient, and all questions were answered. Informed consent was obtained and a signed permit was present at the time of her procedure. DESCRIPTION OF PROCEDURE: The patient was taken to the operating room on 2022. She was placed supine upon the operating table. After inductionof general anesthesia, her chest was prepped and draped in the usual sterilefashion. The two sides were treated similarly. The exceptions will be commented on below. She had central scarring from removal of the nipple areolar complex as well as inframammary scars from previous reduction mammoplasty. A portion of the inframammary scar was utilized for access. This was injected with local anesthesia. Additional local anesthesia was instilled circumferentially about the breast mound. The skin was sharply incised. Dissection was deepened with monopolar electrocautery. With the aid of a lighted mammary retractor, a retropectoral pocket was recreated. Extensive retropectoral scarring was noted from her previous surgeries. Extensive radial and circumferential capsulotomies were performed to PATIENT NAME: ROXANNE FRIEND adequately release the pocket. Hemostasis was ensured and thepocket was copiously irrigated with antibiotic solution. [place] smooth roundhigh profile silicone gel implants with a nominal volume of 800 mL were selectedpreoperatively. The right breast received the implant with serial [id number]; the left breast implant had serial number [id number]. The implants were inspected at the back table for gross manufacturing defects andnone were identified. They were bathed in antibiotic solution and delivered totheir prepared pockets with a Motley funnel. Layered skin closures wereperformed. Inverted interrupted 2-0 PDS sutures were placed at the level of thesuperficial fascia and deep subcutaneous plane. Inverted interrupted 3-0Monocryl sutures were placed in the dermis. A running subcuticular 3-0 Monocryl completed the superficial closure. With both sides completed, she was noted to have contour irregularities in the upper outer quadrant on the right side at the mastectomy scar lateral terminus. This was treated with elliptical skin excision. Identical layered closure was performed with notable contour improvement. Additional local anesthesia was instilled circumferentially, especially at the level of the pectoralis major muscle. Her skin was cleansed of residual prep solution. Dressing consisted of Xeroform gauze to the incisions followed by ABD pads and a postoperative brassiere. Estimated blood loss for the procedure was 25 mL. There were no apparent intra- or perioperative complications. All needle, sponge and instrument counts were reported to be correct. The patient tolerated the procedure well and was taken to the Postanesthesia Care Unit extubated and in good condition. Dictated By: Len Rivera MD Date Dictated: 08/12/2022 16:31:22Date Transcribed: 08/12/2022 19:42:33MB/SUDLERSVILLEJob #: [id number] ID: [id number] Authenticated and Edited by Len Rivera MD On 08/22/22 9:52:00 AM at 0953 PATIENT NAME: ROXANNE FRIEND msurog2038-27-41V45:42:00G.[id number] lable for patient nyflBSUALFCKUPOPUD3283-60-07T54:53:57 [facility] 2022-07-10 15:51:00 [id number] 90XtUSuzqZ1xRQh35UE2On4aO76W8 xwCbZwL+iUDcjq15encUNwLTey98002-40-70T05:51:00 [facility] ([facility])Brief Op NoteREPORT#:[id number] REPORT STATUS: SignedDATE:07/10/22 TIME: 1551 PATIENT: ROXANNE FRIEND UNIT #: [id number]#: [id number] ROOM/BED:: 85 AGE: 37 SEX: F ATTEND: Len Rivera [facility] AUTHOR: Len Rivera MD * ALL edits or amendments must be made on the electronic/computer document * Op/Inv Proc Note - BriefORM Surgeries: Surgery Date and Time: 07/10/2022 1330 Primary Procedure: BREAST RECONSTRUCTION BILATERAL Secondary Procedure: BREAST IMPLANT INSERTION BILATERAL Pre-procedure diagnosis:1. Breast cancer2. Acquired Rt and Lt breast absence Post-procedure diagnosis: same as pre procedure dxProcedures performed:Rt and Lt breast reconstruction with delayed implant placement and open capsulotomiesPrimary Surgeon:MiguelAssistant(s): noneAnesthesia: general anesthesia, local anesthesia, moderate sedation (Bup + Exparel)Findings:Access via central portion of IMF scar. Retropectoral pocket created. Extensive radial and circumferential open capsulotomies bilaterally were required to release scarring from prior surgeries. On right, UOQ extension of meridian scar required to improve skin contour. [place] SRHP silicone gel implants placed with 800 cc nominal volume: Rt [id number], Lt [id number].Complications: noneEstimated blood loss in ml's: 25Specimens removed/altered: noneDrain(s): NoneTube(s): noneImplant(s): Breast implants, see aboveApproach: openWound class: cleanDisposition: plan to D/C home, PACUCounts: Sponge count: correct Instrument count: correct Needle count: correct Cottonoid count: correct Damian clip count: correct at 1555 RPT #:[id number] OF REPORTOPOperative mxxxxv7004-47-79M09:51:00G.[id number] ilable for patient smxcOAJABLKRTWZLBL5667-82-94N11:55:53 [facility] 2022-07-05 12:09:00 [id number] 2WSdEvZJFzgsoZPY+ypjbO4tyaQCE 00fqU/PE9oM92AUJNIZalnxzWuc7322-99-80Y25:09:62825 0-0030 [place] [address] PATIENT NAME: ROXANNE FRIEND ADMIT DATE: ACCOUNT NO: [id number] ROOM NO: AGE: 37 REPORT TYPE: eELECTROCARDIOGRAM REPORT SEX: F ADMITTING PHYSICIAN: ATTENDING PHYSICIAN:Len Rivera MD Order:[id number] Reason : PRE OP Test Date/Time Stamp:FriJul 05 2022 12:09:54Blood Pressure : / mmHGVent. Rate : 080 BPM Atrial Rate : 080 BPM P-R Int : 130 ms QRS Dur : 096 ms QT Int : 352 ms P-R-T Axes : 056 079 016 degrees QTc Int : 405 ms Normal sinus rhythmNormal ECGPRE_OPConfirmed by LELIA PHELAN MD ([id number]) on 07/05/2022 12:46:39 PM Referred By: Len Rivera Confirmed by:LELIA PHELAN MD at 1246 PATIENT NAME: ROXANNE FRIEND .[id number] AVAvailable for patient ingbEHQMSKGZWBXXDZ2827-07-84F88:47:03 [facility] 2022-07-04 16:25:00 [id number] ZhrMWHLV9hq1Wk7ULkStetAmJ8y6J RrXbZfZ10ZpVMRgbVNAoHua83YM6789-85-57K77:25:00 [facility] ([facility])DT History PhysicalREPORT#:[id number] REPORT STATUS: SignedDATE:07/04/22 TIME: 1625 PATIENT: ROXANNE FRIEND UNIT #: [id number]#: [id number] ROOM/BED:: 85 AGE: 37 SEX: F ATTEND: Len Rivera AUTHOR: Len Rivera MD * ALL edits or amendments must be made on the electronic/computer document * History PhysicalHistory PhysicalChief Complaint: Breast cancer and absent breasts HPI: The patient is a 37-year-old with a history of breast cancer and acquired absence of both breasts. She initially had tissue expanders placed in the same surgical episode as her mastectomies. She developed healing issues postoperatively and the expanders had to be removed. She is ready to proceed with breast reconstruction. Past Medical History: Breast cancer Past Surgical History: Double mastectomies, removal of tissue expandersBleeding tendencies or history: NO Allergies: No Non-Medication Allergies (NNMA) , morphine Medications: MSM Glucosamine Oral Capsule Family History: None Indicated Comments: Social History: Smoking Status 3 Former smokerNumber of Pregnancies 3 ChildrenPregnancy 3 Pregnancies Review of Systems: Pertinent positives are noted above. She denies fatigue or weight loss, rashes, headache, earache, vision changes, nose bleeds, sore throat, neck pain, breast lumps or discharge, cough or wheezing, chest pain or palpitations, heartburn, rectal bleeding, urinary symptoms, claudication, neurologic, hematologic, endocrine or psychiatric problems. Physical Exam:General: No acute distress.Chest: S1/S2 with regular rate. Lungs are grossly clear. Bilateral breast absence. Scars are mature. Redundant skin is present. There are no suspicioius masses or axillary adenopathy. Base diameter is 15 cm.Abdomen: Bowel sounds are present; nonfocal examination. Impression: Z90.13 Acquired absence of bilateral breasts and nipples , C50.919 Malignant neoplasm of unspecified site of unspecified female breast Plan: -Candidate for delayed reconstruction with implants-The risks, benefits and alternatives were discussed; questions were answered-Digital imaging-Prescriptions were provided at 1626 RPT #:[id number] OF REPORTHPHistory and physical ewaodplvelb6873-94-66W42:25:00G.[id number] AVAvailable for patient jlrfEFJYMPRAKQXPWX4744-86-05C31:26:50 HCACL"
[2023-07-20 01:25] LABS: Absolute Lymphocytes (CBC) 1.3 K/uL (0.7-4.9); Hematocrit 42.6 % (36.0-45.0); Lymphocytes % 13.8 % (15.3-44.8); MCV 86.4 fL (80-100); Platelets 205 thou/uL (152-406); RBC Red Blood Cell Count 4.93 M/uL (3.86-4.86)
[2023-07-20 01:32] LABS: Protime INR 1.2
[2023-07-20 01:35] LABS: Specific Gravity < 1.005 (1.005-1.030); Urine Bacteria <20 /HPF (<20); Urine Bilirubin NEGATIVE (Negative); Urine Blood 3+ (OVER) (Negative); Urine Clarity Extremely Turbid (Clear); Urine Color Colorless (Yellow); Urine Glucose NEGATIVE (Negative); Urine Protein TRACE (Negative); Urine Urobilinogen Normal (Normal); Urine WBC Clump Few /HPF (None Seen)
[2023-07-20 01:44] LABS: Albumin 3.8 g/dL (3.4-5.0); Bilirubin Direct 0.2 mg/dL (0-0.2); Bilirubin Indirect, Calculated 0.4 mg/dL (0.2-0.8); Bilirubin Total 0.6 mg/dL (0.2-1.0); Magnesium 1.6 mg/dL (1.6-2.4); Potassium 3.6 mEq/L (3.5-5.1); Protein, Total 7.5 g/dL (6.4-8.2); Troponin High Sensitivity 4.1 pg/mL (<58.9)
--- NOTE | 2023-07-20 04:36 | EDPHYS ---
Physician Documentation [facility] Name: Roxanne Friend Age: 38 yrs Sex: Female : 1985 Arrival Date: 07/20/2023 Time: 00:11 Bed 5 Private MD: ED Physician Giovanni Anders HPI: 07/20 00:30 This 38 yrs old Female presents to ER via Unassigned with complaints of Chest sp4 Pain, Shortness Of Breath, Fever, Possible kidney stones. 00:31 PMH - Allergies: Ceftin; Morphine; PMHx: BREAST CA; Degenerative disc disease; gest. sp4 diabetes; Rheumatoid Arthritis; PSHx: section; Cholecystectomy; double mastectomy; tonsil/adenoid;. 04:25 38-year-old female, presents with acute onset midsternal chest pain associated with sp4 shortness of breath and fever, patient states she has history of kidney stones but denies flank pain. Patient arrives with tachycardia 122 to 124. Patient reported she just started her menstrual period . Patient reports subjective fever with all symptoms starting at 10:30 PM.. 04:[address] report reviewed EXAM DESCRIPTION: CT - Abdomen Pelvis W Contrast sp4 - 06/16/2023 11:12 am FINDINGS: No suspicious findings in the lung bases. The liver, spleen, adrenal glands, and pancreas show no suspicious findings. Gallbladder surgically removed. Symmetric renal function is seen with no hydronephrosis or suspicious renal mass. Bilateral nonobstructing renal calculi, more abundant on the right, not exceeding 2 mm. No dilated bowel loops or bowel wall thickening. Appendix is unremarkable. No free air, free fluid or inflammatory stranding. No hernia, mass or bulky lymphadenopathy. Uterus is somewhat prominent specially along the posterior wall, could indicate ill-defined small fibroids. The urinary bladder is without significant finding. No suspicious bony findings. IMPRESSION: Bilateral non obstructing renal calculi not exceeding 2 mm. Status post cholecystectomy. Uterus is somewhat prominent especially along the posterior wall, a nonspecific appearance, may relate to small fibroids.. 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 diabetes; Rheumatoid Arthritis; tachycardia la4 (Rheumatoid Arthritis); - PSHx: 00:47 section; Cholecystectomy; double mastectomy; tonsil/adenoid; la4 - Immunization history:: Adult Immunizations up to date, Client reports having NOT received the Covid vaccine. Flu vaccine is not up to date. - Social history:: Smoking status: Patient reports the use of cigarette tobacco products, smokes one-half pack cigarettes per day, Patient/guardian denies using alcohol, street drugs. - Family history:: not pertinent. ROS: 04:25 Constitutional: Negative for fever, chills, and weight loss, sp4 04:25 All other systems are negative, Exam: 04:25 Constitutional: This is a well developed, well nourished patient who is awake, alert, sp4 patient is ill-appearing and tachycardic, nontoxic-appearing Head/Face: Normocephalic, atraumatic. Eyes: Pupils equal round and reactive to light, extra-ocular motions intact. Lids and lashes normal. Conjunctiva and sclera are not injected. Cornea within normal limits. Periorbital areas with no swelling, redness, or edema. ENT: Nares patent. No nasal discharge, no septal abnormalities noted. Tympanic membranes are normal and external auditory canals are clear. Oropharynx with no redness, swelling, or masses, exudates, or evidence of obstruction, uvula midline. Mucous membranes moist. Neck: Trachea midline, no thyromegaly or masses palpated, and no cervical lymphadenopathy. Supple, full range of motion without nuchal rigidity, or vertebral point tenderness. Chest/axilla: Normal chest wall appearance and motion. Nontender with no deformity. No lesions are appreciated. Cardiovascular: Regular rate and rhythm with a normal S1 and S2. No gallops, murmurs, or rubs. Normal PMI, no JVD. No pulse deficits. Respiratory: Lungs have equal breath sounds bilaterally, clear to auscultation and percussion. No rales, rhonchi or wheezes noted. No increased work of breathing, no retractions or nasal flaring. Abdomen/GI: Soft, non-tender, with normal bowel sounds. No distension or tympany. No guarding or rebound. No evidence of tenderness throughout. Back: No spinal tenderness. No costovertebral tenderness. There is sacral decubitus ulcer that is covered by the wound VAC. Skin: Warm, dry with normal turgor. Normal color with no rashes, no lesions, and no evidence of cellulitis. MS/ Extremity: Pulses equal, no cyanosis. Neurovascular intact. Full, normal range of motion. Neuro: Awake and alert, GCS 15, oriented to person, place, time, and situation. Cranial nerves II-XII grossly intact. Motor strength 5/5 in all extremities. Sensory grossly intact. Psych: Awake, alert, with orientation to person, place and time. Behavior, mood, and affect are within normal limits 04:25 ECG was reviewed by the Attending Physician. EKG at 01:20, sinus tachycardia at the 4 rate of 121, no ST elevation or depression, no ectopy Vital Signs: 00:44 BP 131 / 71; Pulse 125; Resp 19 S; Temp 99.1(TE); Pulse Ox 99% on R/A; Weight 100.24 kg la4 (R); Height 5 ft. 6 in. (R); Pain 10/10; 01:33 BP 137 / 80; Pulse 116; Resp 18; Pulse Ox 97% on R/A; km8 02:00 BP 125 / 64; Pulse 115; Resp 20; Pulse Ox 98% on R/A; km8 03:00 BP 108 / 51; Pulse 108; Resp 20; Pulse Ox 94% on R/A; km8 03:30 BP 102 / 60; Pulse 105; Resp 16; Pulse Ox 95% on R/A; km8 04:00 BP 99 / 56; Pulse 102; Resp 16; Pulse Ox 95% on R/A; km8 04:30 Pulse 97; Resp 16; Pulse Ox 96% on R/A; km8 00:44 Body Mass Index 35.67 (100.24 kg, 167.64 cm) la4 00:44 Pain Scale: Adult la4 Romario Coma Score: 01:33 Eye Response: spontaneous(4). Motor Response: obeys commands(6). Verbal Response: km8 oriented(5). Total: 15. MDM: 00:33 Patient medically screened. sp4 04:20 ED course: EXAM: XR Chest, 1 View CLINICAL HISTORY: The patient is 38 years old and is sp4 Female; CHEST PAIN TECHNIQUE: Frontal view of the chest. COMPARISON: No relevant prior studies available. FINDINGS: LUNGS: Unremarkable. No consolidation. PLEURAL SPACE: Unremarkable. No pneumothorax. HEART: Unremarkable. No cardiomegaly. MEDIASTINUM: Unremarkable. Normal mediastinal contour. BONES/JOINTS: Unremarkable. No acute fracture. UPPER ABDOMEN: Unremarkable as visualized. IMPRESSION: No acute cardiopulmonary process. . 04:31 Differential diagnosis: acute pericarditis, anxiety, chest wall pain, congestive heart sp4 failure costochondritis, Acute viral illness. HEART Score: History: Slightly Suspicious (0), ECG: Normal (0), Age: < or = 45 years (0), Risk Factors: No Risk Factors Known (0), Troponin: < or = 1 x Normal Limit (0), Total Score = 0. Data reviewed: vital signs, nurses notes, lab test result(s), EKG, radiologic studies, plain films. ED course: Patient has refused flu and COVID test. At this time patient has suspected acute viral illness most likely influenza COVID or Common Cold. Patient has improved and heart rate has declined to 100. Patient is stable for discharge home at this time with as needed ondansetron ibuprofen and Tylenol. Advised home quarantine for the next 3 days and increase p.o. hydration. . 07/20 00:31 Order name: Basic Metabolic Panel; Complete Time: 02:07/20 00:31 Order name: CBC with Diff; Complete Time: 02:07/20 00:31 Order name: LFT's; Complete Time: 02:07/20 00:31 Order name: Magnesium; Complete Time: 02:07/20 00:31 Order name: NT PRO-BNP; Complete Time: 02:07/20 00:31 Order name: PT-INR; Complete Time: 02:07/20 00:31 Order name: Troponin HS; Complete Time: 02:07/20 00:32 Order name: Urinalysis W/Microscopic; Complete Time: 02:10 07/20 00:47 Order name: SARS RAPID [facility] 07/20 00:47 Order name: Influenza Screen (a \T\ B) [facility] 07/20 01:38 Order name: Urine Culture EDAK 07/20 00:31 Order name: XRAY Chest (1 view) [facility] 07/20 00:31 Order name: EKG; Complete Time: 4 07/20 00:31 Order name: Cardiac monitoring; Complete Time: 4 07/20 00:31 Order name: EKG - Nurse/Tech; Complete Time: 4 07/20 00:31 Order name: IV Saline Lock; Complete Time: 4 07/20 00:31 Order name: Labs collected and sent; Complete Time: sp4 07/20 00:31 Order name: O2 Per Protocol; Complete Time: 4 07/20 00:31 Order name: O2 Sat Monitoring; Complete Time: EC:25 Rate is 121 beats/min. Rhythm is regular, Sinus tachycardia. QRS Levan is Normal. SC sp4 interval is normal. QRS interval is normal. QT interval is normal. No Q waves. T waves are Normal. No ST changes noted. Clinical impression: No evidence of ischemia. Interpreted by me. Reviewed by me. Administered Medications: Drug: NS 0.9% IV 1000 ml IV at 1 bolus Per protocol; 1000 mL bolus Route: IV; Rate: 1 km8 bolus; Site: right antecubital; 04:41 Follow up: IV Status: Completed infusion; IV Intake: 1000ml :32 Drug: NS 0.9% IV 1000 ml IV at 1 bolus Per protocol; 1000 mL bolus Route: IV; Rate: 1 km8 bolus; Site: right antecubital; 04:41 Follow up: IV Status: Completed infusion; IV Intake: 1000ml :32 Drug: Acetaminophen PO 1000 mg PO once Route: PO; km8 04:41 Follow up: Response: No adverse reaction 01:32 Drug: Ibuprofen PO 800 mg PO once Route: PO; km8 04:41 Follow up: Response: No adverse reaction km8 04:55 Not Given (Physician Discretion): fqabrzyuetnqz820 mg PO once sp4 05:01 Drug: LevOfloxacin PO 500 mg PO once Route: PO; km8 05:02 Follow up: Response: Medication administered at discharge. km8 Disposition Summary: 07/20/23 04:35 Discharge Ordered Notes: Location: Home sp4 Problem: new sp4 Symptoms: have improved sp4 Condition: Stable sp4 Diagnosis - Other specified viral diseases sp4 - Acute systemic viral illness,, sinus tachycardia, noncardiac chest pain, sp4 subjective fever - UTI/ Urinary tract infection, site not specified sp4 Followup: sp4 - With: Private Physician - When: 7 - 10 days - Reason: Recheck today's complaints Discharge Instructions: - Discharge Summary Sheet sp4 - Viral Illness, Adult sp4 Forms: - Patient Portal Instructions sp4 - Work release form km8 Prescriptions: - Ibuprofen 800 mg Oral tablet - take 1 tablet ORAL route every 6 hours As needed PRN fever or body aches; 30 sp4 tablet; Refills: 0, Product Selection Permitted - ondansetron 8 mg Oral Tablet,disintegrating - take 1 tablet ORAL route every 6 hours PRN nausea; 30 tablet; Refills: 0, sp4 Product Selection Permitted - levofloxacin 250 mg Oral tablet - take 1 tablet ORAL route once daily; 5 tablet; Refills: 0, Product Selection sp4 Permitted Signatures: Dispatcher [employer] Giovanni Roy MD MD sp4 Yanet Mayes, RN RN km8 Romero Johnson, RN RN la4
--- NOTE | 2023-07-20 04:36 | ER ---
Nurse's Notes [facility] Name: Roxanne Friend Age: 38 yrs Sex: Female : 1985 Arrival Date: 07/20/2023 Time: 00:11 Bed 5 Private MD: Diagnosis: Other specified viral diseases;Acute systemic viral illness,, sinus tachycardia, noncardiac chest pain, subjective fever;UTI/ Urinary tract infection, site not specified Presentation: 07/20 00:44 Chief complaint: Patient states: chest pain, SOB, fever onset 2230. DX with kidney la4 stones 2wks ago. Coronavirus screen: Client denies travel out of the [place] in the last 14 days. Client presents with at least one sign or symptom that may indicate coronavirus-19. Standard/surgical mask placed on the client. Ebola Screen: No symptoms or risks identified at this time. Initial Sepsis Screen: Does the patient meet any 2 criteria? No. Patient's initial sepsis screen is negative. Does the patient have a suspected source of infection? No. Patient's initial sepsis screen is negative. Risk Assessment: Do you want to hurt yourself or someone else? Patient reports no desire to harm self or others. Onset of symptoms was July 19, 2022. 00:44 Method Of Arrival: Wheelchair la4 00:44 Acuity: DUSTIN 3 la4 Triage Assessment: 00:47 General: Appears in no apparent distress. comfortable, Behavior is cooperative, la4 anxious. Pain: Complains of pain in chest Pain does not radiate. EENT: No deficits noted. No signs and/or symptoms were reported regarding the EENT system. Neuro: No deficits noted. Bonilla Agitation-Sedation Scale (RASS): Level of Consciousness is awake, alert, obeys commands, Oriented to person, place, time, situation. Cardiovascular: Reports chest pain, fatigue, shortness of breath, Capillary refill < 3 seconds Clubbing of nail beds is absent JVD is absent Patient's skin is warm and dry. Respiratory: No deficits noted. Reports shortness of breath Airway is patent Respiratory effort is even, unlabored, Respiratory pattern is regular, symmetrical. GI: No deficits noted. No signs and/or symptoms were reported involving the gastrointestinal system. : No deficits noted. No signs and/or symptoms were reported regarding the genitourinary system. Derm: No deficits noted. No signs and/or symptoms reported regarding the dermatologic system. Skin is intact, is healthy with good turgor, Skin is dry, Skin is normal, Skin temperature is warm. Musculoskeletal: No deficits noted. No signs and/or symptoms reported regarding the musculoskeletal system. Circulation, motion, and sensation intact. Range of motion: intact in all extremities. 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 diabetes; Rheumatoid Arthritis; tachycardia la4 (Rheumatoid Arthritis); - PSHx: 00:47 section; Cholecystectomy; double mastectomy; tonsil/adenoid; la4 - Immunization history:: Adult Immunizations up to date, Client reports having NOT received the Covid vaccine. Flu vaccine is not up to date. - Social history:: Smoking status: Patient reports the use of cigarette tobacco products, smokes one-half pack cigarettes per day, Patient/guardian denies using alcohol, street drugs. - Family history:: not pertinent. Screenin:33 [facility] ED Fall Risk Assessment (Adult) History of falling in the last 3 months, km8 including since admission No falls in past 3 months (0 pts) Confusion or Disorientation No (0 pts) Intoxicated or Sedated No (0 pts) Impaired Gait No (0 pts) Mobility Assist Device Used No (0 pt) Altered Elimination No (0 pt) Score/Fall Risk Level 0 - 2 = Low Risk Oriented to surroundings, Maintained a safe environment, Educated pt \T\ family on fall prevention, incl call for assistance when getting out of bed, Assessed \T\ reinforced patient's understanding of fall precautions. Abuse screen: Denies threats or abuse. Denies injuries from another. Nutritional screening: No deficits noted. Tuberculosis screening: No symptoms or risk factors identified. Assessment: 01:30 General: Appears in no apparent distress. uncomfortable, Behavior is cooperative, km8 appropriate for age, anxious, restless. Pain: Complains of pain in back and chest Pain currently is 6 out of 10 on a pain scale. Quality of pain is described as aching, sharp, Pain began gradually, 3 hours ago. Is continuous. Neuro: Level of Consciousness is awake, alert, obeys commands, Oriented to person, place, time, situation. Cardiovascular: Reports chest pain, shortness of breath, Capillary refill < 3 seconds Patient's skin is warm and dry. Rhythm is regular Chest pain is described as mild, is located in anterior began 3 hours prior to arrival episodes are continuous. Respiratory: Reports shortness of breath Airway is patent Respiratory effort is even, unlabored, Respiratory pattern is regular, symmetrical. GI: No signs and/or symptoms were reported involving the gastrointestinal system. : Reports diagnosed with kidney stones 2 weeks ago. EENT: No signs and/or symptoms were reported regarding the EENT system. Derm: No signs and/or symptoms reported regarding the dermatologic system. Skin is intact, is healthy with good turgor, Skin is dry, Skin is pink, warm \T\ dry. normal, Skin temperature is warm. Musculoskeletal: No signs and/or symptoms reported regarding the musculoskeletal system. Circulation, motion, and sensation intact. Range of motion: intact in all extremities. 01:30 Reassessment: pt refused COVID and Flu testing; Dr. Anders notified. km8 02:00 Reassessment: Patient appears in no apparent distress at this time. No changes from km8 previously documented assessment. Patient and/or family updated on plan of care and expected duration. Pain level reassessed. Patient is alert, oriented x 3, equal unlabored respirations, skin warm/dry/pink. 03:00 Reassessment: Patient appears in no apparent distress at this time. No changes from km8 previously documented assessment. Patient and/or family updated on plan of care and expected duration. Pain level reassessed. pt sleeping at this time. 04:00 Reassessment: Patient appears in no apparent distress at this time. No changes from km8 previously documented assessment. Patient and/or family updated on plan of care and expected duration. Pain level reassessed. Patient is alert, oriented x 3, equal unlabored respirations, skin warm/dry/pink. Vital Signs: 00:44 BP 131 / 71; Pulse 125; Resp 19 S; Temp 99.1(TE); Pulse Ox 99% on R/A; Weight 100.24 kg la4 (R); Height 5 ft. 6 in. (R); Pain 10/10; 01:33 BP 137 / 80; Pulse 116; Resp 18; Pulse Ox 97% on R/A; km8 02:00 BP 125 / 64; Pulse 115; Resp 20; Pulse Ox 98% on R/A; km8 03:00 BP 108 / 51; Pulse 108; Resp 20; Pulse Ox 94% on R/A; km8 03:30 BP 102 / 60; Pulse 105; Resp 16; Pulse Ox 95% on R/A; km8 04:00 BP 99 / 56; Pulse 102; Resp 16; Pulse Ox 95% on R/A; km8 04:30 Pulse 97; Resp 16; Pulse Ox 96% on R/A; km8 00:44 Body Mass Index 35.67 (100.24 kg, 167.64 cm) la4 00:44 Pain Scale: Adult la4 Romario Coma Score: 01:33 Eye Response: spontaneous(4). Motor Response: obeys commands(6). Verbal Response: km8 oriented(5). Total: 15. ED Course: 00:16 Patient arrived in ED. gm2 00:30 Giovanni Anders MD is Attending Physician. sp4 00:47 Triage completed. la4 00:47 Arm band placed on left wrist. la4 01:03 XRAY Chest (1 view) In Process Unspecified. EDMS 01:20 Inserted saline lock: 20 gauge in right antecubital area, using aseptic technique. km8 Blood collected. 01:32 Yanet Mayes, RN is Primary Nurse. km8 01:33 Patient has correct armband on for positive identification. Placed in gown. Bed in low km8 position. Call light in reach. Side rails up X2. Client placed on continuous cardiac and pulse oximetry monitoring. NIBP monitoring applied. Warm blanket given. 01:33 No provider procedures requiring assistance completed. Patient maintains SpO2 km8 saturation greater than 95% on room air. 04:36 Provided Education on: d/c teaching. km8 04:37 IV discontinued, intact, bleeding controlled, No redness/swelling at site. Pressure km8 dressing applied. Administered Medications: 01:32 Drug: NS 0.9% IV 1000 ml IV at 1 bolus Per protocol; 1000 mL bolus Route: IV; Rate: 1 km8 bolus; Site: right antecubital; 04:41 Follow up: IV Status: Completed infusion; IV Intake: 1000ml km8 01:32 Drug: NS 0.9% IV 1000 ml IV at 1 bolus Per protocol; 1000 mL bolus Route: IV; Rate: 1 km8 bolus; Site: right antecubital; 04:41 Follow up: IV Status: Completed infusion; IV Intake: 1000ml km8 01:32 Drug: Acetaminophen PO 1000 mg PO once Route: PO; km8 04:41 Follow up: Response: No adverse reaction km8 01:32 Drug: Ibuprofen PO 800 mg PO once Route: PO; km8 04:41 Follow up: Response: No adverse reaction km8 04:55 Not Given (Physician Discretion): [id number] mg PO once sp4 05:01 Drug: LevOfloxacin PO 500 mg PO once Route: PO; km8 05:02 Follow up: Response: Medication administered at discharge. km8 Medication: 01:33 VIS not applicable for this client. km8 Intake: 04:41 IV: 1000ml; Total: 1000ml. 8 04:41 IV: 1000ml; Total: 2000ml. km8 Outcome: 04:35 Discharge ordered by . sp4 05:01 Discharged to home ambulatory, km8 05:01 Condition: good 05:01 Discharge instructions given to patient, Instructed on discharge instructions, follow up and referral plans. medication usage, Demonstrated understanding of instructions, follow-up care, medications, Prescriptions given X 3, 05:02 Patient left the ED. km8 Signatures: Dispatcher [employer] EDMS Giovanni Anders MD MD sp4 Jessika Saab 2 Yanet Mayes RN RN km8 Romero Johnson RN RN la4
[2023-07-20 06:21] VITALS: TEMP 99.1
[2023-07-20 06:37] VITALS: BP 99/56; O2SAT 96
--- NOTE | 2023-07-21 11:10 | RAD REPORT ---
EXAM DESCRIPTION: RAD - Chest Single View - 07/20/2023 1:01 am CLINICAL HISTORY: The patient is 38 years old and is Female; CHEST PAIN TECHNIQUE: Frontal view of the chest. COMPARISON: No relevant prior studies available. FINDINGS: LUNGS: Unremarkable. No consolidation. PLEURAL SPACE: Unremarkable. No pneumothorax. HEART: Unremarkable. No cardiomegaly. MEDIASTINUM: Unremarkable. Normal mediastinal contour. BONES/JOINTS: Unremarkable. No acute fracture. UPPER ABDOMEN: Unremarkable as visualized. IMPRESSION: No acute cardiopulmonary process. Electronically signed by: Judith Ramos MD 07/20/2023 01:26 AM LAST MODEL DEPARTMENT SUPERVISOR Due to temporary technical issues with the PACS/Fluency reporting system, reports are being signed by the in house radiologists without review as a courtesy to insure prompt reporting. The interpreting radiologist is fully responsible for the content of the report
--- NOTE | 2023-07-21 17:01 | EKG ---
Test Date: 2023-07-20 Test Time: 01:20:09 Data Capture Clerk: CARMELO MEASUREMENT RESULTS: Intervals: Rate: 121 DE: 134 QRSD: 86 QT: 318 QTc: 451 [place]: P: 57 DE: 134 QRS: 59 T: 56 INTERPRETIVE STATEMENTS: Sinus tachycardia Otherwise normal ECG Compared to ECG 12/13/2022 01:27:07 No significant changes Electronically Signed On 07-21-23 16:56:31 HOMOGENIZER OPERATOR by Saul Sawyer
== END ==
LOC: ER 00:11
DX: B34.9 Viral infection, unspecified (principal); N39.0 Urinary tract infection, site not specified; R00.0 Tachycardia, unspecified; R50.9 Fever, unspecified; F17.210 Nicotine dependence, cigarettes, uncomplicated; Z85.3 Personal history of malignant neoplasm of breast; Z90.13 Acquired absence of bilateral breasts and nipples; Z28.310 Unvaccinated for COVID-19; Z88.1 Allergy status to other antibiotic agents; Z88.5 Allergy status to narcotic agent
CPT/HCPCS: 96361; 93005; 87088; 85025; 81001; 87086; 80048; 36415; 83735; 85610; 80076; 87077; 87186; 84484; 83880; 71045; 96360; 99285; J7030